=== PATIENT | female | born 1975 | race Caucasian/White ===

== ENCOUNTER 2022-03-21 11:07 | Inpatient (IN) | payer MEDICAID, SELFPAY ==
[2022-03-21] VITALS (13 sets, daily range): BP systolic 119–196; BP diastolic 67–119; PULSE 94–110; RESP 16–20; TEMP 36.3–37.3; O2SAT 94–100; BMI 36.9; BMI 30.6
--- NOTE | 2022-03-21 11:42 | XR_ITS ---
PROCEDURE INFORMATION: Exam: XR Right Femur Exam date and time: 03/21/2022 12:30 PM Age: 46 years old Clinical indication: Pain; Thigh; Right; Additional info: Groin and thigh pain. Severe pain best images possible TECHNIQUE: Imaging protocol: Radiologic exam of the Right femur. Views: 2 views. COMPARISON: No relevant prior studies available. FINDINGS: Bones/joints: No acute fracture or dislocation. There are no lytic skeletal lesions seen. Mild arthritis at the right hip joint, with joint space narrowing, slight femur head spurring, and acetabular sclerosis. Soft tissues: Subcutaneous soft tissue edema in the thigh. No soft tissue emphysema. No radiopaque foreign bodies. No pathologic soft tissue calcification. IMPRESSION: 1. No acute fracture, dislocation or lytic lesions. 2. Mild right hip arthritis. 3. Subcutaneous soft tissue edema in the thigh.
--- NOTE | 2022-03-21 11:46 | HMH.EDGENADL ---
Discharge Plan Disposition Patient Disposition: Admitted as Observation Condition: Fair Chief Complaint: Extremity Problem,Nontraumatic Prescriptions Prescriptions: No Action No Known Home Medications Referrals Follow up/Referrals: Ira Obrien PA [Primary Care Provider] - See instructions Clinical Impressions Clinical Impression: Acute pain of right thigh, Acute hyperglycemia Discharge ED Provider: Duran Mendez General Adult HPI General Chief complaint: Extremity Problem,Nontraumatic Stated complaint: pain in Rt leg Time Seen by Provider: 03/21/22 11:32 Mode of Arrival: Ambulatory Source of Information: Patient Limitations: No Limitations Description of Symptoms (Recalled from ER Triage Doc. by RN): pt to ed c/o right leg pain. pt reports the pain starts in her groin and radiates into her thigh. pt states this pain has been getting severe over the last 3 days. History of Present Illness HPI narrative: 3-day history of pain from her right groin down to her right knee. Denies any trauma or injury. No previous similar symptoms. States that her right leg was swollen but she elevated it and the swelling went away. She says that there was some redness of her right groin area. Denies fever. She says she has not had any back pain or back injury. She does have a prior history of sciatica, but this is different. No prior history of DVT. She has had previous MRSA infections and has scars in her right groin area. She says she had a red bump there for the past month that she suspected was an infection, but it has gotten better on its own, she says it never busted . States she is on no medications except for an asthma inhaler, no other chronic medical problems. States that she has a prior history of pain medication addiction 9 or 10 years ago. States she has not used any since then. 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 Related Data Home Medications Medication Instructions Recorded Confirmed No Known Home Medications 03/21/22 03/21/22 Allergies Allergy/AdvReac Type Severity Reaction Status Date / Time levofloxacin [From Levaquin] Allergy Verified 03/21/22 11:24 zolpidem [From Ambien] Allergy Verified 03/21/22 11:24 PFSH PFSH Social History Smoking Status: Never smoker ROS Obtained: Yes Systems reviewed as appropriate & no additional complaints except as documented Constitutional Constitutional: Denies fever(s) and Denies weakness Cardiovascular Cardiovascular: Denies chest pain Respiratory Respiratory: Denies shortness of breath Musculoskeletal Musculoskeletal: Reports as per HPI, Denies back pain and Denies numbness Integumentary/Breasts Skin/Breast: Reports as per HPI Neurologic Neurologic: Denies numbness and Denies weakness Physical Exam General General appearance: alert and anxious (tearful) ENT ENT exam: Present mucous membranes moist Neck Neck exam: Present normal inspection and trachea midline Chest Chest inspection: Present normal inspection and symmetric chest wall rise Respiratory Respiratory exam: Present normal lung sounds bilaterally; Absent respiratory distress Cardiovascular Cardiovascular exam: Present regular rate and normal rhythm Abdominal Exam Abdominal exam: Present soft; Absent tenderness Expanded Lower Extremity Exam Right: Comment: Tenderness of her entire right thigh. No edema or erythema noted. No vascular distention. No cords. She has scars in her right groin from apparent previous incisions and drainage. There is a small 2 cm area of erythema in the right groin which does appear to possibly be a resolving abscess. It is not fluctuant. There is no surrounding cellulitis. No masses of the joint. Normal femoral pulses. Normal pedal pulses. Normal warmth, capillary refill, sensation. Back Exam Back exam: Absent CVA tenderness (R), CVA ten
--- NOTE | 2022-03-21 12:14 | PC.NURSE ---
IV attempt unsuccessful. Candelario at the bedside for attempt
--- NOTE | 2022-03-21 13:05 | CT_ITS ---
PROCEDURE INFORMATION: Exam: CT Right Lower Extremity With Contrast; Thigh Exam date and time: 03/21/2022 3:17 PM Age: 46 years old Clinical indication: Pain; Thigh; Right; Additional info: Severe pain in right thigh TECHNIQUE: Imaging protocol: CT of the Right lower extremity with intravenous contrast was performed. Exam focused on the thigh. Radiation optimization: All CT scans at this facility use at least one of these dose optimization techniques: automated exposure control; mA and/or kV adjustment per patient size (includes targeted exams where dose is matched to clinical indication); or iterative reconstruction. Contrast material: ISOVUE; Contrast volume: 75 ml; Contrast route: IV; COMPARISON: CR XR FEMUR RT 2V 03/21/2022 12:30 PM FINDINGS: Bones/joints: No acute fracture or dislocation. Degenerative arthritis at the right hip joint, with small spurs of the right femur head, mild degenerative cortical irregularity of the right acetabulum. Mild hip joint space narrowing. No significant bony arthritic deformities at the knee joint. Tiny sclerotic lesions in the medial femoral condyle are probably developmental bone islands, less likely would be blastic metastasis.There are no lytic skeletal lesions seen. Soft tissues: There is soft tissue edema in the right thigh, but no organized fluid collection or mass. No soft tissue emphysema.No radiopaque foreign bodies seen. Some small varices in the anterior lower pelvic wall. IMPRESSION: 1. Mild soft tissue edema in the right thigh; no loculated fluid collection or mass. 2. Femur is intact with no fracture or dislocation. 3. Mild arthritic changes at the right hip joint. 4. Additional nonemergency and chronic findings as above.
[2022-03-21 13:22] LABS: Basophils # 0.1 K/mm3 (0-0.2); Basophils % 0.4 % (0.1-2.0); Eosinophils # 0.1 K/mm3 (0.0-0.4); Eosinophils % 0.9 % (0.1-12.0); Hematocrit 44.3 % (37.0-47.0); Hemoglobin 13.6 g/dL (12.2-16.2); Lymphocytes # 3.2 K/mm3 (0.7-4.5); Lymphocytes % 22.7 % (10-50); Mean Corpuscular HGB Conc 30.6 g/dL (31.8-35.4); Mean Corpuscular Hemoglobin 27.7 pg (27.0-31.2); Mean Corpuscular Volume 90.4 fl (81-99); Mean Platelet Volume 7.6 fl (7.4-10.4); Monocytes # 0.6 K/mm3 (0.1-1.0); Monocytes % 4.2 % (1.7-9.3); Neutrophils # 10.1 K/mm3 (1.8-7.8); Neutrophils % 71.8 % (37.0-80.0); Platelet Count 387 K/mm3 (142-424); Red Cell Distribution Width 13.7 % (11.5-17.5)
[2022-03-21 13:27] LABS: Alanine Aminotransferase 142 U/L (12-78); Albumin Level 3.9 g/dl (3.5-5.0); Albumin/Globulin Ratio 1.1 (1.1-1.8); Alkaline Phosphatase 184 U/L (38-126); Anion Gap 20.5 mEq/L (5-15); Aspartate Amino Transferase 70 U/L (14-36); Bilirubin,Total 0.6 mg/dl (0.2-1.3); Blood Urea Nitrogen 17 mg/dl (7-17); Calcium 9.6 mg/dl (8.4-10.2); Carbon Dioxide 23 mmol/L (22.0-30.0); Chloride 93 mmol/L (98-107); Creatinine Clearance Estimated 257 mL/min (50-200); Estimated Glomerular Filt Rate 134 ml/min (>60); GFR (African American) 162 ML/MIN (>60); Globulin 3.5 g/dL (1.3-3.2); Potassium 3.5 mmoL/L (3.5-5.1); Sodium 133 mmol/L (136-145); Total Protein,Serum 7.4 g/dl (6.3-8.2)
[2022-03-21 13:32] LABS: D-Dimer 0.72 ug/mL (0.0-0.5)
[2022-03-21 13:33] LABS: HCG Qualitative, Serum Negative (Negative)
[2022-03-21 13:34] LABS: Glucose 405 mg/dl (74-100)
--- NOTE | 2022-03-21 13:35 | PC.NURSE ---
notified ER of critical glucose
--- NOTE | 2022-03-21 13:36 | CT_ITS ---
PROCEDURE INFORMATION: Exam: CT Pelvis With Contrast Exam date and time: 03/21/2022 3:05 PM Age: 46 years old Clinical indication: Pain; Other: Groin and thigh; Additional info: Right groin and thigh pain TECHNIQUE: Imaging protocol: Computed tomography of the pelvis with contrast. Radiation optimization: All CT scans at this facility use at least one of these dose optimization techniques: automated exposure control; mA and/or kV adjustment per patient size (includes targeted exams where dose is matched to clinical indication); or iterative reconstruction. Contrast material: ISOVUE; Contrast volume: 75 ml; Contrast route: IV; COMPARISON: CR XR FEMUR RT 2V 03/21/2022 12:30 PM FINDINGS: Stomach and bowel: Visualized small bowel and colon are unremarkable. There is no evidence of intestinal perforation or obstruction. Appendix: No evidence of appendicitis. Intraperitoneal space: Unremarkable. No free air. No significant fluid collection. Lymph nodes: No significantly enlarged intra-pelvic lymph nodes by short axis criteria. A few minimally prominent inguinal lymph nodes bilaterally which are a common finding, likely reactive. Urinary bladder: Normal. No calcified stones or wall thickening as visualized; the urinary bladder is not yet opacified with excreted contrast on this single phase exam. Reproductive: Unremarkable for age. Bones/joints: No acute fracture. No dislocation. Mild arthritic changes at the hip joints with small femur head spurs, superior joint space narrowing, minimal degenerative changes of the acetabula. There is bilateral sacroiliitis with periarticular sclerosis and spurring greatest along the inferior margin of the joints. There are degenerative changes in the lower lumbar spine, with bilateral L5 spondylolysis, grade 1 anterolisthesis L5-S1, associated disc disease and spondylosis. L5 foramina appear moderately severely narrowed, correlate for radiculopathy.There are no lytic skeletal lesions seen. Soft tissues: There are no soft tissue masses or fluid collections. No inguinal hernia to explain groin pain. IMPRESSION: 1. No acute fracture or dislocation. Mild bilateral hip arthritis and sacroiliitis. 2. Chronic-appearing bilateral L5 spondylolysis with grade 1 anterolisthesis L5-S1, prominent degenerative disc disease and spondylosis, moderately severe bilateral L5 foraminal stenoses with nerve impingement. Correlate for radiculopathy. 3. No acute findings in the soft tissues to explain right groin pain; no hernia, hematoma or mass. 4. No free fluid, free air, or visceral injury as visualized. 5. Additional nonemergency and chronic findings as above.
--- NOTE | 2022-03-21 13:38 | PC.NURSE ---
notified lab of new orders, notified RT of vbg order notified Rad of new order
[2022-03-21 13:42] LABS: Acetone, Serum (Rapid) None Detected (None Detect)
[2022-03-21 13:54] LABS: VBG Oxygen Saturation 98.7 % (50-70); VBG PCO2 37.4 mmol/L (35-51); VBG PH 7.39 mmol/L (7.31-7.41); VBG PO2 128.6 mmol/L (28-40); VBG Total CO2 23.1 mmol/L (23-27)
--- NOTE | 2022-03-21 14:04 | PC.NURSE ---
at the bedside
--- NOTE | 2022-03-21 14:08 | PC.NURSE ---
contacted RT to check to see if vascular lab staff can come in to do a venous doppler on pt today. States she will call staff and call me back
--- NOTE | 2022-03-21 14:15 | PC.NURSE ---
verbal order for IV pain medication
--- NOTE | 2022-03-21 14:24 | CA_ITS ---
FINAL REPORT TECHNIQUE: Multiple transverse and longitudinal images were performed of right the femoral-popliteal deep venous system with augmentation and compression maneuvers. CLINICAL HISTORY: severe pain right groin and thigh. Patient denies trauma. Pain in right groin and thigh began 3 days ago. She is unable to lay down or hold still due to pain. Nurse assisted in scan but still was a very limited exam due to these limitations. Pain meds were administered with no assistance in exam toleration. FINDINGS: Right common femoral vein, femoral vein, popliteal vein and greater saphenous vein are patent. IMPRESSION: No evidence of right lower extremity DVT. Reviewed, Interpreted and Dictated by Caro Newman MD Transcribed by Digna Cobb Authenticated and [facility]
--- NOTE | 2022-03-21 14:27 | PC.NURSE ---
per RT, vascular lab staff is on their way in for doppler on pt, ER notified
--- NOTE | 2022-03-21 14:28 | PC.NURSE ---
pt to CT
--- NOTE | 2022-03-21 15:39 | PC.NURSE ---
vascular at the bedside
--- NOTE | 2022-03-21 16:16 | PC.NURSE ---
pt in bed at this time assisted pt to help reposition in bed for comfort, pt has blanket in between knees and under knees, pt is currently trying to lay on her side.
--- NOTE | 2022-03-21 17:49 | PC.NURSE ---
INDERJIT DEY speaking with dr. perez (hospitalist)
[2022-03-21 17:51] LABS: Lactic Acid 1.5 mmol/L (0.7-2.1)
--- NOTE | 2022-03-21 17:57 | PC.NURSE ---
dr. perez (hospitalist) at BS
--- NOTE | 2022-03-21 17:58 | PC.NURSE ---
notified powerhouse electrician of admission
--- NOTE | 2022-03-21 18:05 | PC.NURSE ---
Pt assigned to bed 213
[2022-03-21 18:14] LABS: Influenza A, PCR Not Detected (NotDetected); Influenza B, PCR Not Detected (NotDetected)
--- NOTE | 2022-03-21 18:30 | PC.NURSE ---
report called to danita you on the floor
--- NOTE | 2022-03-21 18:57 | EXP.HP ---
History of Present Illness *Admission Date: 03/21/22 *Reason for visit:: Leg pain *History of present illness: Patient is 46-year-old female who presents emergency department today for leg pain of 3 days duration. Patient states that approximately 3 days ago she began having pain in her right medial thigh. The pain extends from just above the right inguinal ligament along the medial thigh to the right medial knee. States that the pain has been progressively worsening for the last 3 days and this morning was unbearable and extremely painful. She reports erythema and swelling of this area and both decrease when she props her legs up above her on a pillow. Patient is a IV drug user and was prescribed Suboxone. She was reluctant to reveal that she has been injecting her Suboxone in the last few weeks into her right thigh along the area that hurts. That is her preferred injection site states last IV drug use in the site was a few weeks ago. Denies fevers denies chills denies neck PFSH PFSH Social History Smoking Status: Never smoker alcohol intake: former current occupational status: other Travel in the last 8 weeks: None Review of Systems Review of Systems Review of systems:: pertinent systems reviewed and negative unless documented below Constitutional Constitutional: Reports system reviewed and no additional complaints, except as documented and Denies weakness Eyes Eyes: Reports system reviewed and no additional complaints, except as documented ENT Ears, Nose, Mouth, and Throat: Reports system reviewed and no additional complaints, except as documented *Cardiovascular Cardiovascular: Reports system reviewed and no additional complaints, except as documented *Respiratory Respiratory: Reports system reviewed and no additional complaints, except as documented *Gastrointestinal Gastrointestinal: Reports system reviewed and no additional complaints, except as documented *Genitourinary Genitourinary: Reports system reviewed and no additional complaints, except as documented *Musculoskeletal Musculoskeletal: Reports system reviewed and no additional complaints, except as documented and Denies numbness Integumentary/Breasts Skin/Breast: Reports system reviewed and no additional complaints, except as documented *Neurologic Neurologic: Reports system reviewed and no additional complaints, except as documented, Denies numbness and Denies weakness Psychiatric Psychiatric: Reports system reviewed and no additional complaints, except as documented Endocrine Endocrine: Reports system reviewed and no additional complaints, except as documented Hematologic/Lymphatic Hematologic/Lymphatic: Reports system reviewed and no additional complaints, except as documented Meds Home Medications and Allergies Home Medications Medication Instructions Recorded Confirmed Type No Known Home Medications 03/21/22 03/21/22 History New Prescriptions to Start Prescriptions: Allergies Allergy/AdvReac Type Severity Reaction Status Date / Time levofloxacin [From Levaquin] Allergy Verified 03/21/22 11:24 zolpidem [From Ambien] Allergy Verified 03/21/22 11:24 Exam Data for Last 24 hours Vital signs and Labs for Last 24 Hours: Temp Pulse Resp BP Pulse Ox 97.4 F L 100 H 20 147/83 H 99 03/21/22 11:19 03/21/22 18:31 03/21/22 18:31 03/21/22 18:31 03/21/22 18:31 Laboratory Results - last 24 hr 03/21/22 13:02: WBC 14.0 H, RBC 4.90, Hgb 13.6, Hct 44.3, MCV 90.4, MCH 27.7, MCHC 30.6 L, RDW 13.7, Plt Count 387, MPV 7.6, Neut % (Auto) 71.8, Lymph % (Auto) 22.7, [place] % (Auto) 4.2, Eos % (Auto) 0.9, Baso % (Auto) 0.4, Neut # (Auto) 10.1 H, Lymph # (Auto) 3.2, [place] # (Auto) 0.6, Eos # (Auto) 0.1, Baso # (Auto) 0.1 03/21/22 13:02: D-Dimer 0.72 H 03/21/22 13:02: Sodium 133 L, Potassium 3.5, Chloride 93 L, Carbon Dioxide 23, Anion Gap 20.5 H, BUN 17, Creatinine 0.50 L, Estimated Creat Cl
[2022-03-21 19:01] LABS: C-Reactive Protein 57.5 mg/L (0-4)
[2022-03-21 19:07] LABS: Erythrocyte Sedimentation Rate 22 mm/hr (0-20)
[2022-03-21 19:26] LABS: Coronavirus 19, PCR Detected (NotDetected)
--- NOTE | 2022-03-21 19:31 | PC.NURSE ---
Cultures and lactic drawn and sent to lab
[2022-03-21 19:32] LABS: Barbiturates Screen,Urine Negative ng/ml (<200); Benzodiazepines Screen,Urine Negative ng/ml (<200)
[2022-03-21 19:34] LABS: Cannabinoid Screen,Urine Positive ng/ml (<50); Cocaine Screen,Urine Negative ng/ml (<300)
[2022-03-21 19:35] LABS: Methadone Screen,Urine Negative ng/ml (<300)
[2022-03-21 19:36] LABS: Opiate Screen,Urine Positive ng/ml (<300); Phencyclidine Screen,Urine Negative ng/ml (<25)
[2022-03-21 19:45] LABS: Creatine Kinase 68 U/L (30-135)
--- NOTE | 2022-03-21 19:45 | PC.NURSE ---
called [facility] at this time to verify vanc consult and dose, Filipe stated he would put in the correct order
[2022-03-21 19:53] LABS: Amphetamine/Metha Screen,Urine Positive ng/ml (<1000)
--- NOTE | 2022-03-21 19:55 | PC.NURSE ---
Pt arrived to floor via wheelchair @ 1952
[2022-03-21 19:58] LABS: INR 0.91 (0.9-1.1); Prothrombin Time 9.9 seconds (10.1-12.5)
[2022-03-21 20:38] LABS: Microscopic, Urine URINE MICROSCOPIC (MICROSCOPIC)
[2022-03-21 20:43] LABS: Appearance,Urine CLEAR (Clear); Bilirubin,Urine Negative (Negative); Blood, Urine Negative (Negative); Color,Urine YELLOW (Yellow); Glucose,Urine (UA) 2+ (Negative); Ketones,Urine 1+ (Negative); Leukocyte Esterase,Urine Negative (Negative); Nitrate,Urine Negative (Negative); PH,Urine 5.5 (5.0-8.5); Protein,Urine Negative (Negative); Specific Gravity, Urine 1.015 (1.005-1.030); Urobilinogen,Urine 0.2 EU/dl (0.2)
[2022-03-21 21:06] LABS: POC Glucose,Bedside 316 (70-110)
[2022-03-21 23:15] LABS: POC Glucose,Bedside 272 (70-110)
[2022-03-22] VITALS (9 sets, daily range): BP systolic 136–165; BP diastolic 69–89; PULSE 88–108; RESP 16–20; TEMP 36.7–38.2; O2SAT 95–100; BMI 30.6
[2022-03-22 05:27] LABS: POC Glucose,Bedside 285 (70-110)
--- NOTE | 2022-03-22 05:56 | PC.NURSE ---
pt has been restless this shift, has required PRN pain medications 4 times this shift, did have a temperature of 100.8 on 399 rounds, no complaints of SOA, remains on room air
[2022-03-22 06:50] LABS: POC Glucose,Bedside 269 (70-110)
--- NOTE | 2022-03-22 07:53 | EXP.PHA.CONS ---
Pharmacy Consult Date: 03/22/22 Time: 07:53 Referring provider: DR. Lorrie STEPHEN Reason for Consult:: VANCOMYCIN DOSING Allergies Allergy/AdvReac Type Severity Reaction Status Date / Time levofloxacin [From Levaquin] Allergy Verified 03/21/22 22:22 zolpidem [From Ambien] Allergy Verified 03/21/22 22:22 Home Medications Medication Instructions Recorded Confirmed Type No Known Home Medications 03/21/22 03/21/22 History New Prescriptions to Start Prescriptions: Height: 1.75 m Weight: 93.848 kg Laboratory Results:: Laboratory Results - last 24 hr 03/21/22 13:02: WBC 14.0 H, RBC 4.90, Hgb 13.6, Hct 44.3, MCV 90.4, MCH 27.7, MCHC 30.6 L, RDW 13.7, Plt Count 387, MPV 7.6, Neut % (Auto) 71.8, Lymph % (Auto) 22.7, [place] % (Auto) 4.2, Eos % (Auto) 0.9, Baso % (Auto) 0.4, Neut # (Auto) 10.1 H, Lymph # (Auto) 3.2, [place] # (Auto) 0.6, Eos # (Auto) 0.1, Baso # (Auto) 0.1 03/21/22 13:02: D-Dimer 0.72 H 03/21/22 13:02: Sodium 133 L, Potassium 3.5, Chloride 93 L, Carbon Dioxide 23, Anion Gap 20.5 H, BUN 17, Creatinine 0.50 L, Estimated Creat Clear 257, Estimated GFR 134, Est GFR ( Amer) 162, Glucose 405 H*, Calcium 9.6, Total Bilirubin 0.6, AST 70 H, ALT 142 H, Alkaline Phosphatase 184 H, Total Protein 7.4, Albumin 3.9, Globulin 3.5 H, Albumin/Globulin Ratio 1.1 03/21/22 13:02: Serum HCG, Qual Negative 03/21/22 13:02: Acetone Level None detected 03/21/22 13:02: ESR 22 H 03/21/22 13:02: C-Reactive Protein 57.5 H 03/21/22 13:02: PT 9.9 L, INR 0.91 03/21/22 13:02: Total Creatine Kinase 68 03/21/22 13:37: VBG pH 7.39, VBG pCO2 37.4, VBG pO2 128.6 H, VBG HCO3 22.0 L, VBG Total CO2 23.1, VBG O2 Saturation 98.7 H, VBG Base Excess -3.0 L 03/21/22 17:22: Lactate 1.5 03/21/22 17:56: SARS-CoV-2 (PCR) Detected A, Influenza A Untype (PCR) Not detected, Influenza Type B (PCR) Not detected 03/21/22 19:15: Urine Opiates Screen Positive H, Urine Methadone Screen Negative, Ur Barbituates Screen Negative, Ur Phencyclidine Scrn Negative, Ur Amphetamines Screen Positive H, U Benzodiazepines Scrn Negative, Urine Cocaine Screen Negative, U Marijuana (THC) Screen Positive H 03/21/22 19:15: Urine Color Yellow, Urine Appearance Clear, Urine pH 5.5, Ur Specific [place] 1.015, Urine Protein Negative, Urine Glucose (UA) 2+, Urine Ketones 1+, Urine Blood Negative, Urine Nitrate Negative, Urine Bilirubin Negative, Urine Urobilinogen 0.2, Ur Leukocyte Esterase Negative, Urine WBC 3-5, Ur Squamous Epith Cells 3-5, Urine Bacteria None 03/21/22 20:56: POC Glucose 316 H* 03/21/22 23:08: POC Glucose 272 H 03/22/22 05:20: POC Glucose 285 H 03/22/22 06:43: POC Glucose 269 H Medical History: Medical History (Updated 03/21/22 @ 22:26 by Laurel Ulloa RN) Asthma Assessment and Plan Assessment and plan all Dx Assessment and Plan for all problems:: Pharmacokinetic dosing service Objective: Patient: Floor: Age: 46 yo Serum creatinine: 0.50 mg/dL Height: 68.9 Inches Weight (kg): 93.8 Assessment: IBW (kg): 65.97 Dosing wt(kg): 93.8 Estimated Creatinine clearance (ml/min): 130 Clearance limited to 130 ml/min to reduce risk of overdosing. CRCL method: Cockcroft and Gault using ibw(default). Drug selected: Vancomycin Loading dose (mg): Vd (liters): 70.3 (factor used: 0.75 L/kg) Jensen (hr-1): 0.112 Half life (hrs): 6.19 CLvanco=?? 7.874 L/hr Recommended dose: 2000 mg Interval: 12 hrs Infusion time (hrs): 2.0 Predicted peak (mcg/mL): 34.5 Predicted trough (mcg/mL): 11.26 Total body weight is being used for vancomycin dosing. Recommendations: Give Vancomycin 2000 mg q 12 hrs with an expected Cpeak of 34.5 mcg/ml and an expected Ctrough of 11.26 mcg/ml AUC 0-24 /BLADE Data: BLADE 0.5 mcg/mL:?? AUC/BLADE:? 1016.0 BLADE 1.0 m
--- NOTE | 2022-03-22 11:30 | EXP.ACUTE.PN ---
Subjective *Date: 03/22/22 *Time: 11:30 Interval history: No issues overnight. Having trouble with IVs and lab draws due to bad veins. Patient is pretty open about her IV drug use with me, although hesitant with others. Leg pain has significantly improved with Toradol. Patient understands that her Suboxone usage is what is contributing to the opioid lack of affect discussed needing access. Patient understands Medical Exam Vital signs and Labs for Last 24 Hours: Vital Signs Temp Pulse Pulse Resp BP BP Pulse Ox 03/22/22 08:00 100.1 F H 108 H 16 136/72 95 03/22/22 06:18 100.1 F H 03/22/22 04:00 100.7 F H 108 H 20 165/89 H 100 03/22/22 00:00 98.9 F 88 20 154/82 H 99 03/21/22 20:05 99.2 F 98 H 20 151/83 H 94 L 03/21/22 20:00 100 03/21/22 19:50 97.4 F L 99 H 18 146/78 H 03/21/22 18:31 100 H 20 147/83 H 99 03/21/22 17:34 108 H 18 136/81 99 03/21/22 16:30 95 H 20 145/75 H 95 03/21/22 14:11 99 H 16 139/117 H 98 03/21/22 14:00 110 H 16 140/80 98 03/21/22 13:45 95 H 18 126/73 97 03/21/22 13:19 95 H 18 119/67 98 03/21/22 11:31 94 H 159/94 H 96 Intake and Output 03/21/22 03/22/22 03/22/22 23:59 07:59 15:59 Intake Total 750 / 750 Output Total 400 / 400 250 / 250 0 / 250 Balance -400 / -400 500 / 500 0 / 500 Intake: Intake, Total IV Amount 750 / 750 Cefepime HCl 1 gm In 0.9 % 50 / 50 Sodium Chloride 50 ml @ 100 mls /hr IV Q12H BARBARA Rx#:[id number] Metronidaz/Sod Chl 500 mg In 200 / 200 100 ml @ 100 mls/hr IV Q8H BARBARA Rx#:[id number] Vancomycin HCl 2,000 mg In 0.9 500 / 500 % Sodium Chloride 500 ml @ 250 mls/hr IV ONCE ONE Rx#:[id number] Output: Output, Urine Amount 400 / 400 250 / 250 0 / 250 Other: Number of Unmeasured Voids 1 Weight 93.803 kg 93.848 kg Patient Weight 03/22/22 23:59 Weight 93.848 kg Laboratory Results - last 24 hr 03/21/22 13:02: WBC 14.0 H, RBC 4.90, Hgb 13.6, Hct 44.3, MCV 90.4, MCH 27.7, MCHC 30.6 L, RDW 13.7, Plt Count 387, MPV 7.6, Neut % (Auto) 71.8, Lymph % (Auto) 22.7, [place] % (Auto) 4.2, Eos % (Auto) 0.9, Baso % (Auto) 0.4, Neut # (Auto) 10.1 H, Lymph # (Auto) 3.2, [place] # (Auto) 0.6, Eos # (Auto) 0.1, Baso # (Auto) 0.1 03/21/22 13:02: D-Dimer 0.72 H 03/21/22 13:02: Sodium 133 L, Potassium 3.5, Chloride 93 L, Carbon Dioxide 23, Anion Gap 20.5 H, BUN 17, Creatinine 0.50 L, Estimated Creat Clear 257, Estimated GFR 134, Est GFR ( Amer) 162, Glucose 405 H*, Calcium 9.6, Total Bilirubin 0.6, AST 70 H, ALT 142 H, Alkaline Phosphatase 184 H, Total Protein 7.4, Albumin 3.9, Globulin 3.5 H, Albumin/Globulin Ratio 1.1 03/21/22 13:02: Serum HCG, Qual Negative 03/21/22 13:02: Acetone Level None detected 03/21/22 13:02: ESR 22 H 03/21/22 13:02: C-Reactive Protein 57.5 H 03/21/22 13:02: PT 9.9 L, INR 0.91 03/21/22 13:02: Total Creatine Kinase 68 03/21/22 13:37: VBG pH 7.39, VBG pCO2 37.4, VBG pO2 128.6 H, VBG HCO3 22.0 L, VBG Total CO2 23.1, VBG O2 Saturation 98.7 H, VBG Base Excess -3.0 L 03/21/22 17:22: Lactate 1.5 03/21/22 17:56: SARS-CoV-2 (PCR) Detected A, Influenza A Untype (PCR) Not detected, Influenza Type B (PCR) Not detected 03/21/22 19:15: Urine Opiates Screen Positive H, Urine Methadone Screen Negative, Ur Barbituates Screen Negative, Ur Phencyclidine Scrn Negative, Ur Amphetamines Screen Positive H, U Benzodiazepines Scrn Negative, Urine Cocaine Screen Negative, U Marijuana (THC) Screen Positive H 03/21/22 19:15: Urine Color Yellow, Urine Appearance Clear, Urine pH 5.5, Ur Specific [place] 1.015, Urine Protein Negative, Urine Glucose (UA) 2+, Urine Ketones 1+, Urine Blood Negative, Urine Nitrate Negative, Urine Bilirubin Negative, Urine Urobilinogen 0.2, Ur Leukocyte Esterase Negative, Urine WBC 3-5, Ur Squamous Epith Cells 3-5, Urine Bacteria None 03/21/22 20:56: POC Glucose 316 H* 03/21/22 23:08: POC Glucose 272
[2022-03-22 12:19] LABS: POC Glucose,Bedside 332 (70-110)
[2022-03-22 16:36] LABS: Basophils % 0.3 % (0.1-2.0); Eosinophils # 0.2 K/mm3 (0.0-0.4); Eosinophils % 1.2 % (0.1-12.0); Hematocrit 40.8 % (37.0-47.0); Hemoglobin 13.2 g/dL (12.2-16.2); Lymphocytes # 1.2 K/mm3 (0.7-4.5); Lymphocytes % 7.7 % (10-50); Mean Corpuscular HGB Conc 32.3 g/dL (31.8-35.4); Mean Corpuscular Hemoglobin 28.1 pg (27.0-31.2); Mean Corpuscular Volume 87.2 fl (81-99); Mean Platelet Volume 7.8 fl (7.4-10.4); Monocytes # 0.7 K/mm3 (0.1-1.0); Monocytes % 4.2 % (1.7-9.3); Neutrophils # 13.7 K/mm3 (1.8-7.8); Neutrophils % 86.7 % (37.0-80.0); Platelet Count 356 K/mm3 (142-424); Red Blood Count 4.68 M/mm3 (4.20-5.40); White Blood Count 15.8 K/mm3 (4.8-10.8)
[2022-03-22 16:40] LABS: MANUAL DIFFERENTIAL MANUAL DIFFERENTIAL (MANUAL DIFF)
[2022-03-22 16:49] LABS: Chloride 97 mmol/L (98-107); Potassium 3.9 mmoL/L (3.5-5.1); Sodium 132 mmol/L (136-145)
[2022-03-22 16:51] LABS: Alanine Aminotransferase 96 U/L (12-78); Aspartate Amino Transferase 58 U/L (14-36); Blood Urea Nitrogen 14 mg/dl (7-17); Creatinine Clearance Estimated 266 mL/min (50-200); Estimated Glomerular Filt Rate 173 ml/min (>60); GFR (African American) 210 ML/MIN (>60)
[2022-03-22 16:52] LABS: Albumin Level 3.1 g/dl (3.5-5.0); Albumin/Globulin Ratio 1.1 (1.1-1.8); Alkaline Phosphatase 134 U/L (38-126); Anion Gap 10.9 mEq/L (5-15); Bilirubin,Total 0.5 mg/dl (0.2-1.3); Calcium 9.1 mg/dl (8.4-10.2); Carbon Dioxide 28 mmol/L (22.0-30.0); Chol/HDL Ratio 3.3 (1-3.5); Cholesterol 141 mg/dl (140-200); Globulin 2.9 g/dL (1.3-3.2); Glucose 313 mg/dl (74-100); HDL Cholesterol 43 mg/dl (40-60); Magnesium 1.7 mg/dl (1.6-2.3); Phosphorous 2.9 mg/dl (2.5-4.5); Triglycerides 78 mg/dl (30-150); VLDL Cholesterol 16 mg/dL (0-40)
[2022-03-22 17:03] LABS: Direct LDL Cholesterol 73.17 mg/dL (100-129)
--- NOTE | 2022-03-22 17:06 | PC.NURSE ---
PT IS SITTING UP IN THE CHAIR. ALERT AND ORIENTED X4. PT HAS BEEN MEDICATED PER MAR FOR RIGHT THIGH PAIN. PT STATES TORADOL HAS WORKED THE BEST FOR HER PAIN. PT HAS REDNESS/TENDERNESS/WARMTH NOTED TO THE RLE. PALPABLE PEDAL PULSES. LUNG SOUNDS CLEAR. ABDOMEN SOFT NON TENDER WITH ACTIVE BOWEL SOUNDS. PT IS A 1 ASSIST TO GET UP TO THE BSC. BATH AND LINEN CHANGE THIS SHIFT. WILL CONTINUE TO MONITOR.
[2022-03-22 17:12] LABS: Hemoglobin A1C > 14.0 % (4.0-6.0)
[2022-03-22 17:21] LABS: Lymphocytes % 15 % (10-50); Monocytes % 2 % (2-9); Neutrophils % 73 % (42-76); Platelet Estimate Normal; RBC Morphology Normal; Rouleaux 1+; Total Cells Counted 100; Toxic Granulation 2+
[2022-03-22 19:38] LABS: POC Glucose,Bedside 331 (70-110)
[2022-03-23 01:01] LABS: POC Glucose,Bedside 230 (70-110)
[2022-03-23 04:00] VITALS: BP 144/80; PULSE 87; RESP 16; TEMP 36.9; O2SAT 97
[2022-03-23 05:00] VITALS: BMI 30.4
--- NOTE | 2022-03-23 05:45 | PC.NURSE ---
Addendum entered by Laurel Ulloa RN 03/23/22 05:51: has remained afebrile Original Note: pt has rested better this shift, has required PRN pain medications 2X so far, remains on room air, has been tachy with heart rates 101-103, no complaints of SOA, warmth noted to right thigh
[2022-03-23 06:35] LABS: POC Glucose,Bedside 211 (70-110)
[2022-03-23 07:14] LABS: Basophils % 0.2 % (0.1-2.0); Eosinophils % 0.2 % (0.1-12.0); Hematocrit 36.9 % (37.0-47.0); Hemoglobin 12.1 g/dL (12.2-16.2); Lymphocytes # 1.8 K/mm3 (0.7-4.5); Lymphocytes % 12.3 % (10-50); Mean Corpuscular HGB Conc 32.9 g/dL (31.8-35.4); Mean Corpuscular Hemoglobin 28.3 pg (27.0-31.2); Mean Corpuscular Volume 86.1 fl (81-99); Mean Platelet Volume 8.6 fl (7.4-10.4); Monocytes # 0.8 K/mm3 (0.1-1.0); Monocytes % 5.7 % (1.7-9.3); Neutrophils # 11.7 K/mm3 (1.8-7.8); Neutrophils % 81.6 % (37.0-80.0); Platelet Count 360 K/mm3 (142-424); Red Blood Count 4.28 M/mm3 (4.20-5.40); Red Cell Distribution Width 14.2 % (11.5-17.5); White Blood Count 14.3 K/mm3 (4.8-10.8)
[2022-03-23 07:27] LABS: Alanine Aminotransferase 88 U/L (12-78); Albumin Level 3.1 g/dl (3.5-5.0); Alkaline Phosphatase 141 U/L (38-126); Anion Gap 16.1 mEq/L (5-15); Aspartate Amino Transferase 79 U/L (14-36); Bilirubin,Total 0.5 mg/dl (0.2-1.3); Blood Urea Nitrogen 19 mg/dl (7-17); Calcium 8.8 mg/dl (8.4-10.2); Carbon Dioxide 26 mmol/L (22.0-30.0); Chloride 94 mmol/L (98-107); Creatinine Clearance Estimated 264 mL/min (50-200); Estimated Glomerular Filt Rate 173 ml/min (>60); GFR (African American) 210 ML/MIN (>60); Globulin 3.2 g/dL (1.3-3.2); Glucose 213 mg/dl (74-100); Magnesium 1.6 mg/dl (1.6-2.3); Potassium 3.1 mmoL/L (3.5-5.1); Sodium 133 mmol/L (136-145); Total Protein,Serum 6.3 g/dl (6.3-8.2)
[2022-03-23 08:00] VITALS: BP 143/72; PULSE 121; PULSE 95; RESP 18; TEMP 36.6; O2SAT 97; O2SAT 98
--- NOTE | 2022-03-23 08:00 | US_ITS ---
FINAL REPORT CLINICAL HISTORY: Transaminitis FINDINGS: ABDOMINAL ULTRASOUND COMPLETE: TECHNIQUE: Ultrasound images of the abdomen were obtained. FINDINGS: The liver is unremarkable. The gallbladder is normal. The common duct is normal. The pancreas is partially obscured. The right kidney measures 12.3 cm in length and is normal in echogenicity without hydronephrosis. The left kidney measures 11.8 cm in length and is normal in echogenicity without hydronephrosis. The spleen is unremarkable. The aorta is normal in caliber. The vena cava is unremarkable. IMPRESSION: Unremarkable ultrasound of the abdomen. Reviewed, Interpreted and Dictated by Caro Newman MD Transcribed by Kiran Marks Authenticated and . [facility]
--- NOTE | 2022-03-23 10:39 | PC.NURSE ---
awaiting vanc trough results before hanging vanc dose. pharmacy aware
[2022-03-23 10:55] LABS: Vancomycin,Trough 6.4 ug/mL (5.0-10.0)
--- NOTE | 2022-03-23 11:32 | EXP.PHA.CONS ---
Pharmacy Consult Date: 03/23/22 Time: 11:33 Referring provider: DR ALEX STEPHEN Reason for Consult:: VANCOMYCIN DOSE ADJUSTMENT FOR PK LEVEL Allergies Allergy/AdvReac Type Severity Reaction Status Date / Time levofloxacin [From Levaquin] Allergy Verified 03/21/22 22:22 zolpidem [From Ambien] Allergy Verified 03/21/22 22:22 Home Medications Medication Instructions Recorded Confirmed Type No Known Home Medications 03/21/22 03/21/22 History New Prescriptions to Start Prescriptions: Height: 1.75 m Weight: 93.043 kg Laboratory Results:: Laboratory Results - last 24 hr 03/22/22 12:11: POC Glucose 332 H* 03/22/22 16:25: WBC 15.8 H, RBC 4.68, Hgb 13.2, Hct 40.8, MCV 87.2, MCH 28.1, MCHC 32.3, RDW 14.0, Plt Count 356, MPV 7.8, Neut % (Auto) 86.7 H, Lymph % (Auto) 7.7 L, [place] % (Auto) 4.2, Eos % (Auto) 1.2, Baso % (Auto) 0.3, Neut # (Auto) 13.7 H, Lymph # (Auto) 1.2, [place] # (Auto) 0.7, Eos # (Auto) 0.2, Baso # (Auto) 0.0, Total Counted 100, Neutrophils % (Manual) 73, Band Neutrophils % 10.0 H, Lymphocytes % (Manual) 15, Monocytes % (Manual) 2, Toxic Granulation 2+, Platelet Estimate Normal, RBC Morphology Normal, Rouleaux 1+ 03/22/22 16:25: Sodium 132 L, Potassium 3.9, Chloride 97 L, Carbon Dioxide 28, Anion Gap 10.9, BUN 14, Creatinine 0.40 L, Estimated Creat Clear 266, Estimated GFR 173, Est GFR ( Amer) 210 D, Glucose 313 H, Calcium 9.1, Phosphorus 2.9, Magnesium 1.7, Total Bilirubin 0.5, AST 58 H, ALT 96 H D, Alkaline Phosphatase 134 H, Total Protein 6.0 L, Albumin 3.1 L D, Globulin 2.9, Albumin/Globulin Ratio 1.1, Triglycerides 78, Cholesterol 141, LDL Cholesterol Direct 73.17 L, VLDL Cholesterol 16, HDL Cholesterol 43, Cholesterol/HDL Ratio 3.3 03/22/22 16:25: Hemoglobin A1c > 14.0 H 03/22/22 19:31: POC Glucose 331 H* 03/23/22 00:50: POC Glucose 230 H 03/23/22 06:09: WBC 14.3 H, RBC 4.28, Hgb 12.1 L, Hct 36.9 L, MCV 86.1, MCH 28.3, MCHC 32.9, RDW 14.2, Plt Count 360, MPV 8.6, Neut % (Auto) 81.6 H, Lymph % (Auto) 12.3, [place] % (Auto) 5.7, Eos % (Auto) 0.2, Baso % (Auto) 0.2, Neut # (Auto) 11.7 H, Lymph # (Auto) 1.8, [place] # (Auto) 0.8, Eos # (Auto) 0.0, Baso # (Auto) 0.0 03/23/22 06:09: Sodium 133 L, Potassium 3.1 L D, Chloride 94 L, Carbon Dioxide 26, Anion Gap 16.1 H, BUN 19 H D, Creatinine 0.40 L, Estimated Creat Clear 264, Estimated GFR 173, Est GFR ( Amer) 210, Glucose 213 H D, Calcium 8.8, Phosphorus 3.0, Magnesium 1.6, Total Bilirubin 0.5, AST 79 H D, ALT 88 H, Alkaline Phosphatase 141 H, Total Protein 6.3, Albumin 3.1 L, Globulin 3.2, Albumin/Globulin Ratio 1.0 L 03/23/22 06:26: POC Glucose 211 H 03/23/22 10:18: Vancomycin Trough 6.4 Medical History: Medical History (Updated 03/21/22 @ 22:26 by Laurel Ulloa RN) Asthma Assessment and Plan Assessment and plan all Dx Assessment and Plan for all problems:: Pharmacokinetic dosing service Weight: 93.043 Kilograms Vancomycin single level analysis: Current dose being given: 2000 mg Current dosing interval: 12 hrs Current infusion time (hrs): 2 Single level Trough Data: Trough level obtained: 6.4 mcg/ml Timing of trough - # of hrs before next dose: 0.5 Hrs Desired peak: 35 mcg/ml Desired trough: 12.5 mcg/ml Diagnosis: SEPSIS Estimated PK Parameters: New rate constant (margaret): 0.153 hr-1 Half-life: 4.53 Hours Vd from levels: 65.13 Liters (0.7 L/kg) CLvanco=?? 9.965 L/hr Estimated New Dose and Interval Recommended dose: 1947.0 mg Recommended interval: 8.7 Hrs Recommendations: Give Vancomycin 1750 mg q 8 hrs. Infuse over 2 hrs Expected Cpeak: 32.8 mcg/mL Expected Ctrough: 13.1 mcg/mL AUC 0-24 /BLADE Data: BLADE 0.5 mcg/mL:?? AUC/BLADE:? 1053.7 BLADE 1.0 mcg/mL:?? AUC/BLADE:? 526.8 Thank you for the consult
[2022-03-23 12:00] VITALS: BP 141/87; PULSE 97; RESP 18; TEMP 36.8; O2SAT 97
[2022-03-23 13:57] LABS: POC Glucose,Bedside 333 (70-110)
[2022-03-23 17:10] LABS: POC Glucose,Bedside 208 (70-110)
--- NOTE | 2022-03-23 18:30 | EXP.ACUTE.PN ---
Subjective *Date: 03/23/22 *Time: 18:46 Interval history: No issues overnight. Leg pain improved. Discussed preliminary blood cultures and potential need for 6 weeks antibiotics pending evaluation of bacteremia. Discussed necessity for sobriety and assistance getting sober after discharge, patient is interested in pursuing. No other concerns or complaints. Medical Exam Vital signs and Labs for Last 24 Hours: Vital Signs Temp Pulse Resp BP Pulse Ox 03/23/22 12:00 98.2 F 97 H 18 141/87 H 97 03/23/22 08:00 121 H 97 03/23/22 08:00 98 F 95 H 18 143/72 H 98 03/23/22 04:00 98.5 F 87 16 144/80 H 97 03/22/22 23:36 98.0 F 103 H 20 143/76 H 97 03/22/22 20:00 101 H 96 03/22/22 19:33 98.4 F 101 H 19 136/70 96 Intake and Output 03/23/22 03/23/22 03/23/22 07:59 15:59 23:59 Intake Total 250 / 410 160 / 410 Output Total 200 / 200 Balance 250 / 210 -40 / 210 Intake: Intake, Oral Amount 160 / 160 Intake, Total IV Amount 250 / 250 Vancomycin HCl 2,000 mg In 0.9 250 / 250 % Sodium Chloride 500 ml @ 250 mls/hr IV ONCE ONE Rx#:[id number] Output: Output, Urine Amount 200 / 200 Other: Number of Voids 0 Weight 93.043 kg 93.043 kg Patient Weight 03/23/22 23:59 Weight 93.043 kg Laboratory Results - last 24 hr 03/22/22 19:31: POC Glucose 331 H* 03/23/22 00:50: POC Glucose 230 H 03/23/22 06:09: WBC 14.3 H, RBC 4.28, Hgb 12.1 L, Hct 36.9 L, MCV 86.1, MCH 28.3, MCHC 32.9, RDW 14.2, Plt Count 360, MPV 8.6, Neut % (Auto) 81.6 H, Lymph % (Auto) 12.3, [place] % (Auto) 5.7, Eos % (Auto) 0.2, Baso % (Auto) 0.2, Neut # (Auto) 11.7 H, Lymph # (Auto) 1.8, [place] # (Auto) 0.8, Eos # (Auto) 0.0, Baso # (Auto) 0.0 03/23/22 06:09: Sodium 133 L, Potassium 3.1 L D, Chloride 94 L, Carbon Dioxide 26, Anion Gap 16.1 H, BUN 19 H D, Creatinine 0.40 L, Estimated Creat Clear 264, Estimated GFR 173, Est GFR ( Amer) 210, Glucose 213 H D, Calcium 8.8, Phosphorus 3.0, Magnesium 1.6, Total Bilirubin 0.5, AST 79 H D, ALT 88 H, Alkaline Phosphatase 141 H, Total Protein 6.3, Albumin 3.1 L, Globulin 3.2, Albumin/Globulin Ratio 1.0 L 03/23/22 06:26: POC Glucose 211 H 03/23/22 10:18: Vancomycin Trough 6.4 03/23/22 13:44: POC Glucose 333 H* 03/23/22 17:00: POC Glucose 208 H I & O for Labs for Last 24 Hours: Intake & Output 03/20/22 03/21/22 03/22/22 03/23/22 23:59 23:59 23:59 23:59 Intake Total 1377 / 1377 410 / 410 Output Total 400 / 400 1950 / 1950 200 / 200 Balance -400 / -400 -573 / -573 210 / 210 Weight 93.803 kg 93.848 kg 93.043 kg Microbiology Reports for the Last 24 Hours: Microbiology 03/21/22 19:20 Blood Blood Culture - Preliminary Gram Positive Cocci 03/21/22 19:20 Blood Blood Culture - Preliminary 03/21/22 17:22 Blood Blood Culture - Preliminary Gram Positive Cocci 03/21/22 17:22 Blood Blood Culture - Preliminary Gram Positive Cocci Head: Present atraumatic and normocephalic Neck: Present normal inspection Respiratory: Present CTA bilaterally; Absent accessory muscle use Cardiac: Present Reg Rate and Rhythm and No Murmur GI: Present soft and tenderness Rectal (female): Present deferred (female): Present deferred Extremities: Present tenderness Comment:: Right medial lower extremity tenderness improved, erythema resolved, palpable nodules along great saphenous vein still remaining. Overall exam improved Skin: Present intact and dry; Absent cyanosis, erythema, lesions, rash or gangrene Assessment and Plan *Assessment and plan (1) Acute hyperglycemia: Status: Acute Category: Medical Code(s): R73.9 - Hyperglycemia, unspecified (2) Acute pain of right thigh: Status: Acute Category: Medical Code(s): M79.651 - Pain in right thigh (3) IVDU (intravenous drug user): Status: Acute Category: Social
[2022-03-23 19:31] VITALS: BP 139/75; PULSE 104; RESP 17; TEMP 36.9; O2SAT 99
[2022-03-23 20:00] VITALS: PULSE 104; O2SAT 99
[2022-03-23 23:52] VITALS: BP 155/76; PULSE 81; RESP 18; TEMP 37.1; O2SAT 99
[2022-03-24 01:08] LABS: POC Glucose,Bedside 241 (70-110)
[2022-03-24 03:54] VITALS: BP 147/86; PULSE 86; RESP 20; TEMP 36.8; O2SAT 96
--- NOTE | 2022-03-24 05:36 | PC.NURSE ---
pt has complained of pain 3x this shift and was treated per JUN, Hospitalist notified of d/c of toradol and the need for something for pain, 1x order for 600 mg motrin given and tylenol Q6 PRN, ice packs have been placed on right thigh intermittently, remains on room air with O2 sats 96-99%, HR 81-104, some inspiratory wheezing heard on auscultation, pt encouraged to get OOB as tolerated, no complaints of SOA
[2022-03-24 06:19] LABS: POC Glucose,Bedside 191 (70-110)
--- NOTE | 2022-03-24 07:53 | CA_ITS ---
APPROVED REPORT EXAM: Comprehensive 2D, Doppler, and color-flow Echocardiogram Flaker Tender: Giovana Duarte RCS, RVS Ht: 5 ft 7 in Wt: 205lbs BSA: 2.04 BP: 143/72 mmHg Rhythm: PVC's Indications: r/o endocarditis due to IVDA, Murmur, +Covid, Abcess of right groin Echo Enhancing Agent Indication: Rule Out Septal Defect Agent(s) / Amount(s) Used: Agitated Saline 10 cc Comments: Positive for ASD shunting 2D Dimensions Aortic Root 3.06 cm LA Volume 80.70 mL Left Atrium 3.29 cm LA Volume Index 38.60 mL/m2 (M/F) 16-34 LVOT 2.01 cm (M/F) 1.5-2.5 M-Mode Dimensions RVDd 2.98 cm (0.9-2.6) LA Diam 3.77 cm (1.9-4.0) LVDd 5.68 cm (3.5-5.7) Ao Diam 3.04 cm (2.0-3.7) LVDs 3.26 cm (3.5-5.7) IVSd 0.73 cm (0.6-1.1) PWd 0.81 cm (0.6-1.1) EF (Teich) 73.00% EPSs 0.36 cm FS 42.60% EDV (Teich) 158.80 mL TAPSE 1.84 (<1.7) ESV (Teich) 42.80 mL LV Diastology E Decel Time 173.00 (160-240 msec) E/A Ratio 1.23 MED E' 8.10 (< 7 cm/sec) MED A' 12.60 cm/s E'/MED E' Ratio 15.06 (>14) LAT E' 15.80 (<10 cm/sec) LAT A' 12.00 cm/s E/LAT E' Ratio 7.72 (>14) Pulm Vein s 51.00 cm/sec Aortic Valve LVOT Max 135.00 (70-110 cm/s) LVOT VTI 27.99 cm AoV Peak Dima. 157.00 (50-130 cm/s) AO Peak GR. 9.80 mmHg AO Mean GR. 4.90 (<5 mmHg) AO VTI 30.80 (18-25 cm) ROBERT (VTI) 2.88 (2.5-4.5 cm2) Mitral Valve MV A Velocity 99.00 (40-130 cm/s) E/A Ratio 1.23 MV Decel. Time 173.00 (160-240 ms) MV Mean Gr. 2.60 (<2mmHg) MV PHT 53.00 ms Pulmonary Valve PV Peak Velocity 142.00 (50-150 cm/s) [place] End VMAX 165.00 cm/s Tricuspid Valve TR P. Velocity 193.00 cm/s RAP Estimate 10.00 mmHg RVSP 24.90 mmHg Left Ventricle Left atrium is mildly enlarged the left ventricle is normal size estimate ejection fraction 55% with no regional wall motion abnormality, diastolic parameters are within normal range. Right Ventricle Right atrium and right ventricle are mildly enlarged with normal contractility. Atria The interatrial septum is mobile, agitated saline contrast study identifies right to left shunt, a transesophageal echocardiogram is recommended for further evaluation. Aortic Valve Aortic valve leaflets are minimally thickened there is no aortic stenosis aortic insufficiency. Mitral Valve Mitral valve grossly normal, there is trace mitral regurgitation. Tricuspid Valve Tricuspid valve grossly normal, there is trace tricuspid regurgitation, tricuspid regurgitation request is inadequate for calculation of the right ventricular systolic pressure. Pulmonic Valve Pulmonic valve is poorly visualized. Great Vessels Aortic root is normal size. Inferior vena cava is normal size with normal inspiratory collapse. Pericardium No significant pericardial effusion noted. Conclusion 1. Normal left ventricular size, estimated ejection fraction 55% with no regional wall motion abnormality, diastolic parameters or within normal range. 2. Mildly enlarged right ventricle with normal contractility. 3. Agitated saline contrast study identifies intracardiac shunt at atrial level, a transesophageal echocardiogram is recommended for further evaluation. 4. No significant pericardial effusion. 5. Inferior vena cava is normal size with normal inspiratory collapse. Electronically signed by : Tirso Cooley MD 03/24/2022 20:28:11
--- NOTE | 2022-03-24 07:58 | EXP.ACUTE.PN ---
Subjective *Date: 03/24/22 *Time: 18:39 Interval history: Continues to have right leg and hip pain today. Patient remains afebrile. Blood cultures returned positive for MRSA x3 bottles. Denies chest pain, shortness of breath, nausea or vomiting. No bowel movement in 5 days. Tolerating p.o. intake. Hemodynamically stable. Medical Exam Vital signs and Labs for Last 24 Hours: Vital Signs Temp Pulse Resp BP Pulse Ox 03/24/22 03:54 98.2 F 86 20 147/86 H 96 03/23/22 20:00 104 H 99 03/23/22 23:52 98.7 F 81 18 155/76 H 99 03/23/22 19:31 98.5 F 104 H 17 139/75 99 03/23/22 12:00 98.2 F 97 H 18 141/87 H 97 03/23/22 08:00 121 H 97 03/23/22 08:00 98 F 95 H 18 143/72 H 98 Intake and Output 03/23/22 03/23/22 03/24/22 15:59 23:59 07:59 Intake Total 160 / 650 240 / 650 700 / 700 Output Total 200 / 1400 1200 / 1400 Balance -40 / -750 -960 / -750 700 / 700 Intake: Intake, Oral Amount 160 / 400 240 / 400 Intake, Total IV Amount 700 / 700 Vancomycin/Water For Inj (Peg) 700 / 700 1.75 gm In 350 ml @ 175 mls/hr IV Q8H [facility] Rx#:[id number] Output: Output, Urine Amount 200 / 1400 1200 / 1400 Other: Number of Voids 0 Number of Unmeasured Voids 0 Weight 93.043 kg Laboratory Results - last 24 hr 03/23/22 10:18: Vancomycin Trough 6.4 03/23/22 13:44: POC Glucose 333 H* 03/23/22 17:00: POC Glucose 208 H 03/24/22 00:58: POC Glucose 241 H 03/24/22 06:09: POC Glucose 191 H I & O for Labs for Last 24 Hours: Intake & Output 03/21/22 03/22/22 03/23/22 03/24/22 23:59 23:59 23:59 23:59 Intake Total 1377 / 1377 650 / 650 700 / 700 Output Total 400 / 400 1950 / 1950 1400 / 1400 Balance -400 / -400 -573 / -573 -750 / -750 700 / 700 Weight 93.803 kg 93.848 kg 93.043 kg Microbiology Reports for the Last 24 Hours: Microbiology 03/21/22 19:20 Blood Blood Culture - Final Staphylococcus aureus 03/21/22 17:22 Blood Blood Culture - Final Staphylococcus aureus 03/21/22 17:22 Blood Blood Culture - Final Staphylococcus aureus 03/21/22 19:20 Blood Blood Culture - Preliminary Constitutional: Present mild distress, obese and chronically ill appearing Head: Present atraumatic and normocephalic Neck: Present normal inspection Respiratory: Present CTA bilaterally; Absent accessory muscle use Cardiac: Present Reg Rate and Rhythm and No Murmur GI: Present soft and tenderness Extremities: Present tenderness Comment:: Right medial lower extremity tenderness, erythema resolved, palpable nodules along great saphenous vein still remaining. Skin: Present intact and dry; Absent cyanosis, erythema, lesions, rash or gangrene Comment:: Numerous tattoos Neuro: Present alert, awake and oriented x 3 Assessment and Plan *Assessment and plan (1) Phlebitis: Status: Acute Category: Medical Code(s): I80.9 - Phlebitis and thrombophlebitis of unspecified site (2) MRSA bacteremia: Status: Acute Category: Medical Code(s): R78.81 - Bacteremia; B95.62 - Methicillin resistant Staphylococcus aureus infection as the cause of diseases classified elsewhere (3) Acute pain of right thigh: Status: Acute Category: Medical Code(s): M79.651 - Pain in right thigh (4) Acute hyperglycemia: Status: Acute Category: Medical Code(s): R73.9 - Hyperglycemia, unspecified (5) IVDU (intravenous drug user): Status: Acute Category: Social Hx Code(s): F19.90 - Other psychoactive substance use, unspecified, uncomplicated (6) Constipation: Status: Acute Category: Medical Code(s): K59.00 - Constipation, unspecified Plan Patient 46-year-old female with active IV drug use, reportedly injecting Suboxone into her medial right leg vein in the same territory that she is currently experienci
[2022-03-24 08:00] VITALS: BP 148/85; PULSE 89; RESP 18; TEMP 36.9; O2SAT 98; O2SAT 99
[2022-03-24 08:30] LABS: Basophils # 0.1 K/mm3 (0-0.2); Basophils % 0.4 % (0.1-2.0); Eosinophils # 0.1 K/mm3 (0.0-0.4); Eosinophils % 0.7 % (0.1-12.0); Hematocrit 39.5 % (37.0-47.0); Hemoglobin 12.4 g/dL (12.2-16.2); Lymphocytes # 1.6 K/mm3 (0.7-4.5); Lymphocytes % 11.6 % (10-50); Mean Corpuscular HGB Conc 31.4 g/dL (31.8-35.4); Mean Corpuscular Hemoglobin 28.5 pg (27.0-31.2); Mean Corpuscular Volume 90.6 fl (81-99); Mean Platelet Volume 8.5 fl (7.4-10.4); Monocytes # 0.7 K/mm3 (0.1-1.0); Monocytes % 4.7 % (1.7-9.3); Neutrophils # 11.7 K/mm3 (1.8-7.8); Neutrophils % 82.6 % (37.0-80.0); Platelet Count 400 K/mm3 (142-424); Red Blood Count 4.37 M/mm3 (4.20-5.40); Red Cell Distribution Width 13.7 % (11.5-17.5); White Blood Count 14.1 K/mm3 (4.8-10.8)
[2022-03-24 08:40] LABS: Chloride 104 mmol/L (98-107); Potassium 3.7 mmoL/L (3.5-5.1); Sodium 135 mmol/L (136-145)
[2022-03-24 08:43] LABS: Alanine Aminotransferase 88 U/L (12-78); Albumin Level 2.9 g/dl (3.5-5.0); Albumin/Globulin Ratio 0.9 (1.1-1.8); Alkaline Phosphatase 109 U/L (38-126); Anion Gap 8.7 mEq/L (5-15); Aspartate Amino Transferase 90 U/L (14-36); Bilirubin,Total 0.4 mg/dl (0.2-1.3); Blood Urea Nitrogen 17 mg/dl (7-17); Calcium 8.4 mg/dl (8.4-10.2); Carbon Dioxide 26 mmol/L (22.0-30.0); Creatinine Clearance Estimated 351 mL/min (50-200); Estimated Glomerular Filt Rate 242 ml/min (>60); GFR (African American) 292 ML/MIN (>60); Globulin 3.1 g/dL (1.3-3.2); Glucose 212 mg/dl (74-100)
[2022-03-24 11:00] VITALS: BP 146/90; PULSE 102; RESP 18; TEMP 36.4; O2SAT 98
[2022-03-24 11:14] LABS: HIV Screen 4th Generation wRfx Non Reactive (Non Reactive)
[2022-03-24 11:24] LABS: Vancomycin,Trough 12.9 ug/mL (5.0-10.0)
[2022-03-24 14:15] VITALS: BMI 30.3
[2022-03-24 15:24] VITALS: BP 149/84; PULSE 89; RESP 16; TEMP 36.9; O2SAT 97
[2022-03-24 16:37] LABS: Vancomycin,Peak 18.6 ug/ml (11-39)
[2022-03-24 20:00] VITALS: BP 158/102; PULSE 96; RESP 20; TEMP 37; O2SAT 100
[2022-03-24 23:24] VITALS: BP 155/95; PULSE 104; RESP 18; TEMP 36.8; O2SAT 99
[2022-03-24 23:25] LABS: POC Glucose,Bedside 309 (70-110)
[2022-03-25] VITALS (7 sets, daily range): BP systolic 143–163; BP diastolic 76–84; PULSE 82–99; RESP 14–20; TEMP 36.7–36.9; O2SAT 97–100; BMI 30.5
[2022-03-25 01:33] LABS: POC Glucose,Bedside 243 (70-110)
--- NOTE | 2022-03-25 04:52 | PC.NURSE ---
pt has rested intermittently, up to BS with a standby assist, has complained of pain three times this shift and was treated per JUN, lidocaine patch applied this shift at 2037, to come off at 08, some inspiratory wheezing heard on auscultation, remains on room air, no complaints of SOA, pt again encouraged to be OOB as much as possible, has remained afebrile
--- NOTE | 2022-03-25 04:59 | PC.NURSE ---
pt has rested intermittently, up to BS with a standby assist, has complained of pain three times this shift and was treated per JUN, lidocaine patch applied this shift at 2037, to come off at 837, ice packs used intermittently as well, some inspiratory wheezing heard on auscultation, remains on room air, no complaints of SOA, pt again encouraged to be OOB as much as possible, has remained afebrile
[2022-03-25 06:08] LABS: POC Glucose,Bedside 209 (70-110)
[2022-03-25 06:56] LABS: Basophils # 0.1 K/mm3 (0-0.2); Basophils % 0.7 % (0.1-2.0); Eosinophils # 0.2 K/mm3 (0.0-0.4); Eosinophils % 1.7 % (0.1-12.0); Hematocrit 41.2 % (37.0-47.0); Hemoglobin 13.2 g/dL (12.2-16.2); Lymphocytes # 2.5 K/mm3 (0.7-4.5); Lymphocytes % 18.4 % (10-50); Mean Corpuscular Hemoglobin 28.4 pg (27.0-31.2); Mean Platelet Volume 8.9 fl (7.4-10.4); Monocytes # 0.6 K/mm3 (0.1-1.0); Monocytes % 4.3 % (1.7-9.3); Neutrophils # 10.1 K/mm3 (1.8-7.8); Neutrophils % 74.8 % (37.0-80.0); Platelet Count 468 K/mm3 (142-424); Red Blood Count 4.63 M/mm3 (4.20-5.40); Red Cell Distribution Width 13.8 % (11.5-17.5); White Blood Count 13.5 K/mm3 (4.8-10.8)
--- NOTE | 2022-03-25 08:30 | EXP.PHA.CONS ---
Pharmacy Consult Date: 03/25/22 Time: 08:30 Referring provider: DR ARTHUR Reason for Consult:: VANCOMYCIN PK LEVELS OBTAINED Allergies Allergy/AdvReac Type Severity Reaction Status Date / Time levofloxacin [From Levaquin] Allergy Verified 03/21/22 22:22 zolpidem [From Ambien] Allergy Verified 03/21/22 22:22 Home Medications Medication Instructions Recorded Confirmed Type No Known Home Medications 03/21/22 03/21/22 History New Prescriptions to Start Prescriptions: Height: 1.75 m Weight: 93.61 kg Laboratory Results:: Laboratory Results - last 24 hr 03/22/22 16:25: HIV 1&2 Ag/Ab, 4th Gen Non reactive 03/24/22 08:11: WBC 14.1 H, RBC 4.37, Hgb 12.4, Hct 39.5, MCV 90.6, MCH 28.5, MCHC 31.4 L, RDW 13.7, Plt Count 400, MPV 8.5, Neut % (Auto) 82.6 H, Lymph % (Auto) 11.6, [place] % (Auto) 4.7, Eos % (Auto) 0.7, Baso % (Auto) 0.4, Neut # (Auto) 11.7 H, Lymph # (Auto) 1.6, [place] # (Auto) 0.7, Eos # (Auto) 0.1, Baso # (Auto) 0.1 03/24/22 08:11: Sodium 135 L, Potassium 3.7, Chloride 104, Carbon Dioxide 26, Anion Gap 8.7, BUN 17, Creatinine 0.30 L D, Estimated Creat Clear 351 H, Estimated GFR 242, Est GFR ( Amer) 292 D, Glucose 212 H, Calcium 8.4, Phosphorus 3.0, Total Bilirubin 0.4, AST 90 H, ALT 88 H, Alkaline Phosphatase 109, Total Protein 6.0 L, Albumin 2.9 L, Globulin 3.1, Albumin/Globulin Ratio 0.9 L 03/24/22 10:45: Vancomycin Trough 12.9 H 03/24/22 15:54: Vancomycin Peak 18.6 03/24/22 19:02: POC Glucose 309 H* 03/25/22 01:24: POC Glucose 243 H 03/25/22 05:57: POC Glucose 209 H 03/25/22 06:34: WBC 13.5 H, RBC 4.63, Hgb 13.2, Hct 41.2, MCV 89.0, MCH 28.4, MCHC 32.0, RDW 13.8, Plt Count 468 H, MPV 8.9, Neut % (Auto) 74.8, Lymph % (Auto) 18.4, [place] % (Auto) 4.3, Eos % (Auto) 1.7, Baso % (Auto) 0.7, Neut # (Auto) 10.1 H, Lymph # (Auto) 2.5, [place] # (Auto) 0.6, Eos # (Auto) 0.2, Baso # (Auto) 0.1 Medical History: Medical History (Updated 03/24/22 @ 18:43 by Ramesh Arthur MD) Asthma Assessment and Plan Assessment and plan all Dx Assessment and Plan for all problems:: VANCOMYCIN TROUGH LEVEL OBTAINED YESTERDAY PRIOR TO 11:30 DOSE. TROUGH LEVEL WAS 12.9 MCG/ML. RECOMMEND CONTINUING VANCOMYCIN 1750 MG IV Q8H.
[2022-03-25 08:37] LABS: Alanine Aminotransferase 74 U/L (12-78); Albumin Level 2.8 g/dl (3.5-5.0); Albumin/Globulin Ratio 0.9 (1.1-1.8); Alkaline Phosphatase 113 U/L (38-126); Anion Gap 4.9 mEq/L (5-15); Aspartate Amino Transferase 64 U/L (14-36); Bilirubin,Total 0.5 mg/dl (0.2-1.3); Blood Urea Nitrogen 17 mg/dl (7-17); Calcium 8.5 mg/dl (8.4-10.2); Carbon Dioxide 27 mmol/L (22.0-30.0); Chloride 103 mmol/L (98-107); Creatinine Clearance Estimated 265 mL/min (50-200); Estimated Glomerular Filt Rate 173 ml/min (>60); GFR (African American) 210 ML/MIN (>60); Glucose 274 mg/dl (74-100); Phosphorous 3.3 mg/dl (2.5-4.5); Potassium 3.9 mmoL/L (3.5-5.1); Sodium 131 mmol/L (136-145); Total Protein,Serum 5.8 g/dl (6.3-8.2)
--- NOTE | 2022-03-25 12:17 | EXP.ACUTE.PN ---
Subjective *Date: 03/25/22 *Time: 15:44 Interval history: Continues to complain of significant right pain in her hip. When not moving, she is comfortable. Afebrile overnight. Denies any shortness of breath, chest pain, cough, nausea or vomiting. Vitals within normal limits. White cell count improving on labs this morning. Tolerating p.o. intake. Difficulty bearing weight on right leg because of hip pain. Medical Exam Vital signs and Labs for Last 24 Hours: Vital Signs Temp Pulse Resp BP Pulse Ox 03/25/22 08:00 98.1 F 91 H 16 163/84 H 97 03/25/22 04:00 98.4 F 90 16 143/79 H 97 03/24/22 20:00 100 03/24/22 23:24 98.2 F 104 H 18 155/95 H 99 03/24/22 20:00 98.6 F 96 H 20 158/102 H 100 03/24/22 15:24 98.4 F 89 16 149/84 H 97 Intake and Output 03/24/22 03/25/22 03/25/22 23:59 07:59 15:59 Intake Total 360 / 1300 240 / 240 Output Total 500 / 1350 Balance -140 / -50 240 / 240 Intake: Intake, Oral Amount 360 / 600 240 / 240 Output: Output, Urine Amount 500 / 1350 Other: Number of Unmeasured Voids 1 Weight 93.61 kg 93.61 kg Patient Weight 03/25/22 23:59 Weight 93.61 kg Laboratory Results - last 24 hr 03/24/22 15:54: Vancomycin Peak 18.6 03/24/22 19:02: POC Glucose 309 H* 03/25/22 01:24: POC Glucose 243 H 03/25/22 05:57: POC Glucose 209 H 03/25/22 06:34: WBC 13.5 H, RBC 4.63, Hgb 13.2, Hct 41.2, MCV 89.0, MCH 28.4, MCHC 32.0, RDW 13.8, Plt Count 468 H, MPV 8.9, Neut % (Auto) 74.8, Lymph % (Auto) 18.4, [place] % (Auto) 4.3, Eos % (Auto) 1.7, Baso % (Auto) 0.7, Neut # (Auto) 10.1 H, Lymph # (Auto) 2.5, [place] # (Auto) 0.6, Eos # (Auto) 0.2, Baso # (Auto) 0.1 03/25/22 08:10: Sodium 131 L, Potassium 3.9, Chloride 103, Carbon Dioxide 27, Anion Gap 4.9 L, BUN 17, Creatinine 0.40 L D, Estimated Creat Clear 265, Estimated GFR 173, Est GFR ( Amer) 210 D, Glucose 274 H D, Calcium 8.5, Phosphorus 3.3, Total Bilirubin 0.5, AST 64 H D, ALT 74, Alkaline Phosphatase 113, Total Protein 5.8 L, Albumin 2.8 L, Globulin 3.0, Albumin/Globulin Ratio 0.9 L I & O for Labs for Last 24 Hours: Intake & Output 03/22/22 03/23/22 03/24/22 03/25/22 23:59 23:59 23:59 23:59 Intake Total 1377 / 1377 650 / 650 1300 / 1300 240 / 240 Output Total 1950 / 1950 1400 / 1400 1350 / 1350 Balance -573 / -573 -750 / -750 -50 / -50 240 / 240 Weight 93.848 kg 93.043 kg 93 kg 93.61 kg Microbiology Reports for the Last 24 Hours: Microbiology 03/21/22 19:20 Blood Blood Culture - Final Staphylococcus aureus 03/21/22 19:20 Blood Blood Culture - Final Staphylococcus aureus 03/21/22 17:22 Blood Blood Culture - Final Staphylococcus aureus 03/21/22 17:22 Blood Blood Culture - Final Staphylococcus aureus Constitutional: Present mild distress, obese and chronically ill appearing Head: Present atraumatic and normocephalic ENT: Present normal exam Neck: Present normal inspection Respiratory: Present CTA bilaterally; Absent accessory muscle use Cardiac: Present Reg Rate and Rhythm and No Murmur GI: Present soft and tenderness Extremities: Present tenderness Comment:: Right medial lower extremity tenderness most prominent in inguinal region; No appreciable erythema; palpable nodules along proximal great saphenous vein. Pain with internal and external rotation of right hip. Skin: Present intact and dry; Absent cyanosis, erythema, lesions, rash or gangrene Comment:: Numerous tattoos, no osler nodes or splinter hemorrhages of extremities. Neuro: Present alert, awake and oriented x 3 Assessment and Plan *Assessment and plan (1) MRSA bacteremia: Status: Acute Category: Medical Code(s): R78.81 - Bacteremia; B95.62 - Methicillin resistant Staphylococcus aureus infection as the cause of diseases classified elsewhere (2) Acute pain of right thigh: Stat
--- NOTE | 2022-03-25 14:43 | CT_ITS ---
PROCEDURE INFORMATION: Exam: CT Right Lower Extremity With Contrast, Hip Exam date and time: 03/25/2022 4:26 PM Age: 46 years old Clinical indication: Other: Pain; Additional info: Right hip pain, not improving TECHNIQUE: Imaging protocol: CT of the Right lower extremity with intravenous contrast was performed. Exam focused on the hip. 3D rendering (Not supervised by radiologist): MIP and/or 3D reconstructed images were created by the technologist. Radiation optimization: All CT scans at this facility use at least one of these dose optimization techniques: automated exposure control; mA and/or kV adjustment per patient size (includes targeted exams where dose is matched to clinical indication); or iterative reconstruction. Contrast material: ISOVUE; Contrast volume: 120 ml; Contrast route: IV; COMPARISON: CA VENOUS DOPPLER LE RT 03/21/2022 3:43 PM FINDINGS: Bones/joints: Sclerosis along the sacroiliac joints likely sequela of prior sacroiliitis. No visible fracture or dislocation. Soft tissues: Muscles are normal in bulk. No discrete collection Lymph nodes: multi station external iliac and common iliac enlarged nodes. Intraperitoneal space: Small amount of free fluid noted. IMPRESSION: 1. No visible fracture or dislocation. 2. Multi station external iliac and common iliac enlarged nodes.
--- NOTE | 2022-03-25 15:48 | CT_ITS ---
PROCEDURE INFORMATION: Exam: CT Chest Without Contrast; Diagnostic Exam date and time: 03/25/2022 4:22 PM Age: 46 years old Clinical indication: Condition or disease; Other: Cavitary lesion; Additional info: Assess for septic emboli, cavitary lesions TECHNIQUE: Imaging protocol: Diagnostic computed tomography of the chest without contrast. Radiation optimization: All CT scans at this facility use at least one of these dose optimization techniques: automated exposure control; mA and/or kV adjustment per patient size (includes targeted exams where dose is matched to clinical indication); or iterative reconstruction. COMPARISON: US ABDOMEN COMPLETE 03/23/2022 2:25 PM FINDINGS: Lungs: No evidence of airspace opacity or interlobular septal thickening. No evidence of pulmonary cavitary lesions. Pleural spaces: Unremarkable. No pneumothorax. No pleural effusion. Heart: No cardiomegaly or pericardial effusion. No significant coronary artery calcifications. Lymph nodes: Unremarkable. No enlarged lymph nodes within the limits of noncontrast exam. Vasculature: Aorta is nonaneurysmal. Adrenal glands: The adrenal glands are normal. Bones/joints: Unremarkable. No acute fracture. Soft tissues: Unremarkable. IMPRESSION: 1. No evidence of airspace opacity or interlobular septal thickening. 2. No evidence of pulmonary cavitary lesions.
--- NOTE | 2022-03-25 16:01 | P.CONPHA_ITS ---
Pharmacy Consult Date: 03/25/22 Time: 16:01 Referring provider: DR ARTHUR Reason for Consult:: ADDING GENTAMICIN TO REGIMEN Allergies Allergy/AdvReac Type Severity Reaction Status Date / Time levofloxacin [From Levaquin] Allergy Verified 03/21/22 22:22 zolpidem [From Ambien] Allergy Verified 03/21/22 22:22 Home Medications Medication Instructions Recorded Confirmed Type No Known Home Medications 03/21/22 03/21/22 History New Prescriptions to Start Prescriptions: Height: 1.75 m Weight: 93.61 kg Laboratory Results:: Laboratory Results - last 24 hr 03/24/22 15:54: Vancomycin Peak 18.6 03/24/22 19:02: POC Glucose 309 H* 03/25/22 01:24: POC Glucose 243 H 03/25/22 05:57: POC Glucose 209 H 03/25/22 06:34: WBC 13.5 H, RBC 4.63, Hgb 13.2, Hct 41.2, MCV 89.0, MCH 28.4, MCHC 32.0, RDW 13.8, Plt Count 468 H, MPV 8.9, Neut % (Auto) 74.8, Lymph % (Auto) 18.4, [place] % (Auto) 4.3, Eos % (Auto) 1.7, Baso % (Auto) 0.7, Neut # (Auto) 10.1 H, Lymph # (Auto) 2.5, [place] # (Auto) 0.6, Eos # (Auto) 0.2, Baso # ( Auto) 0.1 03/25/22 08:10: Sodium 131 L, Potassium 3.9, Chloride 103, Carbon Dioxide 27, Anion Gap 4.9 L, BUN 17, Creatinine 0.40 L D, Estimated Creat Clear 265, Estimated GFR 173, Est GFR ( Amer) 210 D, Glucose 274 H D, Calcium 8.5, Phosphorus 3.3, Total Bilirubin 0.5, AST 64 H D, ALT 74, Alkaline Phosphatase 113, Total Protein 5.8 L, Albumin 2.8 L, Globulin 3.0, Albumin/Globulin Ratio 0.9 L Medical History: Medical History (Updated 03/24/22 @ 18:43 by Ramesh Arthur MD) Asthma Assessment and Plan Assessment and plan all Dx Assessment and Plan for all problems:: Pharmacokinetic dosing service Objective: Age: 46 yo Serum creatinine: 0.4 mg/dL Height: 68.9 Inches Weight (kg): 93.61 Diagnosis: BACTEREMIA/MRSA Assessment: IBW (kg): 65.97 Dosing wt(kg): 77.0 Estimated Creatinine clearance (ml/min): 130 Clearance limited to 130 ml/min to reduce risk of overdosing. CRCL method: Cockcroft and Gault using ibw(default). Drug selected: Gentamicin Vd (liters): 19.2 (factor used: 0.25 L/kg) Jensen (hr-1): 0.395 Half life (hrs): 1.75 Recommended dose: 100 mg Interval: 8 hrs Infusion time (hrs): 1 Predicted peak (mcg/mL): 4.5 Predicted trough (mcg/mL): 0.28 Recommendations: Give Gentamicin 100 mg q 8 hrs with an expected Cpeak of 4.5 mcg/ml and an expected Ctrough of 0.28 mcg/ml Thank you for the consult
[2022-03-25 16:03] LABS: HCG Qualitative, Serum Negative (Negative)
[2022-03-25 16:10] LABS: C-Reactive Protein 118.7 mg/L (0-4)
[2022-03-25 16:13] LABS: Erythrocyte Sedimentation Rate 24 mm/hr (0-20)
--- NOTE | 2022-03-25 19:47 | PC.NURSE ---
AOX4, HAS REQUIRED PAIN MEDICATION AT FRQUENT INTERVALS. HAS NOT REQUIRED O2 SUPPORT, 1 ASSIST TO BSC. ICE PACKS TO HIP.
[2022-03-26 00:06] LABS: POC Glucose,Bedside 318 (70-110)
[2022-03-26 04:00] VITALS: BP 124/68; PULSE 97; RESP 16; TEMP 36.9; O2SAT 91
[2022-03-26 06:30] LABS: POC Glucose,Bedside 334 (70-110)
[2022-03-26 06:51] LABS: POC Glucose,Bedside 203 (70-110)
[2022-03-26 07:56] VITALS: BP 154/83; PULSE 99; RESP 20; TEMP 36.4; O2SAT 100
[2022-03-26 09:18] LABS: Basophils # 0.1 K/mm3 (0-0.2); Eosinophils # 0.1 K/mm3 (0.0-0.4); Eosinophils % 1.2 % (0.1-12.0); Hematocrit 41.1 % (37.0-47.0); Hemoglobin 12.7 g/dL (12.2-16.2); Lymphocytes % 18.1 % (10-50); Mean Corpuscular Hemoglobin 28.4 pg (27.0-31.2); Mean Corpuscular Volume 91.6 fl (81-99); Mean Platelet Volume 8.6 fl (7.4-10.4); Monocytes # 0.6 K/mm3 (0.1-1.0); Monocytes % 5.1 % (1.7-9.3); Neutrophils # 8.1 K/mm3 (1.8-7.8); Neutrophils % 74.6 % (37.0-80.0); Platelet Count 527 K/mm3 (142-424); Red Blood Count 4.49 M/mm3 (4.20-5.40); Red Cell Distribution Width 13.7 % (11.5-17.5); White Blood Count 10.8 K/mm3 (4.8-10.8)
[2022-03-26 09:24] LABS: Chloride 101 mmol/L (98-107); Sodium 135 mmol/L (136-145)
[2022-03-26 09:25] LABS: Potassium 3.6 mmoL/L (3.5-5.1)
[2022-03-26 09:27] LABS: Alanine Aminotransferase 75 U/L (12-78); Albumin Level 2.9 g/dl (3.5-5.0); Alkaline Phosphatase 116 U/L (38-126); Aspartate Amino Transferase 67 U/L (14-36); Bilirubin,Total 0.2 mg/dl (0.2-1.3); Blood Urea Nitrogen 18 mg/dl (7-17); Creatinine Clearance Estimated 265 mL/min (50-200); Estimated Glomerular Filt Rate 173 ml/min (>60); GFR (African American) 210 ML/MIN (>60)
[2022-03-26 09:28] LABS: Anion Gap 9.6 mEq/L (5-15); Calcium 8.7 mg/dl (8.4-10.2); Carbon Dioxide 28 mmol/L (22.0-30.0); Globulin 2.9 g/dL (1.3-3.2); Glucose 262 mg/dl (74-100); Total Protein,Serum 5.8 g/dl (6.3-8.2)
--- NOTE | 2022-03-26 10:12 | EXP.PHA.PN ---
Subjective *Date: 03/26/22 *Time: 10:12 Medical Exam Vital signs and Labs for Last 24 Hours: Vital Signs Temp Pulse Resp BP Pulse Ox 03/26/22 04:00 98.4 F 97 H 16 124/68 91 L 03/26/22 07:56 97.6 F 99 H 20 154/83 H 100 03/25/22 23:45 98.5 F 93 H 16 145/78 H 100 03/25/22 20:00 98 03/25/22 19:58 98.1 F 82 20 155/81 H 98 03/25/22 16:00 98.1 F 99 H 14 143/76 H 100 03/25/22 12:00 98.0 F 98 H 16 146/78 H 99 Intake and Output 03/25/22 03/26/22 03/26/22 23:59 07:59 15:59 Intake Total 240 / 240 Output Total 1950 / 2700 800 / 1100 300 / 1100 Balance -1950 / -2100 -560 / -860 -300 / -860 Intake: Intake, Oral Amount 240 / 240 Output: Output, Urine Amount 1950 / 2700 800 / 1100 300 / 1100 Other: Number of Unmeasured Voids 1 Weight 93.61 kg Laboratory Results - last 24 hr 03/25/22 15:35: ESR 24 H 03/25/22 15:35: C-Reactive Protein 118.7 H 03/25/22 15:35: Serum HCG, Qual Negative 03/25/22 17:49: POC Glucose 334 H* 03/25/22 23:51: POC Glucose 318 H* 03/26/22 06:39: POC Glucose 203 H 03/26/22 08:43: Sodium 135 L, Potassium 3.6, Chloride 101, Carbon Dioxide 28, Anion Gap 9.6, BUN 18 H, Creatinine 0.40 L, Estimated Creat Clear 265, Estimated GFR 173, Est GFR ( Amer) 210, Glucose 262 H, Calcium 8.7, Total Bilirubin 0.2, AST 67 H, ALT 75, Alkaline Phosphatase 116, Total Protein 5.8 L, Albumin 2.9 L, Globulin 2.9, Albumin/Globulin Ratio 1.0 L 03/26/22 08:43: WBC 10.8, RBC 4.49, Hgb 12.7, Hct 41.1, MCV 91.6, MCH 28.4, MCHC 31.0 L, RDW 13.7, Plt Count 527 H, MPV 8.6, Neut % (Auto) 74.6, Lymph % (Auto) 18.1, [place] % (Auto) 5.1, Eos % (Auto) 1.2, Baso % (Auto) 1.0, Neut # (Auto) 8.1 H, Lymph # (Auto) 2.0, [place] # (Auto) 0.6, Eos # (Auto) 0.1, Baso # (Auto) 0.1 I & O for Labs for Last 24 Hours: Intake & Output 03/23/22 03/24/22 03/25/22 03/26/22 23:59 23:59 23:59 23:59 Intake Total 650 / 650 1300 / 1300 600 / 600 240 / 240 Output Total 1400 / 1400 1350 / 1350 2700 / 2700 1100 / 1100 Balance -750 / -750 -50 / -50 -2100 / -2100 -860 / -860 Weight 93.043 kg 93 kg 93.61 kg Microbiology Reports for the Last 24 Hours: Microbiology 03/24/22 10:50 Blood Blood Culture - Preliminary 03/24/22 10:45 Blood Blood Culture - Preliminary The patient's infection will respond to the chosen ABx?: Yes (REPEAT BLOOD CULTURES PENDING) Is the patient receiving the right drug, dose, and route?: Yes Could a more targeted ABx be ordered?: No
[2022-03-26 11:30] VITALS: BP 152/86; PULSE 91; RESP 24; TEMP 36.6; O2SAT 99
[2022-03-26 12:20] LABS: POC Glucose,Bedside 279 (70-110)
--- NOTE | 2022-03-26 15:21 | ECG_ITS ---
APPROVED REPORT Exam: Resting ECG HR:89 bpm ECG Measurements Heart Rate 89 AXES OR 168 P 42 QRSd 101 QRS 54 QT 349 T 36 QTc 395 Conclusion SINUS RHYTHM NORMAL ECG UNCONFIRMED REPORT Electronically signed by : Arnaud Jesus MD 03/26/2022 21:29:18
--- NOTE | 2022-03-26 15:22 | EXP.ACUTE.PN ---
Subjective *Date: 03/26/22 *Time: 19:51 Interval history: Pain somewhat better in her right hip. CT showing prominent lymphadenopathy but no clear abscess and no fluid collection and joint. Inflammatory markers mixed in there change, 1 up, 1 down. White cell count improving. No fevers overnight. Stable on room air. Able to ambulate to bathroom today. Tolerated breakfast Medical Exam Vital signs and Labs for Last 24 Hours: Vital Signs Temp Pulse Resp BP Pulse Ox 03/26/22 11:30 97.8 F 91 H 24 152/86 H 99 03/26/22 04:00 98.4 F 97 H 16 124/68 91 L 03/26/22 07:56 97.6 F 99 H 20 154/83 H 100 03/25/22 23:45 98.5 F 93 H 16 145/78 H 100 03/25/22 20:00 98 03/25/22 19:58 98.1 F 82 20 155/81 H 98 03/25/22 16:00 98.1 F 99 H 14 143/76 H 100 Intake and Output 03/25/22 03/26/22 03/26/22 23:59 07:59 15:59 Intake Total 240 / 600 360 / 600 Output Total 1950 / 2700 800 / 1100 300 / 1100 Balance -1950 / -2100 -560 / -500 60 / -500 Intake: Intake, Oral Amount 240 / 600 360 / 600 Output: Output, Urine Amount 1950 / 2700 800 / 1100 300 / 1100 Other: Number of Unmeasured Voids 1 Weight 93.61 kg Laboratory Results - last 24 hr 03/25/22 15:35: ESR 24 H 03/25/22 15:35: C-Reactive Protein 118.7 H 03/25/22 15:35: Serum HCG, Qual Negative 03/25/22 17:49: POC Glucose 334 H* 03/25/22 23:51: POC Glucose 318 H* 03/26/22 06:39: POC Glucose 203 H 03/26/22 08:43: Sodium 135 L, Potassium 3.6, Chloride 101, Carbon Dioxide 28, Anion Gap 9.6, BUN 18 H, Creatinine 0.40 L, Estimated Creat Clear 265, Estimated GFR 173, Est GFR ( Amer) 210, Glucose 262 H, Calcium 8.7, Total Bilirubin 0.2, AST 67 H, ALT 75, Alkaline Phosphatase 116, Total Protein 5.8 L, Albumin 2.9 L, Globulin 2.9, Albumin/Globulin Ratio 1.0 L 03/26/22 08:43: WBC 10.8, RBC 4.49, Hgb 12.7, Hct 41.1, MCV 91.6, MCH 28.4, MCHC 31.0 L, RDW 13.7, Plt Count 527 H, MPV 8.6, Neut % (Auto) 74.6, Lymph % (Auto) 18.1, [place] % (Auto) 5.1, Eos % (Auto) 1.2, Baso % (Auto) 1.0, Neut # (Auto) 8.1 H, Lymph # (Auto) 2.0, [place] # (Auto) 0.6, Eos # (Auto) 0.1, Baso # (Auto) 0.1 03/26/22 10:43: Vancomycin Trough 11.0 H 03/26/22 12:04: POC Glucose 279 H I & O for Labs for Last 24 Hours: Intake & Output 03/23/22 03/24/22 03/25/22 03/26/22 23:59 23:59 23:59 23:59 Intake Total 650 / 650 1300 / 1300 600 / 600 600 / 600 Output Total 1400 / 1400 1350 / 1350 2700 / 2700 1100 / 1100 Balance -750 / -750 -50 / -50 -2100 / -2100 -500 / -500 Weight 93.043 kg 93 kg 93.61 kg Microbiology Reports for the Last 24 Hours: Microbiology 03/24/22 10:50 Blood Blood Culture - Preliminary Gram Positive Cocci 03/24/22 10:45 Blood Blood Culture - Preliminary Gram Positive Cocci Constitutional: Present no acute distress, obese and chronically ill appearing Head: Present atraumatic and normocephalic ENT: Present normal exam Neck: Present normal inspection Respiratory: Present CTA bilaterally; Absent accessory muscle use Cardiac: Present Reg Rate and Rhythm and No Murmur GI: Present soft and tenderness Extremities: Present tenderness Comment:: Right medial lower extremity with improved tenderness. No erythema. Able to internally and externally rotate hip with improvement in pain Skin: Present intact and dry; Absent cyanosis, erythema, lesions, rash or gangrene Comment:: Numerous tattoos, no osler nodes or splinter hemorrhages of extremities. Neuro: Present alert, awake and oriented x 3 Assessment and Plan *Assessment and plan (1) MRSA bacteremia: Status: Acute Category: Medical Code(s): R78.81 - Bacteremia; B95.62 - Methicillin resistant Staphylococcus aureus infection as the cause of diseases classified elsewhere (2) Acute pain of right thigh: Status: Acute Category: Medical Code(s): M79.651 - Pain in right thigh (3) Acute hyperglycemia: Statu
--- NOTE | 2022-03-26 15:29 | EXP.CARD.CON ---
History of Present Illness History of Present Illness Consult date: 03/26/22 Requesting physician: Ramesh Schultz Chief complaint: Abnormal echocardiogram, right groin infection Additional Medical History:: 1. Significant history of asthma A. History of tobacco use, 1.5 to 2 packs/day 2. History of IV Suboxone drug use (most recently 3 months ago) and remote history of smoking methamphetamine A. Echocardiogram, 03/24/2022, normal EF but with evidence of [id number] intracardiac shunt at the level of the atrium. OLVIN recommended. 3. Right groin infection with enlarged lymph nodes (site of previous injections), MRSA positive 4. Significant family history of early coronary artery disease, father in his 40s (smoker) and mother in her 50s. 5. COVID infection, 03/21/2022 History of present illness: 46-year-old white female admitted for right groin/right thigh discomfort with concern for infection related to history of drug injections in that area. Patient has been on antibiotic therapy since admission with microbiology showing evidence of MRSA. Echocardiogram showed evidence of possible ASD with [id number] shunt and cardiology consulted for performance of OLVIN. Patient denies any chest pain, pressure or tightness. Denies any prior cardiac history. She does admit to smoking methamphetamine in the remote past, using pain pills and subsequently getting on Suboxone to come off the pain pills with recent IV injection of Suboxone. Last use was 3 months ago. EKG today is sinus rhythm with no acute ST segment changes. [facility] Disclaimer: The information contained in this section may have been updated after the patient was seen, as this information can be updated by other users. Medical History (Updated 03/26/22 @ 15:41 by CLEMENT Rebolledo) Asthma Surgical History (Updated 03/21/22 @ 22:26 by Laurel Ulloa RN) No significant past surgical history Family History (Updated 03/21/22 @ 22:26 by Laurel Ulloa RN) No significant family history Social History (Updated 03/21/22 @ 22:27 by Laurel Ulloa RN) Smoking Status: Never smoker alcohol intake: former current occupational status: other Travel in the last 8 weeks: None Review of Systems Review of Systems Review of systems:: pertinent systems reviewed and negative unless documented below Constitutional Constitutional: Denies weakness *Cardiovascular Cardiovascular: Denies chest pain, Reports dyspnea on exertion, Reports leg ulcers and Denies palpitations Comments: No splinter hemorrhages of the fingers or toes *Respiratory Respiratory: Reports cough and Reports dyspnea on exertion *Musculoskeletal Musculoskeletal: Denies numbness *Neurologic Neurologic: Reports system reviewed and no additional complaints, except as documented, Denies numbness and Denies weakness Endocrine Endocrine: Denies palpitations Exam Data for Last 24 hours Vital signs and Labs for Last 24 Hours: Temp Pulse Resp BP Pulse Ox 97.8 F 91 H 24 152/86 H 99 03/26/22 11:30 03/26/22 11:30 03/26/22 11:30 03/26/22 11:30 03/26/22 11:30 Laboratory Results - last 24 hr 03/25/22 15:35: ESR 24 H 03/25/22 15:35: C-Reactive Protein 118.7 H 03/25/22 15:35: Serum HCG, Qual Negative 03/25/22 17:49: POC Glucose 334 H* 03/25/22 23:51: POC Glucose 318 H* 03/26/22 06:39: POC Glucose 203 H 03/26/22 08:43: Sodium 135 L, Potassium 3.6, Chloride 101, Carbon Dioxide 28, Anion Gap 9.6, BUN 18 H, Creatinine 0.40 L, Estimated Creat Clear 265, Estimated GFR 173, Est GFR ( Amer) 210, Glucose 262 H, Calcium 8.7, Total Bilirubin 0.2, AST 67 H, ALT 75, Alkaline Phosphatase 116, Total Protein 5.8 L, Albumin 2.9 L, Globulin 2.9, Albumin/Globulin Ratio 1.0 L 03/26/22 08:43: WBC 10.8, RBC 4.49, Hgb 12.7, Hct 41.1, MCV 91.6, MCH 28.4, MCHC 31.0 L, RDW 13.7, Plt Count 527 H, MPV 8.6, Neut % (Auto) 74.6, Lymph % (Auto) 18.1, [place] % (Auto) 5.1, Eos % (Auto) 1.2, Baso % (Auto) 1.0, Neut # (Auto) 8.1 H, Lym
[2022-03-26 15:42] VITALS: BP 152/77; PULSE 85; RESP 20; TEMP 36.7; O2SAT 99
--- NOTE | 2022-03-26 15:49 | P.CONPHA_ITS ---
Pharmacy Consult Date: 03/26/22 Time: 15:49 Referring provider: DR. Cristian STEPHEN Reason for Consult:: VANCOMYCIN LEVEL Allergies Allergy/AdvReac Type Severity Reaction Status Date / Time levofloxacin [From Levaquin] Allergy Verified 03/21/22 22:22 zolpidem [From Ambien] Allergy Verified 03/21/22 22:22 Home Medications Medication Instructions Recorded Confirmed Type No Known Home Medications 03/21/22 03/21/22 History New Prescriptions to Start Prescriptions: Height: 1.75 m Weight: 93.61 kg Laboratory Results:: Laboratory Results - last 24 hr 03/25/22 15:35: ESR 24 H 03/25/22 15:35: C-Reactive Protein 118.7 H 03/25/22 15:35: Serum HCG, Qual Negative 03/25/22 17:49: POC Glucose 334 H* 03/25/22 23:51: POC Glucose 318 H* 03/26/22 06:39: POC Glucose 203 H 03/26/22 08:43: Sodium 135 L, Potassium 3.6, Chloride 101, Carbon Dioxide 28, Anion Gap 9.6, BUN 18 H, Creatinine 0.40 L, Estimated Creat Clear 265, Estimated GFR 173, Est GFR ( Amer) 210, Glucose 262 H, Calcium 8.7, Total Bilirubin 0.2, AST 67 H, ALT 75, Alkaline Phosphatase 116, Total Protein 5.8 L, Albumin 2.9 L, Globulin 2.9, Albumin/Globulin Ratio 1.0 L 03/26/22 08:43: WBC 10.8, RBC 4.49, Hgb 12.7, Hct 41.1, MCV 91.6, MCH 28.4, MCHC 31.0 L, RDW 13.7, Plt Count 527 H, MPV 8.6, Neut % (Auto) 74.6, Lymph % (Auto) 18.1, [place] % (Auto) 5.1, Eos % (Auto) 1.2, Baso % (Auto) 1.0, Neut # (Auto) 8.1 H, Lymph # (Auto) 2.0, [place] # (Auto) 0.6, Eos # (Auto) 0.1, Baso # (Auto) 0.1 03/26/22 10:43: Vancomycin Trough 11.0 H 03/26/22 12:04: POC Glucose 279 H Medical History: Medical History (Updated 03/26/22 @ 15:41 by CLEMENT Rebolledo) Asthma Assessment and Plan Assessment and plan all Dx Assessment and Plan for all problems:: PATIENT'S VANCOMYCIN TROUGH LEVEL WAS 11.0 MCG/ML TODAY. RECOMMEND CONTINUING WITH VANCOMYCIN 1750 MG Q8H AT THIS TIME.
[2022-03-26 16:41] LABS: Gentamicin,Trough 0.7 ug/ml (0.0-2.0)
[2022-03-26 17:59] LABS: POC Glucose,Bedside 237 (70-110)
[2022-03-26 18:21] LABS: Gentamicin,Peak 2.3 ug/ml (4.0-8.0)
--- NOTE | 2022-03-26 18:33 | PC.NURSE ---
PT IS RESTING IN BED. MEDICATED PER JUN FOR RIGHT THIGH DISCOMFORT. ALERT AND ORIENTED X4. PT WAS ABLE TO TOLERATE AMBULATING TO THE BATHROOM WITH 1 ASSIST. SHOWER AND LINEN CHANGE THIS SHIFT. LUNG SOUNDS CLEAR. ABDOMEN SOFT/NON TENDER WITH ACTIVE BOWEL SOUNDS. IV TO THE SUNDEEP STARTED LEAKING THIS SHIFT. IV DC'D. HOUSE NOTIFIED AND IS ATTEMPTING NEW IV ACCESS. WILL CONTINUE TO MONITOR.
[2022-03-26 20:00] VITALS: BP 147/75; PULSE 94; RESP 18; TEMP 37.2; O2SAT 96
[2022-03-26 21:56] LABS: POC Glucose,Bedside 251 (70-110)
[2022-03-26 23:40] VITALS: BP 155/74; PULSE 88; RESP 18; TEMP 36.6; O2SAT 97
[2022-03-27] VITALS (13 sets, daily range): BP systolic 132–176; BP diastolic 58–90; PULSE 82–99; RESP 16–20; TEMP 36.4–37.6; O2SAT 96–100; BMI 31.0
--- NOTE | 2022-03-27 05:58 | PC.NURSE ---
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
[2022-03-27 06:56] LABS: Basophils # 0.1 K/mm3 (0-0.2); Basophils % 0.6 % (0.1-2.0); Eosinophils # 0.3 K/mm3 (0.0-0.4); Eosinophils % 2.2 % (0.1-12.0); Hematocrit 36.3 % (37.0-47.0); Lymphocytes # 2.5 K/mm3 (0.7-4.5); Lymphocytes % 21.4 % (10-50); Mean Corpuscular HGB Conc 32.9 g/dL (31.8-35.4); Mean Corpuscular Hemoglobin 28.4 pg (27.0-31.2); Mean Corpuscular Volume 86.2 fl (81-99); Mean Platelet Volume 7.9 fl (7.4-10.4); Monocytes # 0.6 K/mm3 (0.1-1.0); Monocytes % 4.7 % (1.7-9.3); Neutrophils # 8.4 K/mm3 (1.8-7.8); Neutrophils % 71.1 % (37.0-80.0); Platelet Count 493 K/mm3 (142-424); Red Blood Count 4.21 M/mm3 (4.20-5.40); Red Cell Distribution Width 13.8 % (11.5-17.5); White Blood Count 11.8 K/mm3 (4.8-10.8)
[2022-03-27 07:09] LABS: POC Glucose,Bedside 177 (70-110)
[2022-03-27 07:40] LABS: Chloride 109 mmol/L (98-107)
[2022-03-27 07:41] LABS: Potassium 4.2 mmoL/L (3.5-5.1); Sodium 137 mmol/L (136-145)
[2022-03-27 07:43] LABS: Alanine Aminotransferase 54 U/L (12-78); Albumin Level 2.5 g/dl (3.5-5.0); Albumin/Globulin Ratio 0.9 (1.1-1.8); Alkaline Phosphatase 100 U/L (38-126); Anion Gap 8.2 mEq/L (5-15); Aspartate Amino Transferase 55 U/L (14-36); Bilirubin,Total 0.4 mg/dl (0.2-1.3); Blood Urea Nitrogen 15 mg/dl (7-17); Carbon Dioxide 24 mmol/L (22.0-30.0); Creatinine Clearance Estimated 359 mL/min (50-200); Estimated Glomerular Filt Rate 242 ml/min (>60); GFR (African American) 292 ML/MIN (>60); Globulin 2.8 g/dL (1.3-3.2); Glucose 184 mg/dl (74-100); Total Protein,Serum 5.3 g/dl (6.3-8.2)
[2022-03-27 07:44] LABS: Calcium 8.5 mg/dl (8.4-10.2); Magnesium 1.7 mg/dl (1.6-2.3)
--- NOTE | 2022-03-27 08:41 | EXP.CARD.PN ---
Subjective Subjective Date: 03/27/22 Time: 08:41 Principal diagnosis: MRSA bacteremia, ASD on echo Interval history: 46-year-old white female in bed in no acute distress. Nursing relates that patient is asking for pain medicine every 2 hours. No complaints of chest pain overnight. All questions answered regarding OLVIN. Patient again consents to proceed. Exam Data for Last 24 hours Vital signs and Labs for Last 24 Hours: Temp Pulse Resp BP Pulse Ox 97.7 F 82 16 140/69 99 03/27/22 08:00 03/27/22 08:00 03/27/22 08:00 03/27/22 08:00 03/27/22 08:00 Laboratory Results - last 24 hr 03/26/22 08:43: Sodium 135 L, Potassium 3.6, Chloride 101, Carbon Dioxide 28, Anion Gap 9.6, BUN 18 H, Creatinine 0.40 L, Estimated Creat Clear 265, Estimated GFR 173, Est GFR ( Amer) 210, Glucose 262 H, Calcium 8.7, Total Bilirubin 0.2, AST 67 H, ALT 75, Alkaline Phosphatase 116, Total Protein 5.8 L, Albumin 2.9 L, Globulin 2.9, Albumin/Globulin Ratio 1.0 L 03/26/22 08:43: WBC 10.8, RBC 4.49, Hgb 12.7, Hct 41.1, MCV 91.6, MCH 28.4, MCHC 31.0 L, RDW 13.7, Plt Count 527 H, MPV 8.6, Neut % (Auto) 74.6, Lymph % (Auto) 18.1, [place] % (Auto) 5.1, Eos % (Auto) 1.2, Baso % (Auto) 1.0, Neut # (Auto) 8.1 H, Lymph # (Auto) 2.0, [place] # (Auto) 0.6, Eos # (Auto) 0.1, Baso # (Auto) 0.1 03/26/22 10:43: Vancomycin Trough 11.0 H 03/26/22 12:04: POC Glucose 279 H 03/26/22 14:57: Gentamicin Trough 0.7 03/26/22 16:45: Gentamicin Peak 2.3 L 03/26/22 17:45: POC Glucose 237 H 03/26/22 21:41: POC Glucose 251 H 03/27/22 06:40: WBC 11.8 H, RBC 4.21, Hgb 12.0 L, Hct 36.3 L, MCV 86.2, MCH 28.4, MCHC 32.9, RDW 13.8, Plt Count 493 H, MPV 7.9, Neut % (Auto) 71.1, Lymph % (Auto) 21.4, [place] % (Auto) 4.7, Eos % (Auto) 2.2, Baso % (Auto) 0.6, Neut # (Auto) 8.4 H, Lymph # (Auto) 2.5, [place] # (Auto) 0.6, Eos # (Auto) 0.3, Baso # (Auto) 0.1 03/27/22 06:40: Sodium 137, Potassium 4.2, Chloride 109 H, Carbon Dioxide 24, Anion Gap 8.2, BUN 15, Creatinine 0.30 L D, Estimated Creat Clear 359 H, Estimated GFR 242, Est GFR ( Amer) 292 D, Glucose 184 H D, Calcium 8.5, Magnesium 1.7, Total Bilirubin 0.4, AST 55 H, ALT 54 D, Alkaline Phosphatase 100, Total Protein 5.3 L, Albumin 2.5 L D, Globulin 2.8, Albumin/Globulin Ratio 0.9 L 03/27/22 06:58: POC Glucose 177 H I & O for Last 24 hours: Intake & Output 03/24/22 03/25/22 03/26/22 03/27/22 11:59 11:59 11:59 11:59 Intake Total 940 / 940 840 / 840 600 / 600 803 / 803 Output Total 1900 / 1900 850 / 1600 3800 / 3800 1800 / 1800 Balance -960 / -960 -10 / -760 -3200 / -3200 -997 / -997 Weight 206 lb 6 oz 206 lb 6 oz 209 lb 9.6 oz Microbiology Reports for the Last 24 Hours: Microbiology 03/24/22 10:50 Blood Blood Culture - Final Staphylococcus aureus 03/24/22 10:45 Blood Blood Culture - Final Staphylococcus aureus Constitutional Constitutional: no acute distress *Routine Respiratory Exam Respiratory: Present CTA bilaterally *Routine Cardiovascular Exam Cardiovascular: Present RRR Progress Note: A&P Assessment and plan (1) MRSA bacteremia: Status: Acute (2) Acute pain of right thigh: Status: Acute (3) Acute hyperglycemia: Status: Acute (4) IVDU (intravenous drug user): Status: Acute (5) Constipation: Status: Acute Assessment and Plan Assessment and Plan for All Diagnoses:: OLVIN later this morning. Further recommendations to follow.
[2022-03-27 10:05] LABS: Coronavirus 19, PCR Not Detected (NotDetected); Influenza A, PCR Not Detected (NotDetected); Influenza B, PCR Not Detected (NotDetected)
--- NOTE | 2022-03-27 10:10 | EXP.SURG.CON ---
History of Present Illness *Admission Date: 03/21/22 *Reason for visit:: Bacteremia; right groin infection *History of present illness: This is a 46-year-old female seen in consultation from the hospital service for evaluation regarding infection along the right groin. She presented to the emergency department with increasing right lower extremity pain. She was admitted for further evaluation and management. She was placed on antibiotics and states that she currently notices less pain and improving mobility. However, she does have persistent bacteremia (most recently noted on blood cultures from March 24). Forwarded from admission H&P: Patient is 46-year-old female who presents emergency department today for leg pain of 3 days duration. Patient states that approximately 3 days ago she began having pain in her right medial thigh. The pain extends from just above the right inguinal ligament along the medial thigh to the right medial knee. States that the pain has been progressively worsening for the last 3 days and this morning was unbearable and extremely painful. She reports erythema and swelling of this area and both decrease when she props her legs up above her on a pillow. Patient is a IV drug user and was prescribed Suboxone. She was reluctant to reveal that she has been injecting her Suboxone in the last few weeks into her right thigh along the area that hurts. That is her preferred injection site states last IV drug use in the site was a few weeks ago. Denies fevers denies chills denies neck [facility] Disclaimer: The information contained in this section may have been updated after the patient was seen, as this information can be updated by other users. Medical History (Updated 03/27/22 @ 10:16 by Jabari Black MD) Asthma Surgical History (Updated 03/21/22 @ 22:26 by Laurel Ulloa RN) No significant past surgical history Family History (Updated 03/21/22 @ 22:26 by Laurel Ulloa RN) No significant family history Social History (Updated 03/21/22 @ 22:27 by Laurel Ulloa RN) Smoking Status: Never smoker alcohol intake: former current occupational status: other Travel in the last 8 weeks: None Review of Systems Constitutional Constitutional: Denies weakness *Musculoskeletal Musculoskeletal: Denies numbness *Neurologic Neurologic: Reports system reviewed and no additional complaints, except as documented, Denies numbness and Denies weakness Meds Home Medications and Allergies Home Medications Medication Instructions Recorded Confirmed Type No Known Home Medications 03/21/22 03/21/22 History New Prescriptions to Start Prescriptions: Allergies Allergy/AdvReac Type Severity Reaction Status Date / Time levofloxacin [From Levaquin] Allergy Verified 03/21/22 22:22 zolpidem [From Ambien] Allergy Verified 03/21/22 22:22 Exam (Inpt) Vital signs and Labs for Last 24 Hours: Temp Pulse Resp BP Pulse Ox 97.7 F 82 16 140/69 99 03/27/22 08:00 03/27/22 08:00 03/27/22 08:00 03/27/22 08:00 03/27/22 08:00 Laboratory Results - last 24 hr 03/26/22 10:43: Vancomycin Trough 11.0 H 03/26/22 12:04: POC Glucose 279 H 03/26/22 14:57: Gentamicin Trough 0.7 03/26/22 16:45: Gentamicin Peak 2.3 L 03/26/22 17:45: POC Glucose 237 H 03/26/22 21:41: POC Glucose 251 H 03/27/22 06:40: WBC 11.8 H, RBC 4.21, Hgb 12.0 L, Hct 36.3 L, MCV 86.2, MCH 28.4, MCHC 32.9, RDW 13.8, Plt Count 493 H, MPV 7.9, Neut % (Auto) 71.1, Lymph % (Auto) 21.4, [place] % (Auto) 4.7, Eos % (Auto) 2.2, Baso % (Auto) 0.6, Neut # (Auto) 8.4 H, Lymph # (Auto) 2.5, [place] # (Auto) 0.6, Eos # (Auto) 0.3, Baso # (Auto) 0.1 03/27/22 06:40: Sodium 137, Potassium 4.2, Chloride 109 H, Carbon Dioxide 24, Anion Gap 8.2, BUN 15, Creatinine 0.30 L D, Estimated Creat Clear 359 H, Estimated GFR 242, Est GFR ( Amer) 292 D, Glucose
--- NOTE | 2022-03-27 10:47 | CA_ITS ---
APPROVED REPORT EXAM: Comprehensive 2D, Doppler, and color-flow Echocardiogram Ethylbenzene Converter Operator: Urvashi Mercer RT(R) Ht: 5 ft 7 in Wt: 205lbs BSA: 2.04 BP: 143/72 mmHg Indications: ASD, IV drug use, sepsis, hx of COVID 03/21/22, abcess of right groin Procedure After obtaining informed consent, patient underwent transesophageal echo in the [facility]. Type of Sedation : Conscious Sedation Transesophageal probe was inserted and advanced into esophagus without difficulty by Dr. Meek Nicolas. The OLVIN was performed without complications. Throughout the procedure, the blood pressure, pulse oximetry, cardiac rhythm, and rate were monitored. The patient tolerated the procedure without adverse effects. Recovery from conscious sedation was uneventful and vital signs were stable. Left Ventricle Left ventricle is normal size with preserved left ventricular systolic function, estimated ejection fraction 55% with no regional wall motion abnormality. Right Ventricle Right ventricle is mildly enlarged with normal contractility. Atria Left atrium is mildly enlarged. Left atrium is free of thrombus, there is good appendage flow by spectral Doppler. Right atrium is mildly enlarged. Intra-atrial septum is mobile, there is patent foramen ovale with bidirectional shunt, agitated saline contrast study identifies right to left shunt. Aortic Valve Aortic valve is minimally thickened and fibrosed. There is no aortic stenosis or aortic insufficiency. Mitral Valve Mitral valve is grossly normal, there is trace mitral regurgitation. Tricuspid Valve Tricuspid valve leaflets are minimally thickened, there is no obvious vegetation seen on tricuspid valve, there is mild tricuspid regurgitation. Pulmonic Valve Pulmonic valve is grossly normal. Great Vessels Aortic root is normal size. Ascending, arch and descending thoracic aorta is normal. Inferior vena cava is poorly visualized. Pericardium No significant pericardial effusion noted. Conclusion 1. Mild biatrial enlargement, normal left ventricular size preserved left ventricular systolic function. 2. No obvious valvular vegetation identified with this study. 3. Patent foramen ovale with bidirectional shunt. 4. No significant pericardial effusion noted. 5. Other ancillary findings and as described above. Electronically signed by : Tirso Cooley MD 03/27/2022 15:58:39
--- NOTE | 2022-03-27 11:19 | EXP.PHA.CONS ---
Pharmacy Consult Date: 03/27/22 Time: 11:19 Referring provider: DR. ARTHUR Reason for Consult:: GENTAMICIN LEVELS Allergies Allergy/AdvReac Type Severity Reaction Status Date / Time levofloxacin [From Levaquin] Allergy Verified 03/21/22 22:22 zolpidem [From Ambien] Allergy Verified 03/21/22 22:22 Home Medications Medication Instructions Recorded Confirmed Type No Known Home Medications 03/21/22 03/21/22 History New Prescriptions to Start Prescriptions: Height: 1.75 m Weight: 95.073 kg Laboratory Results:: Laboratory Results - last 24 hr 03/26/22 10:43: Vancomycin Trough 11.0 H 03/26/22 12:04: POC Glucose 279 H 03/26/22 14:57: Gentamicin Trough 0.7 03/26/22 16:45: Gentamicin Peak 2.3 L 03/26/22 17:45: POC Glucose 237 H 03/26/22 21:41: POC Glucose 251 H 03/27/22 06:40: WBC 11.8 H, RBC 4.21, Hgb 12.0 L, Hct 36.3 L, MCV 86.2, MCH 28.4, MCHC 32.9, RDW 13.8, Plt Count 493 H, MPV 7.9, Neut % (Auto) 71.1, Lymph % (Auto) 21.4, [place] % (Auto) 4.7, Eos % (Auto) 2.2, Baso % (Auto) 0.6, Neut # (Auto) 8.4 H, Lymph # (Auto) 2.5, [place] # (Auto) 0.6, Eos # (Auto) 0.3, Baso # (Auto) 0.1 03/27/22 06:40: Sodium 137, Potassium 4.2, Chloride 109 H, Carbon Dioxide 24, Anion Gap 8.2, BUN 15, Creatinine 0.30 L D, Estimated Creat Clear 359 H, Estimated GFR 242, Est GFR ( Amer) 292 D, Glucose 184 H D, Calcium 8.5, Magnesium 1.7, Total Bilirubin 0.4, AST 55 H, ALT 54 D, Alkaline Phosphatase 100, Total Protein 5.3 L, Albumin 2.5 L D, Globulin 2.8, Albumin/Globulin Ratio 0.9 L 03/27/22 06:58: POC Glucose 177 H 03/27/22 09:52: SARS-CoV-2 (PCR) Not detected, Influenza A Untype (PCR) Not detected, Influenza Type B (PCR) Not detected Medical History: Medical History (Updated 03/27/22 @ 10:16 by Jabari Black MD) Asthma Assessment and Plan Assessment and plan all Dx Assessment and Plan for all problems:: GENTAMICIN TROUGH LEVEL WAS 0.7 MCG/ML AND PEAK WAS 2.7 MCG/ML. RECOMMEND CHANGING DOSING TO GENTAMICIN 400 MG Q24H AT THIS TIME. WILL ORDER 4 HR AND 12 HR POST INFUSION LEVELS.
[2022-03-27 11:25] LABS: POC Glucose,Bedside 229 (70-110)
--- NOTE | 2022-03-27 11:32 | HMH.PTEV ---
Physical Therapy Evaluation Rehab PT IP Evaluation Start: 03/27/22 11:05 Freq: ONCE Status: Active Protocol: Document 03/27/22 11:28 JAVIER (Rec: 03/27/22 11:32 JAVIER [id number]) Subjective/History History History Patient is 46-year-old female who presents emergency department today for leg pain of 3 days duration. Patient states that approximately 3 days ago she began having pain in her right medial thigh. The pain extends from just above the right inguinal ligament along the medial thigh to the right medial knee . States that the pain has been progressively worsening for the last 3 days and this morning was unbearable and extremely painful. She reports erythema and swelling of this area and both decrease when she props her legs up above her on a pillow. Patient is a IV drug user and was prescribed Suboxone. She was reluctant to reveal that she has been injecting her Suboxone in the last few weeks into her right thigh along the area that hurts. That is her preferred injection site states last IV drug use in the site was a few weeks ago. copied from H&P Subjective Subjective Pt reports willing to participate w/ therapy - reports she has to use restroom - pt c/o severe pain w/ mvmnt of RLE Rehab PT IP Eval Objective Appearance Patient Behavior Cooperative,Guarded,Fearful Patient Orientation Place,Name,Birthday,Year, Situation Difficulty following instructions none Speech Pattern Appropriate Ambulation Patient Able to Ambulate Yes Ambulation Observation IP General Gait Pattern Observation No Deviations/Normal,Decrease Weight Bear (R),Decrease Stride Lngth (R) Ambulation Distance (feet) 15 Ambulation Assistive Device S
--- NOTE | 2022-03-27 13:41 | EXP.ORTH.CON ---
History of Present Illness *Admission Date: 03/21/22 *Reason for visit:: Severe right hip right groin pain *History of present illness: 46-year-old female who has had an extensive hospitalization secondary to bacteremia with infection in the groin area severe difficulty with pain decreased mobility pain with any range of motion internal and external rotation of the hip radiating to the groin area and posteriorly along the hip. She has been on antibiotics recent blood cultures negative. Orthopedic consulted for evaluation of right hip to rule out septic arthritis osteomyelitis as source of bacteremia. Forwarded from admission H&P: Patient is 46-year-old female who presents emergency department today for leg pain of 3 days duration. Patient states that approximately 3 days ago she began having pain in her right medial thigh. The pain extends from just above the right inguinal ligament along the medial thigh to the right medial knee. States that the pain has been progressively worsening for the last 3 days and this morning was unbearable and extremely painful. She reports erythema and swelling of this area and both decrease when she props her legs up above her on a pillow. Patient is a IV drug user and was prescribed Suboxone. She was reluctant to reveal that she has been injecting her Suboxone in the last few weeks into her right thigh along the area that hurts. That is her preferred injection site states last IV drug use in the site was a few weeks ago. Denies fevers denies chills denies neck [facility] Disclaimer: The information contained in this section may have been updated after the patient was seen, as this information can be updated by other users. Medical History Asthma Surgical History No significant past surgical history Family History Other No significant family history Social History Smoking Status: Never smoker alcohol intake: former current occupational status: other Travel in the last 8 weeks: None Review of Systems Constitutional Constitutional: Denies weakness Eyes Eyes: Reports system reviewed and no additional complaints, except as documented ENT Ears, Nose, Mouth, and Throat: Reports system reviewed and no additional complaints, except as documented *Cardiovascular Cardiovascular: Denies paroxysmal nocturnal dyspnea and Denies pedal edema *Respiratory Respiratory: Denies chest congestion and Denies cough *Gastrointestinal Gastrointestinal: Reports system reviewed and no additional complaints, except as documented *Genitourinary Genitourinary: Reports system reviewed and no additional complaints, except as documented *Musculoskeletal Musculoskeletal: Reports as per HPI and Denies numbness *Neurologic Neurologic: Reports system reviewed and no additional complaints, except as documented, Denies numbness and Denies weakness Meds Home Medications and Allergies Home Medications Medication Instructions Recorded Confirmed Type No Known Home Medications 03/21/22 03/21/22 History New Prescriptions to Start Prescriptions: Allergies Allergy/AdvReac Type Severity Reaction Status Date / Time levofloxacin [From Levaquin] Allergy Verified 03/21/22 22:22 zolpidem [From Ambien] Allergy Verified 03/21/22 22:22 Ortho Exam (Inpt) Vital signs and Labs for Last 24 Hours: Temp Pulse Resp BP Pulse Ox 97.8 F 86 16 138/75 96 03/27/22 12:00 03/27/22 12:00 03/27/22 12:00 03/27/22 12:00 03/27/22 12:00 Laboratory Results - last 24 hr 03/26/22 14:57: Gentamicin Trough 0.7 03/26/22 16:45: Gentamicin Peak 2.3 L 03/26/22 17:45: POC Glucose 237 H 03/26/22 21:41: POC Glucose 251 H
[2022-03-27 13:51] LABS: POC Glucose,Bedside 223 (70-110)
--- NOTE | 2022-03-27 14:39 | CARE MANAGER ---
Addendum entered by Jennifer Walters RN 04/07/22 10:32: Previous note is from 04/06/2022. I have spoken with Judy again this morning. Patient has insurance authorization and [facility] has a bed available. Patient's PICC line will be discontinued prior to transport, and her mother will transport via private vehicle. Addendum entered by Jennifer Walters RN 04/07/22 10:31: Spoke with Judy @ [facility] this morning and insurance authorization has been started, but there is no bed available today. Addendum entered by Jennifer Walters RN 04/03/22 15:11: Spoke with Bebe @ [facility] again today, we are still awaiting auth from insurance. Patient will not be able to transfer over the weekend, I will touch base with Bebe again on Wednesday morning. Addendum entered by Jennifer Walters RN 04/02/22 15:55: Contacted [facility] regarding patient's discharge scheduled for today and was notified that they no longer have a bed. I had touched base with them on 03/02 as well, with plans for discharge today. I attempted to secure a swing bed @ [facility], but they had no beds available. Patient is agreeable to go to [facility] in [place]. Updates faxed and Bebe (CM @ [facility]) will start authorization process. Addendum entered by Jennifer Walters RN 03/31/22 11:51: Patient has been accepted by [facility] when medically ready for discharge. Addendum entered by Jennifer Walters RN 03/30/22 15:43: Per MD this morning, patient will require 6 weeks IV antibiotics. Referrals faxed to [facility] and [facility] for swing bed, as well as [facility] in [place] for LTACH. [facility] called and is going to let me know in the morning if they have a bed, they also state that patient will not require an auth prior to discharge. [facility] may also be able to offer a bed tomorrow, if we don't have a closer facility. CM will continue to work on discharge plan. Original Note: Spoke with patient regarding discharge plan. Patient states that she would be willing to go to a swing bed facility if she requires PICC line with custodial antibiotics upon discharge. Patient's treatment plan is not determined at this time. CM will continue to follow and assist with placement if needed.
--- NOTE | 2022-03-27 15:59 | EXP.ANES.CKL ---
[facility] Disclaimer: The information contained in this section may have been updated after the patient was seen, as this information can be updated by other users. Medical History Asthma Surgical History No significant past surgical history Family History Other No significant family history Social History Smoking Status: Never smoker alcohol intake: former substance use type: opiates, IV drugs and other details: hard drugs , non specific, according to patient. current occupational status: other Travel in the last 8 weeks: None [facility] Anesthesia Checklist Patient Identification Patient Identification: Arm Band Structural Data Admitted From: Inpatient Planned Operative Procedure/s: OLVIN Verified Documents: Surgical Consent and History and Physical NPO Status Verified Time NPO: 00:00 Additional verifications Patient : No Anesthesia Reactions: No Hx Blood Transfusions: No Airway Assessment C-Spine Mobility Assessed: Yes TMJ Mobility Assessed: Yes Dentition: Good Dentition Neurological Assessment Level of Consciousness: Awake, Alert, Appropriate and Follows Commands Hx Seizures: No Numbness or tingling in extremities: No Anesthesia Plan Anesthesia Risk discussed: Yes ASA Class: II Anesthesia Type: IV sedation
--- NOTE | 2022-03-27 18:16 | PC.NURSE ---
pt had 1 unmeasured void on this shift Maria Guadalupe Manzo SRNA
--- NOTE | 2022-03-27 19:59 | EXP.ACUTE.PN ---
Subjective *Date: 03/27/22 *Time: 19:59 Interval history: States pain is somewhat better today. Still painful when she moves however. Working with PT. Ambulating with minimal assistance to the bathroom. Remains afebrile and hemodynamically stable. N.p.o. for planned OLVIN today. Blood cultures from 03/26 continue to remain negative. Has lost IV overnight. We will move forward with placement of midline today. Denies nausea, vomiting, diarrhea, chest pain or shortness of breath Medical Exam Vital signs and Labs for Last 24 Hours: Vital Signs Temp Pulse Pulse Resp BP Pulse Ox 03/27/22 15:47 94 H 03/27/22 15:45 92 H 20 152/87 H 100 03/27/22 12:00 97.8 F 86 16 138/75 96 03/27/22 08:00 97.7 F 82 16 140/69 99 03/27/22 04:00 97.6 F 91 H 18 160/75 H 99 03/26/22 20:00 96 03/26/22 23:40 97.9 F 88 18 155/74 H 97 03/26/22 20:00 99.0 F 94 H 18 147/75 H 96 Intake and Output 03/27/22 03/27/22 03/27/22 07:59 15:59 23:59 Intake Total 0 / 240 240 / 240 Output Total 800 / 1300 500 / 1300 0 / 1300 Balance -800 / -1060 -500 / -1060 240 / -1060 Intake: Intake, Oral Amount 0 / 240 240 / 240 Output: Output, Urine Amount 800 / 1300 500 / 1300 0 / 1300 Other: Number of Unmeasured Voids 0 1 Weight 95.073 kg 95.073 kg Patient Weight 03/27/22 23:59 Weight 95.073 kg Laboratory Results - last 24 hr 03/26/22 21:41: POC Glucose 251 H 03/27/22 06:40: WBC 11.8 H, RBC 4.21, Hgb 12.0 L, Hct 36.3 L, MCV 86.2, MCH 28.4, MCHC 32.9, RDW 13.8, Plt Count 493 H, MPV 7.9, Neut % (Auto) 71.1, Lymph % (Auto) 21.4, [place] % (Auto) 4.7, Eos % (Auto) 2.2, Baso % (Auto) 0.6, Neut # (Auto) 8.4 H, Lymph # (Auto) 2.5, [place] # (Auto) 0.6, Eos # (Auto) 0.3, Baso # (Auto) 0.1 03/27/22 06:40: Sodium 137, Potassium 4.2, Chloride 109 H, Carbon Dioxide 24, Anion Gap 8.2, BUN 15, Creatinine 0.30 L D, Estimated Creat Clear 359 H, Estimated GFR 242, Est GFR ( Amer) 292 D, Glucose 184 H D, Calcium 8.5, Magnesium 1.7, Total Bilirubin 0.4, AST 55 H, ALT 54 D, Alkaline Phosphatase 100, Total Protein 5.3 L, Albumin 2.5 L D, Globulin 2.8, Albumin/Globulin Ratio 0.9 L 03/27/22 06:58: POC Glucose 177 H 03/27/22 09:52: SARS-CoV-2 (PCR) Not detected, Influenza A Untype (PCR) Not detected, Influenza Type B (PCR) Not detected 03/27/22 11:17: POC Glucose 229 H 03/27/22 13:44: POC Glucose 223 H I & O for Labs for Last 24 Hours: Intake & Output 03/24/22 03/25/22 03/26/22 03/27/22 23:59 23:59 23:59 23:59 Intake Total 1300 / 1300 600 / 600 1043 / 1043 240 / 240 Output Total 1350 / 1350 2700 / 2700 2100 / 2100 1300 / 1300 Balance -50 / -50 -2100 / -2100 -1057 / -1057 -1060 / -1060 Weight 93 kg 93.61 kg 93.61 kg 95.073 kg Microbiology Reports for the Last 24 Hours: Microbiology 03/24/22 10:50 Blood Blood Culture - Final Staphylococcus aureus 03/24/22 10:45 Blood Blood Culture - Final Staphylococcus aureus Constitutional: Present no acute distress, obese and chronically ill appearing Head: Present atraumatic and normocephalic ENT: Present normal exam Neck: Present normal inspection Respiratory: Present CTA bilaterally; Absent accessory muscle use Cardiac: Present Reg Rate and Rhythm and No Murmur GI: Present soft and tenderness Extremities: Present tenderness Comment:: Right medial lower extremity with improved tenderness. No erythema. Able to internally and externally rotate hip with improvement in pain Skin: Present intact and dry; Absent cyanosis, erythema, lesions, rash or gangrene Comment:: Numerous tattoos, no osler nodes or splinter hemorrhages of extremities. No skin lesions or tender spots elsewhere on body other than above. Neuro: Present alert, awake and oriented x 3 Assessment and Plan *Assessment and plan (1) MRSA bacteremia: Status: Acute Category: Medical Code(s): R78.81 - Bacteremia; B95.62 - M
[2022-03-27 22:15] LABS: Gentamicin,Random 2.5 ug/ml
[2022-03-28 00:19] LABS: POC Glucose,Bedside 381 (70-110)
[2022-03-28 00:19] LABS: POC Glucose,Bedside 372 (70-110)
[2022-03-28 04:00] VITALS: BP 145/85; PULSE 77; RESP 18; TEMP 37.3; O2SAT 100
[2022-03-28 05:00] VITALS: BMI 31.8
--- NOTE | 2022-03-28 05:37 | PC.NURSE ---
NO ACUTE CHANGES SINCE PREVIOUS ASSESSMENT. PT HAS NOT RESTED WELL THIS SHIFT. LUNG SOUNDS REMAIN CLEAR AND REMAINS ON ROOM AIR. PT HAS HAD ONE EPISODE OF INCONTINENCE THIS SHIFT. HAS C/O PAIN TO HER RIGHT THIGH X3 THIS SHIFT AND HAS BEEN MEDICATED PER MAR FOR PAIN. ICE PACKS PROVIDED FOR PT COMFORT.
--- NOTE | 2022-03-28 06:00 | MR_ITS ---
FINAL REPORT CLINICAL HISTORY: hip pain not improving. prior ct. FINDINGS: Multiplanar MR imaging of the right hip was performed without contrast. There are mild degenerative changes of both hips. There is a moderate right hip joint effusion. There is a probable superior right labral tear. There is abnormal T2 signal in the right gluteus medius and minimus, iliopsoas, quadriceps muscle and adductor musculature. Differentials would include moderate muscle injury or diffuse myositis. There is fluid in the adductor musculature region on the right obturator internus that is nonspecific and could represent hematoma, seroma, or abscess. There is increased signal in the left gluteus minimus and adjacent to it that could represent injury or diffuse mild situs. There is a small amount of pelvic free fluid which could be physiologic or reactive. IMPRESSION: Moderate right hip joint effusion with probable superior right labral tear. Diffuse abnormal T2 signal throughout the right hip soft tissue could represent moderate muscle injury or diffuse myositis. Reviewed, Interpreted and Dictated by Adarsh Watt III, MD Transcribed by Kiran Marks Authenticated and [facility]
[2022-03-28 06:07] LABS: POC Glucose,Bedside 312 (70-110)
[2022-03-28 07:59] LABS: Anion Gap 8.9 mEq/L (5-15); Blood Urea Nitrogen 9 mg/dl (7-17); C-Reactive Protein 61.5 mg/L (0-4); Calcium 8.4 mg/dl (8.4-10.2); Carbon Dioxide 27 mmol/L (22.0-30.0); Chloride 103 mmol/L (98-107); Creatinine Clearance Estimated 369 mL/min (50-200); Estimated Glomerular Filt Rate 242 ml/min (>60); GFR (African American) 292 ML/MIN (>60); Gentamicin,Random < 0.6 ug/ml; Glucose 298 mg/dl (74-100); Potassium 3.9 mmoL/L (3.5-5.1); Sodium 135 mmol/L (136-145)
[2022-03-28 08:00] VITALS: BP 162/77; PULSE 86; RESP 18; TEMP 36.7; O2SAT 100
[2022-03-28 08:51] LABS: Basophils # 0.1 K/mm3 (0-0.2); Basophils % 0.7 % (0.1-2.0); Eosinophils # 0.3 K/mm3 (0.0-0.4); Eosinophils % 2.3 % (0.1-12.0); Hematocrit 36.7 % (37.0-47.0); Hemoglobin 11.8 g/dL (12.2-16.2); Lymphocytes # 1.7 K/mm3 (0.7-4.5); Lymphocytes % 13.1 % (10-50); Mean Corpuscular HGB Conc 32.2 g/dL (31.8-35.4); Mean Corpuscular Volume 86.8 fl (81-99); Monocytes # 0.5 K/mm3 (0.1-1.0); Monocytes % 3.5 % (1.7-9.3); Neutrophils # 10.7 K/mm3 (1.8-7.8); Neutrophils % 80.4 % (37.0-80.0); Platelet Count 540 K/mm3 (142-424); Red Blood Count 4.22 M/mm3 (4.20-5.40); White Blood Count 13.3 K/mm3 (4.8-10.8)
[2022-03-28 09:26] LABS: Erythrocyte Sedimentation Rate 86 mm/hr (0-20)
[2022-03-28 10:16] LABS: Hemoglobin A1C > 14.0 % (4.0-6.0)
[2022-03-28 12:39] VITALS: BP 125/71; PULSE 83; RESP 18; TEMP 36.8; O2SAT 100
[2022-03-28 12:47] LABS: POC Glucose,Bedside 280 (70-110)
--- NOTE | 2022-03-28 14:56 | EXP.ACUTE.PN ---
Subjective *Date: 03/28/22 *Time: 14:56 Interval history: No events overnight. Remains afebrile. Tolerating good p.o. intake. No shortness of breath, chest pain, nausea, vomiting. Ambulating to bedside commode to urinate. Pain improving. Pleasant on exam this morning. Medical Exam Vital signs and Labs for Last 24 Hours: Vital Signs Temp Pulse Pulse Resp BP Pulse Ox 03/28/22 12:39 98.3 F 83 18 125/71 100 03/28/22 08:00 98.0 F 86 18 162/77 H 100 03/28/22 04:00 99.1 F 77 18 145/85 H 100 03/27/22 23:42 98.9 F 86 20 150/75 H 96 03/27/22 20:00 98 H 20 165/58 H 99 03/27/22 19:00 90 18 175/81 H 100 03/27/22 18:00 94 H 18 162/76 H 100 03/27/22 17:30 97.8 F 99 H 20 166/80 H 99 03/27/22 17:00 98.7 F 95 H 18 146/60 H 97 03/27/22 16:15 98.7 F 97 H 20 176/90 H 100 03/27/22 16:00 98.1 F 93 H 19 149/71 H 99 03/27/22 20:00 99.7 F H 91 H 16 132/75 98 03/27/22 15:47 94 H 03/27/22 15:45 92 H 20 152/87 H 100 Intake and Output 03/27/22 03/28/22 03/28/22 23:59 07:59 15:59 Intake Total 300 / 300 87 / 1953 1079 / 1952 Output Total 500 / 1800 1000 / 1000 Balance -200 / -1500 -127 / 953 1080 / 953 Intake: Intake, Oral Amount 300 / 300 1080 / 1080 Intake, Total IV Amount 873 / 873 0.9 % Sodium Chloride 1,000 ml 873 / 873 @ 50 mls/hr IV .Q20H [facility] Rx#: [id number] Output: Output, Urine Amount 500 / 1800 1000 / 1000 Other: Number of Voids 1 Number of Unmeasured Voids 1 1 Weight 97.579 kg Patient Weight 03/28/22 23:59 Weight 97.579 kg Laboratory Results - last 24 hr 03/27/22 19:58: POC Glucose 372 H* 03/27/22 21:30: Random Gentamicin 2.5 03/28/22 00:08: POC Glucose 381 H* 03/28/22 05:57: POC Glucose 312 H* 03/28/22 07:09: Sodium 135 L, Potassium 3.9, Chloride 103, Carbon Dioxide 27, Anion Gap 8.9, BUN 9 D, Creatinine 0.30 L, Estimated Creat Clear 369 H, Estimated GFR 242, Est GFR ( Amer) 292, Glucose 298 H, Calcium 8.4, C-Reactive Protein 61.5 H D 03/28/22 07:09: Random Gentamicin < 0.6 03/28/22 08:42: WBC 13.3 H, RBC 4.22, Hgb 11.8 L, Hct 36.7 L, MCV 86.8, MCH 28.0, MCHC 32.2, RDW 14.0, Plt Count 540 H, MPV 8.0, Neut % (Auto) 80.4 H, Lymph % (Auto) 13.1, Sawyer % (Auto) 3.5, Eos % (Auto) 2.3, Baso % (Auto) 0.7, Neut # (Auto) 10.7 H, Lymph # (Auto) 1.7, Sawyer # (Auto) 0.5, Eos # (Auto) 0.3, Baso # (Auto) 0.1, ESR 86 H 03/28/22 08:42: Hemoglobin A1c > 14.0 H 03/28/22 12:33: POC Glucose 280 H I & O for Labs for Last 24 Hours: Intake & Output 03/25/22 03/26/22 03/27/22 03/28/22 23:59 23:59 23:59 23:59 Intake Total 600 / 600 1043 / 1043 300 / 300 1953 / 3 Output Total 2700 / 2700 2099 / 2099 1800 / 1800 1000 / 1000 Balance -2099 / -2099 -1057 / -1057 -1500 / -1500 953 / 953 Weight 93.61 kg 93.61 kg 95.073 kg 97.579 kg Microbiology Reports for the Last 24 Hours: Microbiology 03/26/22 08:43 Blood Blood Culture - Preliminary NO GROWTH AFTER 48 HOURS 03/26/22 08:43 Blood Blood Culture - Preliminary NO GROWTH AFTER 48 HOURS Constitutional: Present no acute distress, obese and chronically ill appearing Head: Present atraumatic and normocephalic ENT: Present normal exam Neck: Present normal inspection Respiratory: Present CTA bilaterally; Absent accessory muscle use Cardiac: Present Reg Rate and Rhythm and No Murmur GI: Present soft and tenderness Extremities: Present tenderness Comment:: Right medial lower extremity with improved tenderness. No erythema. Able to internally and externally rotate hip with improvement in pain Skin: Present intact and dry; Absent cyanosis, erythema, lesions, rash or gangrene Comment:: Numerous tattoos, no osler nodes or splinter hemorrhages of extremities. No skin lesions or tender spots elsewhere on body other than above. Neuro: Present alert, awake and oriented x 3 Assessment and
[2022-03-28 16:00] VITALS: BP 144/73; PULSE 80; RESP 18; TEMP 37.3; O2SAT 98
[2022-03-28 17:29] LABS: POC Glucose,Bedside 365 (70-110)
[2022-03-28 20:00] VITALS: BP 145/79; PULSE 96; RESP 16; TEMP 36.6; O2SAT 100
[2022-03-28 21:14] LABS: POC Glucose,Bedside 284 (70-110)
[2022-03-29] VITALS: BP 164/77; PULSE 96; RESP 18; TEMP 36.8; O2SAT 99
[2022-03-29 01:10] LABS: POC Glucose,Bedside 339 (70-110)
[2022-03-29 04:00] VITALS: BP 147/86; PULSE 98; RESP 20; TEMP 36.9; O2SAT 99
--- NOTE | 2022-03-29 04:29 | PC.NURSE ---
NO ACUTE CHANGES SINCE PREVIOUS ASSESMENT. PT ALERT AND ORIENTED X 4. PT HAS C/O OF R HIP PAIN TWICE DURING MY SHIFT. MEDICATED PER JUN. PT HAS BEEN AMBULATING TO [facility] INDEPENDENTLY. CHECKING FSBS Q6HRS. MIDLINE TO SUNDEEP PATENT, BERRY C/D/I. PT RECEIVING IV ATBX ORDERED. REMAINS ON RA. NO NEEDS VOICED AT THIS TIME. CALL LIGHT IN REACH.
[2022-03-29 05:00] VITALS: BMI 31.0
[2022-03-29 06:21] LABS: POC Glucose,Bedside 143 (70-110)
[2022-03-29 08:00] VITALS: BP 152/84; PULSE 89; RESP 18; TEMP 37.1; O2SAT 98
[2022-03-29 09:48] LABS: Basophils # 0.1 K/mm3 (0-0.2); Basophils % 0.6 % (0.1-2.0); Eosinophils # 0.2 K/mm3 (0.0-0.4); Eosinophils % 2.1 % (0.1-12.0); Hemoglobin 10.5 g/dL (12.2-16.2); Lymphocytes % 17.6 % (10-50); Mean Corpuscular HGB Conc 31.7 g/dL (31.8-35.4); Mean Corpuscular Volume 88.3 fl (81-99); Monocytes # 0.5 K/mm3 (0.1-1.0); Neutrophils # 8.6 K/mm3 (1.8-7.8); Neutrophils % 75.8 % (37.0-80.0); Platelet Count 548 K/mm3 (142-424); Red Blood Count 3.74 M/mm3 (4.20-5.40); Red Cell Distribution Width 13.7 % (11.5-17.5); White Blood Count 11.4 K/mm3 (4.8-10.8)
[2022-03-29 09:52] LABS: Chloride 103 mmol/L (98-107); Sodium 134 mmol/L (136-145)
[2022-03-29 09:56] LABS: Blood Urea Nitrogen 11 mg/dl (7-17); Calcium 7.9 mg/dl (8.4-10.2); Carbon Dioxide 33 mmol/L (22.0-30.0); Creatinine Clearance Estimated 215 mL/min (50-200); Estimated Glomerular Filt Rate 134 ml/min (>60); GFR (African American) 162 ML/MIN (>60); Glucose 244 mg/dl (74-100)
[2022-03-29 12:13] LABS: POC Glucose,Bedside 344 (70-110)
[2022-03-29 15:19] VITALS: BP 138/80; PULSE 95; RESP 18; TEMP 36.9; O2SAT 99
[2022-03-29 17:20] LABS: POC Glucose,Bedside 224 (70-110)
--- NOTE | 2022-03-29 17:42 | EXP.ACUTE.PN ---
Subjective *Date: 03/29/22 *Time: 17:49 Interval history: Patient did well overnight. Seeing improvement in glucose control with adjustment in insulin. Remains afebrile. Ambulate to bathroom though still having pain in right upper thigh. Tolerating wean of pain medication. No nausea, vomiting, diarrhea. Stable on room air. Asking when she can go home. Still awaiting read on MRI Medical Exam Vital signs and Labs for Last 24 Hours: Vital Signs Temp Pulse Resp BP Pulse Ox 03/29/22 15:19 98.4 F 95 H 18 138/80 99 03/29/22 08:00 98.7 F 89 18 152/84 H 98 03/29/22 04:00 98.4 F 98 H 20 147/86 H 99 03/29/22 00:00 98.2 F 96 H 18 164/77 H 99 03/28/22 20:00 97.9 F 96 H 16 145/79 H 100 Intake and Output 03/29/22 03/29/22 03/29/22 07:59 15:59 23:59 Intake Total 420 / 900 480 / 900 Output Total 600 / 900 300 / 900 Balance -180 / 0 180 / 0 Intake: Intake, Oral Amount 120 / 600 480 / 600 Intake, Total IV Amount 300 / 300 Linezolid 600 mg In 300 ml @ 300 / 300 300 mls/hr IV Q12H [facility] Rx#: [id number] Output: Output, Urine Amount 600 / 900 300 / 900 Other: Number of Unmeasured Voids 0 Weight 95.028 kg Patient Weight 03/29/22 23:59 Weight 95.028 kg Laboratory Results - last 24 hr 03/28/22 21:01: POC Glucose 284 H 03/29/22 01:00: POC Glucose 339 H* 03/29/22 06:14: POC Glucose 143 H 03/29/22 09:39: WBC 11.4 H, RBC 3.74 L, Hgb 10.5 L, Hct 33.0 L, MCV 88.3, MCH 28.0, MCHC 31.7 L, RDW 13.7, Plt Count 548 H, MPV 8.0, Neut % (Auto) 75.8, Lymph % (Auto) 17.6, Ballard % (Auto) 4.0, Eos % (Auto) 2.1, Baso % (Auto) 0.6, Neut # (Auto) 8.6 H, Lymph # (Auto) 2.0, Ballard # (Auto) 0.5, Eos # (Auto) 0.2, Baso # (Auto) 0.1 03/29/22 09:39: Sodium 134 L, Potassium 3.0 L D, Chloride 103, Carbon Dioxide 33 H, Anion Gap 1.0 L, BUN 11, Creatinine 0.50 L D, Estimated Creat Clear 215, Estimated GFR 134, Est GFR ( Amer) 162 D, Glucose 244 H, Calcium 7.9 L 03/29/22 12:06: POC Glucose 344 H* 03/29/22 16:47: POC Glucose 224 H I & O for Labs for Last 24 Hours: Intake & Output 03/26/22 03/27/22 03/28/22 03/29/22 23:59 23:59 23:59 23:59 Intake Total 1043 / 1043 300 / 300 2313 / 2433 900 / 900 Output Total 2100 / 2100 1800 / 1800 2300 / 2300 900 / 900 Balance -1057 / -1057 -1500 / -1500 13 / 133 0 / 0 Weight 93.61 kg 95.073 kg 97.579 kg 95.028 kg Microbiology Reports for the Last 24 Hours: Microbiology 03/26/22 08:43 Blood Blood Culture - Preliminary NO GROWTH AFTER 48 HOURS 03/26/22 08:43 Blood Blood Culture - Preliminary NO GROWTH AFTER 48 HOURS Constitutional: Present no acute distress, obese and chronically ill appearing Head: Present atraumatic and normocephalic ENT: Present normal exam Neck: Present normal inspection Respiratory: Present CTA bilaterally; Absent accessory muscle use Cardiac: Present Reg Rate and Rhythm and No Murmur GI: Present soft and tenderness Extremities: Present tenderness Comment:: Right medial lower extremity with improved tenderness. Skin: Present intact and dry; Absent cyanosis, erythema, lesions, rash or gangrene Neuro: Present alert, awake and oriented x 3 Assessment and Plan *Assessment and plan (1) MRSA bacteremia: Status: Acute Category: Medical Code(s): R78.81 - Bacteremia; B95.62 - Methicillin resistant Staphylococcus aureus infection as the cause of diseases classified elsewhere (2) Diabetes: Status: Acute Category: Medical Code(s): E11.9 - Type 2 diabetes mellitus without complications (3) Acute pain of right thigh: Status: Acute Category: Medical Code(s): M79.651 - Pain in right thigh (4) Acute hyperglycemia: Status: Acute Category: Medical Code(s): R73.9 - Hyperglycemia, unspecified (5) IVDU (intravenous drug user): Status: Acute Category: Social Hx Code
[2022-03-29 20:00] VITALS: BP 149/80; PULSE 104; RESP 20; TEMP 37.1; O2SAT 100
[2022-03-29 21:15] LABS: POC Glucose,Bedside 190 (70-110)
[2022-03-30] VITALS (22 sets, daily range): BP systolic 118–158; BP diastolic 63–99; PULSE 73–108; RESP 16–24; TEMP 36.4–43; O2SAT 94–100; BMI 30.9
[2022-03-30 06:48] LABS: Basophils # 0.1 K/mm3 (0-0.2); Basophils % 0.6 % (0.1-2.0); Eosinophils # 0.2 K/mm3 (0.0-0.4); Eosinophils % 1.4 % (0.1-12.0); Hematocrit 34.5 % (37.0-47.0); Hemoglobin 11.1 g/dL (12.2-16.2); Lymphocytes # 1.8 K/mm3 (0.7-4.5); Lymphocytes % 16.2 % (10-50); Mean Corpuscular Volume 87.4 fl (81-99); Mean Platelet Volume 7.8 fl (7.4-10.4); Monocytes # 0.3 K/mm3 (0.1-1.0); Monocytes % 3.1 % (1.7-9.3); Neutrophils # 8.5 K/mm3 (1.8-7.8); Neutrophils % 78.6 % (37.0-80.0); Platelet Count 624 K/mm3 (142-424); Red Blood Count 3.95 M/mm3 (4.20-5.40); Red Cell Distribution Width 13.7 % (11.5-17.5); White Blood Count 10.8 K/mm3 (4.8-10.8)
[2022-03-30 06:54] LABS: Chloride 102 mmol/L (98-107); Potassium 3.1 mmoL/L (3.5-5.1); Sodium 135 mmol/L (136-145)
[2022-03-30 06:57] LABS: Anion Gap 4.1 mEq/L (5-15); Blood Urea Nitrogen 11 mg/dl (7-17); Calcium 8.7 mg/dl (8.4-10.2); Carbon Dioxide 32 mmol/L (22.0-30.0); Creatinine Clearance Estimated 269 mL/min (50-200); Estimated Glomerular Filt Rate 173 ml/min (>60); GFR (African American) 210 ML/MIN (>60); Glucose 186 mg/dl (74-100)
[2022-03-30 07:02] LABS: C-Reactive Protein 84.2 mg/L (0-4)
[2022-03-30 07:06] LABS: Erythrocyte Sedimentation Rate 134 mm/hr (0-20)
--- NOTE | 2022-03-30 07:45 | EXP.DC.SUM ---
General Admission date:: 03/21/22 Discharge date: 04/07/22 HPI HPI HPI: 46-year-old female who has had an extensive hospitalization secondary to bacteremia with infection in the groin area severe difficulty with pain decreased mobility pain with any range of motion internal and external rotation of the hip radiating to the groin area and posteriorly along the hip. She has been on antibiotics recent blood cultures negative. Orthopedic consulted for evaluation of right hip to rule out septic arthritis osteomyelitis as source of bacteremia. Forwarded from admission H&P: Patient is 46-year-old female who presents emergency department today for leg pain of 3 days duration. Patient states that approximately 3 days ago she began having pain in her right medial thigh. The pain extends from just above the right inguinal ligament along the medial thigh to the right medial knee. States that the pain has been progressively worsening for the last 3 days and this morning was unbearable and extremely painful. She reports erythema and swelling of this area and both decrease when she props her legs up above her on a pillow. Patient is a IV drug user and was prescribed Suboxone. She was reluctant to reveal that she has been injecting her Suboxone in the last few weeks into her right thigh along the area that hurts. That is her preferred injection site states last IV drug use in the site was a few weeks ago. Denies fevers denies chills denies neck Hospital Course Hospital Course Hospital Course: Patient 46-year-old female with active IV drug use, reportedly injecting Suboxone into her medial right leg vein in the same territory that she is currently experiencing pain.? Also has meth on UDS.? On admission her pain was out of proportion to physical exam.? Pain improving.? White cell count has normalized.? MRI (03/28) right hip effusion and myositis.? Orthopedics following.? Hip aspirated (03/30). Blood cultures from 03/26 and 03/28 remain negative.? Aspiration growing MRSA.? To date, TTE/OLVIN negative for endocarditis.? Stable on room air.? CT chest negative for embolic phenomenon.? Tolerating antibiotics vancomycin and gentamicin for bone penetration.? At this time necessitates 6 weeks of IV antibiotics.? Case management assisting with placement. ? We will plan on 6 weeks of antibiotic therapy for MRSA bacteremia starting on 03/26 (first negative blood cultures). Problems addressed as follows: MRSA bacteremia Myositis/right hip joint effusion, MRSA - OLVIN/TTE negative.? No concern for endocarditis at this time.? - MRI of right hip reviewed showing effusion. Concern for septic arthritis. Orthopedics was consulted. Patient taken for washout. Tolerated procedure well. Plan to complete 6 weeks total of antibiotic therapy. Antibiotic course as follows: Vancomycin 1.75 g every 8 hours, last dose 05/07/2022; gentamicin 400 mg daily last dose 05/07/2022 for 6 weeks from 03/26. 2 sets of blood cultures since 03/26 no growth to date. During admission she had consults with cardiology, orthopedics, general surgery. - Follow-up Ortho 1 week post discharge to evaluate dressing and wound. IV drug use Hepatitis C - Opioids, amphetamine positive on UDS. Admits to using IV Suboxone. Treated as needed with benzodiazepine therapy, has not needed in several days. HIV was nonreactive on testing. Hepatitis panel have returned positive for hepatitis C. Would benefit from further evaluation and referral as an outpatient to GI/hep otology to discuss treatment options. Recommend consideration of rehab/substance abuse counseling after discharge from therapy/SNF Pain -Pain is gradually improved. Completed 5-day course of Toradol. De-escalating hydrocodone as tolerated. Will discharge on 7.5 mg hydrocodone 4 times a day as needed. Continue lidocaine patch as tolerated. Patient has component of neuropathic pain wit
--- NOTE | 2022-03-30 11:01 | EXP.ACUTE.PN ---
Subjective *Date: 03/30/22 *Time: 11:01 Interval history: Ms. Valladares showing mild improvement in ambulation. Still having pain with ambulation but improving at this time. Ambulating to bathroom. Took shower yesterday. Remains afebrile. No nausea, vomiting, chest pain or shortness of breath. MRI report returned this morning, unfortunately shows fluid collection in right hip. In light of presentation, have concern again this morning that I expressed to her that she may have infection in the joint. Orthopedics to see her again today. Blood sugar better controlled this morning. Tolerating current pain regimen and insulin regimen Medical Exam Vital signs and Labs for Last 24 Hours: Vital Signs Temp Pulse Resp BP Pulse Ox 03/30/22 07:26 98.0 F 92 H 18 158/99 H 100 03/30/22 04:00 98.6 F 99 H 18 140/86 100 03/29/22 20:00 98.7 F 104 H 20 149/80 H 100 03/29/22 15:19 98.4 F 95 H 18 138/80 99 Intake and Output 03/29/22 03/30/22 03/30/22 23:59 07:59 15:59 Intake Total 240 / 1380 780 / 780 Output Total 250 / 1150 300 / 300 Balance -10 / 230 480 / 480 Intake: Intake, Oral Amount 240 / 1080 480 / 480 Intake, Total IV Amount 300 / 300 Linezolid 600 mg In 300 ml @ 300 / 300 300 mls/hr IV Q12H [facility] Rx#: [id number] Output: Output, Urine Amount 250 / 1150 300 / 300 Other: Number of Unmeasured Voids 1 1 Weight 94.8 kg Patient Weight 03/30/22 23:59 Weight 94.8 kg Laboratory Results - last 24 hr 03/29/22 12:06: POC Glucose 344 H* 03/29/22 16:47: POC Glucose 224 H 03/29/22 20:57: POC Glucose 190 H 03/30/22 06:30: WBC 10.8, RBC 3.95 L, Hgb 11.1 L, Hct 34.5 L, MCV 87.4, MCH 28.0, MCHC 32.0, RDW 13.7, Plt Count 624 H, MPV 7.8, Neut % (Auto) 78.6, Lymph % (Auto) 16.2, Dare % (Auto) 3.1, Eos % (Auto) 1.4, Baso % (Auto) 0.6, Neut # (Auto) 8.5 H, Lymph # (Auto) 1.8, Dare # (Auto) 0.3, Eos # (Auto) 0.2, Baso # (Auto) 0.1 03/30/22 06:30: Sodium 135 L, Potassium 3.1 L, Chloride 102, Carbon Dioxide 32 H, Anion Gap 4.1 L, BUN 11, Creatinine 0.40 L, Estimated Creat Clear 269, Estimated GFR 173, Est GFR ( Amer) 210 D, Glucose 186 H D, Calcium 8.7, C-Reactive Protein 84.2 H D 03/30/22 06:30: ESR 134 H I & O for Labs for Last 24 Hours: Intake & Output 03/27/22 03/28/22 03/29/22 03/30/22 23:59 23:59 23:59 23:59 Intake Total 300 / 300 2313 / 2433 1140 / 1380 780 / 780 Output Total 1800 / 1800 2300 / 2300 1150 / 1150 300 / 300 Balance -1500 / -1500 13 / 133 -10 / 230 480 / 480 Weight 95.073 kg 97.579 kg 95.028 kg 94.8 kg Constitutional: Present no acute distress, obese and chronically ill appearing Head: Present atraumatic and normocephalic ENT: Present normal exam Neck: Present normal inspection Respiratory: Present CTA bilaterally; Absent accessory muscle use Cardiac: Present Reg Rate and Rhythm and No Murmur GI: Present soft and tenderness Extremities: Present tenderness Comment:: Interval improvement in pain with internal and external rotation. Able to bear wt. Skin: Present intact and dry; Absent cyanosis, erythema, lesions, rash or gangrene Neuro: Present alert, awake and oriented x 3 Assessment and Plan *Assessment and plan (1) MRSA bacteremia: Status: Acute Category: Medical Code(s): R78.81 - Bacteremia; B95.62 - Methicillin resistant Staphylococcus aureus infection as the cause of diseases classified elsewhere (2) Myositis: Status: Acute Category: Medical Code(s): M60.9 - Myositis, unspecified (3) Right hip joint effusion: Status: Acute Category: Medical Code(s): M25.451 - Effusion, right hip (4) Diabetes: Status: Acute Category: Medical Code(s): E11.9 - Type 2 diabetes mellitus without complications (5) Acute pain of right thigh: Status: Acute Category: Medical Code(s): M79.651 - Pain in right thigh (6) Acute hyperglycemia: Status: Ac
--- NOTE | 2022-03-30 11:13 | EXP.ORTH.CON ---
History of Present Illness *Admission Date: 03/21/22 *Reason for visit:: Right thigh pain *History of present illness: Lenny is a 46 year old female patient who was admitted to the acute inpatient service on 03/21/2022 secondary to bacteremia, right thigh/groin pain, and decreased mobility. She reports that she has had right leg/thigh pain that began approximately 3 days prior to her admission. Orthopedics consulted for evaluation of her right hip pain to rule out septic arthritis and/or osteomyelitis as a source of bacteremia. The patient was evaluated on 03/27/[address] Gaming, who recommended MRI to further evaluate/rule out osteomyelitis. This morning the patient is lying comfortably in bed. She continues to report right groin/thigh pain that she states is well controlled with as needed pain medication and rest. She reports that her leg feels better than it did upon her initial presentation to the hospital. She localizes her pain to the right groin and medial thigh with radiation to the right medial aspect of the knee. No known injury. No history of any distal tingling/numbness. She denies any other symptoms or concerns at this time. Forwarded from admission H&P: Patient is 46-year-old female who presents emergency department today for leg pain of 3 days duration. Patient states that approximately 3 days ago she began having pain in her right medial thigh. The pain extends from just above the right inguinal ligament along the medial thigh to the right medial knee. States that the pain has been progressively worsening for the last 3 days and this morning was unbearable and extremely painful. She reports erythema and swelling of this area and both decrease when she props her legs up above her on a pillow. Patient is a IV drug user and was prescribed Suboxone. She was reluctant to reveal that she has been injecting her Suboxone in the last few weeks into her right thigh along the area that hurts. That is her preferred injection site states last IV drug use in the site was a few weeks ago. Denies fevers denies chills denies neck PFSH PFS Disclaimer: The information contained in this section may have been updated after the patient was seen, as this information can be updated by other users. Medical History Asthma Surgical History No significant past surgical history Family History Other No significant family history Social History (Updated 03/27/22 @ 16:03 by brittni amador CRNA) Smoking Status: Never smoker alcohol intake: former substance use type: opiates, IV drugs and other details: hard drugs , non specific, according to patient. current occupational status: other Travel in the last 8 weeks: None Review of Systems Constitutional Constitutional: Denies weakness *Musculoskeletal Musculoskeletal: Denies numbness *Neurologic Neurologic: Reports system reviewed and no additional complaints, except as documented, Denies numbness and Denies weakness Meds Home Medications and Allergies Home Medications Medication Instructions Recorded Confirmed Type gabapentin 100 mg capsule 100 mg PO TID 30 days #90 caps 03/29/22 Rx hydrocodone 5 mg-acetaminophen 325 1 tab PO Q6HP PRN Moderate To 03/29/22 Rx mg tablet Severe Pain 3 days #12 tabs insulin glargine 100 unit/mL (3 25 unit (0.25 mL) SQ HS 30 days 03/29/22 Rx mL) subcutaneous pen (Lantus #7.5 mL Solostar U-100 Insulin) linezolid 600 mg tablet (Zyvox) 600 mg PO Q12H 9 days #17 tabs 03/29/22 Rx metformin 1,000 mg tablet 1,000 mg PO BIDWMEAL 30 days #60 03/29/22 Rx tabs naproxen sodium 275 mg tablet 275 mg PO BID #30 tabs 03/29/22 Rx New Prescriptions to Start Prescriptions: hydrocodone-acetaminophen
--- NOTE | 2022-03-30 11:23 | XR_ITS ---
FINAL REPORT CLINICAL HISTORY: Confirm PICC line placement FINDINGS: A right-sided PICC line terminates in the lower SVC. The heart size is normal. The mediastinum is within normal limits. There is no acute cardiopulmonary process. There is no pleural effusion. There is no pneumothorax. The bony thorax is intact. IMPRESSION: Right-sided PICC line terminates in the lower SVC. Reviewed, Interpreted and Dictated by Adarsh Watt III, MD Transcribed by Kiran Marks Authenticated and [facility]
[2022-03-30 11:24] LABS: POC Glucose,Bedside 300 (70-110)
[2022-03-30 16:32] LABS: POC Glucose,Bedside 110 (70-110)
[2022-03-30 18:04] LABS: POC Glucose,Bedside 140 (70-110)
--- NOTE | 2022-03-30 18:19 | XR_ITS ---
PROCEDURE INFORMATION: Exam: XR Right Hip Exam date and time: 03/30/2022 6:15 PM Age: 46 years old Clinical indication: Screening exam; C-arm was used in o. R. To attempt right hip fluid aspiration which was unsuccessful. Surgeon decided to do i and d procedure. TECHNIQUE: Imaging protocol: Radiologic exam of the Right hip. Views: 2 or 3 views hip with pelvis when performed. COMPARISON: MR HIP RT WO CON 03/28/2022 11:25 AM FINDINGS: Bones/joints: Intraoperative radiograph is obtained of the right hip. Three images are obtained. Soft tissues: Cannot be evaluated. IMPRESSION: Intraoperative radiographs as above
--- NOTE | 2022-03-30 20:08 | P.PN_ITS ---
[facility] Disclaimer: The information contained in this section may have been updated after the patient was seen, as this information can be updated by other users. Medical History Asthma Surgical History No significant past surgical history Family History Other No significant family history Social History (Updated 03/27/22 @ 16:03 by brittni amador CRNA) Smoking Status: Never smoker alcohol intake: former substance use type: opiates, IV drugs and other details: hard drugs , non specific, according to patient. current occupational status: other Travel in the last 8 weeks: None [facility] Anesthesia Checklist Patient Identification Patient Identification: Arm Band Structural Data Admitted From: Home Planned Operative Procedure/s: I&D Right Hip Consent for Planned Operative Procedure(s) Verified: Yes NPO Status Verified Time NPO: 08:00 Additional verifications Anesthesia Reactions: No Hx Blood Transfusions: No Airway Assessment C-Spine Mobility Assessed: Yes TMJ Mobility Assessed: Yes Dentition: Good Dentition Neurological Assessment Level of Consciousness: Awake and Alert Anesthesia Plan Anesthesia Risk discussed: Yes Anesthesia Plan: Verified ASA Class: III Anesthesia Type: General
--- NOTE | 2022-03-30 20:59 | EXP.ANES.I ---
[facility] Anesthesia Record Part I Anesthesia Record I Intake, IV Amount: 700 Estimated blood loss (mL): 25 Urine output (mL): 0 Blood Products used (#): none Blood Pressure: 142/77 SaO2: 94 Pulse Rate: 103 Respiratory Rate: 24 Temperature: 97.6 F Patient is:: Drowsy and Stable Stable to PACU at:: 20:50
[2022-03-30 21:07] LABS: POC Glucose,Bedside 192 (70-110)
--- NOTE | 2022-03-30 21:27 | P.OP_ITS ---
Date of procedure: 03/30/22 Pre-op Diagnosis:: Right hip infection Post-op Diagnosis:: Same Procedure performed:: 73986: Right hip arthrotomy 69393: Debridement irrigation of right lateral hip abscess Surgeon:: Everett Fraser JR, MD DATA INTEGRATION ANALYST:: Salas Barkley Anesthesia: GETA Estimated blood loss (mL): 30 Clinical Note:: 46-year-old female, history of IV drug abuse, with 9-day history of right hip pain. MRI demonstrated right hip effusion, fluid near the greater trochanter. I had a discussion with her regarding further management. We discussed hip aspiration, possible hip arthrotomy. Given the persistent lateral sided hip pain, fluid noted on MRI, I felt that lateral hip debridement irrigation would be warranted. Given her prolonged course of antibiotics, there is a reasonable chance that cultures will be negative. After discussion of risk, benefits, alternatives, she was amenable with the plan. We discussed the risk and benefits of surgery. Risks included but were not limited to pain, bleeding, infection, damage to adjacent structures, need for further surgery, wound healing complications, loss of limb, . Patient expressed verbal consent and written consent was obtained for the above procedure. Operative findings:: Hip aspiration attempt yielded no fluid. There was no gross purulence in the hip joint or noted at the lateral hip area adjacent to the greater trochanter, but turbid fluid was encountered. Operative note:: Patient was identified in preoperative holding. Operative site was marked in indelible ink. History, physical, consent were reviewed and updated. Patient was surrendered to the anesthesia team, taken to the operative suite, placed supine on a well-padded operative table. Anesthesia was induced. The operative extremity was prepped and draped in the usual sterile fashion. The operative team donned sterile gowns and gloves and a timeout was called. All in attendance agreed regarding the patient's identity, procedure, operative site. Weight-based dose of antibiotics was given prior to incision. I attempted hip aspiration, was not able to aspirate any joint fluid. I made an anterior approach to the hip to the interval between the sartorius and tensor fascia mikey, deep interval between rectus femoris and gluteus medius. I incised the joint capsule, noted some turbid appearing fluid but no gross purulence. I took a swab specimen, irrigated with Irrisept followed by saline. Made a lateral approach to the greater trochanter, dissected through skin and subcutaneous tissue, incised the iliotibial band, encountered the space adjacent to the greater trochanter, noted a small amount of fluid, swab specimens of which I sent for culture. I again irrigated with Irrisept followed by saline. I placed deep drains, closed the fascia with monofilament, skin with nylon suture. Wounds were closed in anatomic layers. Sterile dressings applied. Counts were correct x2. There were no apparent complications. I was present and scrubbed for the entire case. Condition: stable Disposition: PACU Specimens:: Swab specimen sent for culture Complications:: None apparent. Postoperatively plan to follow cultures, leave drains for 48 hours, weightbearing as tolerated. Follow-up 2 weeks for wound check. Agree with plan for IV antibiotics.
--- NOTE | 2022-03-30 21:51 | SUR.PHASEI ---
2134- detailed report called to danita anne on [facility] [place] floor 2137- pt left in stable condition with danita anne in pt room. Bed in lowest position with side rails up, all VSS, dressings CDI, family at bedside
[2022-03-30 23:40] LABS: POC Glucose,Bedside 179 (70-110)
[2022-03-31] VITALS (10 sets, daily range): BP systolic 96–153; BP diastolic 66–85; PULSE 77–106; RESP 18–24; TEMP 36.6–37.1; O2SAT 96–100; BMI 30.9
[2022-03-31 00:40] LABS: Gentamicin,Random 2.1 ug/ml
[2022-03-31 06:43] LABS: POC Glucose,Bedside 290 (70-110)
--- NOTE | 2022-03-31 07:13 | PC.NURSE ---
Pt has c/o right thigh pain multiple times t.o shift. Pt prn pain medication administered as well as a 1x dose 5mg [place]. Pt dsg to right thigh is CDI and 2 10mm DARIEN drain are in place draining serosang drainage. Call light within reach
--- NOTE | 2022-03-31 07:30 | EXP.ANES.II ---
[facility] Anesthesia Record Part II Anesthesia Record Part II Discharge Time: 21:36 Destination: Medical Surgical Department PACU nurse assessment reviewed?: Yes Patient Condition:: Good Anesthesia Complications:: None Swallowing reflex intact?: Yes Cyanosis?: No Blood Pressure: 147/82 Pulse Rate: 97 Temperature: 98.1 F Mental Status: Alert & Oriented Pain level:: 4 Nausea and/or vomitting:: None Intake, IV Amount: 0
--- NOTE | 2022-03-31 09:12 | EXP.ORTH.PN ---
Subjective *Date: 03/31/22 *Time: 09:18 Interval history: Lenny is a 46 year old female patient who underwent right hip arthrotomy, debridement and irrigation performed yesterday 03/30/[address] Fraser. Today the patient is postop day #1. This morning the patient is lying comfortably in bed. She reports right hip pain but states it is well controlled with as needed pain medication and rest. She reports that she was able to get some sleep last night. No history of any distal tingling/numbness, fevers, chills, or rigors. She denies any other symptoms or concerns at this time. Ortho Exam (Inpt) Vital signs and Labs for Last 24 Hours: Temp Pulse Resp BP Pulse Ox 98.8 F 102 H 20 153/85 H 100 03/31/22 08:00 03/31/22 08:00 03/31/22 08:00 03/31/22 08:00 03/31/22 08:00 Laboratory Results - last 24 hr 03/30/22 11:17: POC Glucose 300 H 03/30/22 16:25: POC Glucose 110 03/30/22 17:56: POC Glucose 140 H 03/30/22 20:59: POC Glucose 192 H 03/30/22 22:58: POC Glucose 179 H 03/30/22 23:05: Random Gentamicin 2.1 03/31/22 06:33: POC Glucose 290 H Temp Pulse Resp BP Pulse Ox 98.0 F 92 H 18 158/99 H 100 03/30/22 07:26 03/30/22 07:26 03/30/22 07:26 03/30/22 07:26 03/30/22 07:26 Laboratory Results - last 24 hr 03/29/22 12:06: POC Glucose 344 H* 03/29/22 16:47: POC Glucose 224 H 03/29/22 20:57: POC Glucose 190 H 03/30/22 06:30: WBC 10.8, RBC 3.95 L, Hgb 11.1 L, Hct 34.5 L, MCV 87.4, MCH 28.0, MCHC 32.0, RDW 13.7, Plt Count 624 H, MPV 7.8, Neut % (Auto) 78.6, Lymph % (Auto) 16.2, [place] % (Auto) 3.1, Eos % (Auto) 1.4, Baso % (Auto) 0.6, Neut # (Auto) 8.5 H, Lymph # (Auto) 1.8, [place] # (Auto) 0.3, Eos # (Auto) 0.2, Baso # (Auto) 0.1 03/30/22 06:30: Sodium 135 L, Potassium 3.1 L, Chloride 102, Carbon Dioxide 32 H, Anion Gap 4.1 L, BUN 11, Creatinine 0.40 L, Estimated Creat Clear 269, Estimated GFR 173, Est GFR ( Amer) 210 D, Glucose 186 H D, Calcium 8.7, C-Reactive Protein 84.2 H D 03/30/22 06:30: ESR 134 H I & O for Labs for Last 24 Hours: Intake & Output 03/28/22 03/29/22 03/30/22 03/31/22 23:59 23:59 23:59 23:59 Intake Total 2313 / 2433 1140 / 1380 1480 / 1480 0 / 0 Output Total 2300 / 2300 1150 / 1150 850 / 850 Balance 13 / 133 -10 / 230 630 / 630 0 / 0 Weight 215 lb 2 oz 209 lb 8 oz 208 lb 15.971 oz 208 lb 15.971 oz Intake & Output 03/27/22 03/28/22 03/29/22 03/30/22 23:59 23:59 23:59 23:59 Intake Total 300 / 300 2313 / 2433 1140 / 1380 780 / 780 Output Total 1800 / 1800 2300 / 2300 1150 / 1150 300 / 300 Balance -1500 / -1500 13 / 133 -10 / 230 480 / 480 Weight 209 lb 9.6 oz 215 lb 2 oz 209 lb 8 oz 208 lb 15.971 oz Microbiology Reports for the Last 24 Hours: Microbiology 03/26/22 08:43 Blood Blood Culture - Final NO GROWTH AFTER 5 DAYS 03/26/22 08:43 Blood Blood Culture - Final NO GROWTH AFTER 5 DAYS 03/30/22 20:20 Hip,Right - Right Gram Stain - Final 03/30/22 20:20 Hip,Right - Right Gram Stain - Final 03/28/22 11:01 Blood Blood Culture - Preliminary NO GROWTH AFTER 48 HOURS 03/28/22 10:55 Blood Blood Culture - Preliminary NO GROWTH AFTER 48 HOURS Microbiology 03/28/22 11:01 Blood Blood Culture - Preliminary NO GROWTH AFTER 48 HOURS 03/28/22 10:55 Blood Blood Culture - Preliminary NO GROWTH AFTER 48 HOURS Constitutional: Present no acute distress and cooperative Head: Present normocephalic and atraumatic Eyes: Present as per HPI ENT: Present normal exam Neck: Present normal inspection, full ROM and trachea midline; Absent lymphadenopathy Respiratory: Present normal respiratory effort, able to speak in complete sentences and symmetric chest movement; Absent accessory muscle use or respiratory distress Cardiac: Present Reg Rate and Rhythm and radial pulses present GI: Pre
[2022-03-31 09:41] LABS: Chloride 103 mmol/L (98-107); Sodium 133 mmol/L (136-145)
[2022-03-31 09:42] LABS: Potassium 3.8 mmoL/L (3.5-5.1)
[2022-03-31 09:44] LABS: Basophils # 0.1 K/mm3 (0-0.2); Basophils % 0.6 % (0.1-2.0); Blood Urea Nitrogen 12 mg/dl (7-17); Creatinine Clearance Estimated 269 mL/min (50-200); Eosinophils # 0.2 K/mm3 (0.0-0.4); Eosinophils % 1.5 % (0.1-12.0); Estimated Glomerular Filt Rate 173 ml/min (>60); GFR (African American) 210 ML/MIN (>60); Hematocrit 32.5 % (37.0-47.0); Hemoglobin 10.4 g/dL (12.2-16.2); Lymphocytes % 16.4 % (10-50); Mean Corpuscular Hemoglobin 27.9 pg (27.0-31.2); Mean Platelet Volume 7.7 fl (7.4-10.4); Monocytes # 0.5 K/mm3 (0.1-1.0); Monocytes % 4.4 % (1.7-9.3); Neutrophils # 9.2 K/mm3 (1.8-7.8); Platelet Count 628 K/mm3 (142-424); Red Blood Count 3.73 M/mm3 (4.20-5.40); Red Cell Distribution Width 13.6 % (11.5-17.5)
[2022-03-31 09:45] LABS: Anion Gap 4.8 mEq/L (5-15); Calcium 8.4 mg/dl (8.4-10.2); Carbon Dioxide 29 mmol/L (22.0-30.0); Glucose 171 mg/dl (74-100)
[2022-03-31 10:27] LABS: Gentamicin,Random < 0.6 ug/ml
[2022-03-31 11:41] LABS: POC Glucose,Bedside 169 (70-110)
[2022-03-31 16:27] LABS: POC Glucose,Bedside 292 (70-110)
--- NOTE | 2022-03-31 17:41 | EXP.ACUTE.PN ---
Subjective *Date: 03/31/22 *Time: 17:41 Interval history: No issues overnight. Patient is having pain in her right hip from her procedure. She is requesting pain relief. No other concerns or complaints. Medical Exam Vital signs and Labs for Last 24 Hours: Vital Signs Temp Pulse Pulse Resp BP BP Pulse Ox 03/31/22 12:00 98.5 F 89 22 144/70 H 100 03/31/22 08:00 98.8 F 102 H 20 153/85 H 100 03/31/22 04:25 104 H 24 136/80 99 03/31/22 03:25 98.8 F 106 H 24 122/73 99 03/31/22 02:25 104 H 20 132/71 100 03/31/22 00:30 91 H 18 132/71 99 03/31/22 00:25 77 18 96/66 L 96 03/30/22 23:55 104 H 20 135/77 99 03/30/22 23:25 97.9 F 105 H 20 140/85 99 03/30/22 22:55 108 H 22 118/63 100 03/30/22 22:25 107 H 20 143/77 H 97 03/30/22 22:10 73 22 126/76 98 03/30/22 21:55 87 20 133/73 96 03/30/22 21:40 98.5 F 89 22 147/80 H 96 03/30/22 20:00 98 03/30/22 21:36 98.1 F 97 H 24 147/82 H 95 03/30/22 21:30 97 H 24 153/71 H 95 03/30/22 21:20 97 H 24 142/88 H 95 03/30/22 21:10 89 24 132/76 95 03/30/22 21:00 89 24 132/93 H 95 03/30/22 21:31 24 03/30/22 21:26 24 03/30/22 21:21 24 03/30/22 20:50 97.6 F 103 H 24 142/77 H 94 L 03/30/22 21:16 16 03/30/22 21:10 16 03/30/22 21:00 97.6 F 103 H 24 142/77 H 03/31/22 07:31 98.1 F 97 H 147/82 H Intake and Output 03/31/22 03/31/22 03/31/22 07:59 15:59 23:59 Intake Total 0 / 240 240 / 240 Output Total 0 / 0 Balance 0 / 240 240 / 240 Intake: Intake, Oral Amount 240 / 240 Intake, Total IV Amount 0 / 0 Output: Output, Urine Amount 0 / 0 Other: Number of Voids 0 Weight 94.8 kg Patient Weight 03/31/22 23:59 Weight 94.8 kg Laboratory Results - last 24 hr 03/30/22 17:56: POC Glucose 140 H 03/30/22 20:59: POC Glucose 192 H 03/30/22 22:58: POC Glucose 179 H 03/30/22 23:05: Random Gentamicin 2.1 03/31/22 06:33: POC Glucose 290 H 03/31/22 09:17: WBC 12.0 H, RBC 3.73 L, Hgb 10.4 L, Hct 32.5 L, MCV 87.0, MCH 27.9, MCHC 32.0, RDW 13.6, Plt Count 628 H, MPV 7.7, Neut % (Auto) 77.0, Lymph % (Auto) 16.4, [place] % (Auto) 4.4, Eos % (Auto) 1.5, Baso % (Auto) 0.6, Neut # (Auto) 9.2 H, Lymph # (Auto) 2.0, [place] # (Auto) 0.5, Eos # (Auto) 0.2, Baso # (Auto) 0.1 03/31/22 09:17: Sodium 133 L, Potassium 3.8 D, Chloride 103, Carbon Dioxide 29, Anion Gap 4.8 L, BUN 12, Creatinine 0.40 L, Estimated Creat Clear 269, Estimated GFR 173, Est GFR ( Amer) 210, Glucose 171 H, Calcium 8.4 03/31/22 09:17: Random Gentamicin < 0.6 03/31/22 11:34: POC Glucose 169 H 03/31/22 16:12: POC Glucose 292 H I & O for Labs for Last 24 Hours: Intake & Output 03/28/22 03/29/22 03/30/22 03/31/22 23:59 23:59 23:59 23:59 Intake Total 2313 / 2433 1140 / 1380 1480 / 1480 240 / 240 Output Total 2300 / 2300 1150 / 1150 850 / 850 0 / 0 Balance 13 / 133 -10 / 230 630 / 630 240 / 240 Weight 97.579 kg 95.028 kg 94.8 kg 94.8 kg Microbiology Reports for the Last 24 Hours: Microbiology 03/26/22 08:43 Blood Blood Culture - Final NO GROWTH AFTER 5 DAYS 03/26/22 08:43 Blood Blood Culture - Final NO GROWTH AFTER 5 DAYS 03/30/22 20:20 Hip,Right - Right Gram Stain - Final 03/30/22 20:20 Hip,Right - Right Gram Stain - Final Constitutional: Present mild distress Comment:: Hip pain Neck: Present normal inspection Respiratory: Present CTA bilaterally Cardiac: Present Reg Rate and Rhythm and No Murmur GI: Present soft; Absent distention Rectal (female): Present deferred (female): Present deferred Extremities: Present normal inspection Comment:: DARIEN drain in place Skin: Present intact and dry Assessment and Plan *Assessment and plan (1) MRSA bacteremia: Status: Acute Category: Medical Code(s): R78.81
[2022-03-31 19:03] LABS: Gentamicin,Random 3.8 ug/ml
[2022-03-31 22:43] LABS: POC Glucose,Bedside 242 (70-110)
[2022-04-01 02:38] LABS: Gentamicin,Random 0.8 ug/ml
[2022-04-01 04:00] VITALS: BP 138/75; PULSE 98; RESP 22; TEMP 36.8; O2SAT 100
[2022-04-01 04:29] VITALS: BMI 30.9
--- NOTE | 2022-04-01 05:38 | PC.NURSE ---
pt has rested intermittantly t/o shift. pain has been medicated per MAR, otherwise pt has had no complaints. dsg to right hip remains c/d/i. PICC line is patent. pt has voided per BSC and purewick with adequate urine output. BM noted this shift. VSS.
[2022-04-01 06:29] LABS: Alanine Aminotransferase 34 U/L (12-78); Albumin Level 2.9 g/dl (3.5-5.0); Albumin/Globulin Ratio 0.9 (1.1-1.8); Alkaline Phosphatase 102 U/L (38-126); Anion Gap 10.2 mEq/L (5-15); Aspartate Amino Transferase 32 U/L (14-36); Bilirubin,Total 0.2 mg/dl (0.2-1.3); Blood Urea Nitrogen 7 mg/dl (7-17); Carbon Dioxide 28 mmol/L (22.0-30.0); Chloride 103 mmol/L (98-107); Creatinine Clearance Estimated 214 mL/min (50-200); Estimated Glomerular Filt Rate 134 ml/min (>60); GFR (African American) 162 ML/MIN (>60); Globulin 3.4 g/dL (1.3-3.2); Glucose 221 mg/dl (74-100); Magnesium 1.7 mg/dl (1.6-2.3); Potassium 4.2 mmoL/L (3.5-5.1); Sodium 137 mmol/L (136-145); Total Protein,Serum 6.3 g/dl (6.3-8.2)
[2022-04-01 06:56] LABS: Basophils # 0.1 K/mm3 (0-0.2); Basophils % 0.7 % (0.1-2.0); Eosinophils # 0.2 K/mm3 (0.0-0.4); Hematocrit 32.7 % (37.0-47.0); Hemoglobin 10.3 g/dL (12.2-16.2); Lymphocytes # 2.4 K/mm3 (0.7-4.5); Mean Corpuscular HGB Conc 31.6 g/dL (31.8-35.4); Mean Corpuscular Hemoglobin 27.7 pg (27.0-31.2); Mean Corpuscular Volume 87.8 fl (81-99); Mean Platelet Volume 7.5 fl (7.4-10.4); Monocytes # 0.4 K/mm3 (0.1-1.0); Monocytes % 3.8 % (1.7-9.3); Neutrophils # 8.2 K/mm3 (1.8-7.8); Neutrophils % 72.6 % (37.0-80.0); Platelet Count 665 K/mm3 (142-424); Red Blood Count 3.73 M/mm3 (4.20-5.40); Red Cell Distribution Width 13.6 % (11.5-17.5); White Blood Count 11.3 K/mm3 (4.8-10.8)
[2022-04-01 07:06] LABS: POC Glucose,Bedside 189 (70-110)
[2022-04-01 08:00] VITALS: BP 124/83; PULSE 103; RESP 18; TEMP 36.7; O2SAT 96
[2022-04-01 11:38] LABS: POC Glucose,Bedside 262 (70-110)
[2022-04-01 12:00] VITALS: BP 138/77; PULSE 98; RESP 20; TEMP 36.6; O2SAT 96
--- NOTE | 2022-04-01 13:14 | EXP.ORTH.PN ---
Subjective *Date: 04/01/22 *Time: 13:18 Interval history: Lenny is a 46 year old female patient who underwent right hip arthrotomy, debridement and irrigation on 03/30/[address] Fraser. Today the patient is postop day #2. This morning the patient is lying comfortably in bed resting. No history of any distal tingling/numbness, fevers, chills, or rigors. She denies any other symptoms or concerns at this time. Ortho Exam (Inpt) Vital signs and Labs for Last 24 Hours: Temp Pulse Resp BP Pulse Ox 98.1 F 103 H 18 124/83 96 04/01/22 08:00 04/01/22 08:00 04/01/22 08:00 04/01/22 08:00 04/01/22 08:00 Laboratory Results - last 24 hr 03/31/22 16:12: POC Glucose 292 H 03/31/22 18:05: Random Gentamicin 3.8 03/31/22 22:18: POC Glucose 242 H 04/01/22 02:00: Random Gentamicin 0.8 04/01/22 06:00: WBC 11.3 H, RBC 3.73 L, Hgb 10.3 L, Hct 32.7 L, MCV 87.8, MCH 27.7, MCHC 31.6 L, RDW 13.6, Plt Count 665 H, MPV 7.5, Neut % (Auto) 72.6, Lymph % (Auto) 21.0, [place] % (Auto) 3.8, Eos % (Auto) 2.0, Baso % (Auto) 0.7, Neut # (Auto) 8.2 H, Lymph # (Auto) 2.4, [place] # (Auto) 0.4, Eos # (Auto) 0.2, Baso # (Auto) 0.1 04/01/22 06:00: Sodium 137, Potassium 4.2, Chloride 103, Carbon Dioxide 28, Anion Gap 10.2, BUN 7 D, Creatinine 0.50 L D, Estimated Creat Clear 214, Estimated GFR 134, Est GFR ( Amer) 162 D, Glucose 221 H D, Calcium 9.0, Phosphorus 4.0, Magnesium 1.7, Total Bilirubin 0.2, AST 32, ALT 34, Alkaline Phosphatase 102, Total Protein 6.3, Albumin 2.9 L, Globulin 3.4 H, Albumin/Globulin Ratio 0.9 L 04/01/22 06:48: POC Glucose 189 H 04/01/22 11:25: POC Glucose 262 H Temp Pulse Resp BP Pulse Ox 98.0 F 92 H 18 158/99 H 100 03/30/22 07:26 03/30/22 07:26 03/30/22 07:26 03/30/22 07:26 03/30/22 07:26 Laboratory Results - last 24 hr 03/29/22 12:06: POC Glucose 344 H* 03/29/22 16:47: POC Glucose 224 H 03/29/22 20:57: POC Glucose 190 H 03/30/22 06:30: WBC 10.8, RBC 3.95 L, Hgb 11.1 L, Hct 34.5 L, MCV 87.4, MCH 28.0, MCHC 32.0, RDW 13.7, Plt Count 624 H, MPV 7.8, Neut % (Auto) 78.6, Lymph % (Auto) 16.2, [place] % (Auto) 3.1, Eos % (Auto) 1.4, Baso % (Auto) 0.6, Neut # (Auto) 8.5 H, Lymph # (Auto) 1.8, [place] # (Auto) 0.3, Eos # (Auto) 0.2, Baso # (Auto) 0.1 03/30/22 06:30: Sodium 135 L, Potassium 3.1 L, Chloride 102, Carbon Dioxide 32 H, Anion Gap 4.1 L, BUN 11, Creatinine 0.40 L, Estimated Creat Clear 269, Estimated GFR 173, Est GFR ( Amer) 210 D, Glucose 186 H D, Calcium 8.7, C-Reactive Protein 84.2 H D 03/30/22 06:30: ESR 134 H I & O for Labs for Last 24 Hours: Intake & Output 03/29/22 03/30/22 03/31/22 04/01/22 23:59 23:59 23:59 23:59 Intake Total 1140 / 1380 1480 / 1480 600 / 600 720 / 720 Output Total 1150 / 1150 850 / 850 2335 / 2335 2120 / 2120 Balance -10 / 230 630 / 630 -1735 / -1735 -1400 / -1400 Weight 209 lb 8 oz 208 lb 15.971 oz 208 lb 15.971 oz 208 lb 8 oz Intake & Output 03/27/22 03/28/22 03/29/22 03/30/22 23:59 23:59 23:59 23:59 Intake Total 300 / 300 2313 / 2433 1140 / 1380 780 / 780 Output Total 1800 / 1800 2300 / 2300 1150 / 1150 300 / 300 Balance -1500 / -1500 13 / 133 -10 / 230 480 / 480 Weight 209 lb 9.6 oz 215 lb 2 oz 209 lb 8 oz 208 lb 15.971 oz Microbiology Reports for the Last 24 Hours: Microbiology 03/30/22 20:20 Hip,Right - Right Gram Stain - Final 03/30/22 20:20 Hip,Right - Right Wound Culture - Preliminary Gram Positive Cocci 03/30/22 20:20 Hip,Right - Right Gram Stain - Final 03/30/22 20:20 Hip,Right - Right Wound Culture - Preliminary NO GROWTH AFTER 24 HOURS 03/26/22 08:43 Blood Blood Culture - Final NO GROWTH AFTER 5 DAYS 03/26/22 08:43 Blood Blood Culture - Final NO GROWTH AFTER 5 DAYS Microbiology 03/28/22 11:01 Blood Blood Culture - Preliminary NO GROWTH AFTER 48 HOURS 03/28/22 10:55
[2022-04-01 16:00] VITALS: BP 137/88; PULSE 96; RESP 18; TEMP 36.7; O2SAT 99
[2022-04-01 16:39] LABS: POC Glucose,Bedside 195 (70-110)
--- NOTE | 2022-04-01 19:39 | EXP.PN ---
Subjective *Date: 04/01/22 *Time: 19:39 Interval history: Date of service April 01, 2022 The patient is evaluated with members of the multidisciplinary round team including pharmacy, nursing staff and case management. She voices no acute changes overnight. Nursing staff report that she remains afebrile with stable vital signs and saturating appropriately on room air. She continues with right hip wound care. She is tolerating her IV antibiotic with no adverse events. We have reviewed and discussed her morning labs which identified improvement and stability. [facility] Exam Data for Last 24 hours Vital signs and Labs for Last 24 Hours: Temp Pulse Resp BP Pulse Ox 98.1 F 96 H 18 137/88 99 04/01/22 16:00 04/01/22 16:00 04/01/22 16:00 04/01/22 16:00 04/01/22 16:00 Laboratory Results - last 24 hr 03/31/22 22:18: POC Glucose 242 H 04/01/22 02:00: Random Gentamicin 0.8 04/01/22 06:00: WBC 11.3 H, RBC 3.73 L, Hgb 10.3 L, Hct 32.7 L, MCV 87.8, MCH 27.7, MCHC 31.6 L, RDW 13.6, Plt Count 665 H, MPV 7.5, Neut % (Auto) 72.6, Lymph % (Auto) 21.0, [place] % (Auto) 3.8, Eos % (Auto) 2.0, Baso % (Auto) 0.7, Neut # (Auto) 8.2 H, Lymph # (Auto) 2.4, [place] # (Auto) 0.4, Eos # (Auto) 0.2, Baso # (Auto) 0.1 04/01/22 06:00: Sodium 137, Potassium 4.2, Chloride 103, Carbon Dioxide 28, Anion Gap 10.2, BUN 7 D, Creatinine 0.50 L D, Estimated Creat Clear 214, Estimated GFR 134, Est GFR ( Amer) 162 D, Glucose 221 H D, Calcium 9.0, Phosphorus 4.0, Magnesium 1.7, Total Bilirubin 0.2, AST 32, ALT 34, Alkaline Phosphatase 102, Total Protein 6.3, Albumin 2.9 L, Globulin 3.4 H, Albumin/Globulin Ratio 0.9 L 04/01/22 06:48: POC Glucose 189 H 04/01/22 11:25: POC Glucose 262 H 04/01/22 16:22: POC Glucose 195 H I & O for Last 24 hours: Intake & Output 03/29/22 03/30/22 03/31/22 04/01/22 23:59 23:59 23:59 23:59 Intake Total 1140 / 1380 1480 / 1480 600 / 600 1440 / 1440 Output Total 1150 / 1150 850 / 850 2335 / 2335 3220 / 3220 Balance -10 / 230 630 / 630 -1735 / -1735 -1780 / -1780 Weight 95.028 kg 94.8 kg 94.8 kg 94.574 kg Microbiology Reports for the Last 24 Hours: Microbiology 03/30/22 20:20 Hip,Right - Right Gram Stain - Final 03/30/22 20:20 Hip,Right - Right Wound Culture - Preliminary Gram Positive Cocci 03/30/22 20:20 Hip,Right - Right Gram Stain - Final 03/30/22 20:20 Hip,Right - Right Wound Culture - Preliminary NO GROWTH AFTER 24 HOURS Constitutional Constitutional: no acute distress *Routine HEENT Exam Head: Present normocephalic Eye: Present EOMI and PERRL ENT: Present mucous membranes moist *Routine Neck Exam Neck: Present supple; Absent lymphadenopathy *Routine Respiratory Exam Respiratory: Present CTA bilaterally *Routine Cardiovascular Exam Cardiovascular: Present RRR *Routine Abdominal Exam Abdominal: Present soft and normoactive bowel sounds; Absent tenderness *Routine Extremities Exam Extremities: Absent cyanosis, clubbing or edema Comments: Right hip dressing *Routine Skin Exam Skin: Present warm; Absent rash *Routine Neurological Exam Neurological: Present alert and oriented X3 Assessment and Plan *Assessment and plan (1) MRSA bacteremia: Status: Acute Category: Medical Code(s): R78.81 - Bacteremia; B95.62 - Methicillin resistant Staphylococcus aureus infection as the cause of diseases classified elsewhere (2) Myositis: Status: Acute Category: Medical Code(s): M60.9 - Myositis, unspecified (3) Right hip joint effusion: Status: Acute Category: Medical Code(s): M25.451 - Effusion, right hip (4) Diabetes: Status: Acute Category: Medical Code(s): E11.9 - Type 2 diabetes mellitus without complications (5) Acute pain of right thigh: Status: Acute Category: Medical
[2022-04-01 20:00] VITALS: BP 133/70; PULSE 104; RESP 18; TEMP 36.9; O2SAT 99
--- NOTE | 2022-04-01 22:00 | PC.NURSE ---
2200 04/01/22 katia constantino called regarding pt complaints of diarrhea and has had 6 episodes of diarrhea per patient complaint, pt has asked for immodium, immodium x1 dose ordered per katia constantino, repeated and verified.
[2022-04-02 03:48] VITALS: BP 141/83; PULSE 103; RESP 18; TEMP 36.6; O2SAT 97
--- NOTE | 2022-04-02 04:18 | PC.NURSE ---
pt is alert and oriented x4, no acute distress, v/s with tachycardia noted, RRR, skin pwd with dressing to right hip intact, drains were pulled by md prior to start of shift, pt up with assist x1, pt rates pain 9/10, PICC line intact to SUNDEEP, pt complained of diarrhea and stated she has had 6 loose bms through the day and asked for immodium and was given as prescribed x1, pt voiding without difficulty, no other issues or concerns at this time.
[2022-04-02 05:00] VITALS: BMI 30.9
[2022-04-02 06:37] LABS: Basophils # 0.1 K/mm3 (0-0.2); Basophils % 0.7 % (0.1-2.0); Eosinophils # 0.3 K/mm3 (0.0-0.4); Eosinophils % 2.4 % (0.1-12.0); Hematocrit 32.4 % (37.0-47.0); Hemoglobin 10.6 g/dL (12.2-16.2); Lymphocytes # 2.8 K/mm3 (0.7-4.5); Lymphocytes % 21.8 % (10-50); Mean Corpuscular HGB Conc 32.6 g/dL (31.8-35.4); Mean Corpuscular Hemoglobin 27.9 pg (27.0-31.2); Mean Corpuscular Volume 85.6 fl (81-99); Mean Platelet Volume 7.3 fl (7.4-10.4); Monocytes # 0.5 K/mm3 (0.1-1.0); Monocytes % 3.6 % (1.7-9.3); Neutrophils # 9.2 K/mm3 (1.8-7.8); Neutrophils % 71.6 % (37.0-80.0); Platelet Count 743 K/mm3 (142-424); Red Blood Count 3.78 M/mm3 (4.20-5.40); Red Cell Distribution Width 13.7 % (11.5-17.5); White Blood Count 12.8 K/mm3 (4.8-10.8)
[2022-04-02 06:45] LABS: Chloride 102 mmol/L (98-107); Sodium 136 mmol/L (136-145)
[2022-04-02 06:46] LABS: Potassium 4.1 mmoL/L (3.5-5.1)
[2022-04-02 06:48] LABS: Alanine Aminotransferase 36 U/L (12-78); Albumin Level 3.1 g/dl (3.5-5.0); Albumin/Globulin Ratio 0.9 (1.1-1.8); Alkaline Phosphatase 97 U/L (38-126); Anion Gap 8.1 mEq/L (5-15); Aspartate Amino Transferase 32 U/L (14-36); Bilirubin,Total 0.3 mg/dl (0.2-1.3); Blood Urea Nitrogen 10 mg/dl (7-17); Carbon Dioxide 30 mmol/L (22.0-30.0); Creatinine Clearance Estimated 214 mL/min (50-200); Estimated Glomerular Filt Rate 134 ml/min (>60); GFR (African American) 162 ML/MIN (>60); Globulin 3.5 g/dL (1.3-3.2); Phosphorous 4.5 mg/dl (2.5-4.5); Total Protein,Serum 6.6 g/dl (6.3-8.2)
[2022-04-02 06:49] LABS: Calcium 9.2 mg/dl (8.4-10.2); Glucose 192 mg/dl (74-100)
[2022-04-02 07:00] LABS: POC Glucose,Bedside 233 (70-110)
[2022-04-02 07:00] LABS: POC Glucose,Bedside 187 (70-110)
[2022-04-02 08:00] VITALS: BP 128/64; PULSE 99; RESP 20; TEMP 36.9; O2SAT 100
--- NOTE | 2022-04-02 09:16 | EXP.ORTH.PN ---
Subjective *Date: 04/02/22 *Time: 08:35 Interval history: Lenny is a 46 year old female patient who underwent right hip arthrotomy, debridement and irrigation on 03/30/[address] Fraser. Today the patient is postop day #3. This morning the patient is lying comfortably in bed resting. No history of any distal tingling/numbness, fevers, chills, or rigors. She denies any other symptoms or concerns at this time. Ortho Exam (Inpt) Vital signs and Labs for Last 24 Hours: Temp Pulse Resp BP Pulse Ox 97.9 F 103 H 18 141/83 H 97 04/02/22 03:48 04/02/22 03:48 04/02/22 03:48 04/02/22 03:48 04/02/22 03:48 Laboratory Results - last 24 hr 04/01/22 11:25: POC Glucose 262 H 04/01/22 16:22: POC Glucose 195 H 04/01/22 22:08: POC Glucose 233 H 04/02/22 06:23: POC Glucose 187 H 04/02/22 06:27: WBC 12.8 H, RBC 3.78 L, Hgb 10.6 L, Hct 32.4 L, MCV 85.6, MCH 27.9, MCHC 32.6, RDW 13.7, Plt Count 743 H, MPV 7.3 L, Neut % (Auto) 71.6, Lymph % (Auto) 21.8, [place] % (Auto) 3.6, Eos % (Auto) 2.4, Baso % (Auto) 0.7, Neut # (Auto) 9.2 H, Lymph # (Auto) 2.8, [place] # (Auto) 0.5, Eos # (Auto) 0.3, Baso # (Auto) 0.1 04/02/22 06:27: Sodium 136, Potassium 4.1, Chloride 102, Carbon Dioxide 30, Anion Gap 8.1, BUN 10 D, Creatinine 0.50 L, Estimated Creat Clear 214, Estimated GFR 134, Est GFR ( Amer) 162, Glucose 192 H, Calcium 9.2, Phosphorus 4.5, Total Bilirubin 0.3, AST 32, ALT 36, Alkaline Phosphatase 97, Total Protein 6.6, Albumin 3.1 L, Globulin 3.5 H, Albumin/Globulin Ratio 0.9 L Temp Pulse Resp BP Pulse Ox 98.0 F 92 H 18 158/99 H 100 03/30/22 07:26 03/30/22 07:26 03/30/22 07:26 03/30/22 07:26 03/30/22 07:26 Laboratory Results - last 24 hr 03/29/22 12:06: POC Glucose 344 H* 03/29/22 16:47: POC Glucose 224 H 03/29/22 20:57: POC Glucose 190 H 03/30/22 06:30: WBC 10.8, RBC 3.95 L, Hgb 11.1 L, Hct 34.5 L, MCV 87.4, MCH 28.0, MCHC 32.0, RDW 13.7, Plt Count 624 H, MPV 7.8, Neut % (Auto) 78.6, Lymph % (Auto) 16.2, [place] % (Auto) 3.1, Eos % (Auto) 1.4, Baso % (Auto) 0.6, Neut # (Auto) 8.5 H, Lymph # (Auto) 1.8, [place] # (Auto) 0.3, Eos # (Auto) 0.2, Baso # (Auto) 0.1 03/30/22 06:30: Sodium 135 L, Potassium 3.1 L, Chloride 102, Carbon Dioxide 32 H, Anion Gap 4.1 L, BUN 11, Creatinine 0.40 L, Estimated Creat Clear 269, Estimated GFR 173, Est GFR ( Amer) 210 D, Glucose 186 H D, Calcium 8.7, C-Reactive Protein 84.2 H D 03/30/22 06:30: ESR 134 H I & O for Labs for Last 24 Hours: Intake & Output 03/30/22 03/31/22 04/01/22 04/02/22 23:59 23:59 23:59 23:59 Intake Total 1480 / 1480 600 / 600 1440 / 1790 700 / 700 Output Total 850 / 850 2335 / 2335 3275 / 3275 1000 / 1000 Balance 630 / 630 -1735 / -1735 -1835 / -1485 -300 / -300 Weight 208 lb 15.971 oz 208 lb 15.971 oz 208 lb 8 oz 208 lb 8 oz Intake & Output 03/27/22 03/28/22 03/29/22 03/30/22 23:59 23:59 23:59 23:59 Intake Total 300 / 300 2313 / 2433 1140 / 1380 780 / 780 Output Total 1800 / 1800 2300 / 2300 1150 / 1150 300 / 300 Balance -1500 / -1500 13 / 133 -10 / 230 480 / 480 Weight 209 lb 9.6 oz 215 lb 2 oz 209 lb 8 oz 208 lb 15.971 oz Microbiology Reports for the Last 24 Hours: Microbiology 03/30/22 20:20 Hip,Right - Right Gram Stain - Final 03/30/22 20:20 Hip,Right - Right Wound Culture - Final Staphylococcus aureus 03/30/22 20:20 Hip,Right - Right Gram Stain - Final 03/30/22 20:20 Hip,Right - Right Wound Culture - Preliminary NO GROWTH AFTER 48 HOURS Microbiology 03/28/22 11:01 Blood Blood Culture - Preliminary NO GROWTH AFTER 48 HOURS 03/28/22 10:55 Blood Blood Culture - Preliminary NO GROWTH AFTER 48 HOURS Constitutional: Present no acute distress and cooperative Head: Present normocephalic and atraumatic Eyes: Present as per HPI ENT: Present normal exam Neck: Present normal inspection, full ROM and trache
[2022-04-02 11:28] LABS: POC Glucose,Bedside 268 (70-110)
--- NOTE | 2022-04-02 13:24 | P.PN_ITS ---
Subjective *Date: 04/02/22 *Time: 13:24 Medical Exam Vital signs and Labs for Last 24 Hours: Vital Signs Temp Pulse Resp BP Pulse Ox 04/02/22 08:00 98.5 F 99 H 20 128/64 100 04/02/22 03:48 97.9 F 103 H 18 141/83 H 97 04/01/22 20:00 99 04/01/22 20:00 98.5 F 104 H 18 133/70 99 04/01/22 16:00 98.1 F 96 H 18 137/88 99 Intake and Output 04/01/22 04/02/22 04/02/22 23:59 07:59 15:59 Intake Total 360 / 1790 700 / 1420 720 / 1420 Output Total 300 / 3275 1000 / 1999 1000 / 1999 Balance 60 / -1485 -300 / -580 -280 / -580 Intake: Intake, Oral Amount 360 / 1440 720 / 720 Intake, Total IV Amount 700 / 700 0.9 % Sodium Chloride 1,000 ml 0 / 0 @ 50 mls/hr IV .Q20H BARBARA Rx#: [id number] Vancomycin/Water For Inj (Peg) 700 / 700 1.75 gm In 350 ml @ 175 mls/hr IV Q8H BARBARA Rx#:[id number] Output: Output, Urine Amount 300 / 3220 1000 / 1999 999 / 1999 Other: Number of Unmeasured Voids 1 1 1 Number of Bowel Movements 6 Weight 94.574 kg Patient Weight 04/02/22 23:59 Weight 94.574 kg Laboratory Results - last 24 hr 04/01/22 16:22: POC Glucose 195 H 04/01/22 22:08: POC Glucose 233 H 04/02/22 06:23: POC Glucose 187 H 04/02/22 06:27: WBC 12.8 H, RBC 3.78 L, Hgb 10.6 L, Hct 32.4 L, MCV 85.6, MCH 27.9, MCHC 32.6, RDW 13.7, Plt Count 743 H, MPV 7.3 L, Neut % (Auto) 71.6, Lymph % (Auto) 21.8, [place] % (Auto) 3.6, Eos % (Auto) 2.4, Baso % (Auto) 0.7, Neut # (Auto) 9.2 H, Lymph # (Auto) 2.8, [place] # (Auto) 0.5, Eos # (Auto) 0.3, Baso # (Auto) 0.1 04/02/22 06:27: Sodium 136, Potassium 4.1, Chloride 102, Carbon Dioxide 30, Anion Gap 8.1, BUN 10 D, Creatinine 0.50 L, Estimated Creat Clear 214, Estimated GFR 134, Est GFR ( Amer) 162, Glucose 192 H, Calcium 9.2, Phosphorus 4.5, Total Bilirubin 0.3, AST 32, ALT 36, Alkaline Phosphatase 97, Total Protein 6.6, Albumin 3.1 L, Globulin 3.5 H, Albumin/Globulin Ratio 0.9 L 04/02/22 11:13: POC Glucose 268 H I & O for Labs for Last 24 Hours: Intake & Output 03/30/22 03/31/22 04/01/22 04/02/22 23:59 23:59 23:59 23:59 Intake Total 1480 / 1480 600 / 600 1440 / 1790 1420 / 1420 Output Total 850 / 850 2335 / 2335 3275 / 3275 1999 / 1999 Balance 630 / 630 -1735 / -1735 -1835 / -1485 -580 / -580 Weight 94.8 kg 94.8 kg 94.574 kg 94.574 kg Microbiology Reports for the Last 24 Hours: Microbiology 03/28/22 10:55 Blood Blood Culture - Final NO GROWTH AFTER 5 DAYS 03/28/22 11:01 Blood Blood Culture - Final NO GROWTH AFTER 5 DAYS 03/30/22 20:20 Hip,Right - Right Gram Stain - Final 03/30/22 20:20 Hip,Right - Right Wound Culture - Final Staphylococcus aureus 03/30/22 20:20 Hip,Right - Right Gram Stain - Final 03/30/22 20:20 Hip,Right - Right Wound Culture - Preliminary NO GROWTH AFTER 48 HOURS The patient's infection will respond to the chosen ABx?: Yes (MRSA IN HIP WOUND CULTURE, VANCOMYCIN SUSCEPTIBLE) Is the patient receiving the right drug, dose, and route?: Yes Could a more targeted ABx be ordered?: No
--- NOTE | 2022-04-02 13:57 | P.CONPHA_ITS ---
Pharmacy Consult Date: 04/02/22 Time: 13:57 Referring provider: DR. ARTHUR Reason for Consult:: GENTAMICIN DOSE CHANGE Allergies Allergy/AdvReac Type Severity Reaction Status Date / Time levofloxacin [From Levaquin] Allergy Verified 03/21/22 22:22 zolpidem [From Ambien] Allergy Verified 03/21/22 22:22 Home Medications Medication Instructions Recorded Confirmed Type gabapentin 100 mg capsule 100 mg PO TID 30 days #90 caps 03/29/22 Rx hydrocodone 5 mg-acetaminophen 325 1 tab PO Q6HP PRN Moderate To 03/29/22 Rx mg tablet Severe Pain 3 days #12 tabs insulin glargine 100 unit/mL (3 25 unit (0.25 mL) SQ HS 30 days 03/29/22 Rx mL) subcutaneous pen (Lantus #7.5 mL Solostar U-100 Insulin) linezolid 600 mg tablet (Zyvox) 600 mg PO Q12H 9 days #17 tabs 03/29/22 Rx metformin 1,000 mg tablet 1,000 mg PO BIDWMEAL 30 days #60 03/29/22 Rx tabs naproxen sodium 275 mg tablet 275 mg PO BID #30 tabs 03/29/22 Rx New Prescriptions to Start Prescriptions: hydrocodone-acetaminophen Antoine,Ramesh gabapentin Antoine,Ramesh insulin glargine [Lantus Solostar U-100 Insulin] Ramesh Arthur linezolid [Zyvox] Ramesh Arthur metformin Antoine,Ramesh naproxen sodium Ramesh Arthur Height: 1.75 m Weight: 94.574 kg Laboratory Results:: Laboratory Results - last 24 hr 04/01/22 16:22: POC Glucose 195 H 04/01/22 22:08: POC Glucose 233 H 04/02/22 06:23: POC Glucose 187 H 04/02/22 06:27: WBC 12.8 H, RBC 3.78 L, Hgb 10.6 L, Hct 32.4 L, MCV 85.6, MCH 27.9, MCHC 32.6, RDW 13.7, Plt Count 743 H, MPV 7.3 L, Neut % (Auto) 71.6, Lymph % (Auto) 21.8, [place] % (Auto) 3.6, Eos % (Auto) 2.4, Baso % (Auto) 0.7, Neut # (Auto) 9.2 H, Lymph # (Auto) 2.8, [place] # (Auto) 0.5, Eos # (Auto) 0.3, Baso # (Auto) 0.1 04/02/22 06:27: Sodium 136, Potassium 4.1, Chloride 102, Carbon Dioxide 30, Anion Gap 8.1, BUN 10 D, Creatinine 0.50 L, Estimated Creat Clear 214, Estimated GFR 134, Est GFR ( Amer) 162, Glucose 192 H, Calcium 9.2, Phosphorus 4.5, Total Bilirubin 0.3, AST 32, ALT 36, Alkaline Phosphatase 97, Total Protein 6.6, Albumin 3.1 L, Globulin 3.5 H, Albumin/Globulin Ratio 0.9 L 04/02/22 11:13: POC Glucose 268 H Medical History: Medical History (Updated 03/30/22 @ 11:06 by Ramesh Arthur MD) Asthma Assessment and Plan Assessment and plan all Dx Assessment and Plan for all problems:: RECOMMEND CHANGING GENTAMICIN DOSE TO 540 MG Q24H AT THIS TIME. CALCULATED PEAK OF 6.82 MG/DL AND TROUGH OF 0.8 MG/DL WITH CURRENT DOSE OF GENTAMICIN 480 MG Q24H.
[2022-04-02 14:57] VITALS: BP 127/76; PULSE 99; RESP 18; TEMP 37.2; O2SAT 98
--- NOTE | 2022-04-02 17:11 | EXP.PN ---
Subjective *Date: 04/02/22 *Time: 17:11 Interval history: Date of service 04/02/2022 I am accompanied by several members of the multidisciplinary rounds team. The patient reports no acute events overnight. She is anticipating discharge for chronic IV antibiotic therapy. We have reviewed and discussed her laboratory results that remained stable. She is tolerating her antibiotic therapy with no adverse events. Exam Data for Last 24 hours Vital signs and Labs for Last 24 Hours: Temp Pulse Resp BP Pulse Ox 99.0 F 99 H 18 127/76 98 04/02/22 14:57 04/02/22 14:57 04/02/22 14:57 04/02/22 14:57 04/02/22 14:57 Laboratory Results - last 24 hr 04/01/22 22:08: POC Glucose 233 H 04/02/22 06:23: POC Glucose 187 H 04/02/22 06:27: WBC 12.8 H, RBC 3.78 L, Hgb 10.6 L, Hct 32.4 L, MCV 85.6, MCH 27.9, MCHC 32.6, RDW 13.7, Plt Count 743 H, MPV 7.3 L, Neut % (Auto) 71.6, Lymph % (Auto) 21.8, [place] % (Auto) 3.6, Eos % (Auto) 2.4, Baso % (Auto) 0.7, Neut # (Auto) 9.2 H, Lymph # (Auto) 2.8, [place] # (Auto) 0.5, Eos # (Auto) 0.3, Baso # (Auto) 0.1 04/02/22 06:27: Sodium 136, Potassium 4.1, Chloride 102, Carbon Dioxide 30, Anion Gap 8.1, BUN 10 D, Creatinine 0.50 L, Estimated Creat Clear 214, Estimated GFR 134, Est GFR ( Amer) 162, Glucose 192 H, Calcium 9.2, Phosphorus 4.5, Total Bilirubin 0.3, AST 32, ALT 36, Alkaline Phosphatase 97, Total Protein 6.6, Albumin 3.1 L, Globulin 3.5 H, Albumin/Globulin Ratio 0.9 L 04/02/22 11:13: POC Glucose 268 H I & O for Last 24 hours: Intake & Output 03/30/22 03/31/22 04/01/22 04/02/22 23:59 23:59 23:59 23:59 Intake Total 1480 / 1480 600 / 600 1440 / 1790 1420 / 1420 Output Total 850 / 850 2335 / 2335 3275 / 3275 1999 Balance 630 / 630 -1735 / -1735 -1835 / -1485 -580 / -580 Weight 94.8 kg 94.8 kg 94.574 kg 94.574 kg Microbiology Reports for the Last 24 Hours: Microbiology 03/28/22 10:55 Blood Blood Culture - Final NO GROWTH AFTER 5 DAYS 03/28/22 11:01 Blood Blood Culture - Final NO GROWTH AFTER 5 DAYS 03/30/22 20:20 Hip,Right - Right Gram Stain - Final 03/30/22 20:20 Hip,Right - Right Wound Culture - Final Staphylococcus aureus 03/30/22 20:20 Hip,Right - Right Gram Stain - Final 03/30/22 20:20 Hip,Right - Right Wound Culture - Preliminary NO GROWTH AFTER 48 HOURS Constitutional Constitutional: no acute distress *Routine HEENT Exam Head: Present normocephalic Eye: Present EOMI and PERRL ENT: Present mucous membranes moist *Routine Neck Exam Neck: Present supple; Absent lymphadenopathy *Routine Respiratory Exam Respiratory: Present CTA bilaterally *Routine Cardiovascular Exam Cardiovascular: Present RRR *Routine Abdominal Exam Abdominal: Present soft and normoactive bowel sounds; Absent tenderness *Routine Extremities Exam Extremities: Absent cyanosis, clubbing or edema Comments: Right hip dressing *Routine Skin Exam Skin: Present warm; Absent rash *Routine Neurological Exam Neurological: Present alert and oriented X3 Assessment and Plan *Assessment and plan (1) MRSA bacteremia: Status: Acute Category: Medical Code(s): R78.81 - Bacteremia; B95.62 - Methicillin resistant Staphylococcus aureus infection as the cause of diseases classified elsewhere (2) Myositis: Status: Acute Category: Medical Code(s): M60.9 - Myositis, unspecified (3) Right hip joint effusion: Status: Acute Category: Medical Code(s): M25.451 - Effusion, right hip (4) Diabetes: Status: Acute Category: Medical Code(s): E11.9 - Type 2 diabetes mellitus without complications (5) Acute pain of right thigh: Status: Acute Category: Medical Code(s): M79.651 - Pain in right thigh (6) Acute hyperglycemia: Status: Acute Category: Medical Code(s): R73.9
--- NOTE | 2022-04-02 18:21 | PC.NURSE ---
Pt is alert and oriented x4. She's been up to the chair for several hours this afternoon. She has also had a shower and reports feeling much better. Dressing to thigh is in place. She's complained of pain off and on t/o the shift. PRN pain meds administered per mar. She is currently up to the chair eating dinner. Family is at bedside.
--- NOTE | 2022-04-02 19:13 | PC.NURSE ---
IV vanc started late due to patient wanting to take a shower before administering. Pt was in the shower from 1630- 1800. Vanc started at 1800
[2022-04-02 19:47] VITALS: BP 112/59; PULSE 119; RESP 18; TEMP 36.8; O2SAT 99
[2022-04-02 20:00] VITALS: PULSE 119; O2SAT 99
[2022-04-02 23:24] LABS: POC Glucose,Bedside 216 (70-110)
[2022-04-03 04:00] VITALS: BP 128/68; PULSE 102; RESP 18; TEMP 37.2; O2SAT 99
--- NOTE | 2022-04-03 04:15 | PC.NURSE ---
no changes from previous assessment, no acute distress, vss, dressing to right hip intact, picc line intact to alyx, pain remains the same, no other issues or concerns at this time.
[2022-04-03 05:00] VITALS: BMI 29.5
[2022-04-03 06:13] LABS: Chloride 102 mmol/L (98-107); Sodium 137 mmol/L (136-145)
[2022-04-03 06:14] LABS: Potassium 4.5 mmoL/L (3.5-5.1)
[2022-04-03 06:15] LABS: Blood Urea Nitrogen 17 mg/dl (7-17)
[2022-04-03 06:16] LABS: Alanine Aminotransferase 44 U/L (12-78); Albumin Level 3.5 g/dl (3.5-5.0); Albumin/Globulin Ratio 0.9 (1.1-1.8); Alkaline Phosphatase 101 U/L (38-126); Anion Gap 13.5 mEq/L (5-15); Aspartate Amino Transferase 48 U/L (14-36); Bilirubin,Total 0.4 mg/dl (0.2-1.3); Calcium 9.8 mg/dl (8.4-10.2); Carbon Dioxide 26 mmol/L (22.0-30.0); Creatinine Clearance Estimated 205 mL/min (50-200); Estimated Glomerular Filt Rate 134 ml/min (>60); GFR (African American) 162 ML/MIN (>60); Globulin 3.7 g/dL (1.3-3.2); Glucose 135 mg/dl (74-100); Phosphorous 5.2 mg/dl (2.5-4.5); Total Protein,Serum 7.2 g/dl (6.3-8.2)
[2022-04-03 06:21] LABS: POC Glucose,Bedside 121 (70-110)
[2022-04-03 07:45] LABS: Basophils # 0.1 K/mm3 (0-0.2); Basophils % 0.8 % (0.1-2.0); Eosinophils # 0.3 K/mm3 (0.0-0.4); Eosinophils % 1.7 % (0.1-12.0); Hematocrit 35.7 % (37.0-47.0); Hemoglobin 11.4 g/dL (12.2-16.2); Lymphocytes # 3.4 K/mm3 (0.7-4.5); Lymphocytes % 22.2 % (10-50); Mean Corpuscular HGB Conc 31.9 g/dL (31.8-35.4); Mean Corpuscular Hemoglobin 27.5 pg (27.0-31.2); Mean Corpuscular Volume 86.2 fl (81-99); Mean Platelet Volume 7.4 fl (7.4-10.4); Monocytes # 0.5 K/mm3 (0.1-1.0); Monocytes % 3.3 % (1.7-9.3); Neutrophils # 10.9 K/mm3 (1.8-7.8); Platelet Count 896 K/mm3 (142-424); Red Blood Count 4.14 M/mm3 (4.20-5.40); Red Cell Distribution Width 13.7 % (11.5-17.5); White Blood Count 15.1 K/mm3 (4.8-10.8)
[2022-04-03 07:48] LABS: MANUAL DIFFERENTIAL MANUAL DIFFERENTIAL (MANUAL DIFF)
[2022-04-03 08:00] VITALS: BP 124/65; PULSE 110; RESP 16; TEMP 37.3; O2SAT 100
[2022-04-03 08:04] LABS: Lymphocytes % 22 % (10-50); Monocytes % 2 % (2-9); Neutrophils % 76 % (42-76); Platelet Estimate Normal; RBC Morphology Normal; Total Cells Counted 100
--- NOTE | 2022-04-03 09:19 | EXP.ORTH.PN ---
Subjective *Date: 04/03/22 *Time: 08:50 Interval history: Lenny is a 46 year old female patient who underwent right hip arthrotomy, debridement and irrigation on 03/30/[address] Fraser. Today the patient is postop day #4. This morning the patient is sitting up comfortably at the edge of the bed. She reports some right hip pain but states that it is improved compared to her initial presentation. No history of any distal tingling/numbness, fevers, chills, or rigors. She denies any other symptoms or concerns at this time. Ortho Exam (Inpt) Vital signs and Labs for Last 24 Hours: Temp Pulse Resp BP Pulse Ox 98.9 F 102 H 18 128/68 99 04/03/22 04:00 04/03/22 04:00 04/03/22 04:00 04/03/22 04:00 04/03/22 04:00 Laboratory Results - last 24 hr 04/02/22 11:13: POC Glucose 268 H 04/02/22 21:18: POC Glucose 216 H 04/03/22 05:52: POC Glucose 121 H 04/03/22 05:56: WBC 15.1 H, RBC 4.14 L, Hgb 11.4 L, Hct 35.7 L, MCV 86.2, MCH 27.5, MCHC 31.9, RDW 13.7, Plt Count 896 H, MPV 7.4, Neut % (Auto) 72.0, Lymph % (Auto) 22.2, [place] % (Auto) 3.3, Eos % (Auto) 1.7, Baso % (Auto) 0.8, Neut # (Auto) 10.9 H, Lymph # (Auto) 3.4, [place] # (Auto) 0.5, Eos # (Auto) 0.3, Baso # (Auto) 0.1, Total Counted 100, Neutrophils % (Manual) 76, Lymphocytes % (Manual) 22, Monocytes % (Manual) 2, Platelet Estimate Normal, RBC Morphology Normal 04/03/22 05:56: Sodium 137, Potassium 4.5, Chloride 102, Carbon Dioxide 26, Anion Gap 13.5, BUN 17 D, Creatinine 0.50 L, Estimated Creat Clear 205, Estimated GFR 134, Est GFR ( Amer) 162, Glucose 135 H D, Calcium 9.8, Phosphorus 5.2 H, Total Bilirubin 0.4, AST 48 H D, ALT 44, Alkaline Phosphatase 101, Total Protein 7.2, Albumin 3.5 D, Globulin 3.7 H, Albumin/Globulin Ratio 0.9 L I & O for Labs for Last 24 Hours: Intake & Output 03/31/22 04/01/22 04/02/22 04/03/22 23:59 23:59 23:59 23:59 Intake Total 600 / 600 1440 / 1790 1780 / 2260 1310 / 1310 Output Total 2335 / 2335 3275 / 3275 1999 / 1999 Balance -1735 / -1735 -1835 / -1485 -220 / 260 1310 / 1310 Weight 208 lb 15.971 oz 208 lb 8 oz 208 lb 8 oz 199 lb 5 oz Intake & Output 03/27/22 03/28/22 03/29/22 03/30/22 23:59 23:59 23:59 23:59 Intake Total 300 / 300 2313 / 2433 1140 / 1380 780 / 780 Output Total 1800 / 1800 2300 / 2300 1150 / 1150 300 / 300 Balance -1500 / -1500 13 / 133 -10 / 230 480 / 480 Weight 209 lb 9.6 oz 215 lb 2 oz 209 lb 8 oz 208 lb 15.971 oz Microbiology Reports for the Last 24 Hours: Microbiology 03/30/22 20:20 Hip,Right - Right Gram Stain - Final 03/30/22 20:20 Hip,Right - Right Wound Culture - Preliminary NO GROWTH AFTER 72 HOURS 03/28/22 10:55 Blood Blood Culture - Final NO GROWTH AFTER 5 DAYS 03/28/22 11:01 Blood Blood Culture - Final NO GROWTH AFTER 5 DAYS 03/30/22 20:20 Hip,Right - Right Gram Stain - Final 03/30/22 20:20 Hip,Right - Right Wound Culture - Final Staphylococcus aureus Microbiology 03/28/22 11:01 Blood Blood Culture - Preliminary NO GROWTH AFTER 48 HOURS 03/28/22 10:55 Blood Blood Culture - Preliminary NO GROWTH AFTER 48 HOURS Constitutional: Present no acute distress and cooperative Head: Present normocephalic and atraumatic Eyes: Present as per HPI ENT: Present normal exam Neck: Present normal inspection, full ROM and trachea midline; Absent lymphadenopathy Respiratory: Present normal respiratory effort, able to speak in complete sentences and symmetric chest movement; Absent accessory muscle use or respiratory distress Cardiac: Present Reg Rate and Rhythm and radial pulses present GI: Present soft; Absent tenderness Rectal (female): Present deferred (female): Present deferred Comment:: Upon examination of the right hip: Dressings present over the right hip are clean, dry, and intact. The me
[2022-04-03 14:08] LABS: Gentamicin,Trough < 0.6 ug/ml (0.0-2.0)
[2022-04-03 16:00] VITALS: BP 102/72; PULSE 115; RESP 22; TEMP 36.7; O2SAT 100
[2022-04-03 17:18] LABS: POC Glucose,Bedside 206 (70-110)
--- NOTE | 2022-04-03 17:21 | EXP.PN ---
Subjective *Date: 04/03/22 *Time: 17:21 Interval history: Date of service April 03, 2022 The patient reports no acute events overnight. I am accompanied by multiple members of the MDR staff. Nursing staff report that she remains afebrile with stable vital signs saturating appropriately on room air. She is tolerating her IV antibiotic therapy with no adverse events. Case management is assisting with next site of care. Exam Data for Last 24 hours Vital signs and Labs for Last 24 Hours: Temp Pulse Resp BP Pulse Ox 99.1 F 110 H 16 124/65 100 04/03/22 08:00 04/03/22 08:00 04/03/22 08:00 04/03/22 08:00 04/03/22 08:00 Laboratory Results - last 24 hr 04/02/22 21:18: POC Glucose 216 H 04/03/22 05:52: POC Glucose 121 H 04/03/22 05:56: WBC 15.1 H, RBC 4.14 L, Hgb 11.4 L, Hct 35.7 L, MCV 86.2, MCH 27.5, MCHC 31.9, RDW 13.7, Plt Count 896 H, MPV 7.4, Neut % (Auto) 72.0, Lymph % (Auto) 22.2, [place] % (Auto) 3.3, Eos % (Auto) 1.7, Baso % (Auto) 0.8, Neut # (Auto) 10.9 H, Lymph # (Auto) 3.4, [place] # (Auto) 0.5, Eos # (Auto) 0.3, Baso # (Auto) 0.1, Total Counted 100, Neutrophils % (Manual) 76, Lymphocytes % (Manual) 22, Monocytes % (Manual) 2, Platelet Estimate Normal, RBC Morphology Normal 04/03/22 05:56: Sodium 137, Potassium 4.5, Chloride 102, Carbon Dioxide 26, Anion Gap 13.5, BUN 17 D, Creatinine 0.50 L, Estimated Creat Clear 205, Estimated GFR 134, Est GFR ( Amer) 162, Glucose 135 H D, Calcium 9.8, Phosphorus 5.2 H, Total Bilirubin 0.4, AST 48 H D, ALT 44, Alkaline Phosphatase 101, Total Protein 7.2, Albumin 3.5 D, Globulin 3.7 H, Albumin/Globulin Ratio 0.9 L 04/03/22 13:05: Gentamicin Trough < 0.6 04/03/22 17:08: POC Glucose 206 H I & O for Last 24 hours: Intake & Output 03/31/22 04/01/22 04/02/22 04/03/22 23:59 23:59 23:59 23:59 Intake Total 600 / 600 1440 / 1790 1780 / 2260 1310 / 1310 Output Total 2335 / 2335 3275 / 3275 1999 Balance -1735 / -1735 -1835 / -1485 -220 / 260 1310 / 1310 Weight 94.8 kg 94.574 kg 94.574 kg 90.407 kg Microbiology Reports for the Last 24 Hours: Microbiology 03/30/22 20:20 Hip,Right - Right Gram Stain - Final 03/30/22 20:20 Hip,Right - Right Wound Culture - Preliminary NO GROWTH AFTER 72 HOURS Constitutional Constitutional: no acute distress *Routine HEENT Exam Head: Present normocephalic Eye: Present EOMI and PERRL ENT: Present mucous membranes moist *Routine Neck Exam Neck: Present supple; Absent lymphadenopathy *Routine Respiratory Exam Respiratory: Present CTA bilaterally *Routine Cardiovascular Exam Cardiovascular: Present RRR *Routine Abdominal Exam Abdominal: Present soft and normoactive bowel sounds; Absent tenderness *Routine Extremities Exam Extremities: Absent cyanosis, clubbing or edema Comments: Right hip dressing *Routine Skin Exam Skin: Present warm; Absent rash *Routine Neurological Exam Neurological: Present alert and oriented X3 Assessment and Plan *Assessment and plan (1) MRSA bacteremia: Status: Acute Category: Medical Code(s): R78.81 - Bacteremia; B95.62 - Methicillin resistant Staphylococcus aureus infection as the cause of diseases classified elsewhere (2) Myositis: Status: Acute Category: Medical Code(s): M60.9 - Myositis, unspecified (3) Right hip joint effusion: Status: Acute Category: Medical Code(s): M25.451 - Effusion, right hip (4) Diabetes: Status: Acute Category: Medical Code(s): E11.9 - Type 2 diabetes mellitus without complications (5) Acute pain of right thigh: Status: Acute Category: Medical Code(s): M79.651 - Pain in right thigh (6) Acute hyperglycemia: Status: Acute Category: Medical Code(s): R73.9 - Hyperglycemia, unspecified (7) IVDU (intravenous drug user): Status: Acute Category: Social Hx Code(s): F19.90 - Other psychoactive subs
--- NOTE | 2022-04-03 18:30 | PC.NURSE ---
one unmeasured void
--- NOTE | 2022-04-03 18:46 | PC.NURSE ---
Pt has been alert and oriented x4. She's been up to the chair off and on throughout the shift and tolerated well. She's denied any complaints other then hip pain. PRN pain meds administered x2 with favorable results. Appetite is good. She is currently sitting in the chair watching tv.
[2022-04-03 20:00] VITALS: BP 112/51; PULSE 108; RESP 16; TEMP 36.7; O2SAT 100
[2022-04-03 21:21] LABS: POC Glucose,Bedside 184 (70-110)
[2022-04-04 04:00] VITALS: BP 112/65; PULSE 98; RESP 18; TEMP 36.9; O2SAT 98
[2022-04-04 04:54] VITALS: BMI 29.5
[2022-04-04 06:29] LABS: POC Glucose,Bedside 163 (70-110)
--- NOTE | 2022-04-04 06:35 | PC.NURSE ---
Pt has c/o pain rating it 10/03 2x t/o shift. PRN pain medication administered per JUN, pt states favorable results. Pt has slept well t/o shift. Able to walk to bathroom with standby assist, tolerates well. Call light within reach.
[2022-04-04 08:00] VITALS: BP 120/70; PULSE 84; RESP 16; TEMP 36.8; O2SAT 98
--- NOTE | 2022-04-04 10:27 | P.CONPHA_ITS ---
Pharmacy Consult Date: 04/04/22 Time: 10:27 Referring provider: DR. STEPHEN Reason for Consult:: GENTAMYCIN AND VANCOMYCIN LEVELS Allergies Allergy/AdvReac Type Severity Reaction Status Date / Time levofloxacin [From Levaquin] Allergy Verified 03/21/22 22:22 zolpidem [From Ambien] Allergy Verified 03/21/22 22:22 Home Medications Medication Instructions Recorded Confirmed Type gabapentin 100 mg capsule 100 mg PO TID 30 days #90 caps 03/29/22 Rx hydrocodone 5 mg-acetaminophen 325 1 tab PO Q6HP PRN Moderate To 03/29/22 Rx mg tablet Severe Pain 3 days #12 tabs insulin glargine 100 unit/mL (3 25 unit (0.25 mL) SQ HS 30 days 03/29/22 Rx mL) subcutaneous pen (Lantus #7.5 mL Solostar U-100 Insulin) linezolid 600 mg tablet (Zyvox) 600 mg PO Q12H 9 days #17 tabs 03/29/22 Rx metformin 1,000 mg tablet 1,000 mg PO BIDWMEAL 30 days #60 03/29/22 Rx tabs naproxen sodium 275 mg tablet 275 mg PO BID #30 tabs 03/29/22 Rx New Prescriptions to Start Prescriptions: hydrocodone-acetaminophen Ramesh Shcultz gabapentin Ramesh Schultz insulin glargine [Lantus Solostar U-100 Insulin] Ramesh Schultz linezolid [Zyvox] Ramesh Schultz metformin Ramesh Schultz naproxen sodium Ramesh Schultz Height: 1.75 m Weight: 90.3 kg Laboratory Results:: Laboratory Results - last 24 hr 04/03/22 13:05: Gentamicin Trough < 0.6 04/03/22 17:05: Vancomycin Trough 21.0 H 04/03/22 17:05: Gentamicin Peak 11.0 H 04/03/22 17:08: POC Glucose 206 H 04/03/22 21:06: POC Glucose 184 H 04/04/22 06:16: POC Glucose 163 H Medical History: Medical History (Updated 03/30/22 @ 11:06 by Ramesh Schultz MD) Asthma Assessment and Plan Assessment and plan all Dx Assessment and Plan for all problems:: GENTAMICIN PEAK AND TROUGH LEVELS WERE 11.0 MCG/ML AND 0.6 MCG/ML, RESPECTIVELY, WITH GENTAMICIN 540 MG Q24H. VANCOMYCIN TROUGH LEVEL WAS 21.0 MCG/ML OVER NIGHT. DOSE CHANGED TO VANCOMYCIN 1750 MG Q12H AT THIS TIME. MD NOTE INDICATES SHE WILL CONTINUE ABX UNTIL 05/07/22 (6 WEEKS).
--- NOTE | 2022-04-04 11:42 | EXP.PN ---
Subjective *Date: 04/04/22 *Time: 11:42 Interval history: Date of service April 04, 2022 The patient reports no acute events overnight. Nursing staff report that she remains afebrile with stable vital signs and saturating appropriately on room air. They continue with right hip wound care. Case management is assisting with next site of care. Exam Data for Last 24 hours Vital signs and Labs for Last 24 Hours: Temp Pulse Resp BP Pulse Ox 98.2 F 84 16 120/70 98 04/04/22 08:00 04/04/22 08:00 04/04/22 08:00 04/04/22 08:00 04/04/22 08:00 Laboratory Results - last 24 hr 04/03/22 13:05: Gentamicin Trough < 0.6 04/03/22 17:05: Vancomycin Trough 21.0 H 04/03/22 17:05: Gentamicin Peak 11.0 H 04/03/22 17:08: POC Glucose 206 H 04/03/22 21:06: POC Glucose 184 H 04/04/22 06:16: POC Glucose 163 H I & O for Last 24 hours: Intake & Output 04/01/22 04/02/22 04/03/22 04/04/22 23:59 23:59 23:59 23:59 Intake Total 1440 / 1790 1780 / 2260 3370 / 3610 1045 / 1045 Output Total 3275 / 3275 1999 / 1999 650 / 650 0 / 0 Balance -1835 / -1485 -220 / 260 2720 / 2960 1045 / 1045 Weight 94.574 kg 94.574 kg 90.407 kg 90.3 kg Microbiology Reports for the Last 24 Hours: Microbiology 03/30/22 20:20 Hip,Right - Right Gram Stain - Final 03/30/22 20:20 Hip,Right - Right Wound Culture - Preliminary NO GROWTH AFTER 4 DAYS Constitutional Constitutional: no acute distress *Routine HEENT Exam Head: Present normocephalic Eye: Present EOMI and PERRL ENT: Present mucous membranes moist *Routine Neck Exam Neck: Present supple; Absent lymphadenopathy *Routine Respiratory Exam Respiratory: Present CTA bilaterally *Routine Cardiovascular Exam Cardiovascular: Present RRR *Routine Abdominal Exam Abdominal: Present soft and normoactive bowel sounds; Absent tenderness *Routine Extremities Exam Extremities: Absent cyanosis, clubbing or edema Comments: Right hip dressing *Routine Skin Exam Skin: Present warm; Absent rash *Routine Neurological Exam Neurological: Present alert and oriented X3 Assessment and Plan *Assessment and plan (1) MRSA bacteremia: Status: Acute Category: Medical Code(s): R78.81 - Bacteremia; B95.62 - Methicillin resistant Staphylococcus aureus infection as the cause of diseases classified elsewhere (2) Myositis: Status: Acute Category: Medical Code(s): M60.9 - Myositis, unspecified (3) Right hip joint effusion: Status: Acute Category: Medical Code(s): M25.451 - Effusion, right hip (4) Diabetes: Status: Acute Category: Medical Code(s): E11.9 - Type 2 diabetes mellitus without complications (5) Acute pain of right thigh: Status: Acute Category: Medical Code(s): M79.651 - Pain in right thigh (6) Acute hyperglycemia: Status: Acute Category: Medical Code(s): R73.9 - Hyperglycemia, unspecified (7) IVDU (intravenous drug user): Status: Acute Category: Social Hx Code(s): F19.90 - Other psychoactive substance use, unspecified, uncomplicated (8) Constipation: Status: Acute Category: Medical Code(s): K59.00 - Constipation, unspecified Plan Patient 46-year-old female with active IV drug use, reportedly injecting Suboxone into her medial right leg vein in the same territory that she is currently experiencing pain.? Also has meth on UDS.? On admission her pain was out of proportion to physical exam.? Pain improving.? White cell count has normalized.? MRI (03/28) right hip effusion and myositis.? Orthopedics following.? Hip aspirated (03/30). Blood cultures from 03/26 and 03/28 remain negative.? Aspiration growing MRSA. To date, TTE/OLVIN negative for endocarditis.? Stable on room air.? CT chest negative for embolic phenomenon.? Tolerating antibiotics vancomycin and gentamicin for bone penetration.? At this time necessitates 6 weeks
[2022-04-04 11:49] LABS: POC Glucose,Bedside 183 (70-110)
[2022-04-04 16:00] VITALS: BP 144/80; PULSE 103; RESP 16; TEMP 36.7; O2SAT 100
--- NOTE | 2022-04-04 16:01 | PC.NURSE ---
pt has c/o pain multiple times t/o shift, relieved by prescribed pain meds. I&D incision to rt thigh, dsg reinforced this shift. pt ref ivmf at this time. cb and personal items within reach, no questions or concerns at this time.
[2022-04-04 17:10] LABS: POC Glucose,Bedside 187 (70-110)
--- NOTE | 2022-04-04 18:23 | PC.NURSE ---
pt had 2 unmeasured voids this shift and also measured voids that are charted.
[2022-04-04 20:00] VITALS: BP 130/68; PULSE 97; RESP 16; TEMP 36.9; O2SAT 98
--- NOTE | 2022-04-05 02:47 | PC.NURSE ---
2 FAMILY MEMBERS CAME IN AT 2300 TO VISIT PATIENT AFTER PATIENT HAD GONE TO SLEEP. AT 2330 PATIENT'S SISTER CAME OUT AND SAID PATIENT WAS IN SEVERE PAIN AND NEEDED MORE PAIN MED. MOE SOLIS NOTIFIED AND PATIENT RECIEVED MORPHINE 2 MG IVP AT 0011. NO FURTHER C/O PAIN VOICED. HAS BEEN SLEEPING WELL. RECEIVED LOPERAMIDE 2 MG PO FOR C/O DIARRHEA. NO FURTHER REPORTS OR EVIDENSE OF DIARRHEA. WOUND CARE PERFORMED TO RIGHT HIP. SUTURES AND PACKING INTACT.
[2022-04-05 04:00] VITALS: BP 114/68; PULSE 83; RESP 20; TEMP 36.6; O2SAT 96
[2022-04-05 05:00] VITALS: BMI 29.7
[2022-04-05 05:41] LABS: POC Glucose,Bedside 314 (70-110)
[2022-04-05 05:41] LABS: POC Glucose,Bedside 184 (70-110)
[2022-04-05 08:00] VITALS: BP 115/72; PULSE 96; RESP 18; TEMP 36.7; O2SAT 93
[2022-04-05 11:31] LABS: POC Glucose,Bedside 184 (70-110)
--- NOTE | 2022-04-05 15:51 | EXP.PN ---
Subjective *Date: 04/05/22 *Time: 15:51 Interval history: Date of service April 05, 2022 The patient reports no acute events overnight. I am accompanied by her nurse Nydia today. She reports that the patient remains afebrile with stable vital signs and saturating appropriately on room air. Nurse is concerned that her right PICC is not functioning. The patient is requesting something for her nerves. Exam Data for Last 24 hours Vital signs and Labs for Last 24 Hours: Temp Pulse Resp BP Pulse Ox 98.1 F 96 H 18 115/72 93 L 04/05/22 08:00 04/05/22 08:00 04/05/22 08:00 04/05/22 08:00 04/05/22 08:00 Laboratory Results - last 24 hr 04/04/22 17:02: POC Glucose 187 H 04/04/22 21:23: POC Glucose 314 H* 04/05/22 05:33: POC Glucose 184 H 04/05/22 11:23: POC Glucose 184 H I & O for Last 24 hours: Intake & Output 04/02/22 04/03/22 04/04/22 04/05/22 23:59 23:59 23:59 23:59 Intake Total 1780 / 2260 3370 / 3610 2004 / 2004 1070 / 1070 Output Total 1999 / 1999 650 / 650 1300 / 1300 1400 / 1400 Balance -220 / 260 2720 / 2960 705 / 705 -330 / -330 Weight 94.574 kg 90.407 kg 90.3 kg 91.257 kg Microbiology Reports for the Last 24 Hours: Microbiology 03/30/22 20:20 Hip,Right - Right Gram Stain - Final 03/30/22 20:20 Hip,Right - Right Wound Culture - Final NO GROWTH AFTER 5 DAYS Constitutional Constitutional: no acute distress *Routine HEENT Exam Head: Present normocephalic Eye: Present EOMI and PERRL ENT: Present mucous membranes moist *Routine Neck Exam Neck: Present supple; Absent lymphadenopathy *Routine Respiratory Exam Respiratory: Present CTA bilaterally *Routine Cardiovascular Exam Cardiovascular: Present RRR *Routine Abdominal Exam Abdominal: Present soft and normoactive bowel sounds; Absent tenderness *Routine Extremities Exam Extremities: Absent cyanosis, clubbing or edema Comments: Right hip dressing, right upper extremity PICC *Routine Skin Exam Skin: Present warm; Absent rash *Routine Neurological Exam Neurological: Present alert and oriented X3 Assessment and Plan *Assessment and plan (1) MRSA bacteremia: Status: Acute Category: Medical Code(s): R78.81 - Bacteremia; B95.62 - Methicillin resistant Staphylococcus aureus infection as the cause of diseases classified elsewhere (2) Myositis: Status: Acute Category: Medical Code(s): M60.9 - Myositis, unspecified (3) Right hip joint effusion: Status: Acute Category: Medical Code(s): M25.451 - Effusion, right hip (4) Diabetes: Status: Acute Category: Medical Code(s): E11.9 - Type 2 diabetes mellitus without complications (5) Acute pain of right thigh: Status: Acute Category: Medical Code(s): M79.651 - Pain in right thigh (6) Acute hyperglycemia: Status: Acute Category: Medical Code(s): R73.9 - Hyperglycemia, unspecified (7) IVDU (intravenous drug user): Status: Acute Category: Social Hx Code(s): F19.90 - Other psychoactive substance use, unspecified, uncomplicated (8) Constipation: Status: Acute Category: Medical Code(s): K59.00 - Constipation, unspecified Plan Patient 46-year-old female with active IV drug use, reportedly injecting Suboxone into her medial right leg vein in the same territory that she is currently experiencing pain.? Also has meth on UDS.? On admission her pain was out of proportion to physical exam.? Pain improving.? White cell count has normalized.? MRI (03/28) right hip effusion and myositis.? Orthopedics following.? Hip aspirated (03/30). Blood cultures from 03/26 and 03/28 remain negative.? Aspiration growing MRSA. To date, TTE/OLVIN negative for endocarditis.? Stable on room air.? CT chest negative for embolic phenomenon.? Tolerating antibiotics vancomycin and gentamicin for bone penetration.? At this time necessitates 6 week
[2022-04-05 16:00] VITALS: BP 123/71; PULSE 99; RESP 18; TEMP 36.6; O2SAT 98
[2022-04-05 18:01] LABS: POC Glucose,Bedside 230 (70-110)
--- NOTE | 2022-04-05 19:36 | PC.NURSE ---
PT C/O PAIN AN ANXIETY, RELIVED MY PRESCRIBED MEDS. PT REF IVMF AND IV ABX GENTAMYCIN DUE TO IV PUMP CONT BEEPING. DSG TO RT HIP CDI. PT REF PT TODAY. PT UP TO CHAIR, 2 VISITORS IN WITH PT AT THIS TIME. CB AND PERSONAL ITEMS WITHIN REACH. PT VOICES NO CONERNS AT THIS TIME.
[2022-04-05 20:00] VITALS: BP 121/69; PULSE 103; RESP 18; TEMP 36.9; O2SAT 99
[2022-04-05 21:14] LABS: POC Glucose,Bedside 135 (70-110)
[2022-04-06 04:00] VITALS: BP 124/69; PULSE 101; RESP 18; TEMP 36.7; O2SAT 100
[2022-04-06 05:00] VITALS: BMI 30.2
[2022-04-06 06:57] LABS: POC Glucose,Bedside 171 (70-110)
--- NOTE | 2022-04-06 07:31 | PC.NURSE ---
Pt has c/o pain in right thigh 2x t/o shift. Pain medication per MAR administered. No other c/o voiced to staff. Ambulating to BSC with standby assist. PICC to SUNDEEP. Call light within reach
[2022-04-06 08:00] VITALS: BP 139/68; PULSE 94; RESP 20; TEMP 36.8; O2SAT 100
[2022-04-06 08:54] LABS: Chloride 107 mmol/L (98-107); Potassium 3.7 mmoL/L (3.5-5.1); Sodium 138 mmol/L (136-145)
[2022-04-06 08:57] LABS: Anion Gap 9.7 mEq/L (5-15); Blood Urea Nitrogen 30 mg/dl (7-17); Calcium 9.5 mg/dl (8.4-10.2); Carbon Dioxide 25 mmol/L (22.0-30.0); Creatinine Clearance Estimated 150 mL/min (50-200); Estimated Glomerular Filt Rate 91 ml/min (>60); GFR (African American) 110 ML/MIN (>60); Glucose 151 mg/dl (74-100)
--- NOTE | 2022-04-06 09:08 | PC.NURSE ---
pt in room in bed sleeping
[2022-04-06 09:11] LABS: Vancomycin,Trough 16.8 ug/mL (5.0-10.0)
--- NOTE | 2022-04-06 09:26 | EXP.ORTH.PN ---
Subjective *Date: 04/06/22 *Time: 09:30 Interval history: Lenny is a 46-year-old female patient who underwent a right hip arthrotomy, debridement, and irrigation on 03/30/[address] Fraser. Today the patient is postop day #7. this morning the patient is sitting up comfortably at the edge of the bed. She reports some right hip pain but states that has improved over the weekend compared to her initial presentation. No history of any distal tingling/numbness, fevers, chills, rigors. She reports that she has been ambulating weightbearing as tolerated and of this is going well. She denies any other symptoms or concerns at this time. Ortho Exam (Inpt) Vital signs and Labs for Last 24 Hours: Temp Pulse Resp BP Pulse Ox 98.3 F 94 H 20 139/68 100 04/06/22 08:00 04/06/22 08:00 04/06/22 08:00 04/06/22 08:00 04/06/22 08:00 Laboratory Results - last 24 hr 04/05/22 11:23: POC Glucose 184 H 04/05/22 17:39: POC Glucose 230 H 04/05/22 20:57: POC Glucose 135 H 04/06/22 06:37: POC Glucose 171 H 04/06/22 08:40: Sodium 138, Potassium 3.7, Chloride 107, Carbon Dioxide 25, Anion Gap 9.7, BUN 30 H, Creatinine 0.70, Estimated Creat Clear 150, Estimated GFR 91, Est GFR ( Amer) 110, Glucose 151 H, Calcium 9.5 04/06/22 08:40: Vancomycin Trough 16.8 H I & O for Labs for Last 24 Hours: Intake & Output 04/03/22 04/04/22 04/05/22 04/06/22 23:59 23:59 23:59 23:59 Intake Total 3370 / 3610 2004 / 2004 1430 / 1790 720 / 720 Output Total 650 / 650 1300 / 1300 2300 / 2300 0 / 0 Balance 2720 / 2960 705 / 705 -870 / -510 720 / 720 Weight 199 lb 5 oz 199 lb 1.239 oz 201 lb 3 oz 203 lb 14.841 oz Head: Present normocephalic and atraumatic Eyes: Present as per HPI ENT: Present normal exam Neck: Present normal inspection, full ROM and trachea midline; Absent lymphadenopathy Respiratory: Present normal respiratory effort, able to speak in complete sentences and symmetric chest movement; Absent accessory muscle use Cardiac: Present Reg Rate and Rhythm GI: Present soft; Absent tenderness Comment:: Upon examination of the right hip: Dressings present over the right hip are clean, dry, and intact. The medial thigh, anterior hip joint, and proximal femur are nontender to palpation. Thigh and calf are soft nontender; Homans' sign is negative. No clinical evidence of DVT or compartment syndrome noted. Posterior tibial pulses 1+; capillary refill is brisk. Sensation light touch is grossly intact throughout. Patient is actively mobilizing the foot, ankle, and toes. Skin: Present intact, warm and normal turgor; Absent cyanosis, erythema, lesions or jaundice Neuro: Present Cranial Nerve 2-12 Intact, Motor Function Intact, Sensory Function Intact, alert, awake, oriented x 3, tone normal and moves all extremities; Absent Numbness or Tingling Assessment and Plan *Assessment and plan (1) Right hip joint effusion: Status: Acute Category: Medical Code(s): M25.451 - Effusion, right hip (2) Acute pain of right thigh: Status: Acute Category: Medical Code(s): M79.651 - Pain in right thigh Plan I have discussed the clinical findings and progress the patient. Overall she is doing well from an orthopedic standpoint and may be discharged when medically appropriate. Dressings present over the right hip are clean, dry, and intact. Continue IV antibiotics; PICC placement and 6 weeks IV antibiotics as well as outpatient follow up with infectious disease specialist, Dr. Jeff Cronin. She may continue to ambulate weightbearing as tolerated on the right lower extremity. Continue rest, ice, activity modification, and pain medication as needed. Upon discharge, plan for follow-up in our office in approximately 1 week for wound inspection and suture removal. Continue medical management as per primary care team
[2022-04-06 11:30] LABS: POC Glucose,Bedside 178 (70-110)
--- NOTE | 2022-04-06 11:30 | EXP.PHA.CONS ---
Pharmacy Consult Date: 04/06/22 Time: 11:30 Referring provider: DR. ARTHUR Reason for Consult:: VANCOMYCIN TROUGH LEVEL Allergies Allergy/AdvReac Type Severity Reaction Status Date / Time levofloxacin [From Levaquin] Allergy Verified 03/21/22 22:22 zolpidem [From Ambien] Allergy Verified 03/21/22 22:22 Home Medications Medication Instructions Recorded Confirmed Type gabapentin 100 mg capsule 100 mg PO TID 30 days #90 caps 03/29/22 Rx hydrocodone 5 mg-acetaminophen 325 1 tab PO Q6HP PRN Moderate To 03/29/22 Rx mg tablet Severe Pain 3 days #12 tabs insulin glargine 100 unit/mL (3 25 unit (0.25 mL) SQ HS 30 days 03/29/22 Rx mL) subcutaneous pen (Lantus #7.5 mL Solostar U-100 Insulin) linezolid 600 mg tablet (Zyvox) 600 mg PO Q12H 9 days #17 tabs 03/29/22 Rx metformin 1,000 mg tablet 1,000 mg PO BIDWMEAL 30 days #60 03/29/22 Rx tabs naproxen sodium 275 mg tablet 275 mg PO BID #30 tabs 03/29/22 Rx New Prescriptions to Start Prescriptions: hydrocodone-acetaminophen Ramesh Arthur gabapentin Antoine,Ramesh insulin glargine [Lantus Solostar U-100 Insulin] Ramesh Arthur linezolid [Zyvox] Ramesh Arthur metformin Ramesh Arthur naproxen sodium Ramesh Arthur Height: 1.75 m Weight: 92.5 kg Laboratory Results:: Laboratory Results - last 24 hr 04/05/22 11:23: POC Glucose 184 H 04/05/22 17:39: POC Glucose 230 H 04/05/22 20:57: POC Glucose 135 H 04/06/22 06:37: POC Glucose 171 H 04/06/22 08:40: Sodium 138, Potassium 3.7, Chloride 107, Carbon Dioxide 25, Anion Gap 9.7, BUN 30 H, Creatinine 0.70, Estimated Creat Clear 150, Estimated GFR 91, Est GFR ( Amer) 110, Glucose 151 H, Calcium 9.5 04/06/22 08:40: Vancomycin Trough 16.8 H 04/06/22 11:22: POC Glucose 178 H Medical History: Medical History (Updated 03/30/22 @ 11:06 by Ramesh Arthur MD) Asthma Assessment and Plan Assessment and plan all Dx Assessment and Plan for all problems:: BASED ON PATIENT FACTORS AND VANCOMYCIN TROUGH LEVEL OF 16.8, RECOMMEND CONTINUING CURRENT DOSE OF VANCOMYCIN AT 1,750MG EVERY 12 HOURS. PHARMACY WILL CONTINUE TO MONITOR. -PEYTON PEGUERO, STEVED
--- NOTE | 2022-04-06 13:53 | PC.NURSE ---
sitting up in chair awake
[2022-04-06 16:00] VITALS: BP 119/84; PULSE 88; RESP 20; TEMP 36.9; O2SAT 100
--- NOTE | 2022-04-06 16:41 | EXP.PN ---
Subjective *Date: 04/06/22 *Time: 16:41 Interval history: Date of service 04/06/2022 The patient reports no acute events overnight. She continues with wound care and dressing changes. She is ambulating with no difficulty. Nursing staff report that she remains afebrile with stable vital signs and saturating appropriately on room air. We have reviewed and discussed her morning electrolytes and creatinine which are normal. Exam Data for Last 24 hours Vital signs and Labs for Last 24 Hours: Temp Pulse Resp BP Pulse Ox 98.4 F 88 20 119/84 100 04/06/22 16:00 04/06/22 16:00 04/06/22 16:00 04/06/22 16:00 04/06/22 16:00 Laboratory Results - last 24 hr 04/05/22 17:39: POC Glucose 230 H 04/05/22 20:57: POC Glucose 135 H 04/06/22 06:37: POC Glucose 171 H 04/06/22 08:40: Sodium 138, Potassium 3.7, Chloride 107, Carbon Dioxide 25, Anion Gap 9.7, BUN 30 H, Creatinine 0.70, Estimated Creat Clear 150, Estimated GFR 91, Est GFR ( Amer) 110, Glucose 151 H, Calcium 9.5 04/06/22 08:40: Vancomycin Trough 16.8 H 04/06/22 11:22: POC Glucose 178 H I & O for Last 24 hours: Intake & Output 04/03/22 04/04/22 04/05/22 04/06/22 23:59 23:59 23:59 23:59 Intake Total 3370 / 3610 2004 / 2004 1430 / 1790 840 / 840 Output Total 650 / 650 1300 / 1300 2300 / 2300 900 / 900 Balance 2720 / 2960 705 / 705 -870 / -510 -60 / -60 Weight 90.407 kg 90.3 kg 91.257 kg 92.5 kg Constitutional Constitutional: no acute distress *Routine HEENT Exam Head: Present normocephalic Eye: Present EOMI and PERRL ENT: Present mucous membranes moist *Routine Neck Exam Neck: Present supple; Absent lymphadenopathy *Routine Respiratory Exam Respiratory: Present CTA bilaterally *Routine Cardiovascular Exam Cardiovascular: Present RRR *Routine Abdominal Exam Abdominal: Present soft and normoactive bowel sounds; Absent tenderness *Routine Extremities Exam Extremities: Absent cyanosis, clubbing or edema Comments: Right hip dressing, right upper extremity PICC *Routine Skin Exam Skin: Present warm; Absent rash *Routine Neurological Exam Neurological: Present alert and oriented X3 Assessment and Plan *Assessment and plan (1) MRSA bacteremia: Status: Acute Category: Medical Code(s): R78.81 - Bacteremia; B95.62 - Methicillin resistant Staphylococcus aureus infection as the cause of diseases classified elsewhere (2) Myositis: Status: Acute Category: Medical Code(s): M60.9 - Myositis, unspecified (3) Right hip joint effusion: Status: Acute Category: Medical Code(s): M25.451 - Effusion, right hip (4) Diabetes: Status: Acute Category: Medical Code(s): E11.9 - Type 2 diabetes mellitus without complications (5) Acute pain of right thigh: Status: Acute Category: Medical Code(s): M79.651 - Pain in right thigh (6) Acute hyperglycemia: Status: Acute Category: Medical Code(s): R73.9 - Hyperglycemia, unspecified (7) IVDU (intravenous drug user): Status: Acute Category: Social Hx Code(s): F19.90 - Other psychoactive substance use, unspecified, uncomplicated (8) Constipation: Status: Acute Category: Medical Code(s): K59.00 - Constipation, unspecified Plan Patient 46-year-old female with active IV drug use, reportedly injecting Suboxone into her medial right leg vein in the same territory that she is currently experiencing pain.? Also has meth on UDS.? On admission her pain was out of proportion to physical exam.? Pain improving.? White cell count has normalized.? MRI (03/28) right hip effusion and myositis.? Orthopedics following.? Hip aspirated (03/30). Blood cultures from 03/26 and 03/28 remain negative.? Aspiration growing MRSA. To date, TTE/OLVIN negative for endocarditis.? Stable on room air.? CT chest negative for embolic phenomenon.? Tolerating antibiotics vancomycin and gentamicin for bone penetration.?
[2022-04-06 17:04] LABS: POC Glucose,Bedside 201 (70-110)
[2022-04-06 19:36] VITALS: BP 124/73; PULSE 106; RESP 22; TEMP 36.7; O2SAT 94
[2022-04-06 20:37] LABS: POC Glucose,Bedside 140 (70-110)
--- NOTE | 2022-04-07 03:25 | PC.NURSE ---
Pt resting in bed at this time, Has been A/O X 4, has had family in room all shift. Pt had some pain earlier in shift, states PRN pain medication helped. Pt lungs are Clear, Resp jf nand non labored. Pt took a shower and has a dry dressing over right thigh. Picc line in right arm is patent, no s/sx of infection at the site. Bed is locked in low position, side rails up x 2, call light within reach. Encouraged pt to report any needs.
[2022-04-07 03:41] VITALS: BP 121/70; PULSE 89; RESP 20; TEMP 36.6; O2SAT 95
[2022-04-07 03:42] VITALS: BMI 30.6
[2022-04-07 06:33] LABS: POC Glucose,Bedside 170 (70-110)
[2022-04-07 08:00] VITALS: BP 142/73; PULSE 92; RESP 16; TEMP 36.4; O2SAT 100
[2022-04-07 08:08] LABS: Basophils # 0.1 K/mm3 (0-0.2); Basophils % 0.9 % (0.1-2.0); Eosinophils # 0.2 K/mm3 (0.0-0.4); Eosinophils % 1.9 % (0.1-12.0); Hematocrit 32.9 % (37.0-47.0); Hemoglobin 10.7 g/dL (12.2-16.2); Lymphocytes # 2.8 K/mm3 (0.7-4.5); Mean Corpuscular HGB Conc 32.5 g/dL (31.8-35.4); Mean Corpuscular Hemoglobin 28.1 pg (27.0-31.2); Mean Corpuscular Volume 86.5 fl (81-99); Mean Platelet Volume 7.4 fl (7.4-10.4); Monocytes # 0.5 K/mm3 (0.1-1.0); Monocytes % 4.6 % (1.7-9.3); Neutrophils # 7.6 K/mm3 (1.8-7.8); Neutrophils % 67.6 % (37.0-80.0); Platelet Count 813 K/mm3 (142-424); Red Cell Distribution Width 13.6 % (11.5-17.5); White Blood Count 11.3 K/mm3 (4.8-10.8)
[2022-04-07 08:12] LABS: Chloride 106 mmol/L (98-107); Potassium 3.8 mmoL/L (3.5-5.1); Sodium 139 mmol/L (136-145)
[2022-04-07 08:16] LABS: Anion Gap 14.8 mEq/L (5-15); Blood Urea Nitrogen 31 mg/dl (7-17); Calcium 9.8 mg/dl (8.4-10.2); Carbon Dioxide 22 mmol/L (22.0-30.0); Creatinine Clearance Estimated 133 mL/min (50-200); Estimated Glomerular Filt Rate 78 ml/min (>60); GFR (African American) 94 ML/MIN (>60); Glucose 138 mg/dl (74-100)
[2022-04-07 08:21] LABS: C-Reactive Protein 36.2 mg/L (0-4)
--- NOTE | 2022-04-07 08:32 | P.PN_ITS ---
Subjective *Date: 04/07/22 *Time: 08:32 Medical Exam Vital signs and Labs for Last 24 Hours: Vital Signs Temp Pulse Resp BP Pulse Ox 04/07/22 03:41 97.8 F 89 20 121/70 95 04/06/22 19:36 98.0 F 106 H 22 124/73 94 L 04/06/22 16:00 98.4 F 88 20 119/84 100 Intake and Output 04/06/22 04/07/22 04/07/22 23:59 07:59 15:59 Intake Total 360 / 1200 350 / 350 Output Total 200 / 1100 0 / 0 Balance 160 / 100 350 / 350 Intake: Intake, Oral Amount 360 / 1200 Intake, Total IV Amount 350 / 350 Gentamicin Sulfate 540 mg In 0. 350 / 350 9 % Sodium Chloride 100 ml @ 100 mls/hr IV 1300 [facility] Rx#: [id number] Output: Output, Urine Amount 200 / 1100 0 / 0 Other: Number of Unmeasured Voids 1 Weight 93.695 kg Patient Weight 04/07/22 23:59 Weight 93.695 kg Laboratory Results - last 24 hr 04/06/22 08:40: Sodium 138, Potassium 3.7, Chloride 107, Carbon Dioxide 25, Anion Gap 9.7, BUN 30 H, Creatinine 0.70, Estimated Creat Clear 150, Estimated GFR 91, Est GFR ( Amer) 110, Glucose 151 H, Calcium 9.5 04/06/22 08:40: Vancomycin Trough 16.8 H 04/06/22 11:22: POC Glucose 178 H 04/06/22 16:57: POC Glucose 201 H 04/06/22 20:28: POC Glucose 140 H 04/07/22 05:17: POC Glucose 170 H 04/07/22 08:00: WBC 11.3 H, RBC 3.80 L, Hgb 10.7 L, Hct 32.9 L, MCV 86.5, MCH 28.1, MCHC 32.5, RDW 13.6, Plt Count 813 H, MPV 7.4, Neut % (Auto) 67.6, Lymph % (Auto) 25.0, [place] % (Auto) 4.6, Eos % (Auto) 1.9, Baso % (Auto) 0.9, Neut # (Auto) 7.6, Lymph # (Auto) 2.8, [place] # (Auto) 0.5, Eos # (Auto) 0.2, Baso # (Auto) 0.1 04/07/22 08:00: Sodium 139, Potassium 3.8, Chloride 106, Carbon Dioxide 22, Anion Gap 14.8, BUN 31 H, Creatinine 0.80, Estimated Creat Clear 133, Estimated GFR 78, Est GFR ( Amer) 94, Glucose 138 H, Calcium 9.8, C-Reactive Protein 36.2 H I & O for Labs for Last 24 Hours: Intake & Output 04/04/22 04/05/22 04/06/22 04/07/22 23:59 23:59 23:59 23:59 Intake Total 2004 1430 / 1790 1200 / 1200 350 / 350 Output Total 1300 / 1300 2300 / 2300 1100 / 1100 0 / 0 Balance 705 / 705 -870 / -510 100 / 100 350 / 350 Weight 90.3 kg 91.257 kg 92.5 kg 93.695 kg The patient's infection will respond to the chosen ABx?: Yes Is the patient receiving the right drug, dose, and route?: Yes Could a more targeted ABx be ordered?: No
[2022-04-07 08:40] LABS: Procalcitonin 0.068 ng/mL (0.0-2.0)
[2022-04-07 09:26] LABS: Erythrocyte Sedimentation Rate 119 mm/hr (0-20)
--- NOTE | 2022-04-07 10:31 | EXP.ORTH.PN ---
Subjective *Date: 04/07/22 *Time: 10:10 Interval history: Lenny is a 46-year-old female patient who underwent a right hip arthrotomy, debridement, and irrigation on 03/30/[address] Fraser. Today the patient is postop day #8. This morning the patient is sitting up comfortably at the edge of the bed. No history of any distal tingling/numbness, fevers, chills, rigors. She denies any symptoms or concerns at this time. Ortho Exam (Inpt) Vital signs and Labs for Last 24 Hours: Temp Pulse Resp BP Pulse Ox 97.6 F 92 H 16 142/73 H 100 04/07/22 08:00 04/07/22 08:00 04/07/22 08:00 04/07/22 08:00 04/07/22 08:00 Laboratory Results - last 24 hr 04/06/22 11:22: POC Glucose 178 H 04/06/22 16:57: POC Glucose 201 H 04/06/22 20:28: POC Glucose 140 H 04/07/22 05:17: POC Glucose 170 H 04/07/22 08:00: WBC 11.3 H, RBC 3.80 L, Hgb 10.7 L, Hct 32.9 L, MCV 86.5, MCH 28.1, MCHC 32.5, RDW 13.6, Plt Count 813 H, MPV 7.4, Neut % (Auto) 67.6, Lymph % (Auto) 25.0, [place] % (Auto) 4.6, Eos % (Auto) 1.9, Baso % (Auto) 0.9, Neut # (Auto) 7.6, Lymph # (Auto) 2.8, [place] # (Auto) 0.5, Eos # (Auto) 0.2, Baso # (Auto) 0.1, ESR 119 H 04/07/22 08:00: Sodium 139, Potassium 3.8, Chloride 106, Carbon Dioxide 22, Anion Gap 14.8, BUN 31 H, Creatinine 0.80, Estimated Creat Clear 133, Estimated GFR 78, Est GFR ( Amer) 94, Glucose 138 H, Calcium 9.8, C-Reactive Protein 36.2 H, Procalcitonin 0.068 I & O for Labs for Last 24 Hours: Intake & Output 04/04/22 04/05/22 04/06/22 04/07/22 23:59 23:59 23:59 23:59 Intake Total 2004 1430 / 1790 1200 / 1200 710 / 710 Output Total 1300 / 1300 2300 / 2300 1100 / 1100 0 / 0 Balance 705 / 705 -870 / -510 100 / 100 710 / 710 Weight 199 lb 1.239 oz 201 lb 3 oz 203 lb 14.841 oz 206 lb 9 oz Head: Present normocephalic and atraumatic Eyes: Present as per HPI ENT: Present normal exam Neck: Present normal inspection, full ROM and trachea midline; Absent lymphadenopathy Respiratory: Present normal respiratory effort, able to speak in complete sentences and symmetric chest movement; Absent accessory muscle use Cardiac: Present Reg Rate and Rhythm GI: Present soft; Absent tenderness Comment:: Upon examination of the right hip: Dressings present over the right hip are clean, dry, and intact. The medial thigh, anterior hip joint, and proximal femur are nontender to palpation. Thigh and calf are soft nontender; Homans' sign is negative. No clinical evidence of DVT or compartment syndrome noted. Posterior tibial pulses 1+; capillary refill is brisk. Sensation light touch is grossly intact throughout. Patient is actively mobilizing the foot, ankle, and toes. Skin: Present intact, warm and normal turgor; Absent cyanosis, erythema, lesions or jaundice Neuro: Present Cranial Nerve 2-12 Intact, Motor Function Intact, Sensory Function Intact, alert, awake, oriented x 3, tone normal and moves all extremities; Absent Numbness or Tingling Assessment and Plan *Assessment and plan (1) Right hip joint effusion: Status: Acute Category: Medical Code(s): M25.451 - Effusion, right hip (2) Acute pain of right thigh: Status: Acute Category: Medical Code(s): M79.651 - Pain in right thigh Plan I have discussed the clinical findings and progress the patient. She is doing well from an orthopedic standpoint and may be discharged when medically appropriate. Continue IV antibiotics; PICC and 6 weeks IV antibiotics as well as outpatient follow up with infectious disease specialist, Dr. Jeff Cronin. She may continue to ambulate weightbearing as tolerated on the right lower extremity. Continue rest, ice, activity modification, and pain medication as needed. Upon discharge, plan for follow-up in our office in approximately 1 week for wound inspection and suture removal. Continue medical management as per primary care team.
[2022-04-07 11:35] LABS: POC Glucose,Bedside 203 (70-110)
--- NOTE | 2022-04-07 14:47 | PC.NURSE ---
report called to [facility]
--- NOTE | 2022-04-08 13:24 | CARE MANAGER ---
Contacted patient related to hospital discharge. Patient did not go to [facility] yesterday when she left the hospital. She states they were on their way to leave and just outside of [facility] their car broke down. She states she called [facility] and let them know that she would be there today. However, while on phone we contacted [facility] and they will not accept her for admission. She did call them at 1am this morning. Discussed with patient her follow up appointment with ortho. Discussed with patient how to get antibiotics and that she needs to establish an appointment with PCP [facility]. Provided her with Dr. Gonzalez's number as that is who she requested. She states she will come to ER to get medication today.
[2022-04-09 15:42] LABS: Hep A Ab, IgM NEGATIVE; Hepatitis B Surface Antigen NEGATIVE
[2022-04-09 15:43] LABS: Hepatitis B Core Antibody IgM NEGATIVE
== END 2022-04-07 15:44 | disposition home or self-care (01) | DRG 987 ==
LOC: ER 17:51 → 2ND 03-22 02:59
PROVIDERS: Internal Medicine Cardiovascular Disease; Nurse Practitioner Acute Care; Orthopaedic Surgery; Physician Assistant; Student in an Organized Health Care Education/Training Program; Admitting Provider Family Medicine; Emergency Provider Emergency Medicine; PCP Physician Assistant Medical; Visit Provider Internal Medicine Adolescent Medicine
PROC: 0K9R0ZZ Drainage of Left Upper Leg Muscle, Open Approach (ICD-10-PCS; principal; 2022-03-30 18:30)
DX: I80.3 Phlebitis and thrombophlebitis of lower extremities, unspecified (principal); U07.1 COVID-19; Q21.10 Atrial septal defect, unspecified; R78.81 Bacteremia; M25.451 Effusion, right hip; L08.9 Local infection of the skin and subcutaneous tissue, unspecified; F19.90 Other psychoactive substance use, unspecified, uncomplicated; B95.62 Methicillin resistant Staphylococcus aureus infection as the cause of diseases classified elsewhere; K59.00 Constipation, unspecified; E11.65 Type 2 diabetes mellitus with hyperglycemia; M60.9 Myositis, unspecified; K75.9 Inflammatory liver disease, unspecified; F15.90 Other stimulant use, unspecified, uncomplicated; I10 Essential (primary) hypertension; Z86.718 Personal history of other venous thrombosis and embolism
CPT/HCPCS: 10061; 36410; 36415; 36569; 71045; 71250; 72193; 73502; 73552; 73701; 73721; 76000; 76700; 80048; 80053; 80061; 80074; 80170; 80202; 80305; 81001; 82009; 82550; 82803; 82962; 83036; 83605; 83735; 84100; 84145; 84703; 85007; 85025; 85378; 85610; 85651; 86140; 86703; 87040; 87070; 87075; 87077; 87186; 87205; 93005; 93306; 93312; 93971; 97162; 97530; 99285; C1751; C9803; G0432; J0692; J2020; J2405; J3370; Q9967; U0003; U0005

== ENCOUNTER 2022-04-10 13:26 | Outpatient (CLI) | payer MEDICAID, SELFPAY ==
[2022-04-10 14:05] VITALS: BP 140/78; PULSE 68; RESP 20; TEMP 36.9; O2SAT 95
[2022-04-10 15:00] VITALS: BP 145/74; PULSE 78; RESP 20; TEMP 36.9
[2022-04-10 15:42] VITALS: BP 140/78; PULSE 68; RESP 20; TEMP 36.9
== END 2022-04-10 15:44 | disposition home or self-care (01) ==
LOC: INF 13:26
PROVIDERS: PCP Family Medicine; Visit Provider Family Medicine
DX: M25.451 Effusion, right hip (principal); R78.81 Bacteremia; B95.62 Methicillin resistant Staphylococcus aureus infection as the cause of diseases classified elsewhere
CPT/HCPCS: 96365; 96366; 96367

== ENCOUNTER 2022-04-11 10:15 | Outpatient (CLI) | payer MEDICAID, SELFPAY ==
[2022-04-11 10:56] VITALS: BMI 30.2
== END 2022-04-11 12:14 | disposition home or self-care (01) ==
PROVIDERS: PCP Family Medicine; Visit Provider Family Medicine
DX: M25.451 Effusion, right hip (principal); R78.81 Bacteremia; B95.62 Methicillin resistant Staphylococcus aureus infection as the cause of diseases classified elsewhere
CPT/HCPCS: 96365; 96367; J0878

== ENCOUNTER 2022-04-13 10:13 | Outpatient (CLI) | payer MEDICAID, SELFPAY ==
[2022-04-13 10:21] VITALS: BMI 29.2
--- NOTE | 2022-04-13 11:15 | PC.NURSE ---
1115-notified 's office of pt condition;pt very drowsy and lethargic;will arouse; no new orders but if unable to get iv access on pt send pt to er for further evaluation.
[2022-04-13 11:27] LABS: Chloride 110 mmol/L (98-107)
[2022-04-13 11:28] LABS: Potassium 4.3 mmoL/L (3.5-5.1); Sodium 138 mmol/L (136-145)
[2022-04-13 11:30] LABS: Blood Urea Nitrogen 37 mg/dl (7-17); Creatinine Clearance Estimated 78 mL/min (50-200); Estimated Glomerular Filt Rate 44 ml/min (>60); GFR (African American) 54 ML/MIN (>60)
[2022-04-13 11:31] LABS: Anion Gap 16.3 mEq/L (5-15); Calcium 9.5 mg/dl (8.4-10.2); Carbon Dioxide 16 mmol/L (22.0-30.0); Creatine Kinase 51 U/L (30-135); Glucose 369 mg/dl (74-100)
[2022-04-13 11:45] VITALS: BP 135/85; PULSE 88; RESP 19; TEMP 36.1; O2SAT 100
--- NOTE | 2022-04-13 13:48 | PC.NURSE ---
1348-pretty from lab here to collect labs.
[2022-04-13 14:15] VITALS: BP 129/53; PULSE 73; RESP 18
[2022-04-13 15:07] LABS: Gentamicin,Peak 19.2 ug/ml (4.0-8.0)
== END 2022-04-13 14:15 | disposition home or self-care (01) ==
PROVIDERS: PCP Family Medicine; Visit Provider Family Medicine
DX: M25.451 Effusion, right hip (principal); R78.81 Bacteremia; B95.62 Methicillin resistant Staphylococcus aureus infection as the cause of diseases classified elsewhere
CPT/HCPCS: 36415; 80048; 80170; 82550; 96365; 96367; J0878

== ENCOUNTER 2022-04-15 10:29 | Outpatient (CLI) | payer MEDICAID, SELFPAY ==
[2022-04-15 11:05] VITALS: BP 139/81; PULSE 88; RESP 18; TEMP 36.7; O2SAT 100
[2022-04-15 12:17] VITALS: BP 153/88; PULSE 82; RESP 18
[2022-04-15 12:18] VITALS: RESP 18
== END 2022-04-15 12:17 | disposition home or self-care (01) ==
LOC: INF 10:30
PROVIDERS: PCP Family Medicine; Visit Provider Family Medicine
DX: M25.451 Effusion, right hip (principal); R78.81 Bacteremia; B95.62 Methicillin resistant Staphylococcus aureus infection as the cause of diseases classified elsewhere
CPT/HCPCS: 96365; 96367; J0878

== ENCOUNTER 2022-04-16 10:03 | Outpatient (CLI) | payer MEDICAID, SELFPAY ==
[2022-04-16 10:55] VITALS: BP 122/69; PULSE 80; RESP 18; O2SAT 100
[2022-04-16 11:59] VITALS: BP 140/89; PULSE 90; RESP 18
== END 2022-04-16 11:59 | disposition home or self-care (01) ==
LOC: INF 10:04
PROVIDERS: PCP Family Medicine; Visit Provider Family Medicine
DX: M25.451 Effusion, right hip (principal); R78.81 Bacteremia; B95.62 Methicillin resistant Staphylococcus aureus infection as the cause of diseases classified elsewhere
CPT/HCPCS: 96365; 96367; J0878

== ENCOUNTER 2022-04-20 10:16 | Outpatient (CLI) | payer MEDICAID, SELFPAY ==
--- NOTE | 2022-04-20 10:50 | PC.NURSE ---
1050-notified of pt rash on body and swelling of affected leg; new orders to send pt to er for evaluation of cellulitis vs dvt.
--- NOTE | 2022-04-20 11:05 | PC.NURSE ---
1105-transferred pt to er for evaluation;gave bedside report to danita gonzales.
== END 2022-04-20 11:05 | disposition home or self-care (01) ==
LOC: INF 10:17
PROVIDERS: PCP Family Medicine; Visit Provider Family Medicine
DX: M25.451 Effusion, right hip (principal); R78.81 Bacteremia; B95.62 Methicillin resistant Staphylococcus aureus infection as the cause of diseases classified elsewhere

== ENCOUNTER 2022-04-20 10:55 | Inpatient (IN) | payer MEDICAID, SELFPAY ==
[2022-04-20 10:56] VITALS: BP 161/64; PULSE 82; RESP 18; TEMP 36.4; O2SAT 99; BMI 29.2
--- NOTE | 2022-04-20 11:50 | CA_ITS ---
FINAL REPORT TECHNIQUE: Color Doppler, duplex Doppler and compression sonography of the right lower extremity venous system was performed. CLINICAL HISTORY: prior septic joint, concern for DVT, reddness with edema FINDINGS: There is no evidence of deep venous thrombosis from the level of the groin to the calf. The veins are patent and compressible. IMPRESSION: No evidence of deep venous thrombosis right lower extremity. Authenticated and ERN
--- NOTE | 2022-04-20 12:01 | HMH.EDGENADL ---
Discharge Plan Disposition Patient Disposition: Admitted As Inpatient Condition: Fair Chief Complaint: Skin/Abscess/Foreign Body Prescriptions Prescriptions: No Action insulin lispro [Humalog KwikPen Insulin] 100 unit/mL insulin pen 5 unit SQ TID Qty: 15 2RF (DME) blood-glucose meter [OneTouch Verio Meter] Misc See Rx Instructions .ROUTE .MEDSUPPLY Rx Instructions: As directed ibuprofen 800 mg tablet 800 mg PO Q8H (DME) OneTouch Verio test strips Strip See Rx Instructions .ROUTE .MEDSUPPLY Rx Instructions: Check Glucose 4 times daily metformin 1,000 mg tablet 1,000 mg PO BID lisinopril 5 mg tablet 5 mg PO DAILY gabapentin 100 mg capsule 200 mg PO TID (DME) pen needle, diabetic [Ultra-Thin II Ins Pen [place]] 29 gauge x 1/2 needle See Rx Instructions .ROUTE .MEDSUPPLY Rx Instructions: As directed budesonide-formoterol [Symbicort] 160-4.5 mcg/actuation HFA aerosol inhaler 1 inh inhalation BID insulin glargine [Lantus Solostar U-100 Insulin] 100 unit/mL (3 mL) insulin pen 30 unit SQ HS (DME) lancets [OneTouch [place]ica Lancets] 33 gauge misc See Rx Instructions .ROUTE .MEDSUPPLY Rx Instructions: Check Glucose 4 times daily hydrocodone-acetaminophen 7.5-325 mg Tablet 1 tab PO Q6HP PRN (Reason: Moderate To Severe Pain) 3 Days Qty: 0 0RF Referrals Follow up/Referrals: Rosalinda Gonzalez DO [Primary Care Provider] - See instructions Clinical Impressions Clinical Impression: Rash, Leg swelling, ROBLES (acute kidney injury) Discharge ED Provider: Ronnie Garg General Adult [facility] General Chief complaint: Skin/Abscess/Foreign Body Stated complaint: Possible DVT Time Seen by Provider: 04/20/22 11:50 Mode of Arrival: Wheelchair Limitations: No Limitations Description of Symptoms (Recalled from ER Triage Doc. by RN): pt reports rash on BUE, chest and upper back and madelyn thighs that began earlier today. Pt also reports RLE sweling that began yesterday, 1+ pitting edema noted. Pt s/p R hip replacement. Pt was in infusion department today for outpt IV antibiotics, rash and swelling noted, pt sent to ED for r/o DVT per Dr. Gaming request. Pt denies fevers. History of Present Illness HPI narrative: Patient is a 46-year-old female with past medical history of IV drug use with recent hospitalization for right groin infection status post hip washout on prolonged outpatient IV antibiotic infusion who presents emergency department for evaluation of leg swelling. Patient states that her hip pain is improving after she has been discharged however she noticed swelling of her right lower extremity from the thigh down over the last 24 hours. Patient also got a new jacket out of storage and has a itching rash over her bilateral upper extremities. She was sent here at Dr. Gaming's request for rule out DVT. Patient has no other acute complaints at this time. With respect to patient's range of motion she is weightbearing as tolerated however still has continued significant pain, range of motion is at baseline. Related Data Home Medications Medication Instructions Recorded Confirmed blood sugar diagnostic ([facility] 04/10/22 04/15/22 Verio test strips) blood-glucose meter ([facility] 04/10/22 04/15/22 Verio Meter) budesonide-formoterol HFA 160 1 inh inhalation BID LUNGS 04/10/22 04/15/22 mcg-4.5 mcg/actuation aerosol inhaler (Symbicort) gabapentin 100 mg capsule 200 mg PO TID Pain 04/10/22 04/15/22 ibuprofen 800 mg tablet 800 mg PO Q8H Pain 04/10/22 04/15/22 insulin glargine 100 unit/mL (3 30 unit SQ HS Diabetes 04/10/22 04/15/22 mL) subcutaneous pen (Lantus Solostar U-100 Insulin) lancets 33 gauge ([facility] 04/10/22 04/15/22 Lancets) lisinopril 5 mg tablet 5 mg PO DAILY BP 04/10/22 04/15/22 metformin 1,000 mg tablet 1,000 mg PO BID Diabetes 04/10/22 04/15/22 pen needle, diabetic 29 gauge x 04/10/22
--- NOTE | 2022-04-20 12:07 | PC.NURSE ---
PHARMACY NOTIFIED TO MAKE ABX
--- NOTE | 2022-04-20 12:52 | PC.NURSE ---
CV lab staff at
[2022-04-20 12:57] LABS: Basophils # 0.1 K/mm3 (0-0.2); Basophils % 0.8 % (0.1-2.0); Eosinophils # 0.3 K/mm3 (0.0-0.4); Eosinophils % 2.9 % (0.1-12.0); Hematocrit 30.9 % (37.0-47.0); Hemoglobin 10.3 g/dL (12.2-16.2); Lymphocytes # 2.1 K/mm3 (0.7-4.5); Lymphocytes % 19.7 % (10-50); Mean Corpuscular HGB Conc 33.3 g/dL (31.8-35.4); Mean Corpuscular Hemoglobin 27.9 pg (27.0-31.2); Mean Corpuscular Volume 83.8 fl (81-99); Mean Platelet Volume 7.8 fl (7.4-10.4); Monocytes # 0.3 K/mm3 (0.1-1.0); Monocytes % 3.1 % (1.7-9.3); Neutrophils # 7.7 K/mm3 (1.8-7.8); Neutrophils % 73.6 % (37.0-80.0); Platelet Count 558 K/mm3 (142-424); Red Blood Count 3.69 M/mm3 (4.20-5.40); Red Cell Distribution Width 13.8 % (11.5-17.5); White Blood Count 10.5 K/mm3 (4.8-10.8)
[2022-04-20 12:58] LABS: Chloride 108 mmol/L (98-107)
[2022-04-20 12:59] LABS: Sodium 139 mmol/L (136-145)
[2022-04-20 13:01] LABS: Alanine Aminotransferase 25 U/L (12-78); Alkaline Phosphatase 126 U/L (38-126); Aspartate Amino Transferase 22 U/L (14-36); Bilirubin,Total 0.4 mg/dl (0.2-1.3); Blood Urea Nitrogen 40 mg/dl (7-17); Creatinine Clearance Estimated 34 mL/min (50-200); Estimated Glomerular Filt Rate 17 ml/min (>60); GFR (African American) 21 ML/MIN (>60)
[2022-04-20 13:02] LABS: Albumin Level 3.8 g/dl (3.5-5.0); Calcium 9.1 mg/dl (8.4-10.2); Carbon Dioxide 22 mmol/L (22.0-30.0); Creatine Kinase 47 U/L (30-135); Globulin 3.7 g/dL (1.3-3.2); Glucose 186 mg/dl (74-100); Total Protein,Serum 7.5 g/dl (6.3-8.2)
[2022-04-20 13:07] LABS: C-Reactive Protein 29.4 mg/L (0-4)
[2022-04-20 13:09] LABS: HCG Qualitative, Serum Negative (Negative)
[2022-04-20 13:51] LABS: Coronavirus 19, PCR Not Detected (NotDetected); Influenza A, PCR Not Detected (NotDetected); Influenza B, PCR Not Detected (NotDetected)
[2022-04-20 14:00] LABS: Creatine Kinase 47 U/L (30-135)
--- NOTE | 2022-04-20 14:13 | HMH.PHAINT1 ---
Pharmacy Intervention Comments: MEDICATION RECONCILIATION COMPLETED ON PATIENT USING EXTERNAL FILL HISTORY FROM PHARMACY. -PEYTON PEGUERO, STEVED
--- NOTE | 2022-04-20 14:30 | PC.NURSE ---
SPOKE WITH REGISTRATION AND GAVE BED ASSIGNMENT.
--- NOTE | 2022-04-20 14:47 | PC.NURSE ---
report called to danita black on second floor a this time
[2022-04-20 14:53] VITALS: BP 146/60; PULSE 75; RESP 16; TEMP 36.4; O2SAT 99
[2022-04-20 15:00] VITALS: BMI 30.7
[2022-04-20 16:00] VITALS: BP 160/79; PULSE 92; RESP 18; TEMP 36.7; O2SAT 98
[2022-04-20 16:40] LABS: Microscopic, Urine URINE MICROSCOPIC (MICROSCOPIC)
[2022-04-20 16:41] LABS: Appearance,Urine CLEAR (Clear); Bilirubin,Urine Negative (Negative); Blood, Urine TRACE-I (Negative); Color,Urine YELLOW (Yellow); Glucose,Urine (UA) TRACE (Negative); Ketones,Urine Negative (Negative); Leukocyte Esterase,Urine Negative (Negative); Nitrate,Urine Negative (Negative); Protein,Urine 1+ (Negative); Specific Gravity, Urine 1.025 (1.005-1.030); Urobilinogen,Urine 0.2 EU/dl (0.2)
[2022-04-20 16:53] LABS: Benzodiazepines Screen,Urine Negative ng/ml (<200)
[2022-04-20 16:55] LABS: Barbiturates Screen,Urine Negative ng/ml (<200); Cannabinoid Screen,Urine Negative ng/ml (<50)
[2022-04-20 16:56] LABS: Cocaine Screen,Urine Negative ng/ml (<300)
[2022-04-20 16:57] LABS: Methadone Screen,Urine Negative ng/ml (<300); Opiate Screen,Urine Negative ng/ml (<300)
[2022-04-20 16:58] LABS: Phencyclidine Screen,Urine Negative ng/ml (<25)
--- NOTE | 2022-04-20 17:17 | PC.NURSE ---
GENTAMYCIN INFUSION LATE DUE TO IV IN THE SUNDEEP INFILTRATING
[2022-04-20 18:31] LABS: Bacteria,Urine 1+ /lpf; RBC,Urine Occasional #/hpf (0-3); WBC,Urine Occasional #/hpf (0-3)
--- NOTE | 2022-04-20 18:41 | EXP.HP ---
History of Present Illness *Admission Date: 04/20/22 *Reason for visit:: Right leg swelling *History of present illness: Patient is a 46-year-old female with past medical history of known IV drug use, right hip infection with debridement and irrigation of right lateral hip abscess on 03/30/2022, currently on a daily IV antibiotic regimen for 6 weeks (end date May 10), as well as hypertension and type 2 diabetes who came to the ER for right leg swelling that she noticed this morning. Patient does not have any other symptoms, no chest pain, shortness of breath. Labs in the ER were noted to have a creatinine of 3.0 and therefore ER provider called for admission. [facility] Disclaimer: The information contained in this section may have been updated after the patient was seen, as this information can be updated by other users. Medical History (Updated 04/20/22 @ 18:57 by Everett Delatorre MD) Abscess Anxiety Asthma Asthma Depression Diabetes mellitus, type 2 Diabetes mellitus, type 2 History of COVID-19 History of gastroesophageal reflux (GERD) Hypertension Hypertension Migraine PCOS (polycystic ovarian syndrome) Surgical History (Updated 04/20/22 @ 15:06 by Radha Villela RN) H/O skin graft History of incision and drainage No significant past surgical history Family History (Updated 04/20/22 @ 15:06 by Radha Villela RN) Father Family history of diabetes mellitus type II Family history of acute congestive heart failure Mother Family history of diabetes mellitus type II Social History (Updated 04/20/22 @ 15:09 by Radha Villela RN) Smoking Status: Current every day smoker smoking status start date: 20 years ago years smoked: 20 smoking status stop date: 3 years ago and recently started back alcohol intake: current substance use type: opiates, IV drugs and other details: hard drugs , non specific, according to patient. current occupational status: unemployed Travel in the last 8 weeks: None Review of Systems Constitutional Constitutional: Reports system reviewed and no additional complaints, except as documented, Denies chills, Denies fatigue, Denies fever(s), Denies frequent falls, Denies headache(s), Denies increased appetite, Denies poor appetite and Denies lethargy Eyes Eyes: Denies change in vision ENT Ears, Nose, Mouth, and Throat: Denies abnormal hearing, Denies dizziness, Denies dysphagia, Denies headache(s), Denies mouth lesions and Denies sinus pressure *Cardiovascular Cardiovascular: Denies chest pain, Denies chest pain at rest, Denies chest pain with activity, Denies dyspnea, Denies dyspnea on exertion, Denies edema, Denies irregular heart rhythm, Reports leg edema (Right leg), Denies lightheadedness, Denies orthopnea and Denies palpitations *Respiratory Respiratory: Denies chest congestion, Denies cough, Denies dyspnea, Denies dyspnea on exertion, Denies excessive phlegm production and Denies hemoptysis *Gastrointestinal Gastrointestinal: Denies abdominal pain, Denies constipation, Denies diarrhea, Denies dysphagia, Denies heartburn and Denies hematochezia *Musculoskeletal Musculoskeletal: Denies abnormal gait, Reports arthralgias (Right hip), Denies joint swelling and Denies myalgias Integumentary/Breasts Skin/Breast: Reports rash (Bilateral arms after putting on an old coat) *Neurologic Neurologic: Denies abnormal gait, Denies abnormal hearing, Denies abnormal speech, Denies confusion, Denies convulsions, Denies dizziness, Denies frequent falls and Denies headache(s) Psychiatric Psychiatric: Denies anxiety, Denies confusion and Denies depression Endocrine Endocrine: Denies fatigue and Denies palpitations Meds Home Medications and Allergies Home Medications Medication Instructions Recorded Confirmed Type [facility] 04[facility]20[facility]22 History Verio test strips) blood-glucose meter ([facility] 04/10/22 04/20/22 History Verio Meter) budesonide-formoterol HFA 160 1 in
--- NOTE | 2022-04-20 18:47 | PC.NURSE ---
PT IS RESTING IN BED. ALERT AND ORIENTED X4. EATING AND DRINKING WELL. PT HAS SWELLING/WEAKNESS NOTED TO RLE. AMBULATES TO THE BATHROOM WITH WALKER. NEW US GUIDED IV ACCESS NOTED TO S[place]. RED RASH NOTED TO BUE AND CHEST. MULTIPLE TATTOOS NOTED. WILL CONTINUE TO MONITOR.
[2022-04-20 19:01] LABS: Amphetamine/Metha Screen,Urine Positive ng/ml (<1000)
[2022-04-20 20:00] VITALS: BP 149/79; PULSE 75; RESP 20; TEMP 36.4; O2SAT 100
[2022-04-20 20:30] LABS: POC Glucose,Bedside 464 (70-110)
--- NOTE | 2022-04-21 03:18 | PC.NURSE ---
Pt is resting in bed at this time, has been A/O X 4. Resp even and non labored, lungs clear. Pt has been up to restroom with her walker. Reports she still feels weak in her legs. IV is patent. Pt educated on Plan of care, encouraged to report any needs to staff. Bed locked in low position, side rails up x 2, call maher in reach.
[2022-04-21 04:00] VITALS: BP 132/70; PULSE 83; RESP 16; TEMP 36.8; O2SAT 98; BMI 33.4
[2022-04-21 06:07] LABS: POC Glucose,Bedside 420 (70-110)
--- NOTE | 2022-04-21 07:42 | EXP.ACUTE.PN ---
Subjective *Date: 04/21/22 *Time: 18:00 Interval history: Patient stable this morning. Remains afebrile. Right hip pain resolved from previous visit. Ambulating well with walker, states she is interested in trying a cane or crutch in the coming days. Tolerating fair p.o. intake. Still urinating. Labs reviewed, renal function no better today. Medical Exam Vital signs and Labs for Last 24 Hours: Vital Signs Temp Pulse Pulse Resp BP BP Pulse Ox 04/21/22 04:00 98.3 F 83 16 132/70 98 04/20/22 20:00 97.6 F 75 20 149/79 H 100 04/20/22 16:00 98.1 F 92 H 18 160/79 H 98 04/20/22 14:53 97.6 F 75 16 146/60 H 04/20/22 10:56 97.6 F 82 18 161/64 H 99 Intake and Output 04/20/22 04/20/22 04/21/22 15:59 23:59 07:59 Intake Total 360 / 360 632 / 632 Output Total 400 / 400 Balance -40 / -40 632 / 632 Intake: Intake, Oral Amount 360 / 360 Intake, Other Amount 632 / 632 Output: Output, Urine Amount 400 / 400 Other: Intake, Other Source Saline Solution Number of Voids 1 Weight 94.438 kg 102.421 kg Patient Weight 04/21/22 23:59 Weight 102.421 kg Laboratory Results - last 24 hr 04/20/22 12:36: WBC 10.5, RBC 3.69 L, Hgb 10.3 L, Hct 30.9 L, MCV 83.8, MCH 27.9, MCHC 33.3, RDW 13.8, Plt Count 558 H, MPV 7.8, Neut % (Auto) 73.6, Lymph % (Auto) 19.7, [place] % (Auto) 3.1, Eos % (Auto) 2.9, Baso % (Auto) 0.8, Neut # (Auto) 7.7, Lymph # (Auto) 2.1, [place] # (Auto) 0.3, Eos # (Auto) 0.3, Baso # (Auto) 0.1 04/20/22 12:36: Sodium 139, Potassium 4.0, Chloride 108 H, Carbon Dioxide 22, Anion Gap 13.0, BUN 40 H, Creatinine 3.00 H, Estimated Creat Clear 34, Estimated GFR 17 L*, Est GFR ( Amer) 21 L, Glucose 186 H, Calcium 9.1, Total Bilirubin 0.4, AST 22, ALT 25, Alkaline Phosphatase 126, Total Creatine Kinase 47, C-Reactive Protein 29.4 H, Total Protein 7.5, Albumin 3.8, Globulin 3.7 H, Albumin/Globulin Ratio 1.0 L 04/20/22 12:36: Serum HCG, Qual Negative 04/20/22 12:36: Total Creatine Kinase 47 04/20/22 12:39: SARS-CoV-2 (PCR) Not detected, Influenza A Untype (PCR) Not detected, Influenza Type B (PCR) Not detected 04/20/22 16:32: Urine Opiates Screen Negative, Urine Methadone Screen Negative, Ur Barbituates Screen Negative, Ur Phencyclidine Scrn Negative, Ur Amphetamines Screen Positive H, U Benzodiazepines Scrn Negative, Urine Cocaine Screen Negative, U Marijuana (THC) Screen Negative 04/20/22 16:32: Urine Color Yellow, Urine Appearance Clear, Urine pH 6.0, Ur Specific [place] 1.025, Urine Protein 1+, Urine Glucose (UA) Trace, Urine Ketones Negative, Urine Blood Trace-i, Urine Nitrate Negative, Urine Bilirubin Negative, Urine Urobilinogen 0.2, Ur Leukocyte Esterase Negative, Urine RBC Occasional, Urine WBC Occasional, Ur Squamous Epith Cells 5-10, Urine Bacteria 1+ 04/20/22 20:04: POC Glucose 464 H* 04/21/22 05:59: POC Glucose 420 H* I & O for Labs for Last 24 Hours: Intake & Output 04/18/22 04/19/22 04/20/22 04/21/22 23:59 23:59 23:59 23:59 Intake Total 360 / 360 632 / 632 Output Total 400 / 400 Balance -40 / -40 632 / 632 Weight 94.438 kg 102.421 kg Constitutional: Present no acute distress, obese and chronically ill appearing Head: Present atraumatic and normocephalic ENT: Present normal exam Neck: Present normal inspection Respiratory: Present CTA bilaterally; Absent accessory muscle use Cardiac: Present Reg Rate and Rhythm and No Murmur GI: Present soft and tenderness Extremities: Absent tenderness Comment:: Incision over right hip clean dry and intact, no Skin: Present intact and dry; Absent cyanosis, erythema, lesions, rash or gangrene Neuro: Present alert, awake and oriented x 3 Assessment and Plan *Assessment and plan (1) ROBLES (acute kidney injury): Status: Acute Category: Medical Code(s): N17.9 - Acute kidney failure, unspecified (2) Septic arthritis: Status: Acute Category: Medical Code(s): M00.9 - Pyog
[2022-04-21 07:51] LABS: Basophils % 0.1 % (0.1-2.0); Eosinophils # 0.1 K/mm3 (0.0-0.4); Eosinophils % 0.7 % (0.1-12.0); Hematocrit 25.7 % (37.0-47.0); Lymphocytes % 11.6 % (10-50); Mean Corpuscular HGB Conc 33.8 g/dL (31.8-35.4); Mean Corpuscular Hemoglobin 27.8 pg (27.0-31.2); Mean Corpuscular Volume 82.3 fl (81-99); Mean Platelet Volume 8.3 fl (7.4-10.4); Monocytes # 0.3 K/mm3 (0.1-1.0); Monocytes % 2.8 % (1.7-9.3); Neutrophils # 7.7 K/mm3 (1.8-7.8); Neutrophils % 84.8 % (37.0-80.0); Platelet Count 445 K/mm3 (142-424); Red Blood Count 3.12 M/mm3 (4.20-5.40); Red Cell Distribution Width 14.1 % (11.5-17.5)
[2022-04-21 07:53] LABS: Hemoglobin 8.7 g/dL (12.2-16.2)
[2022-04-21 07:56] LABS: Chloride 108 mmol/L (98-107); Potassium 4.4 mmoL/L (3.5-5.1); Sodium 136 mmol/L (136-145)
[2022-04-21 07:59] LABS: Alanine Aminotransferase 24 U/L (12-78); Albumin Level 2.9 g/dl (3.5-5.0); Alkaline Phosphatase 89 U/L (38-126); Anion Gap 14.4 mEq/L (5-15); Aspartate Amino Transferase 18 U/L (14-36); Bilirubin,Total 0.3 mg/dl (0.2-1.3); Blood Urea Nitrogen 48 mg/dl (7-17); Calcium 8.7 mg/dl (8.4-10.2); Carbon Dioxide 18 mmol/L (22.0-30.0); Creatinine Clearance Estimated 40 mL/min (50-200); Estimated Glomerular Filt Rate 18 ml/min (>60); GFR (African American) 21 ML/MIN (>60); Globulin 2.9 g/dL (1.3-3.2); Glucose 286 mg/dl (74-100); Total Protein,Serum 5.8 g/dl (6.3-8.2)
[2022-04-21 08:00] VITALS: BP 154/89; PULSE 87; RESP 20; TEMP 36.7; O2SAT 100
[2022-04-21 08:00] LABS: Magnesium 1.8 mg/dl (1.6-2.3)
[2022-04-21 11:13] LABS: POC Glucose,Bedside 254 (70-110)
[2022-04-21 13:22] LABS: Gentamicin,Trough 6.3 ug/ml (0.0-2.0)
--- NOTE | 2022-04-21 13:31 | EXP.PHA.CONS ---
Pharmacy Consult Date: 04/21/22 Time: 13:31 Referring provider: DR. ARTHUR Reason for Consult:: GENTAMICIN TROUGH LEVEL Allergies Allergy/AdvReac Type Severity Reaction Status Date / Time levofloxacin [From Levaquin] Allergy Verified 04/15/22 12:45 zolpidem [From Ambien] Allergy Verified 04/15/22 12:45 Home Medications Medication Instructions Recorded Confirmed Type blood sugar diagnostic ([facility] 04/10/22 04/20/22 History Verio test strips) blood-glucose meter ([facility] 04/10/22 04/20/22 History Verio Meter) budesonide-formoterol HFA 160 1 inh inhalation BID Breathing 04/10/22 04/20/22 History mcg-4.5 mcg/actuation aerosol problems inhaler (Symbicort) ibuprofen 800 mg tablet 800 mg PO Q8H Pain 04/10/22 04/20/22 History insulin glargine 100 unit/mL (3 30 unit SQ HS Diabetes 04/10/22 04/20/22 History mL) subcutaneous pen (Lantus Solostar U-100 Insulin) [facility]ancets [facility]/10/22 04/20/22 History Lancets) lisinopril 5 mg tablet 5 mg PO DAILY Hypertension 04/10/22 04/20/22 History metformin 1,000 mg tablet 1,000 mg PO BID Diabetes 04/10/22 04/20/22 History pen needle, diabetic 29 gauge x 04/10/22 04/20/22 History 1/2 (Ultra-Thin II Insulin Pen [place]) insulin lispro 100 unit/mL 5 unit SQ TID Diabetes 04/20/22 04/20/22 History subcutaneous pen (Humalog KwikPen (U-100) Insulin) New Prescriptions to Start Prescriptions: Height: 1.75 m Weight: 102.421 kg Laboratory Results:: Laboratory Results - last 24 hr 04/20/22 12:36: Total Creatine Kinase 47 04/20/22 12:39: SARS-CoV-2 (PCR) Not detected, Influenza A Untype (PCR) Not detected, Influenza Type B (PCR) Not detected 04/20/22 16:32: Urine Opiates Screen Negative, Urine Methadone Screen Negative, Ur Barbituates Screen Negative, Ur Phencyclidine Scrn Negative, Ur Amphetamines Screen Positive H, U Benzodiazepines Scrn Negative, Urine Cocaine Screen Negative, U Marijuana (THC) Screen Negative 04/20/22 16:32: Urine Color Yellow, Urine Appearance Clear, Urine pH 6.0, Ur Specific [place] 1.025, Urine Protein 1+, Urine Glucose (UA) Trace, Urine Ketones Negative, Urine Blood Trace-i, Urine Nitrate Negative, Urine Bilirubin Negative, Urine Urobilinogen 0.2, Ur Leukocyte Esterase Negative, Urine RBC Occasional, Urine WBC Occasional, Ur Squamous Epith Cells 5-10, Urine Bacteria 1+ 04/20/22 20:04: POC Glucose 464 H* 04/21/22 05:59: POC Glucose 420 H* 04/21/22 07:03: WBC 9.0, RBC 3.12 L, Hgb 8.7 L D, Hct 25.7 L, MCV 82.3, MCH 27.8, MCHC 33.8, RDW 14.1, Plt Count 445 H, MPV 8.3, Neut % (Auto) 84.8 H, Lymph % (Auto) 11.6, [place] % (Auto) 2.8, Eos % (Auto) 0.7, Baso % (Auto) 0.1, Neut # (Auto) 7.7, Lymph # (Auto) 1.0, [place] # (Auto) 0.3, Eos # (Auto) 0.1, Baso # (Auto) 0.0 04/21/22 07:03: Sodium 136, Potassium 4.4, Chloride 108 H, Carbon Dioxide 18 L, Anion Gap 14.4, BUN 48 H, Creatinine 2.90 H, Estimated Creat Clear 40, Estimated GFR 18 L*, Est GFR ( Amer) 21 L, Glucose 286 H D, Calcium 8.7, Magnesium 1.8, Total Bilirubin 0.3, AST 18, ALT 24, Alkaline Phosphatase 89, Total Protein 5.8 L, Albumin 2.9 L D, Globulin 2.9, Albumin/Globulin Ratio 1.0 L 04/21/22 10:44: POC Glucose 254 H 04/21/22 12:10: Gentamicin Trough 6.3 H* Medical History: Medical History (Updated 04/20/22 @ 18:57 by Everett Delatorre MD) Abscess Anxiety Asthma Asthma Depression Diabetes mellitus, type 2 Diabetes mellitus, type 2 History of COVID-19 History of gastroesophageal reflux (GERD) Hypertension Hypertension Migraine PCOS (polycystic ovarian syndrome) Assessment and Plan Assessment and plan all Dx Assessment and Plan for all problems:: BASED ON PATIENT FACTORS AND GENTAMICIN TROUGH LEVEL OF 6.9, RECOMMEND HOLDING TODAYS DOSE OF GENTAMICIN. WILL OBTAIN ANOTHER TROUGH LEVEL TOMORROW PRIOR TO DOSE ALONG WITH BMP. -PEYTON PEGUERO, STEVED
[2022-04-21 16:00] VITALS: BP 147/79; PULSE 87; RESP 16; TEMP 36.9; O2SAT 99
[2022-04-21 17:43] LABS: POC Glucose,Bedside 249 (70-110)
[2022-04-21 20:00] VITALS: BP 161/87; PULSE 88; RESP 16; TEMP 36.6; O2SAT 92
[2022-04-21 21:26] LABS: POC Glucose,Bedside 147 (70-110)
[2022-04-22 04:00] VITALS: BP 133/74; PULSE 70; RESP 16; TEMP 36.6; O2SAT 100; BMI 32.9
[2022-04-22 05:50] LABS: POC Glucose,Bedside 116 (70-110)
[2022-04-22 07:43] LABS: Basophils # 0.1 K/mm3 (0-0.2); Basophils % 0.4 % (0.1-2.0); Eosinophils # 0.2 K/mm3 (0.0-0.4); Eosinophils % 1.7 % (0.1-12.0); Hematocrit 26.3 % (37.0-47.0); Hemoglobin 8.6 g/dL (12.2-16.2); Lymphocytes # 3.2 K/mm3 (0.7-4.5); Lymphocytes % 29.1 % (10-50); Mean Corpuscular HGB Conc 32.7 g/dL (31.8-35.4); Mean Corpuscular Hemoglobin 28.1 pg (27.0-31.2); Mean Platelet Volume 7.8 fl (7.4-10.4); Monocytes # 0.3 K/mm3 (0.1-1.0); Monocytes % 2.9 % (1.7-9.3); Neutrophils # 7.2 K/mm3 (1.8-7.8); Neutrophils % 65.8 % (37.0-80.0); Platelet Count 455 K/mm3 (142-424); Red Blood Count 3.06 M/mm3 (4.20-5.40); Red Cell Distribution Width 14.3 % (11.5-17.5); White Blood Count 10.9 K/mm3 (4.8-10.8)
[2022-04-22 08:00] VITALS: BP 151/80; PULSE 73; RESP 18; TEMP 36.7; O2SAT 100
[2022-04-22 08:15] VITALS: BMI 32.6
[2022-04-22 08:21] LABS: Chloride 115 mmol/L (98-107)
[2022-04-22 08:22] LABS: Potassium 3.7 mmoL/L (3.5-5.1); Sodium 141 mmol/L (136-145)
[2022-04-22 08:24] LABS: Alanine Aminotransferase 20 U/L (12-78); Alkaline Phosphatase 81 U/L (38-126); Anion Gap 14.7 mEq/L (5-15); Aspartate Amino Transferase 23 U/L (14-36); Bilirubin,Total 0.3 mg/dl (0.2-1.3); Blood Urea Nitrogen 53 mg/dl (7-17); Calcium 7.8 mg/dl (8.4-10.2); Carbon Dioxide 15 mmol/L (22.0-30.0); Creatinine Clearance Estimated 39 mL/min (50-200); Estimated Glomerular Filt Rate 18 ml/min (>60); GFR (African American) 21 ML/MIN (>60); Globulin 3.1 g/dL (1.3-3.2); Glucose 102 mg/dl (74-100); Total Protein,Serum 6.1 g/dl (6.3-8.2)
[2022-04-22 11:55] LABS: POC Glucose,Bedside 256 (70-110)
[2022-04-22 12:52] LABS: Amphetamine/Metha Screen,Urine Positive ng/ml (<1000)
[2022-04-22 12:53] LABS: Barbiturates Screen,Urine Negative ng/ml (<200); Benzodiazepines Screen,Urine Negative ng/ml (<200)
[2022-04-22 12:54] LABS: Cannabinoid Screen,Urine Negative ng/ml (<50)
[2022-04-22 12:55] LABS: Cocaine Screen,Urine Negative ng/ml (<300); Methadone Screen,Urine Negative ng/ml (<300)
[2022-04-22 12:56] LABS: Opiate Screen,Urine Negative ng/ml (<300); Phencyclidine Screen,Urine Negative ng/ml (<25)
[2022-04-22 13:06] LABS: Gentamicin,Trough 2.8 ug/ml (0.0-2.0)
--- NOTE | 2022-04-22 13:07 | PC.NURSE ---
notified pharmacy of gent trough 2.8. no new orders, still holding gent dose today
--- NOTE | 2022-04-22 14:05 | EXP.PHA.CONS ---
Pharmacy Consult Date: 04/22/22 Time: 14:05 Referring provider: DR. ARTHUR Reason for Consult:: GENTAMICIN TROUGH LEVEL Allergies Allergy/AdvReac Type Severity Reaction Status Date / Time levofloxacin [From Levaquin] Allergy Verified 04/15/22 12:45 zolpidem [From Ambien] Allergy Verified 04/15/22 12:45 Home Medications Medication Instructions Recorded Confirmed Type blood sugar diagnostic ([facility] 04/10/22 04/20/22 History Verio test strips) blood-glucose meter ([facility] 04/10/22 04/20/22 History Verio Meter) budesonide-formoterol HFA 160 1 inh inhalation BID Breathing 04/10/22 04/20/22 History mcg-4.5 mcg/actuation aerosol problems inhaler (Symbicort) ibuprofen 800 mg tablet 800 mg PO Q8H Pain 04/10/22 04/20/22 History insulin glargine 100 unit/mL (3 30 unit SQ HS Diabetes 04/10/22 04/20/22 History mL) subcutaneous pen (Lantus Solostar U-100 Insulin) lancets 33 gauge ([facility] Delica 04/10/22 04/20/22 History Lancets) lisinopril 5 mg tablet 5 mg PO DAILY Hypertension 04/10/22 04/20/22 History metformin 1,000 mg tablet 1,000 mg PO BID Diabetes 04/10/22 04/20/22 History pen needle, diabetic 29 gauge x 04/10/22 04/20/22 History 1/2 (Ultra-Thin II Insulin Pen [place]) insulin lispro 100 unit/mL 5 unit SQ TID Diabetes 04/20/22 04/20/22 History subcutaneous pen (Humalog KwikPen (U-100) Insulin) New Prescriptions to Start Prescriptions: Height: 1.75 m Weight: 100 kg Laboratory Results:: Laboratory Results - last 24 hr 04/21/22 16:47: POC Glucose 249 H 04/21/22 20:33: POC Glucose 147 H 04/22/22 05:41: POC Glucose 116 H 04/22/22 07:34: WBC 10.9 H, RBC 3.06 L, Hgb 8.6 L, Hct 26.3 L, MCV 86.0, MCH 28.1, MCHC 32.7, RDW 14.3, Plt Count 455 H, MPV 7.8, Neut % (Auto) 65.8, Lymph % (Auto) 29.1, [place] % (Auto) 2.9, Eos % (Auto) 1.7, Baso % (Auto) 0.4, Neut # (Auto) 7.2, Lymph # (Auto) 3.2, [place] # (Auto) 0.3, Eos # (Auto) 0.2, Baso # (Auto) 0.1 04/22/22 07:34: Sodium 141, Potassium 3.7, Chloride 115 H, Carbon Dioxide 15 L, Anion Gap 14.7, BUN 53 H, Creatinine 2.90 H, Estimated Creat Clear 39, Estimated GFR 18 L*, Est GFR ( Amer) 21 L, Glucose 102 H, Calcium 7.8 L, Total Bilirubin 0.3, AST 23 D, ALT 20, Alkaline Phosphatase 81, Total Protein 6.1 L, Albumin 3.0 L, Globulin 3.1, Albumin/Globulin Ratio 1.0 L 04/22/22 11:46: POC Glucose 256 H 04/22/22 11:55: Urine Opiates Screen Negative, Urine Methadone Screen Negative, Ur Barbituates Screen Negative, Ur Phencyclidine Scrn Negative, Ur Amphetamines Screen Positive H, U Benzodiazepines Scrn Negative, Urine Cocaine Screen Negative, U Marijuana (THC) Screen Negative 04/22/22 12:36: Gentamicin Trough 2.8 H* Medical History: Medical History (Updated 04/21/22 @ 18:04 by Ramesh Arthur MD) Abscess Anxiety Asthma Asthma Depression Diabetes mellitus, type 2 Diabetes mellitus, type 2 History of COVID-19 History of gastroesophageal reflux (GERD) Hypertension Hypertension Migraine PCOS (polycystic ovarian syndrome) Assessment and Plan Assessment and plan all Dx Assessment and Plan for all problems:: BASED ON PATIENT FACTORS AND GENTAMICIN TROUGH LEVEL OF 2.9 TODAY, RECOMMEND HOLDING TODAY'S DOSE OF GENTAMICIN. WILL OBTAIN ANOTHER GENT TROUGH LEVEL TO MONITOR CLEARANCE. -PEYTON PEGUERO, STEVED
--- NOTE | 2022-04-22 15:32 | EXP.ACUTE.PN ---
Subjective *Date: 04/22/22 *Time: 15:32 Interval history: No acute events overnight. Complaining of some cramping in her leg but no significant pain. Tolerating p.o. intake, ambulating independently to the bathroom for urination. Having good urine output. No fever, chest pain, shortness of breath Medical Exam Vital signs and Labs for Last 24 Hours: Vital Signs Temp Pulse Resp BP Pulse Ox 04/22/22 08:00 98.1 F 73 18 151/80 H 100 04/22/22 04:00 98 F 70 16 133/74 100 04/21/22 20:00 98 F 88 16 161/87 H 92 L 04/21/22 16:00 98.4 F 87 16 147/79 H 99 Intake and Output 04/21/22 04/22/22 04/22/22 23:59 07:59 15:59 Intake Total 240 / 3467 2670 / 2670 Output Total 200 / 1900 1700 / 1900 Balance 240 / 3167 -200 / 770 970 / 770 Intake: Intake, Oral Amount 240 / 1200 960 / 960 Intake, Total IV Amount 1710 / 1710 0.9 % Sodium Chloride 1,000 ml 1710 / 1710 @ 150 mls/hr IV .[id number] [facility] Rx# :[id number] Output: Output, Urine Amount 200 / 1900 1700 / 1900 Other: Weight 100.97 kg 100 kg Patient Weight 04/22/22 23:59 Weight 100 kg Laboratory Results - last 24 hr 04/21/22 16:47: POC Glucose 249 H 04/21/22 20:33: POC Glucose 147 H 04/22/22 05:41: POC Glucose 116 H 04/22/22 07:34: WBC 10.9 H, RBC 3.06 L, Hgb 8.6 L, Hct 26.3 L, MCV 86.0, MCH 28.1, MCHC 32.7, RDW 14.3, Plt Count 455 H, MPV 7.8, Neut % (Auto) 65.8, Lymph % (Auto) 29.1, Rich % (Auto) 2.9, Eos % (Auto) 1.7, Baso % (Auto) 0.4, Neut # (Auto) 7.2, Lymph # (Auto) 3.2, Rich # (Auto) 0.3, Eos # (Auto) 0.2, Baso # (Auto) 0.1 04/22/22 07:34: Sodium 141, Potassium 3.7, Chloride 115 H, Carbon Dioxide 15 L, Anion Gap 14.7, BUN 53 H, Creatinine 2.90 H, Estimated Creat Clear 39, Estimated GFR 18 L*, Est GFR ( Amer) 21 L, Glucose 102 H, Calcium 7.8 L, Total Bilirubin 0.3, AST 23 D, ALT 20, Alkaline Phosphatase 81, Total Protein 6.1 L, Albumin 3.0 L, Globulin 3.1, Albumin/Globulin Ratio 1.0 L 04/22/22 11:46: POC Glucose 256 H 04/22/22 11:55: Urine Opiates Screen Negative, Urine Methadone Screen Negative, Ur Barbituates Screen Negative, Ur Phencyclidine Scrn Negative, Ur Amphetamines Screen Positive H, U Benzodiazepines Scrn Negative, Urine Cocaine Screen Negative, U Marijuana (THC) Screen Negative 04/22/22 12:36: Gentamicin Trough 2.8 H* I & O for Labs for Last 24 Hours: Intake & Output 04/19/22 04/20/22 04/21/22 04/22/22 23:59 23:59 23:59 23:59 Intake Total 360 / 360 3467 / 3467 2670 / 2670 Output Total 400 / 400 300 / 300 1900 / 1900 Balance -40 / -40 3167 / 3167 770 / 770 Weight 94.438 kg 102.421 kg 100 kg Microbiology Reports for the Last 24 Hours: Microbiology 04/20/22 12:36 Blood Blood Culture - Preliminary NO GROWTH AFTER 48 HOURS 04/20/22 12:36 Blood Blood Culture - Preliminary NO GROWTH AFTER 48 HOURS Constitutional: Present no acute distress, obese and chronically ill appearing Head: Present atraumatic and normocephalic ENT: Present normal exam Neck: Present normal inspection Respiratory: Present CTA bilaterally; Absent accessory muscle use Cardiac: Present Reg Rate and Rhythm and No Murmur GI: Present soft and tenderness Extremities: Present edema (2+ to knees); Absent tenderness Comment:: Incision over right hip clean dry and intact, no Skin: Present intact and dry; Absent cyanosis, erythema, lesions, rash or gangrene Neuro: Present alert, awake and oriented x 3 Assessment and Plan *Assessment and plan (1) ROBLES (acute kidney injury): Status: Acute Category: Medical Code(s): N17.9 - Acute kidney failure, unspecified (2) Septic arthritis: Status: Acute Category: Medical Code(s): M00.9 - Pyogenic arthritis, unspecified (3) DM type 2 (diabetes mellitus, type 2): Status: Chronic Category: Medical Code(s): E11.9 - Type 2 diabetes mellitus without complications (4) I
[2022-04-22 16:00] VITALS: BP 164/88; PULSE 73; RESP 16; TEMP 36.7; O2SAT 100
[2022-04-22 16:35] LABS: POC Glucose,Bedside 132 (70-110)
[2022-04-22 18:55] LABS: Chloride 109 mmol/L (98-107); Potassium 4.1 mmoL/L (3.5-5.1); Sodium 138 mmol/L (136-145)
[2022-04-22 18:58] LABS: Anion Gap 19.1 mEq/L (5-15); Blood Urea Nitrogen 54 mg/dl (7-17); Carbon Dioxide 14 mmol/L (22.0-30.0); Creatinine Clearance Estimated 37 mL/min (50-200); Estimated Glomerular Filt Rate 16 ml/min (>60); GFR (African American) 20 ML/MIN (>60)
[2022-04-22 18:59] LABS: Calcium 8.2 mg/dl (8.4-10.2); Glucose 168 mg/dl (74-100)
--- NOTE | 2022-04-22 19:30 | PC.NURSE ---
pt transported from 206 to 266 icu for overflow, pt transported with all personal belongings in no acute distress.
[2022-04-22 20:00] VITALS: BP 152/85; PULSE 73; PULSE 82; RESP 18; TEMP 36.8; O2SAT 100
[2022-04-23 00:45] LABS: POC Glucose,Bedside 262 (70-110)
[2022-04-23 04:00] VITALS: BP 122/66; PULSE 71; RESP 18; TEMP 36.7; O2SAT 97; BMI 32.5
--- NOTE | 2022-04-23 05:18 | PC.NURSE ---
no changes from previous assessment, pt rested well through the night, vss, no acute distress, pt up to bathroom by self via walker, no other issues or concerns at this time.
[2022-04-23 06:15] LABS: POC Glucose,Bedside 134 (70-110)
[2022-04-23 06:19] LABS: Chloride 109 mmol/L (98-107); Potassium 3.4 mmoL/L (3.5-5.1); Sodium 140 mmol/L (136-145)
[2022-04-23 06:22] LABS: Alanine Aminotransferase 19 U/L (12-78); Albumin Level 3.2 g/dl (3.5-5.0); Alkaline Phosphatase 87 U/L (38-126); Anion Gap 13.4 mEq/L (5-15); Aspartate Amino Transferase 18 U/L (14-36); Bilirubin,Total 0.3 mg/dl (0.2-1.3); Blood Urea Nitrogen 53 mg/dl (7-17); Calcium 7.9 mg/dl (8.4-10.2); Carbon Dioxide 21 mmol/L (22.0-30.0); Creatinine Clearance Estimated 39 mL/min (50-200); Estimated Glomerular Filt Rate 18 ml/min (>60); GFR (African American) 21 ML/MIN (>60); Globulin 3.2 g/dL (1.3-3.2); Glucose 119 mg/dl (74-100); Total Protein,Serum 6.4 g/dl (6.3-8.2)
[2022-04-23 06:25] LABS: Basophils # 0.1 K/mm3 (0-0.2); Basophils % 0.5 % (0.1-2.0); Eosinophils # 0.1 K/mm3 (0.0-0.4); Eosinophils % 1.3 % (0.1-12.0); Hematocrit 27.2 % (37.0-47.0); Hemoglobin 9.1 g/dL (12.2-16.2); Lymphocytes # 3.3 K/mm3 (0.7-4.5); Lymphocytes % 31.2 % (10-50); Mean Corpuscular HGB Conc 33.5 g/dL (31.8-35.4); Mean Corpuscular Hemoglobin 28.1 pg (27.0-31.2); Mean Platelet Volume 8.5 fl (7.4-10.4); Monocytes # 0.5 K/mm3 (0.1-1.0); Monocytes % 4.9 % (1.7-9.3); Neutrophils # 6.6 K/mm3 (1.8-7.8); Platelet Count 451 K/mm3 (142-424); Red Blood Count 3.23 M/mm3 (4.20-5.40); Red Cell Distribution Width 14.4 % (11.5-17.5); White Blood Count 10.7 K/mm3 (4.8-10.8)
[2022-04-23 08:00] VITALS: BP 110/59; PULSE 87; RESP 20; TEMP 36.6; O2SAT 100
[2022-04-23 10:51] LABS: POC Glucose,Bedside 164 (70-110)
[2022-04-23 12:48] LABS: Gentamicin,Trough 1.7 ug/ml (0.0-2.0)
--- NOTE | 2022-04-23 13:19 | EXP.DC.SUM ---
General Admission date:: 04/20/22 Discharge date: 04/23/22 HPI HPI HPI: Patient is a 46-year-old female with past medical history of known IV drug use, right hip infection with debridement and irrigation of right lateral hip abscess on 03/30/2022, currently on a daily IV antibiotic regimen for 6 weeks (end date May 10), as well as hypertension and type 2 diabetes who came to the ER for right leg swelling that she noticed this morning. Patient does not have any other symptoms, no chest pain, shortness of breath. Labs in the ER were noted to have a creatinine of 3.0 and therefore ER provider called for admission. Hospital Course Hospital Course Hospital Course: Patient 46-year-old female with active IV drug use, recent admission for right hip septic arthritis.? Still completing 6 weeks of antibiotics for MRSA bacteremia/arthritis.? Problems include hypertension, new diagnosis of diabetes.? Admitted for ROBLES.? Problems addressed as follows: //ROBLES -Baseline creatinine 1.3.? Elevated to 3 on admission.? Had marginal change with IV fluids. Patient appeared overloaded however and had significant lower extremity edema. Diuresed daily for 2 days prior to discharge. Concerned that ROBLES is related to ATN. Patient on numerous medications at home including ibuprofen, lisinopril, and her admitted amphetamine use that can cause kidney injury. As she has been continuing to make adequate urine daily, recommend discharge with close follow-up to monitor labs. Patient is otherwise stable and at baseline function medically. Scheduled for daily IV antibiotics to continue to treat her septic arthritis from earlier this month. We will plan to get labs twice a week for close monitoring. //MRSA bacteremia //Septic arthritis -Continue daily daptomycin and gentamicin.? Has been receiving daily infusions as an outpatient though admits to missing a few doses over the past 2 weeks. Plan to continue therapy through the middle of April (see previous discharge summary for specific date) //IV drug use/Hepatitis C - Amphetamine positive on UDS; repeat UDS positive for amphetamine again.? Patient denies using methamphetamine, states it was put in her coffee by a friend. Significant concern from staff however the patient is still continuing to use while in the hospital. Found smoking in her bathroom today.? Would expect clearance of amphetamine from urine after maximal 4 days, if still admitted in 2 days, will repeat UDS to assess for nefarious usage while admitted. Has not expressed interest in rehab at this time. Still appears to be in denial about her continued usage. - hepatitis panel positive for hepatitis C.? Recommend further evaluation and referral as outpatient to GI/hepaotology to discuss treatment options //Essential hypertension -Holding lisinopril in the setting of ROBLES, reevaluate initiation in the outpatient setting. //DM 2 - A1C >14 earlier this month. Continue Lantus 30 units. Resume metformin when kidney function normal. //COPD -Continue home Symbicort Exam Data for Last 24 hours Vital signs and Labs for Last 24 Hours: Temp Pulse Resp BP Pulse Ox 97.9 F 87 20 110/59 L 100 04/23/22 08:00 04/23/22 08:00 04/23/22 08:00 04/23/22 08:00 04/23/22 08:00 Laboratory Results - last 24 hr 04/22/22 16:22: POC Glucose 132 H 04/22/22 18:21: Sodium 138, Potassium 4.1, Chloride 109 H, Carbon Dioxide 14 L, Anion Gap 19.1 H, BUN 54 H, Creatinine 3.10 H, Estimated Creat Clear 37, Estimated GFR 16 L*, Est GFR ( Amer) 20 L, Glucose 168 H D, Calcium 8.2 L 04/22/22 21:13: POC Glucose 262 H 04/23/22 05:30: WBC 10.7, RBC 3.23 L, Hgb 9.1 L, Hct 27.2 L, MCV 84.0, MCH 28.1, MCHC 33.5, RDW 14.4, Plt Count 451 H, MPV 8.5, Neut % (Auto) 62.0, Lymph % (Auto) 31.2, [place] % (Auto) 4.9, Eos % (Auto) 1.3, Baso % (Auto) 0.5, Neut # (Auto) 6.6, Lymph # (Auto) 3.3, [place] # (Auto) 0.5, Eos # (Auto) 0.1, Baso # (Auto) 0.1 04/23/22 05:30: Sodium 140, Potassium 3.
--- NOTE | 2022-04-23 15:35 | HMH.PHAINT1 ---
Pharmacy Intervention Comments: Met with patient at bedside to discuss discharge medications. Patient was instructed to START acetaminophen and continue daptomycin (will receive infusions at outpatient center here at [facility]) and home medications, HOLD lisinopril and metformin until renal function improves, and STOP ibuprofen. Patient was counseled on side effects and precautions. Patient verbalized understanding of the information provided and had no questions or concerns at this time.
--- NOTE | 2022-04-24 16:20 | CARE MANAGER ---
Contacted patient related to hospital discharge. States she is doing better but did leave her home Symbicort here on accident. Spoke with pharmacy and they will have it available for her when she comes in for her daily infusion. MARYSOL Mazariegos
== END 2022-04-23 16:21 | disposition home or self-care (01) | DRG 683 ==
LOC: ER 13:51 → 2ND 15:15 → ICU 04-22 18:47
PROVIDERS: Admitting Provider Emergency Medicine; Emergency Provider Emergency Medicine; PCP Family Medicine; Visit Provider Internal Medicine Adolescent Medicine
DX: N17.9 Acute kidney failure, unspecified (principal); M00.051 Staphylococcal arthritis, right hip; M00.9 Pyogenic arthritis, unspecified; B95.62 Methicillin resistant Staphylococcus aureus infection as the cause of diseases classified elsewhere; I80.3 Phlebitis and thrombophlebitis of lower extremities, unspecified; M25.451 Effusion, right hip; E11.65 Type 2 diabetes mellitus with hyperglycemia; Z87.891 Personal history of nicotine dependence; B19.20 Unspecified viral hepatitis C without hepatic coma; E11.9 Type 2 diabetes mellitus without complications; F19.90 Other psychoactive substance use, unspecified, uncomplicated; Z72.0 Tobacco use; J44.9 Chronic obstructive pulmonary disease, unspecified; B95.7 Other staphylococcus as the cause of diseases classified elsewhere; I10 Essential (primary) hypertension
CPT/HCPCS: 36415; 80048; 80053; 80170; 80305; 81001; 82550; 82962; 83735; 84703; 85025; 86140; 87040; 93971; 94640; 99285; C9803; J0878; U0003; U0005

== ENCOUNTER 2022-04-25 10:30 | Outpatient (CLI) | payer MEDICAID, SELFPAY ==
[2022-04-25 10:40] VITALS: RESP 20; O2SAT 99
[2022-04-25 11:25] LABS: Chloride 107 mmol/L (98-107); Potassium 3.3 mmoL/L (3.5-5.1); Sodium 140 mmol/L (136-145)
[2022-04-25 11:28] LABS: Blood Urea Nitrogen 45 mg/dl (7-17); Estimated Glomerular Filt Rate 21 ml/min (>60); GFR (African American) 25 ML/MIN (>60)
[2022-04-25 11:29] LABS: Anion Gap 14.3 mEq/L (5-15); Calcium 8.6 mg/dl (8.4-10.2); Carbon Dioxide 22 mmol/L (22.0-30.0); Glucose 214 mg/dl (74-100)
[2022-04-25 11:34] LABS: Creatine Kinase 36 U/L (30-135)
[2022-04-25 11:40] LABS: Gentamicin,Random 0.9 ug/ml
== END 2022-04-25 14:00 | disposition home or self-care (01) ==
LOC: INF 10:30
PROVIDERS: PCP Family Medicine; Visit Provider Family Medicine
DX: R78.81 Bacteremia (principal); B95.62 Methicillin resistant Staphylococcus aureus infection as the cause of diseases classified elsewhere
CPT/HCPCS: 80048; 80170; 82550; 96365; 96367; J0878

== ENCOUNTER 2022-04-26 09:56 | Outpatient (CLI) | payer MEDICAID, SELFPAY ==
[2022-04-26 10:12] VITALS: BMI 30.8
== END 2022-04-26 11:24 | disposition home or self-care (01) ==
LOC: INF 09:57
PROVIDERS: PCP Family Medicine; Visit Provider Family Medicine
DX: M25.451 Effusion, right hip (principal); R78.81 Bacteremia; B95.62 Methicillin resistant Staphylococcus aureus infection as the cause of diseases classified elsewhere
CPT/HCPCS: 96365; J0878

== ENCOUNTER 2022-04-27 10:24 | Outpatient (CLI) | payer MEDICAID, SELFPAY ==
[2022-04-27 10:30] VITALS: BMI 29.2
[2022-04-27 10:57] LABS: Chloride 108 mmol/L (98-107); Potassium 4.2 mmoL/L (3.5-5.1); Sodium 142 mmol/L (136-145)
[2022-04-27 11:00] LABS: Anion Gap 15.2 mEq/L (5-15); Blood Urea Nitrogen 59 mg/dl (7-17); Carbon Dioxide 23 mmol/L (22.0-30.0); Creatinine Clearance Estimated 34 mL/min (50-200); Estimated Glomerular Filt Rate 17 ml/min (>60); GFR (African American) 21 ML/MIN (>60)
[2022-04-27 11:01] LABS: Glucose 90 mg/dl (74-100)
--- NOTE | 2022-04-27 11:15 | PC.NURSE ---
1115-notifed clare jackson with pharmacy about gentamycin level of 2.0; will hold gent dose today and recheck labs tomorrow.
[2022-04-27 12:00] VITALS: BP 140/89; PULSE 86; RESP 18; O2SAT 100
[2022-04-27 12:55] VITALS: BP 156/89; PULSE 88; RESP 18
== END 2022-04-27 12:55 | disposition home or self-care (01) ==
LOC: INF 10:25
PROVIDERS: PCP Family Medicine; Visit Provider Internal Medicine Adolescent Medicine
DX: M25.451 Effusion, right hip (principal); R78.81 Bacteremia; B95.62 Methicillin resistant Staphylococcus aureus infection as the cause of diseases classified elsewhere
CPT/HCPCS: 80048; 80170; 96365; J0878

== ENCOUNTER 2022-04-29 10:43 | Outpatient (CLI) | payer MEDICAID, SELFPAY ==
[2022-04-29 10:58] VITALS: BMI 29.2
[2022-04-29 11:31] LABS: Chloride 106 mmol/L (98-107); Potassium 3.8 mmoL/L (3.5-5.1); Sodium 141 mmol/L (136-145)
[2022-04-29 11:34] LABS: Anion Gap 12.8 mEq/L (5-15); Blood Urea Nitrogen 46 mg/dl (7-17); Calcium 8.8 mg/dl (8.4-10.2); Carbon Dioxide 26 mmol/L (22.0-30.0); Creatine Kinase 154 U/L (30-135); Creatinine Clearance Estimated 36 mL/min (50-200); Estimated Glomerular Filt Rate 18 ml/min (>60); GFR (African American) 22 ML/MIN (>60); Glucose 90 mg/dl (74-100)
[2022-04-29 12:25] VITALS: BP 138/72; PULSE 77; RESP 18; O2SAT 100
[2022-04-29 13:50] VITALS: BP 156/78; PULSE 84; RESP 18
== END 2022-04-29 13:50 | disposition home or self-care (01) ==
LOC: INF 10:44
PROVIDERS: PCP Family Medicine; Visit Provider Family Medicine
DX: M25.451 Effusion, right hip (principal); R78.81 Bacteremia; B95.62 Methicillin resistant Staphylococcus aureus infection as the cause of diseases classified elsewhere
CPT/HCPCS: 80048; 80170; 82550; 96365; 96367; J0878

== ENCOUNTER 2022-05-01 12:22 | Outpatient (CLI) | payer MEDICAID, SELFPAY ==
[2022-05-01 12:37] VITALS: BMI 29.2
[2022-05-01 12:49] LABS: Anion Gap 11.9 mEq/L (5-15); Blood Urea Nitrogen 45 mg/dl (7-17); Carbon Dioxide 27 mmol/L (22.0-30.0); Chloride 106 mmol/L (98-107); Creatinine Clearance Estimated 33 mL/min (50-200); Estimated Glomerular Filt Rate 16 ml/min (>60); GFR (African American) 20 ML/MIN (>60); Glucose 237 mg/dl (74-100); Potassium 3.9 mmoL/L (3.5-5.1); Sodium 141 mmol/L (136-145)
[2022-05-01 12:54] LABS: Gentamicin,Trough 1.6 ug/ml (0.0-2.0)
[2022-05-01 13:38] LABS: Creatine Kinase 94 U/L (30-135)
[2022-05-01 14:12] VITALS: BP 150/79; PULSE 91; RESP 18; TEMP 36.6; O2SAT 97
[2022-05-01 14:53] VITALS: BP 143/76; PULSE 89; RESP 18
== END 2022-05-01 14:53 | disposition home or self-care (01) ==
LOC: INF 12:23
PROVIDERS: PCP Family Medicine; Visit Provider Family Medicine
DX: M25.451 Effusion, right hip (principal); R78.81 Bacteremia; B95.62 Methicillin resistant Staphylococcus aureus infection as the cause of diseases classified elsewhere
CPT/HCPCS: 80048; 80170; 82550; 96365; J0878

== ENCOUNTER → 2022-05-02 11:28 | Outpatient (CLI) | payer MEDICAID, SELFPAY ==
[2022-05-02 11:42] VITALS: BMI 29.2
--- NOTE | 2022-05-02 12:03 | PC.NURSE ---
Candelario present to start an IV via ultrasound.
[2022-05-02 12:30] VITALS: BP 138/82; PULSE 81; RESP 18; TEMP 36.8; O2SAT 99
[2022-05-02 12:43] LABS: Anion Gap 16.1 mEq/L (5-15); Blood Urea Nitrogen 42 mg/dl (7-17); Calcium 9.2 mg/dl (8.4-10.2); Carbon Dioxide 24 mmol/L (22.0-30.0); Chloride 104 mmol/L (98-107); Creatinine Clearance Estimated 34 mL/min (50-200); Estimated Glomerular Filt Rate 17 ml/min (>60); GFR (African American) 21 ML/MIN (>60); Glucose 229 mg/dl (74-100); Potassium 4.1 mmoL/L (3.5-5.1); Sodium 140 mmol/L (136-145)
== END ==
PROVIDERS: PCP Family Medicine; Visit Provider Family Medicine
DX: M25.451 Effusion, right hip (principal); R78.81 Bacteremia; B95.62 Methicillin resistant Staphylococcus aureus infection as the cause of diseases classified elsewhere
CPT/HCPCS: 36415; 80048; 80170; 96365; 96366; 96367; J0878

== ENCOUNTER 2022-05-05 11:45 | Outpatient (CLI) | payer MEDICAID, SELFPAY ==
[2022-05-05 11:53] VITALS: BMI 29.2
[2022-05-05 12:47] LABS: Anion Gap 16.2 mEq/L (5-15); Blood Urea Nitrogen 49 mg/dl (7-17); Calcium 8.8 mg/dl (8.4-10.2); Carbon Dioxide 22 mmol/L (22.0-30.0); Chloride 107 mmol/L (98-107); Creatine Kinase 95 U/L (30-135); Creatinine Clearance Estimated 27 mL/min (50-200); Estimated Glomerular Filt Rate 13 ml/min (>60); GFR (African American) 16 ML/MIN (>60); Glucose 269 mg/dl (74-100); Potassium 4.2 mmoL/L (3.5-5.1); Sodium 141 mmol/L (136-145)
[2022-05-05 12:52] LABS: Gentamicin,Trough 1.2 ug/ml (0.0-2.0)
--- NOTE | 2022-05-05 13:05 | PC.NURSE ---
1305-notified md of pt creatinine level 3.80 and asked is they wanted to do iv fluids here since pt was here for infusion; stated pt needed to go to er.
[2022-05-05 13:28] VITALS: BP 138/86; PULSE 93; RESP 18; O2SAT 99
--- NOTE | 2022-05-05 14:05 | PC.NURSE ---
1405-notified pt that md wanted her to go to the er for evaluation of creatinine level;pt states she will come back later she needs to run to her house.
[2022-05-05 14:20] VITALS: BP 148/79; PULSE 89; RESP 18
== END 2022-05-05 14:20 | disposition home or self-care (01) ==
LOC: INF 11:46
PROVIDERS: PCP Family Medicine; Visit Provider Family Medicine
DX: M25.451 Effusion, right hip (principal); R78.81 Bacteremia; B95.62 Methicillin resistant Staphylococcus aureus infection as the cause of diseases classified elsewhere
CPT/HCPCS: 80048; 80170; 82550; 96365; J0878

== ENCOUNTER 2022-05-07 11:32 | Outpatient (CLI) | payer MEDICAID, SELFPAY ==
[2022-05-07 11:56] VITALS: BMI 29.5
[2022-05-07 13:20] LABS: Anion Gap 14.3 mEq/L (5-15); Blood Urea Nitrogen 40 mg/dl (7-17); Carbon Dioxide 24 mmol/L (22.0-30.0); Chloride 105 mmol/L (98-107); Creatine Kinase 67 U/L (30-135); Creatinine Clearance Estimated 29 mL/min (50-200); Estimated Glomerular Filt Rate 14 ml/min (>60); GFR (African American) 17 ML/MIN (>60); Glucose 212 mg/dl (74-100); Potassium 3.3 mmoL/L (3.5-5.1); Sodium 140 mmol/L (136-145)
[2022-05-07 13:26] LABS: Gentamicin,Trough 0.8 ug/ml (0.0-2.0)
[2022-05-07 14:06] VITALS: BP 136/78; PULSE 74; RESP 18; O2SAT 99
[2022-05-07 15:01] VITALS: BP 141/75; PULSE 88; RESP 18; O2SAT 98
== END 2022-05-07 15:01 | disposition home or self-care (01) ==
PROVIDERS: PCP Family Medicine; Visit Provider Family Medicine
DX: M25.451 Effusion, right hip (principal); R78.81 Bacteremia; B95.62 Methicillin resistant Staphylococcus aureus infection as the cause of diseases classified elsewhere
CPT/HCPCS: 80048; 80170; 82550; 96365; 96367; J0878

== ENCOUNTER → 2022-06-19 11:23 | Outpatient (CLI) | payer MEDICAID, SELFPAY ==
[2022-06-19 12:09] LABS: Basophils % 0.4 % (0.1-2.0); Eosinophils # 0.6 K/mm3 (0.0-0.4); Eosinophils % 5.1 % (0.1-12.0); Hematocrit 33.9 % (37.0-47.0); Hemoglobin 10.7 g/dL (12.2-16.2); Lymphocytes # 2.8 K/mm3 (0.7-4.5); Lymphocytes % 24.7 % (10-50); Mean Corpuscular HGB Conc 31.6 g/dL (31.8-35.4); Mean Corpuscular Hemoglobin 27.6 pg (27.0-31.2); Mean Corpuscular Volume 87.3 fl (81-99); Monocytes # 0.4 K/mm3 (0.1-1.0); Monocytes % 3.6 % (1.7-9.3); Neutrophils # 7.5 K/mm3 (1.8-7.8); Neutrophils % 66.2 % (37.0-80.0); Platelet Count 442 K/mm3 (142-424); Red Blood Count 3.88 M/mm3 (4.20-5.40); Red Cell Distribution Width 16.4 % (11.5-17.5); White Blood Count 11.3 K/mm3 (4.8-10.8)
[2022-06-19 12:34] LABS: Alanine Aminotransferase 108 U/L (12-78); Albumin Level 4.1 g/dl (3.5-5.0); Albumin/Globulin Ratio 1.2 (1.1-1.8); Alkaline Phosphatase 137 U/L (38-126); Anion Gap 6.9 mEq/L (5-15); Aspartate Amino Transferase 61 U/L (14-36); Bilirubin,Total 0.4 mg/dl (0.2-1.3); Blood Urea Nitrogen 22 mg/dl (7-17); Calcium 9.1 mg/dl (8.4-10.2); Carbon Dioxide 21 mmol/L (22.0-30.0); Chloride 112 mmol/L (98-107); Estimated Glomerular Filt Rate 54 ml/min (>60); GFR (African American) 65 ML/MIN (>60); Globulin 3.5 g/dL (1.3-3.2); Glucose 153 mg/dl (74-100); Potassium 3.9 mmoL/L (3.5-5.1); Sodium 136 mmol/L (136-145); Total Protein,Serum 7.6 g/dl (6.3-8.2)
[2022-06-19 12:35] LABS: Hemoglobin A1C 9.2 % (4.0-6.0)
[2022-06-19 12:39] LABS: C-Reactive Protein 4.4 mg/L (0-4)
[2022-06-19 12:58] LABS: Erythrocyte Sedimentation Rate 65 mm/hr (0-20)
== END ==
PROVIDERS: PCP Family Medicine; Visit Provider Family Medicine
DX: M00.9 Pyogenic arthritis, unspecified (principal); M79.651 Pain in right thigh; E11.9 Type 2 diabetes mellitus without complications
CPT/HCPCS: 36415; 80053; 83036; 85025; 85651; 86140

== ENCOUNTER → 2022-06-19 15:46 | Outpatient (CLI) | payer MEDICAID, SELFPAY ==
--- NOTE | 2022-06-19 15:53 | MR_ITS ---
PROCEDURE INFORMATION: Exam: MR Right Lower Extremity Joint Without Contrast; Hip Exam date and time: 06/19/2022 3:54 PM Age: 46 years old Clinical indication: Prior surgery; Surgery date: 1-6 months; Surgery type: Debreavement of right hip; Patient HX: Infection in right hip February 2022. Had debreavement March 2022. F/u infection of right hip still having pain and hard to walk on it; Additional info: Septic hip/hip pain TECHNIQUE: Imaging protocol: Magnetic resonance imaging of the right lower extremity joint without contrast. Exam focused on the hip. COMPARISON: MR HIP RT WO CON 03/28/2022 11:25 AM FINDINGS: Bones and cartilage: Diffuse bone edema, T1 hypointense and T2 hyperintense is present in the right femoral head and throughout the right acetabulum extending into the ileum and lateral aspect of the superior pubic ramus. No cortical bone destruction is identified a trace amount of right hip joint fluid is only slightly larger in volume than in the normal right hip. No synovial thickening. No abnormalities in the sacroiliac joints. No other bone marrow edema. Mild increased signal is present Joint spaces: Dark signal subchondral sclerosis is present in the femoral head and acetabulum and severe superior joint space narrowing is present. Labrum: Unremarkable. No tear. TENDONS: Tendons of iliopsoas group: Unremarkable. No evidence of tear. Tendons of medial compartment of thigh: Unremarkable. No evidence of tear. Tendons of lateral rotators of hip: Unremarkable. No evidence of tear. Tendons of gluteal group: Unremarkable. No evidence of tear. Muscles: Unremarkable. Soft tissues: No periarticular soft tissue abnormalities as were present on 03/28/2022. Subcutaneous edema lateral to the right hip is presumably a surgical scar. Lymph nodes: No inguinal lymphadenopathy. Intraperitoneal space: No lymphadenopathy or free fluid in the pelvis. Reproductive: A 4.3 x 3.4 cm right ovarian cyst has homogeneous signal with no septations or mural nodularity. No other pelvic masses. No GI tract abnormalities. Anteverted uterus is appropriate in size and shape and has no myometrial masses. IMPRESSION: Bone marrow edema in the right acetabulum and right femoral head is associated with severe joint space narrowing, mild bone hypertrophy, and subchondral sclerosis. No periarticular erosions or definite cortical bone destruction are identified. This is favored to represent osteitis from degenerative joint disease although septic joint and/or osteomyelitis could have a similar appearance. Tiny right hip joint effusion is present. Consider nuclear medicine radio-labeled white blood cell scan.
== END ==
PROVIDERS: PCP Family Medicine; Visit Provider Family Medicine
DX: M00.9 Pyogenic arthritis, unspecified (principal); M79.651 Pain in right thigh
CPT/HCPCS: 73721

== ENCOUNTER 2022-06-22 16:12 | Inpatient (IN) | payer MEDICAID, SELFPAY ==
[2022-06-22 17:13] VITALS: BMI 31.7
[2022-06-22 17:23] VITALS: BP 167/81; PULSE 94; RESP 14; TEMP 36.8; O2SAT 100; BMI 31.7
[2022-06-22 17:29] LABS: Basophils # 0.1 K/mm3 (0-0.2); Basophils % 0.8 % (0.1-2.0); Eosinophils # 0.4 K/mm3 (0.0-0.4); Eosinophils % 2.8 % (0.1-12.0); Hematocrit 36.8 % (37.0-47.0); Hemoglobin 12.4 g/dL (12.2-16.2); Lymphocytes # 3.6 K/mm3 (0.7-4.5); Lymphocytes % 26.4 % (10-50); Mean Corpuscular HGB Conc 33.7 g/dL (31.8-35.4); Mean Corpuscular Hemoglobin 28.3 pg (27.0-31.2); Mean Platelet Volume 8.5 fl (7.4-10.4); Monocytes # 0.4 K/mm3 (0.1-1.0); Monocytes % 3.1 % (1.7-9.3); Neutrophils # 9.2 K/mm3 (1.8-7.8); Neutrophils % 66.9 % (37.0-80.0); Platelet Count 584 K/mm3 (142-424); Red Blood Count 4.37 M/mm3 (4.20-5.40); Red Cell Distribution Width 16.3 % (11.5-17.5); White Blood Count 13.7 K/mm3 (4.8-10.8)
[2022-06-22 17:31] LABS: Coronavirus 19, PCR Not Detected (NotDetected); Influenza A, PCR Not Detected (NotDetected); Influenza B, PCR Not Detected (NotDetected)
[2022-06-22 17:34] LABS: Alanine Aminotransferase 99 U/L (12-78); Albumin Level 4.7 g/dl (3.5-5.0); Albumin/Globulin Ratio 1.1 (1.1-1.8); Alkaline Phosphatase 157 U/L (38-126); Anion Gap 9.6 mEq/L (5-15); Aspartate Amino Transferase 66 U/L (14-36); Bilirubin,Total 0.6 mg/dl (0.2-1.3); Blood Urea Nitrogen 34 mg/dl (7-17); Calcium 9.6 mg/dl (8.4-10.2); Carbon Dioxide 22 mmol/L (22.0-30.0); Chloride 108 mmol/L (98-107); Creatinine Clearance Estimated 100 mL/min (50-200); Estimated Glomerular Filt Rate 54 ml/min (>60); GFR (African American) 65 ML/MIN (>60); Globulin 4.3 g/dL (1.3-3.2); Glucose 275 mg/dl (74-100); Potassium 4.6 mmoL/L (3.5-5.1); Sodium 135 mmol/L (136-145)
[2022-06-22 17:35] LABS: Lactic Acid 1.4 mmol/L (0.7-2.1)
[2022-06-22 17:39] LABS: C-Reactive Protein 3.7 mg/L (0-4)
--- NOTE | 2022-06-22 17:44 | PC.NURSE ---
Dr Abran mcfarland to Dr Fraser with ortho
--- NOTE | 2022-06-22 17:48 | HMH.EDGENADL ---
Discharge Plan Disposition Patient Disposition: Admitted As Inpatient Condition: Fair Prescriptions Prescriptions: No Action (DME) blood-glucose meter [OneTouch Verio Meter] Misc See Rx Instructions .ROUTE .MEDSUPPLY Rx Instructions: As directed (DME) OneTouch Verio test strips Strip See Rx Instructions .ROUTE .MEDSUPPLY Rx Instructions: Check Glucose 4 times daily (DME) pen needle, diabetic [Ultra-Thin II Ins Pen [place]] 29 gauge x 1/2 needle See Rx Instructions .ROUTE .MEDSUPPLY Rx Instructions: As directed budesonide-formoterol [Symbicort] 160-4.5 mcg/actuation HFA aerosol inhaler 1 inh inhalation BID insulin glargine [Lantus Solostar U-100 Insulin] 100 unit/mL (3 mL) insulin pen 30 unit SQ HS (DME) lancets [OneTouch Delica Lancets] 33 gauge misc See Rx Instructions .ROUTE .MEDSUPPLY Rx Instructions: Check Glucose 4 times daily insulin lispro [Humalog KwikPen Insulin] 100 unit/mL insulin pen 5 unit SQ TID acetaminophen 325 mg Tablet 650 mg PO Q4HP PRN (Reason: Fever Or Mild Pain) Qty: 0 0RF Referrals Follow up/Referrals: Rosalinda Gonzalez DO [Primary Care Provider] - See instructions Clinical Impressions Clinical Impression: Septic arthritis, Osteomyelitis Discharge ED Provider: Bharathi Osullivan General Adult HPI General Chief complaint: Extremity Injury, Lower Stated complaint: Infection in R hip per Time Seen by Provider: 06/22/22 17:35 Mode of Arrival: Ambulatory Source of Information: Patient Limitations: Physical Limitations Description of Symptoms (Recalled from ER Triage Doc. by RN): Pt reports increased discomfort in right hip and needed cane usage for three weeks; pt had follow-up MRI 06/18 for right hip septic arthritis vs abscess and results today recommended eval in ED; pt reports pain relieved at rest but exacerbated with movement History of Present Illness HPI narrative: Patient presents with a 2 to 3-week history of right hip pain. This been no recent trauma. She does have a prior history of abscess involving the right hip joint and remote history of IV drug abuse. There is been no recent fever she does state that the pain is worse with walking and describes the pain right now is mild to moderate but severe at times. Related Data Home Medications Medication Instructions Recorded Confirmed blood sugar diagnostic ([facility] 04/10/22 06/19/22 Verio test strips) blood-glucose meter (OneTouch 04/10/22 06/19/22 Verio Meter) budesonide-formoterol HFA 160 1 inh inhalation BID Breathing 04/10/22 06/19/22 mcg-4.5 mcg/actuation aerosol problems inhaler (Symbicort) insulin glargine 100 unit/mL (3 30 unit SQ HS Diabetes 04/10/22 06/19/22 mL) subcutaneous pen (Lantus Solostar U-100 Insulin) lancets 33 gauge (OneTouch Delica 04/10/22 06/19/22 Lancets) pen needle, diabetic 29 gauge x 04/10/22 06/19/22 1/2 (Ultra-Thin II Insulin Pen [place]) insulin lispro 100 unit/mL 5 unit SQ TID Diabetes 04/20/22 06/19/22 subcutaneous pen (Humalog KwikPen (U-100) Insulin) Previous Rx's Medication Instructions Recorded acetaminophen 325 mg tablet 650 mg PO Q4HP PRN Fever Or Mild 04/23/22 Pain #0 tabs Allergies Allergy/AdvReac Type Severity Reaction Status Date / Time levofloxacin [From Levaquin] Allergy Verified 06/19/22 10:52 zolpidem [From Ambien] Allergy Verified 06/19/22 10:52 [facility] Disclaimer: The information contained in this section may have been updated after the patient was seen, as this information can be updated by other users. Medical History Abscess Anxiety Asthma Asthma Depression Diabetes mellitus, type 2 Diabetes mellitus, type 2 History of COVID-19 History of gastroesophageal reflux (GERD) Hypertension Hypertension Migraine PCOS (polycystic ovarian syndrome) Surgical History (Revie
--- NOTE | 2022-06-22 17:50 | PC.NURSE ---
called [facility] for transfer and to speak with ortho, they are to call back
[2022-06-22 17:59] LABS: Erythrocyte Sedimentation Rate 26 mm/hr (0-20)
--- NOTE | 2022-06-22 19:32 | PC.NURSE ---
Dr. Osullivan speaking with [facility]
--- NOTE | 2022-06-22 19:38 | PC.NURSE ---
Pt accepted at by Dr. Oviedo. [facility] unsure of when they will have a bed available at this time.
--- NOTE | 2022-06-22 19:46 | PC.NURSE ---
Patient admitted to [address] Schultz with admitting dx of septic arthritis and osteomyelitis
[2022-06-22 20:00] VITALS: BP 180/88; PULSE 90; RESP 18; TEMP 36.4; O2SAT 100; BMI 31.4
--- NOTE | 2022-06-22 20:04 | PC.NURSE ---
paged pharmacy for vanc dosing
--- NOTE | 2022-06-22 20:09 | PC.NURSE ---
Spoke with [facility] r/t vanc dosing. Advised they would enter order
[2022-06-22 20:22] VITALS: BP 143/71; PULSE 87; RESP 17; TEMP 36.8; O2SAT 97
--- NOTE | 2022-06-22 20:30 | PC.NURSE ---
pt arrived to floor at this time
[2022-06-22 21:44] LABS: POC Glucose,Bedside 377 (70-110)
--- NOTE | 2022-06-22 21:49 | EXP.HP ---
History of Present Illness *Admission Date: 06/22/22 *Reason for visit:: Right Hip Pain *History of present illness: Ms. Valladares is a 46-year-old female with past medical history of IVDU, Hepatitis C, DM, HTN and previous admission due to right hip mrsa myosititis. She presented to [facility] through the ER on 06/22/2022 due to a 2-3 week history of worsening right hip pain requiring a cane for ambulation. ER Physician spoke with local Orthopaedic Physician in the ER that reported that the patient had an oupatient MRI of the right hip performed on 06/19/2022 that showed fluid around the femoral head and concerns for Osteomyelitis of the femoral head. Recommendations were transfer to for wash out. The patient was accepted by Dr. Oviedo at and requested that the patient be placed on Vancomycin and Zosyn empirically while she awaits transfer. She will be admitted with initial impression: Septic Right Hip and Osteomyelitis. Blood cultures were drawn in the ER. The patient was also noted to have undergone an echo and OLVIN in 03/27/2022 that was negative for any concern for vegetations. [facility] Disclaimer: The information contained in this section may have been updated after the patient was seen, as this information can be updated by other users. Medical History Abscess Anxiety Asthma Asthma Depression Diabetes mellitus, type 2 Diabetes mellitus, type 2 History of COVID-19 History of gastroesophageal reflux (GERD) Hypertension Hypertension Migraine PCOS (polycystic ovarian syndrome) Surgical History H/O esophagogastroduodenoscopy H/O skin graft History of incision and drainage No significant past surgical history Family History Father Family history of diabetes mellitus type II Family history of acute congestive heart failure Mother Family history of diabetes mellitus type II Social History Smoking Status: Current every day smoker smoking status start date: 20 years ago years smoked: 20 smoking status stop date: 3 years ago and recently started back alcohol intake: never substance use type: opiates, IV drugs and other details: hard drugs , non specific, according to patient. current occupational status: unemployed Travel in the last 8 weeks: None Review of Systems Review of Systems Review of systems:: pertinent systems reviewed and negative unless documented below Constitutional Constitutional: Reports system reviewed and no additional complaints, except as documented Eyes Eyes: Reports system reviewed and no additional complaints, except as documented ENT Ears, Nose, Mouth, and Throat: Reports system reviewed and no additional complaints, except as documented *Cardiovascular Cardiovascular: Reports system reviewed and no additional complaints, except as documented *Respiratory Respiratory: Reports system reviewed and no additional complaints, except as documented *Gastrointestinal Gastrointestinal: Reports system reviewed and no additional complaints, except as documented *Genitourinary Genitourinary: Reports system reviewed and no additional complaints, except as documented *Musculoskeletal Musculoskeletal: Reports abnormal gait, Reports muscle weakness and Reports myalgias Comments: Right Hip Pain Integumentary/Breasts Skin/Breast: Reports system reviewed and no additional complaints, except as documented *Neurologic Neurologic: Reports abnormal gait Psychiatric Psychiatric: Reports system reviewed and no additional complaints, except as documented Endocrine Endocrine: Reports system reviewed and no additional complaints, except as documented Hematologic/Lymphatic Hematologic/Lymphatic: Reports system reviewed and no additional complaints, except as documented Allergic/Immu
[2022-06-23] VITALS: BP 162/90; PULSE 87; RESP 18; TEMP 36.6; O2SAT 100
[2022-06-23 04:00] VITALS: BP 143/73; PULSE 95; RESP 16; TEMP 36.8; O2SAT 99; BMI 31.4
--- NOTE | 2022-06-23 06:24 | PC.NURSE ---
NO ACUTE CHANGES. PT HAS RESTED WELL. ONLY C/O PAIN WHEN AMBULATING. VSS. WAITING ON BED AT .
[2022-06-23 06:29] LABS: POC Glucose,Bedside 245 (70-110)
[2022-06-23 06:43] LABS: Chloride 104 mmol/L (98-107); Potassium 4.4 mmoL/L (3.5-5.1); Sodium 134 mmol/L (136-145)
[2022-06-23 06:46] LABS: Alanine Aminotransferase 84 U/L (12-78); Albumin Level 3.7 g/dl (3.5-5.0); Albumin/Globulin Ratio 1.1 (1.1-1.8); Alkaline Phosphatase 123 U/L (38-126); Anion Gap 11.4 mEq/L (5-15); Aspartate Amino Transferase 58 U/L (14-36); Bilirubin,Total 0.3 mg/dl (0.2-1.3); Blood Urea Nitrogen 34 mg/dl (7-17); Calcium 8.5 mg/dl (8.4-10.2); Carbon Dioxide 23 mmol/L (22.0-30.0); Creatinine Clearance Estimated 109 mL/min (50-200); Estimated Glomerular Filt Rate 60 ml/min (>60); GFR (African American) 73 ML/MIN (>60); Globulin 3.4 g/dL (1.3-3.2); Glucose 264 mg/dl (74-100); Total Protein,Serum 7.1 g/dl (6.3-8.2)
[2022-06-23 06:51] LABS: Basophils # 0.1 K/mm3 (0-0.2); Basophils % 1.1 % (0.1-2.0); Eosinophils # 0.5 K/mm3 (0.0-0.4); Eosinophils % 5.1 % (0.1-12.0); Hematocrit 31.6 % (37.0-47.0); Lymphocytes # 3.1 K/mm3 (0.7-4.5); Lymphocytes % 30.7 % (10-50); Mean Corpuscular HGB Conc 33.2 g/dL (31.8-35.4); Mean Corpuscular Hemoglobin 28.2 pg (27.0-31.2); Mean Corpuscular Volume 84.7 fl (81-99); Mean Platelet Volume 9.2 fl (7.4-10.4); Monocytes # 0.5 K/mm3 (0.1-1.0); Neutrophils # 5.9 K/mm3 (1.8-7.8); Neutrophils % 58.2 % (37.0-80.0); Platelet Count 462 K/mm3 (142-424); Red Blood Count 3.73 M/mm3 (4.20-5.40); Red Cell Distribution Width 16.5 % (11.5-17.5); White Blood Count 10.2 K/mm3 (4.8-10.8)
[2022-06-23 06:55] LABS: Hemoglobin 10.5 g/dL (12.2-16.2)
--- NOTE | 2022-06-23 07:11 | HMH.PHAINT1 ---
Pharmacy Intervention Comments: medication reconciliation completed using external fill history
[2022-06-23 07:50] VITALS: BP 159/73; PULSE 91; RESP 16; TEMP 36.7; O2SAT 100
--- NOTE | 2022-06-23 09:44 | EXP.ORTH.CON ---
History of Present Illness *Admission Date: 06/22/22 *Reason for visit:: Right hip pain *History of present illness: Lenny is a 46-year-old female patient admitted to the acute inpatient service after presenting to the [facility] emergency department on 06/22/2022 due to a 2-3 week history of worsening right hip pain. She was seen as an outpatient and underwent MRI of the right hip performed on 06/19/2022 that demonstrated fluid around the femoral head with concern for osteomyelitis. She underwent a right hip arthrotomy and debridement/irrigation of a right lateral hip abscess performed on 03/30/[address] Fraser due to MRSA right hip myosititis. She was scheduled to go to outpatient rehabilitation and receive prolonged IV antibiotics, but subsequently was unable to secure transportation to the nursing facility. She did receive IV antibiotics as an outpatient at the [facility] infusion suite, but per chart review, missed several doses of her outpatient infusion and subsequently missed her outpatient follow-up appointments. Today she is lying comfortably in bed. She reports increasing right hip pain over the last several weeks that has required her to resume use of a cane. This morning she denies any history of fevers, chills, or rigors. Her past medical history significant for IVDU, the patient denies any recent drug use or injections. No recent falls or injuries to the right hip. No history of any distal tingling/numbness. Her past medical history significant for IVDU, hepatitis C, diabetes, and hypertension. [facility] Disclaimer: The information contained in this section may have been updated after the patient was seen, as this information can be updated by other users. Medical History Abscess Anxiety Asthma Asthma Depression Diabetes mellitus, type 2 Diabetes mellitus, type 2 History of COVID-19 History of gastroesophageal reflux (GERD) Hypertension Hypertension Migraine PCOS (polycystic ovarian syndrome) Surgical History H/O esophagogastroduodenoscopy H/O skin graft History of incision and drainage No significant past surgical history Family History Father Family history of diabetes mellitus type II Family history of acute congestive heart failure Mother Family history of diabetes mellitus type II Social History Smoking Status: Current every day smoker smoking status start date: 20 years ago years smoked: 20 smoking status stop date: 3 years ago and recently started back alcohol intake: never substance use type: opiates, IV drugs and other details: hard drugs , non specific, according to patient. current occupational status: unemployed Travel in the last 8 weeks: None Review of Systems *Musculoskeletal Musculoskeletal: Reports abnormal gait *Neurologic Neurologic: Reports abnormal gait Meds Home Medications and Allergies Home Medications Medication Instructions Recorded Confirmed Type blood sugar diagnostic (OneTouch 04/10/22 06/22/22 History Verio test strips) blood-glucose meter (OneTouch 04/10/22 06/22/22 History Verio Meter) budesonide-formoterol HFA 160 1 inh inhalation BID Breathing 04/10/22 06/22/22 History mcg-4.5 mcg/actuation aerosol problems inhaler (Symbicort) insulin glargine 100 unit/mL (3 30 unit SQ HS Diabetes 04/10/22 06/22/22 History mL) subcutaneous pen (Lantus Solostar U-100 Insulin) lancets 33 gauge (OneTouch Delica 04/10/22 06/22/22 History Lancets) pen needle, diabetic 29 gauge x 04/10/22 06/22/22 History 1/2 (Ultra-Thin II Insulin Pen [place]) insulin lispro 100 unit/mL 5 unit SQ TID Diabetes 04/20/22 06/22/22 History subcutaneous pen (Humalog KwikPen (U-100) Insulin)
--- NOTE | 2022-06-23 09:52 | EXP.PHA.CONS ---
Pharmacy Consult Date: 06/23/22 Time: 09:52 Referring provider: DR. ARTHUR Reason for Consult:: VANCOMYCIN DOSING Allergies Allergy/AdvReac Type Severity Reaction Status Date / Time levofloxacin [From Levaquin] Allergy Verified 06/19/22 10:52 zolpidem [From Ambien] Allergy Verified 06/19/22 10:52 Home Medications Medication Instructions Recorded Confirmed Type blood sugar diagnostic ([facility] 04/10/22 06/22/22 History Verio test strips) blood-glucose meter ([facility] 04/10/22 06/22/22 History Verio Meter) budesonide-formoterol HFA 160 1 inh inhalation BID Breathing 04/10/22 06/22/22 History mcg-4.5 mcg/actuation aerosol problems inhaler (Symbicort) insulin glargine 100 unit/mL (3 30 unit SQ HS Diabetes 04/10/22 06/22/22 History mL) subcutaneous pen (Lantus Solostar U-100 Insulin) lancets 33 gauge (StepOutuch Delica 04/10/22 06/22/22 History Lancets) pen needle, diabetic 29 gauge x 04/10/22 06/22/22 History 1/2 (Ultra-Thin II Insulin Pen [place]) insulin lispro 100 unit/mL 5 unit SQ TID Diabetes 04/20/22 06/22/22 History subcutaneous pen (Humalog KwikPen (U-100) Insulin) acetaminophen 325 mg tablet 650 mg PO Q4HP PRN Fever Or Mild 04/23/22 06/22/22 Rx Pain #0 tabs New Prescriptions to Start Prescriptions: Height: 1.75 m Weight: 96.388 kg Laboratory Results:: Laboratory Results - last 24 hr 06/22/22 16:58: WBC 13.7 H, RBC 4.37, Hgb 12.4, Hct 36.8 L, MCV 84.0, MCH 28.3, MCHC 33.7, RDW 16.3, Plt Count 584 H D, MPV 8.5, Neut % (Auto) 66.9, Lymph % (Auto) 26.4, [place] % (Auto) 3.1, Eos % (Auto) 2.8, Baso % (Auto) 0.8, Neut # (Auto) 9.2 H, Lymph # (Auto) 3.6, [place] # (Auto) 0.4, Eos # (Auto) 0.4, Baso # (Auto) 0.1 06/22/22 16:58: Sodium 135 L, Potassium 4.6, Chloride 108 H, Carbon Dioxide 22, Anion Gap 9.6, BUN 34 H, Creatinine 1.10 H, Estimated Creat Clear 100, Estimated GFR 54 L, Est GFR ( Amer) 65, Glucose 275 H, Calcium 9.6, Total Bilirubin 0.6, AST 66 H, ALT 99 H, Alkaline Phosphatase 157 H, C-Reactive Protein 3.7, Total Protein 9.0 H, Albumin 4.7, Globulin 4.3 H, Albumin/Globulin Ratio 1.1 06/22/22 16:58: Lactate 1.4 06/22/22 16:58: ESR 26 H 06/22/22 17:00: SARS-CoV-2 (PCR) Not detected, Influenza A Untype (PCR) Not detected, Influenza Type B (PCR) Not detected 06/22/22 21:37: POC Glucose 377 H* 06/23/22 06:20: WBC 10.2 D, RBC 3.73 L, Hgb 10.5 L D, Hct 31.6 L, MCV 84.7, MCH 28.2, MCHC 33.2, RDW 16.5, Plt Count 462 H, MPV 9.2, Neut % (Auto) 58.2, Lymph % (Auto) 30.7, [place] % (Auto) 5.0, Eos % (Auto) 5.1, Baso % (Auto) 1.1, Neut # (Auto) 5.9, Lymph # (Auto) 3.1, [place] # (Auto) 0.5, Eos # (Auto) 0.5 H, Baso # (Auto) 0.1 06/23/22 06:20: Sodium 134 L, Potassium 4.4, Chloride 104, Carbon Dioxide 23, Anion Gap 11.4, BUN 34 H, Creatinine 1.00, Estimated Creat Clear 109, Estimated GFR 60, Est GFR ( Amer) 73, Glucose 264 H, Calcium 8.5, Total Bilirubin 0.3, AST 58 H, ALT 84 H, Alkaline Phosphatase 123, Total Protein 7.1, Albumin 3.7 D, Globulin 3.4 H, Albumin/Globulin Ratio 1.1 06/23/22 06:22: POC Glucose 245 H Medical History: Medical History (Updated 06/22/22 @ 21:56 by Timothy Post DNP) Abscess Anxiety Asthma Asthma Depression Diabetes mellitus, type 2 Diabetes mellitus, type 2 History of COVID-19 History of gastroesophageal reflux (GERD) Hypertension Hypertension Migraine PCOS (polycystic ovarian syndrome) Assessment and Plan Assessment and plan all Dx Assessment and Plan for all problems:: Pharmacokinetic dosing service Objective: Patient: Floor: Age: 46 yo Serum creatinine: 1.00 mg/dL Height: 68.9 Inches Weight (kg): 96.4 Assessment: IBW (kg): 65.97 Dosing wt(kg): 96.4 Estimated Creatinine clearance (ml/min): 74.8 CRCL method: Cockcroft and Gault using ibw(default). Drug selected: Vancomycin Loading dose (mg):
[2022-06-23 11:13] LABS: POC Glucose,Bedside 261 (70-110)
--- NOTE | 2022-06-23 11:20 | EXP.ACUTE.PN ---
Subjective *Date: 06/23/22 *Time: 11:20 Interval history: Did well overnight. Remains afebrile. Blood cultures still negative this morning. Ortho consulted. Tolerating p.o. intake without nausea. Still having right hip pain. Denies chest pain or shortness of breath Medical Exam Vital signs and Labs for Last 24 Hours: Vital Signs Temp Pulse Pulse Resp BP BP Pulse Ox 06/23/22 07:50 98.1 F 91 H 16 159/73 H 100 06/23/22 04:00 98.2 F 95 H 16 143/73 H 99 06/23/22 00:00 97.8 F 87 18 162/90 H 100 06/22/22 20:00 97.6 F 90 18 180/88 H 100 06/22/22 20:22 98.2 F 87 17 143/71 H 06/22/22 17:23 98.2 F 94 H 14 167/81 H 100 Intake and Output 06/22/22 06/23/22 06/23/22 23:59 07:59 15:59 Intake Total 800 / 800 Output Total 0 / 0 Balance 800 / 800 Intake: Intake, Oral Amount 800 / 800 Output: Output, Urine Amount 0 / 0 Other: Number of Unmeasured Voids 1 Weight 96.388 kg 96.388 kg 96.388 kg Patient Weight 06/23/22 23:59 Weight 96.388 kg Laboratory Results - last 24 hr 06/22/22 16:58: WBC 13.7 H, RBC 4.37, Hgb 12.4, Hct 36.8 L, MCV 84.0, MCH 28.3, MCHC 33.7, RDW 16.3, Plt Count 584 H D, MPV 8.5, Neut % (Auto) 66.9, Lymph % (Auto) 26.4, [place] % (Auto) 3.1, Eos % (Auto) 2.8, Baso % (Auto) 0.8, Neut # (Auto) 9.2 H, Lymph # (Auto) 3.6, [place] # (Auto) 0.4, Eos # (Auto) 0.4, Baso # (Auto) 0.1 06/22/22 16:58: Sodium 135 L, Potassium 4.6, Chloride 108 H, Carbon Dioxide 22, Anion Gap 9.6, BUN 34 H, Creatinine 1.10 H, Estimated Creat Clear 100, Estimated GFR 54 L, Est GFR ( Amer) 65, Glucose 275 H, Calcium 9.6, Total Bilirubin 0.6, AST 66 H, ALT 99 H, Alkaline Phosphatase 157 H, C-Reactive Protein 3.7, Total Protein 9.0 H, Albumin 4.7, Globulin 4.3 H, Albumin/Globulin Ratio 1.1 06/22/22 16:58: Lactate 1.4 06/22/22 16:58: ESR 26 H 06/22/22 17:00: SARS-CoV-2 (PCR) Not detected, Influenza A Untype (PCR) Not detected, Influenza Type B (PCR) Not detected 06/22/22 21:37: POC Glucose 377 H* 06/23/22 06:20: WBC 10.2 D, RBC 3.73 L, Hgb 10.5 L D, Hct 31.6 L, MCV 84.7, MCH 28.2, MCHC 33.2, RDW 16.5, Plt Count 462 H, MPV 9.2, Neut % (Auto) 58.2, Lymph % (Auto) 30.7, [place] % (Auto) 5.0, Eos % (Auto) 5.1, Baso % (Auto) 1.1, Neut # (Auto) 5.9, Lymph # (Auto) 3.1, [place] # (Auto) 0.5, Eos # (Auto) 0.5 H, Baso # (Auto) 0.1 06/23/22 06:20: Sodium 134 L, Potassium 4.4, Chloride 104, Carbon Dioxide 23, Anion Gap 11.4, BUN 34 H, Creatinine 1.00, Estimated Creat Clear 109, Estimated GFR 60, Est GFR ( Amer) 73, Glucose 264 H, Calcium 8.5, Total Bilirubin 0.3, AST 58 H, ALT 84 H, Alkaline Phosphatase 123, Total Protein 7.1, Albumin 3.7 D, Globulin 3.4 H, Albumin/Globulin Ratio 1.1 06/23/22 06:22: POC Glucose 245 H 06/23/22 11:06: POC Glucose 261 H I & O for Labs for Last 24 Hours: Intake & Output 06/20/22 06/21/22 06/22/22 06/23/22 23:59 23:59 23:59 23:59 Intake Total 800 / 800 Output Total 0 / 0 Balance 800 / 800 Weight 96.388 kg 96.388 kg Constitutional: Present no acute distress, obese and chronically ill appearing Head: Present atraumatic and normocephalic ENT: Present normal exam Neck: Present normal inspection Respiratory: Present CTA bilaterally; Absent accessory muscle use Cardiac: Present Reg Rate and Rhythm and No Murmur GI: Present soft; Absent distention or tenderness Extremities: Present tenderness (Over right hip) Comment:: Incision well-healed from previous washed Skin: Present intact and dry; Absent cyanosis, erythema, lesions, rash or gangrene Neuro: Present alert, awake and oriented x 3 Assessment and Plan *Assessment and plan (1) Septic joint: Status: Acute Category: Medical Code(s): M00.9 - Pyogenic arthritis, unspecified (2) Hip osteomyelitis, right: Status: Acute Category: Medical Code(s): M86.9 - Osteomyelitis, unspecified (3) Hx of intravenous drug use in remission: Status: Acute
[2022-06-23 12:00] VITALS: BP 157/71; PULSE 80; RESP 16; TEMP 36.8; O2SAT 100
[2022-06-23 12:24] LABS: Benzodiazepines Screen,Urine Negative ng/ml (<200)
[2022-06-23 12:25] LABS: Amphetamine/Metha Screen,Urine Positive ng/ml (<1000); Barbiturates Screen,Urine Negative ng/ml (<200)
[2022-06-23 12:26] LABS: Cannabinoid Screen,Urine Negative ng/ml (<50); Methadone Screen,Urine Negative ng/ml (<300)
[2022-06-23 12:27] LABS: Cocaine Screen,Urine Positive ng/ml (<300)
[2022-06-23 12:28] LABS: Opiate Screen,Urine Negative ng/ml (<300); Phencyclidine Screen,Urine Negative ng/ml (<25)
[2022-06-23 16:17] LABS: POC Glucose,Bedside 248 (70-110)
--- NOTE | 2022-06-23 18:37 | PC.NURSE ---
Pt alert and oriented. Up ad bal in room. On room air. IV antibiotics infused per orders. Complaint of right hip pain 08/03 with no request for pain medicine. Will continue IV antibiotics pending possible transfer to .
[2022-06-23 19:46] VITALS: BP 155/82; PULSE 82; RESP 18; TEMP 36.7; O2SAT 99
[2022-06-23 21:09] LABS: POC Glucose,Bedside 325 (70-110)
--- NOTE | 2022-06-23 23:24 | PC.NURSE ---
[facility] called for pt update, and states they still do not have a bed available for pt at this time.
--- NOTE | 2022-06-24 03:56 | PC.NURSE ---
Pt has rested well t/o the night, has had no complaints. Ambulates independently to bathroom and in room. Call light within reach.
[2022-06-24 04:00] VITALS: BMI 31.8
[2022-06-24 04:01] VITALS: BP 150/76; PULSE 94; RESP 20; TEMP 36.6; O2SAT 100
[2022-06-24 06:50] LABS: Basophils # 0.1 K/mm3 (0-0.2); Basophils % 0.7 % (0.1-2.0); Eosinophils # 0.5 K/mm3 (0.0-0.4); Eosinophils % 4.9 % (0.1-12.0); Hematocrit 32.3 % (37.0-47.0); Hemoglobin 10.7 g/dL (12.2-16.2); Lymphocytes # 2.6 K/mm3 (0.7-4.5); Lymphocytes % 27.8 % (10-50); Mean Corpuscular Hemoglobin 28.5 pg (27.0-31.2); Mean Corpuscular Volume 86.5 fl (81-99); Mean Platelet Volume 7.9 fl (7.4-10.4); Monocytes # 0.4 K/mm3 (0.1-1.0); Monocytes % 4.4 % (1.7-9.3); Neutrophils # 5.8 K/mm3 (1.8-7.8); Neutrophils % 62.2 % (37.0-80.0); Platelet Count 464 K/mm3 (142-424); Red Blood Count 3.74 M/mm3 (4.20-5.40); Red Cell Distribution Width 16.4 % (11.5-17.5); White Blood Count 9.4 K/mm3 (4.8-10.8)
[2022-06-24 06:55] LABS: Alanine Aminotransferase 95 U/L (12-78); Albumin Level 3.6 g/dl (3.5-5.0); Albumin/Globulin Ratio 1.1 (1.1-1.8); Alkaline Phosphatase 130 U/L (38-126); Anion Gap 9.2 mEq/L (5-15); Aspartate Amino Transferase 75 U/L (14-36); Bilirubin,Total 0.3 mg/dl (0.2-1.3); Blood Urea Nitrogen 30 mg/dl (7-17); Calcium 8.5 mg/dl (8.4-10.2); Carbon Dioxide 22 mmol/L (22.0-30.0); Chloride 107 mmol/L (98-107); Creatinine Clearance Estimated 101 mL/min (50-200); Estimated Glomerular Filt Rate 54 ml/min (>60); GFR (African American) 65 ML/MIN (>60); Globulin 3.3 g/dL (1.3-3.2); Glucose 257 mg/dl (74-100); Potassium 4.2 mmoL/L (3.5-5.1); Sodium 134 mmol/L (136-145); Total Protein,Serum 6.9 g/dl (6.3-8.2)
[2022-06-24 07:01] LABS: C-Reactive Protein 3.3 mg/L (0-4)
[2022-06-24 07:20] LABS: POC Glucose,Bedside 254 (70-110)
[2022-06-24 07:22] VITALS: BP 162/77; PULSE 102; RESP 18; TEMP 36.5; O2SAT 99
--- NOTE | 2022-06-24 07:29 | EXP.PN ---
Subjective *Date: 06/24/22 *Time: 11:17 Interval history: Date of service June 24, 2022 The patient reports adequate pain control. Nursing staff report that the patient remains afebrile with stable vital signs and saturating appropriately on room air. They report that she is awaiting transfer to [facility] for higher level of care and orthopedic service line. Her morning labs and inflammatory markers have been reviewed and discussed and I personally interpreted her labs as follows: CBC with a normal white blood cell count of 9.4 hemoglobin 10.7, hematocrit 32 and platelet count 464. Her electrolytes are normal. Her BUN is 30 and her creatinine is 1.1. Her glucose trend is elevated and this morning it is 257. Her CRP is normal. Her urine drug screen is positive for amphetamines and cocaine. Her blood cultures are pending. Case management is assisting with transition of care to also include a facility for long-term IV antibiotic therapy pending [facility] recommendations on transition of care. Exam Data for Last 24 hours Vital signs and Labs for Last 24 Hours: Temp Pulse Resp BP Pulse Ox 97.7 F 102 H 18 162/77 H 99 06/24/22 07:22 06/24/22 07:22 06/24/22 07:22 06/24/22 07:22 06/24/22 07:22 Laboratory Results - last 24 hr 06/23/22 11:06: POC Glucose 261 H 06/23/22 11:55: Urine Opiates Screen Negative, Urine Methadone Screen Negative, Ur Barbituates Screen Negative, Ur Phencyclidine Scrn Negative, Ur Amphetamines Screen Positive H, U Benzodiazepines Scrn Negative, Urine Cocaine Screen Positive H, U Marijuana (THC) Screen Negative 06/23/22 16:10: POC Glucose 248 H 06/23/22 20:51: POC Glucose 325 H* 06/24/22 06:35: WBC 9.4, RBC 3.74 L, Hgb 10.7 L, Hct 32.3 L, MCV 86.5, MCH 28.5, MCHC 33.0, RDW 16.4, Plt Count 464 H, MPV 7.9, Neut % (Auto) 62.2, Lymph % (Auto) 27.8, [place] % (Auto) 4.4, Eos % (Auto) 4.9, Baso % (Auto) 0.7, Neut # (Auto) 5.8, Lymph # (Auto) 2.6, [place] # (Auto) 0.4, Eos # (Auto) 0.5 H, Baso # (Auto) 0.1 06/24/22 06:35: Sodium 134 L, Potassium 4.2, Chloride 107, Carbon Dioxide 22, Anion Gap 9.2, BUN 30 H, Creatinine 1.10 H, Estimated Creat Clear 101, Estimated GFR 54 L, Est GFR ( Amer) 65, Glucose 257 H, Calcium 8.5, Magnesium 2.0, Total Bilirubin 0.3, AST 75 H D, ALT 95 H, Alkaline Phosphatase 130 H, C-Reactive Protein 3.3, Total Protein 6.9, Albumin 3.6, Globulin 3.3 H, Albumin/Globulin Ratio 1.1 06/24/22 06:48: POC Glucose 254 H I & O for Last 24 hours: Intake & Output 06/21/22 06/22/22 06/23/22 06/24/22 23:59 23:59 23:59 23:59 Intake Total 1260 / 1260 240 / 240 Output Total 0 / 0 0 / 0 Balance 1260 / 1260 240 / 240 Weight 96.388 kg 96.388 kg 97.692 kg Constitutional Constitutional: no acute distress *Routine HEENT Exam Head: Present normocephalic Eye: Present EOMI and PERRL ENT: Present mucous membranes moist *Routine Neck Exam Neck: Present supple; Absent lymphadenopathy *Routine Respiratory Exam Respiratory: Present CTA bilaterally *Routine Cardiovascular Exam Cardiovascular: Present RRR *Routine Abdominal Exam Abdominal: Present soft and normoactive bowel sounds; Absent tenderness *Routine Extremities Exam Extremities: Absent cyanosis, clubbing or edema Comments: Right hip tender *Routine Skin Exam Skin: Present warm; Absent rash *Routine Neurological Exam Neurological: Present alert and oriented X3 Assessment and Plan *Assessment and plan (1) Septic joint: Status: Acute Category: Medical Code(s): M00.9 - Pyogenic arthritis, unspecified (2) Hip osteomyelitis, right: Status: Acute Category: Medical Code(s): M86.9 - Osteomyelitis, unspecified (3) Hx of intravenous drug use in remission: Status: Acute Category: Social Hx Code(s): F19.91 - Other psychoactive substance use, unspecified, in remission (4) Diabetes: Status: Acute Category: Medical Code(s): E11.9 - Type 2 diabetes mellitus wit
[2022-06-24 07:53] LABS: Erythrocyte Sedimentation Rate 24 mm/hr (0-20)
[2022-06-24 08:00] VITALS: RESP 16
[2022-06-24 11:34] LABS: POC Glucose,Bedside 217 (70-110)
[2022-06-24 11:37] VITALS: BMI 31.8
--- NOTE | 2022-06-24 11:52 | SW/DCPLANNER ---
Addendum entered by [facility] 06/29/22 10:46: I have updated Bebe landry/ [facility] that this patient did transfer over the weekend. Addendum entered by [facility] 06/26/22 14:52: This patient has been approved via insurance. I have attempted to contact Bebe landry/ Admissions at [facility] regarding weekend admission: no answer at this time. Addendum entered by [facility] 06/26/22 12:36: Per Bebe landry/ [facility] precert is still pending at this time. Addendum entered by [facility] 06/25/22 13:55: Johnny phone:[phone] [facility] fax: [phone] Addendum entered by [facility] 06/25/22 13:43: Dr Aguilar spoke with primary physician at [facility] (Dr Andrade): after discussion it was determined that patient will require usp antibiotics prior to hip surgery. The decision was then made that patient could be accepted to [facility] in [place] once approved by insurance. Bbee stated that precert would be started today. Bebe also stated that they could place PICC at their facility. CAITIE also spoke with Nicholas landry/ EMS that stated they could transport patient at time of discharge. I have updated patient regarding plan and she is agreeable at this time. At this point we are only waiting for precert via insurance. Addendum entered by [facility] 06/25/22 10:53: Bebe landry/ [facility] stated that they are interested in this patient once a washout is completed by Ortho on hip. I have updated Dr Aguilar at this time. Original Note: MD and myself had a conversation about the need for shelter IV antibiotics. Patient does understand that she will require 6 weeks of IV antibiotics. Patient information has been faxed to [facility] in [place] and [facility] at this time. Patient is still waiting for transfer to . I will continue to follow up with facilities, patient and MD.
[2022-06-24 14:58] VITALS: BP 152/91; PULSE 85; RESP 18; TEMP 36.4; O2SAT 100
[2022-06-24 16:13] LABS: POC Glucose,Bedside 251 (70-110)
[2022-06-24 19:43] VITALS: BP 143/81; PULSE 82; RESP 18; TEMP 36.5; O2SAT 100
[2022-06-24 20:07] LABS: POC Glucose,Bedside 184 (70-110)
[2022-06-25 03:29] LABS: Vancomycin,Trough 16.8 ug/mL (5.0-10.0)
[2022-06-25 04:00] VITALS: BP 151/87; PULSE 91; RESP 18; TEMP 36.6; O2SAT 100; BMI 32.0
--- NOTE | 2022-06-25 04:17 | PC.NURSE ---
notifed night watch pharmacist davina of [facility] trough of 16.8, stated it was okay to give next dose
--- NOTE | 2022-06-25 04:18 | PC.NURSE ---
patient has had to have multiple attempts at iv, d/t iv infiltrating and veins blowing. patient has no complaints of pain and vss. patient has 20 in SUNDEEP placed with ultrasound by house. received iv abx. stable on room air.
[2022-06-25 06:30] LABS: POC Glucose,Bedside 311 (70-110)
[2022-06-25 07:23] VITALS: BP 158/85; PULSE 88; RESP 17; TEMP 36.6; O2SAT 100
--- NOTE | 2022-06-25 07:29 | EXP.PN ---
Subjective *Date: 06/25/22 *Time: 10:42 Interval history: Date of service June 25, 2022 The patient reports no acute events overnight. Nursing staff report that she remains afebrile with stable vital signs and saturating appropriately on room air. I contacted [facility] this morning concerning transition of care and they still do not have bed availability. Orthopedics is following. Her white blood cell count is normal and her hemoglobin is stable. Her inflammatory markers are downward trending. She is tolerating her IV antibiotic therapy with no adverse events. Exam Data for Last 24 hours Vital signs and Labs for Last 24 Hours: Temp Pulse Resp BP Pulse Ox 97.9 F 88 17 158/85 H 100 06/25/22 07:23 06/25/22 07:23 06/25/22 07:23 06/25/22 07:23 06/25/22 07:23 Laboratory Results - last 24 hr 06/22/22 22:33: Hepatitis C Ab Note Comment, HCV Quantitation [id number], HCV RNA (PCR) IU log10 5.656 06/24/22 06:35: ESR 24 H 06/24/22 11:23: POC Glucose 217 H 06/24/22 16:03: POC Glucose 251 H 06/24/22 19:59: POC Glucose 184 H 06/25/22 02:30: Vancomycin Trough 16.8 H 06/25/22 06:23: POC Glucose 311 H* I & O for Last 24 hours: Intake & Output 06/22/22 06/23/22 06/24/22 06/25/22 23:59 23:59 23:59 23:59 Intake Total 1260 / 1260 1080 / 1180 460 / 460 Output Total 0 / 0 0 / 0 0 / 0 Balance 1260 / 1260 1080 / 1180 460 / 460 Weight 96.388 kg 96.388 kg 97.69 kg 98.089 kg Microbiology Reports for the Last 24 Hours: Microbiology 06/22/22 16:58 Blood Blood Culture - Preliminary NO GROWTH AFTER 48 HOURS 06/22/22 16:58 Blood Blood Culture - Preliminary NO GROWTH AFTER 48 HOURS Constitutional Constitutional: no acute distress *Routine HEENT Exam Head: Present normocephalic Eye: Present EOMI and PERRL ENT: Present mucous membranes moist *Routine Neck Exam Neck: Present supple; Absent lymphadenopathy *Routine Respiratory Exam Respiratory: Present CTA bilaterally *Routine Cardiovascular Exam Cardiovascular: Present RRR *Routine Abdominal Exam Abdominal: Present soft and normoactive bowel sounds; Absent tenderness *Routine Extremities Exam Extremities: Absent cyanosis, clubbing or edema Comments: Right hip tender *Routine Skin Exam Skin: Present warm; Absent rash *Routine Neurological Exam Neurological: Present alert and oriented X3 Assessment and Plan *Assessment and plan (1) Septic joint: Status: Acute Category: Medical Code(s): M00.9 - Pyogenic arthritis, unspecified (2) Hip osteomyelitis, right: Status: Acute Category: Medical Code(s): M86.9 - Osteomyelitis, unspecified (3) Hx of intravenous drug use in remission: Status: Acute Category: Social Hx Code(s): F19.91 - Other psychoactive substance use, unspecified, in remission (4) Diabetes: Status: Acute Category: Medical Code(s): E11.9 - Type 2 diabetes mellitus without complications (5) Hepatitis C: Status: Acute Category: Medical Code(s): B19.20 - Unspecified viral hepatitis C without hepatic coma Plan 46-year-old female with past medical history of IVDU, Hepatitis C, DM, HTN and previous recent admission for right hip MRSA myosititis presents due to a 2-3 week history of increasing hip pain, noncompliance with previous chronic IV antibiotic therapy, ongoing drug use who recently underwent an MRI outpatient that showed Fluid around right hip and concern for Osteomyelitis at the right femoral head. Problems addressed are as follows: Septic Joint Right hip pain Right hip osteomyelitis Patient awaiting transition to [facility] Orthopedic consult noted Right lower extremity venous duplex identifies no DVT MRI right hip (03/28/2022) reviewed MRI right hip (06/19/2022) with osteomyelitis concerns of right femoral head which led to this admission IV vancomycin IV cefepime Drug therapy requ
[2022-06-25 07:49] LABS: Creatine Kinase 40 U/L (30-135)
[2022-06-25 07:50] LABS: Erythrocyte Sedimentation Rate 21 mm/hr (0-20)
[2022-06-25 08:25] LABS: Hemoglobin A1C 9.3 % (4.0-6.0)
--- NOTE | 2022-06-25 09:04 | P.CONPHA_ITS ---
Pharmacy Consult Date: 06/25/22 Time: 09:07 Referring provider: DR ORTIZ Reason for Consult:: VANCOMYCIN TROUGH LEVEL OBTAINED Allergies Allergy/AdvReac Type Severity Reaction Status Date / Time levofloxacin [From Levaquin] Allergy Verified 06/19/22 10:52 zolpidem [From Ambien] Allergy Verified 06/19/22 10:52 Home Medications Medication Instructions Recorded Confirmed Type blood sugar diagnostic ([facility] 04/10/22 06/22/22 History Verio test strips) blood-glucose meter ([facility] 04/10/22 06/22/22 History Verio Meter) budesonide-formoterol HFA 160 1 inh inhalation BID Breathing 04/10/22 06/22/22 History mcg-4.5 mcg/actuation aerosol problems inhaler (Symbicort) insulin glargine 100 unit/mL (3 30 unit SQ HS Diabetes 04/10/22 06/22/22 History mL) subcutaneous pen (Lantus Solostar U-100 Insulin) lancets [facility]/10/22 06/22/22 History Lancets) pen needle, diabetic 29 gauge x 04/10/22 06/22/22 History 1/2 (Ultra-Thin II Insulin Pen [place]) insulin lispro 100 unit/mL 5 unit SQ TID Diabetes 04/20/22 06/22/22 History subcutaneous pen (Humalog KwikPen (U-100) Insulin) acetaminophen 325 mg tablet 650 mg PO Q4HP PRN Fever Or Mild 04/23/22 06/22/22 Rx Pain #0 tabs New Prescriptions to Start Prescriptions: Height: 1.75 m Weight: 98.089 kg Laboratory Results:: Laboratory Results - last 24 hr 06/22/22 22:33: Hepatitis C Ab Note Comment, HCV Quantitation [id number], HCV RNA (PCR) IU log10 5.656 06/24/22 11:23: POC Glucose 217 H 06/24/22 16:03: POC Glucose 251 H 06/24/22 19:59: POC Glucose 184 H 06/25/22 02:30: Vancomycin Trough 16.8 H 06/25/22 06:23: POC Glucose 311 H* 06/25/22 06:55: ESR 21 H 06/25/22 06:55: Total Creatine Kinase 40 06/25/22 06:55: Hemoglobin A1c 9.3 H Medical History: Medical History (Updated 06/22/22 @ 21:56 by Timothy Post DNP) Abscess Anxiety Asthma Asthma Depression Diabetes mellitus, type 2 Diabetes mellitus, type 2 History of COVID-19 History of gastroesophageal reflux (GERD) Hypertension Hypertension Migraine PCOS (polycystic ovarian syndrome) Assessment and Plan Assessment and plan all Dx Assessment and Plan for all problems:: VANCOMYCIN TROUGH LEVEL OBTAINED. TROUGH LEVEL WAS 16.8 MCG/ML (06/25/22 02:30). RECOMMEND CONTINUING CURRENT DOSE OF IV VANCOMYCIN 2000 MG Q18H. THANK YOU FOR THE CONSULT.
[2022-06-25 10:48] LABS: POC Glucose,Bedside 244 (70-110)
[2022-06-25 15:17] VITALS: BP 127/77; PULSE 78; RESP 18; TEMP 36.5; O2SAT 100
[2022-06-25 18:08] LABS: POC Glucose,Bedside 309 (70-110)
[2022-06-25 19:41] LABS: POC Glucose,Bedside 248 (70-110)
[2022-06-25 20:00] VITALS: BP 148/105; PULSE 90; RESP 18; TEMP 36.6; O2SAT 100
[2022-06-25 23:57] VITALS: BP 128/74; PULSE 90; RESP 16; TEMP 36.6; O2SAT 100
[2022-06-26 00:08] LABS: Hepatitis C Genotype 1a (.)
[2022-06-26 04:00] VITALS: BMI 33.1
[2022-06-26 05:36] LABS: POC Glucose,Bedside 193 (70-110)
[2022-06-26 07:13] LABS: Alanine Aminotransferase 129 U/L (12-78); Albumin Level 3.7 g/dl (3.5-5.0); Albumin/Globulin Ratio 1.1 (1.1-1.8); Alkaline Phosphatase 110 U/L (38-126); Anion Gap 10.1 mEq/L (5-15); Aspartate Amino Transferase 98 U/L (14-36); Bilirubin,Total 0.4 mg/dl (0.2-1.3); Blood Urea Nitrogen 37 mg/dl (7-17); Calcium 8.7 mg/dl (8.4-10.2); Carbon Dioxide 19 mmol/L (22.0-30.0); Chloride 111 mmol/L (98-107); Creatinine Clearance Estimated 96 mL/min (50-200); Estimated Glomerular Filt Rate 49 ml/min (>60); GFR (African American) 59 ML/MIN (>60); Globulin 3.5 g/dL (1.3-3.2); Glucose 112 mg/dl (74-100); Potassium 4.1 mmoL/L (3.5-5.1); Sodium 136 mmol/L (136-145); Total Protein,Serum 7.2 g/dl (6.3-8.2)
[2022-06-26 07:17] LABS: D-Dimer 0.84 ug/mL (0.0-0.5)
--- NOTE | 2022-06-26 07:37 | EXP.PN ---
Subjective *Date: 06/26/22 *Time: 11:33 Interval history: Date of service June 26, 2022 The patient reports no acute events overnight. Nursing staff report that she remains afebrile with stable vital signs saturating appropriately on room air. We have reviewed and discussed her morning labs and I have personally interpreted her labs as follows: normal sodium and potassium with BUN of 37 and creatinine 1.2 her glucose trend is over 250 and basal insulin therapy has been adjusted. Her hemoglobin A1c is 9.3%. Her total bilirubin is normal and her AST and ALT are mildly elevated. Her CRP which was elevated has become normal. Her ESR is downward trending and near normal. She is tolerating her IV antibiotic with no adverse events. Exam Data for Last 24 hours Vital signs and Labs for Last 24 Hours: Temp Pulse Resp BP Pulse Ox 97.9 F 90 16 128/74 100 06/25/22 23:57 06/25/22 23:57 06/25/22 23:57 06/25/22 23:57 06/25/22 23:57 Laboratory Results - last 24 hr 06/22/22 22:33: Hepatitis C RNA Comment Comment, Hepatitis C Genotype 1a 06/25/22 06:55: ESR 21 H 06/25/22 06:55: Total Creatine Kinase 40 06/25/22 06:55: Hemoglobin A1c 9.3 H 06/25/22 10:40: POC Glucose 244 H 06/25/22 18:01: POC Glucose 309 H* 06/25/22 19:33: POC Glucose 248 H 06/26/22 05:28: POC Glucose 193 H 06/26/22 06:40: D-Dimer 0.84 H 06/26/22 06:40: Sodium 136, Potassium 4.1, Chloride 111 H, Carbon Dioxide 19 L, Anion Gap 10.1, BUN 37 H, Creatinine 1.20 H, Estimated Creat Clear 96, Estimated GFR 49 L, Est GFR ( Amer) 59, Glucose 112 H, Calcium 8.7, Total Bilirubin 0.4, AST 98 H D, ALT 129 H D, Alkaline Phosphatase 110, Total Protein 7.2, Albumin 3.7, Globulin 3.5 H, Albumin/Globulin Ratio 1.1 I & O for Last 24 hours: Intake & Output 06/23/22 06/24/22 06/25/22 06/26/22 23:59 23:59 23:59 23:59 Intake Total 1260 / 1260 1080 / 1180 2300 / 2650 350 / 350 Output Total 0 / 0 0 / 0 200 / 200 400 / 400 Balance 1260 / 1260 1080 / 1180 2100 / 2450 -50 / -50 Weight 96.388 kg 97.69 kg 98.089 kg 101.423 kg Constitutional Constitutional: no acute distress *Routine HEENT Exam Head: Present normocephalic Eye: Present EOMI and PERRL ENT: Present mucous membranes moist *Routine Neck Exam Neck: Present supple; Absent lymphadenopathy *Routine Respiratory Exam Respiratory: Present CTA bilaterally *Routine Cardiovascular Exam Cardiovascular: Present RRR *Routine Abdominal Exam Abdominal: Present soft and normoactive bowel sounds; Absent tenderness *Routine Extremities Exam Extremities: Absent cyanosis, clubbing or edema Comments: Right hip tender *Routine Skin Exam Skin: Present warm; Absent rash *Routine Neurological Exam Neurological: Present alert and oriented X3 Assessment and Plan *Assessment and plan (1) Septic joint: Status: Acute Category: Medical Code(s): M00.9 - Pyogenic arthritis, unspecified (2) Hip osteomyelitis, right: Status: Acute Category: Medical Code(s): M86.9 - Osteomyelitis, unspecified (3) Hx of intravenous drug use in remission: Status: Acute Category: Social Hx Code(s): F19.91 - Other psychoactive substance use, unspecified, in remission (4) Diabetes: Status: Acute Category: Medical Code(s): E11.9 - Type 2 diabetes mellitus without complications (5) Hepatitis C: Status: Acute Category: Medical Code(s): B19.20 - Unspecified viral hepatitis C without hepatic coma Plan 46-year-old female with past medical history of IVDU, Hepatitis C, DM, HTN and previous recent admission for right hip MRSA myosititis presents due to a 2-3 week history of increasing hip pain, noncompliance with previous chronic IV antibiotic therapy, ongoing drug use who recently underwent an MRI outpatient that showed Fluid around right hip and concern for Osteomyelitis at the right femoral head. Problems addressed are as follows: Septic Joint Right hip pain
[2022-06-26 08:00] VITALS: BP 133/80; PULSE 90; RESP 16; TEMP 36.3; O2SAT 99
--- NOTE | 2022-06-26 08:58 | P.PN_ITS ---
Subjective *Date: 06/26/22 *Time: 08:58 Medical Exam Vital signs and Labs for Last 24 Hours: Vital Signs Temp Pulse Resp BP Pulse Ox 06/26/22 08:00 97.4 F L 90 16 133/80 99 06/25/22 23:57 97.9 F 90 16 128/74 100 06/25/22 20:00 97.8 F 90 18 148/105 H 100 06/25/22 15:17 97.7 F 78 18 127/77 100 Intake and Output 06/25/22 06/26/22 06/26/22 23:59 07:59 15:59 Intake Total 1480 / 2650 350 / 590 240 / 590 Output Total 200 / 200 400 / 400 Balance 1280 / 2450 -50 / 190 240 / 190 Intake: Intake, Oral Amount 1280 / 2000 240 / 240 Intake, Other Amount 200 / 200 Intake, Total IV Amount 350 / 350 Cefepime HCl 2 gm In 0.9 % 100 / 100 Sodium Chloride 100 ml @ 200 mls/hr IV Q8H [facility]BAR[facility] Rx#:[id number] Vancomycin HCl 2,000 mg In 0.9 250 / 250 % Sodium Chloride 250 ml @ 125 mls/hr IV Q18H [facility] Rx#:[id number] Output: Output, Urine Amount 200 / 200 400 / 400 Other: Number of Unmeasured Voids 1 1 Weight 101.423 kg Patient Weight 06/26/22 23:59 Weight 101.423 kg Laboratory Results - last 24 hr 06/22/22 22:33: Hepatitis C RNA Comment Comment, Hepatitis C Genotype 1a 06/25/22 10:40: POC Glucose 244 H 06/25/22 18:01: POC Glucose 309 H* 06/25/22 19:33: POC Glucose 248 H 06/26/22 05:28: POC Glucose 193 H 06/26/22 06:40: D-Dimer 0.84 H 06/26/22 06:40: Sodium 136, Potassium 4.1, Chloride 111 H, Carbon Dioxide 19 L, Anion Gap 10.1, BUN 37 H, Creatinine 1.20 H, Estimated Creat Clear 96, Estimated GFR 49 L, Est GFR ( Amer) 59, Glucose 112 H, Calcium 8.7, Total Bilirubin 0.4, AST 98 H D, ALT 129 H D, Alkaline Phosphatase 110, Total Protein 7.2, Albumin 3.7, Globulin 3.5 H, Albumin/Globulin Ratio 1.1 I & O for Labs for Last 24 Hours: Intake & Output 06/23/22 06/24/22 06/25/22 06/26/22 23:59 23:59 23:59 23:59 Intake Total 1260 / 1260 1080 / 1180 2300 / 2650 590 / 590 Output Total 0 / 0 0 / 0 200 / 200 400 / 400 Balance 1260 / 1260 1080 / 1180 2100 / 2450 190 / 190 Weight 96.388 kg 97.69 kg 98.089 kg 101.423 kg The patient's infection will respond to the chosen ABx?: Yes (BLOOD CULTURE NEGATIVE, SEPTIC JOINT AND NEEDS 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
[2022-06-26 11:14] LABS: POC Glucose,Bedside 290 (70-110)
[2022-06-26 16:00] VITALS: BP 140/80; PULSE 83; RESP 16; TEMP 36.4; O2SAT 99
[2022-06-26 19:19] LABS: POC Glucose,Bedside 237 (70-110)
--- NOTE | 2022-06-26 19:21 | EXP.DC.SUM ---
General Admission date:: 06/22/22 Discharge date: 06/26/22 HPI HPI HPI: 46-year-old female with past medical history of IVDU, Hepatitis C, DM, HTN and previous recent admission for right hip MRSA myosititis presents due to a 2-3 week history of increasing hip pain, noncompliance with previous chronic IV antibiotic therapy, ongoing drug use who recently underwent an MRI outpatient that showed Fluid around right hip and concern for Osteomyelitis at the right femoral head.? Hospital Course Hospital Course Hospital Course: Septic Joint Right hip pain Right hip osteomyelitis [facility] contacted for orthopedic recommendations Orthopedic consult noted Right lower extremity venous duplex identifies no DVT MRI right hip (03/28/2022) reviewed MRI right hip (06/19/2022) with osteomyelitis concerns of right femoral head which led to this admission IV vancomycin IV cefepime Drug therapy requiring intensive monitoring for toxicity Routine peak and trough Pain management Trending labs and inflammatory markers Blood cultures no growth to date Consideration for placement of PICC line Case management assisting with next site of care for chronic IV antibiotic therapy pending transition of care to [facility] for orthopedic service line. Intravenous drug use Illicit substance dependence Methamphetamine use disorder Urine drug screen with positive cocaine and methamphetamine Benzodiazepine therapy Diabetes Routine blood sugar monitoring Hemoglobin A1c 9.2% Basal insulin therapy Sliding Scale insulin Carbohydrate controlled diet Hepatitis C HCVRNA HCV antibodies ordered Follow-up outpatient for treatment if needed Given patients need for continued ID involvement with Ortho ID, pt has been accepted to and will be transferred for tertiary care. Exam Data for Last 24 hours Vital signs and Labs for Last 24 Hours: Temp Pulse Resp BP Pulse Ox 97.5 F L 83 16 140/80 99 06/26/22 16:00 06/26/22 16:00 06/26/22 16:00 06/26/22 16:00 06/26/22 16:00 Laboratory Results - last 24 hr 06/22/22 22:33: Hepatitis C RNA Comment Comment, Hepatitis C Genotype 1a 06/25/22 19:33: POC Glucose 248 H 06/26/22 05:28: POC Glucose 193 H 06/26/22 06:40: D-Dimer 0.84 H 06/26/22 06:40: Sodium 136, Potassium 4.1, Chloride 111 H, Carbon Dioxide 19 L, Anion Gap 10.1, BUN 37 H, Creatinine 1.20 H, Estimated Creat Clear 96, Estimated GFR 49 L, Est GFR ( Amer) 59, Glucose 112 H, Calcium 8.7, Total Bilirubin 0.4, AST 98 H D, ALT 129 H D, Alkaline Phosphatase 110, Total Protein 7.2, Albumin 3.7, Globulin 3.5 H, Albumin/Globulin Ratio 1.1 06/26/22 11:07: POC Glucose 290 H 06/26/22 17:00: POC Glucose 237 H I & O for Last 24 hours: Intake & Output 06/23/22 06/24/22 06/25/22 06/26/22 23:59 23:59 23:59 23:59 Intake Total 1260 / 1260 1080 / 1180 2300 / 2650 1310 / 1310 Output Total 0 / 0 0 / 0 200 / 200 400 / 400 Balance 1260 / 1260 1080 / 1180 2100 / 2450 910 / 910 Weight 96.388 kg 97.69 kg 98.089 kg 101.423 kg Narrative: Constitutional: no acute distress *Routine HEENT Exam Head: Present normocephalic Eye: Present EOMI and PERRL ENT: Present mucous membranes moist *Routine Neck Exam Neck: Present supple; Absent lymphadenopathy *Routine Respiratory Exam Respiratory: Present CTA bilaterally *Routine Cardiovascular Exam Cardiovascular: Present RRR *Routine Abdominal Exam Abdominal: Present soft and normoactive bowel sounds; Absent tenderness *Routine Extremities Exam Extremities: Absent cyanosis, clubbing or edema Comments: Right hip tender *Routine Skin Exam Skin: Present warm; Absent rash *Routine Neurological Exam Neurological: Present alert and oriented X3 Results Data Completed and Pending Labs on day of discharge: Labs from last 24 hours 06/26/22 06/26/22 06/26/22 17:00 11:07 06:40 D-Dimer Sodium 136 Potassium 4.1 Chloride 111 H Carbon Dioxide 19 L Anion Gap 10.1 BUN 37 H Creatinine
--- NOTE | 2022-06-26 19:52 | PC.NURSE ---
report called to jacky.
[2022-06-26 20:00] VITALS: BP 136/84; PULSE 89; RESP 16; TEMP 36.3; O2SAT 99
--- NOTE | 2022-06-26 20:51 | PC.NURSE ---
pt. refused assessment and states it's not needed as she is leaving.
--- NOTE | 2022-06-26 21:13 | PC.NURSE ---
Pt off floor to [facility] @ this time.
== END 2022-06-26 21:14 | disposition short-term general hospital (02) | DRG 549 ==
LOC: ER 19:42 → 2ND 19:48
PROVIDERS: Family Medicine; Nurse Practitioner Family; Admitting Provider Internal Medicine Adolescent Medicine; Emergency Provider Emergency Medicine; PCP Family Medicine; Visit Provider Internal Medicine Adolescent Medicine
DX: M00.051 Staphylococcal arthritis, right hip (principal); F19.20 Other psychoactive substance dependence, uncomplicated; M86.9 Osteomyelitis, unspecified; E11.9 Type 2 diabetes mellitus without complications; B19.20 Unspecified viral hepatitis C without hepatic coma; I10 Essential (primary) hypertension; F17.200 Nicotine dependence, unspecified, uncomplicated; Z79.4 Long term (current) use of insulin; F41.9 Anxiety disorder, unspecified; F32.A Depression, unspecified; Z91.199 Patient's noncompliance with other medical treatment and regimen due to unspecified reason
CPT/HCPCS: 36415; 73721; 80053; 80202; 80305; 82550; 82962; 83036; 83605; 83735; 85025; 85378; 85651; 86140; 87040; 87522; 87902; 94640; 99285; C9803; J2543; J3370; U0003; U0005

== ENCOUNTER 2022-12-10 12:20 | Emergency (ER) | payer MEDICAID, SELFPAY ==
[2022-12-10 12:22] VITALS: BP 154/88; PULSE 111; RESP 20; TEMP 36.8; O2SAT 97; BMI 33.2
--- NOTE | 2022-12-10 13:31 | CT_ITS ---
FINAL REPORT TECHNIQUE: Thin section axial CT images with coronal and sagittal reformats were performed after the administration of IV contrast. This study was performed with techniques to keep radiation doses as low as reasonably achievable (ALARA). Individualized dose reduction techniques using automated exposure control or adjustment of mA and/or kV according to the patient''s size were employed. CLINICAL HISTORY: pain, h/o septic arthritis COMPARISON: None FINDINGS: There are no acute fractures. There is severe degenerative change with multiple subchondral cyst in the acetabulum and superior femoral head. There are no masses or fluid collections. There are no soft tissue abnormalities. IMPRESSION: Severe degenerative changes with no acute findings. Reviewed, Interpreted and Dictated by Adarsh Watt III, MD Transcribed by Ninoska Hernandez Authenticated and . [facility]
--- NOTE | 2022-12-10 13:31 | XR_ITS ---
FINAL REPORT CLINICAL HISTORY: Right hip pain, h/o septic arthritis COMPARISON: None FINDINGS: RIGHT HIP Two views of the right hip demonstrate no acute fracture or dislocation. Severe degenerative change with multiple subchondral cysts. There are mild degenerative changes of the left hip. The visualized bony structures are well aligned. No soft tissue abnormality is seen. IMPRESSION: Severe degenerative change right hip without acute bony abnormality. Reviewed, Interpreted and Dictated by Adarsh Watt III, MD Transcribed by Ninoska Hernandez Authenticated and [facility]
--- NOTE | 2022-12-10 13:31 | HMH.EDGENADL ---
Discharge Plan Disposition Patient Disposition: Home, Self-Care Condition: Good Prescriptions Prescriptions: No Action budesonide-formoterol [Symbicort] 160-4.5 mcg/actuation HFA aerosol inhaler 1 inh inhalation BID Qty: 10.2 3RF insulin lispro [Humalog KwikPen Insulin] 100 unit/mL insulin pen 10 unit SQ TID 30 Days Qty: 9 3RF insulin glargine [Lantus Solostar U-100 Insulin] 100 unit/mL (3 mL) insulin pen 35 unit SQ HS 30 Days Qty: 10.5 3RF albuterol sulfate 90 mcg/actuation HFA aerosol inhaler 2 puff inhalation Q6H PRN (Reason: shortness of breath or wheezing) Qty: 8.5 3RF (DME) blood-glucose meter [OneTouch Verio Meter] Misc See Rx Instructions .ROUTE .MEDSUPPLY Rx Instructions: As directed (DME) OneTouch Verio test strips Strip See Rx Instructions .ROUTE .MEDSUPPLY Rx Instructions: Check Glucose 4 times daily (DME) pen needle, diabetic [Ultra-Thin II Ins Pen [place]] 29 gauge x 1/2 needle See Rx Instructions .ROUTE .MEDSUPPLY Rx Instructions: As directed (DME) lancets [OneTouch [place] Lancets] 33 gauge misc See Rx Instructions .ROUTE .MEDSUPPLY Rx Instructions: Check Glucose 4 times daily Referrals Follow up/Referrals: Provider,Referral, MD [Primary Care Provider] - See instructions Activity Restrictions/Add. Instructions Additional Instructions/Restrictions: Please follow-up with your primary care provider and your orthopedic surgeon. Please return to the emergency department if you develop any new or worsening symptoms or become concerned for your health. Clinical Impressions Clinical Impression: Chronic pain of right hip Discharge ED Provider: Leticia Castellanos General Adult HPI <Leticia Castellanos DO - Last Filed: 12/10/22 16:59> General Chief complaint: PAIN Stated complaint: hip pain, no accident Time Seen by Provider: 12/10/22 12:51 History of Present Illness HPI narrative: This patient is a 47-year-old female with history of chronic hepatitis C, chronic right hip osteomyelitis, previous septic joint of the right hip, and IV drug use presenting to the emergency department for evaluation with concern for acute on chronic right hip pain. She states that it has been slowly progressing over the last month. She is still able to bear weight and still has intact range of motion, which she states was not the case whenever she previously had septic joint/osteomyelitis flares. She states that she was admitted initially for this last year, and the last time she was admitted and received IV antibiotics was in June of this year at [facility]. I reviewed medical records from there and noted that the patient was discharged to follow-up with infectious disease and orthopedics, however I cannot ascertain whether or not she did this based on her medical record review. She denies being on antibiotics since then. She denies any fevers, chills, or other concerns. Related Data Home Medications Medication Instructions Recorded Confirmed blood sugar diagnostic ([facility] 04/10/22 06/22/22 Verio test strips) blood-glucose meter ([facility] 04/10/22 06/22/22 Verio Meter) lancets 33 gauge (OneTouch [place]ica 04/10/22 07/17/22 Lancets) pen needle, diabetic 29 gauge x 04/10/22 07/17/22 1/2 (Ultra-Thin II Insulin Pen [place]) Previous Rx's Medication Instructions Recorded albuterol sulfate 90 mcg/actuation 2 puff inhalation Q6H PRN 07/17/22 aerosol inhaler shortness of breath or wheezing #8.5 grams budesonide-formoterol HFA 160 1 inh inhalation BID Breathing 07/17/22 mcg-4.5 mcg/actuation aerosol problems #10.2 grams inhaler (Symbicort) insulin glargine 100 unit/mL (3 35 unit (0.35 mL) SQ HS Diabetes 07/17/22 mL) subcutaneous pen (Lantus 30 days #10.5 mL Solostar U-100 Insulin) insulin lispro 100 unit/mL 10 unit (0.1 mL) SQ TID Diabetes 07/17/22 subcutaneous pen (Humalog KwikPen 30 days #9 mL (U-100) Insulin)
[2022-12-10 14:51] LABS: Basophils # 0.1 K/mm3 (0-0.2); Basophils % 0.5 % (0.1-2.0); Eosinophils # 0.4 K/mm3 (0.0-0.4); Eosinophils % 3.5 % (0.1-12.0); Hematocrit 38.5 % (37.0-47.0); Hemoglobin 12.5 g/dL (12.2-16.2); Lymphocytes # 3.2 K/mm3 (0.7-4.5); Lymphocytes % 28.1 % (10-50); Mean Corpuscular HGB Conc 32.5 g/dL (31.8-35.4); Mean Corpuscular Hemoglobin 28.4 pg (27.0-31.2); Mean Corpuscular Volume 87.4 fl (81-99); Mean Platelet Volume 8.3 fl (7.4-10.4); Monocytes # 0.3 K/mm3 (0.1-1.0); Neutrophils # 7.4 K/mm3 (1.8-7.8); Platelet Count 385 K/mm3 (142-424); Red Blood Count 4.41 M/mm3 (4.20-5.40); Red Cell Distribution Width 13.2 % (11.5-17.5); White Blood Count 11.3 K/mm3 (4.8-10.8)
--- NOTE | 2022-12-10 14:59 | PC.NURSE ---
pt return from radiology
[2022-12-10 15:12] LABS: Alanine Aminotransferase 88 U/L (12-78); Albumin/Globulin Ratio 1.1 (1.1-1.8); Alkaline Phosphatase 139 U/L (38-126); Anion Gap 13.7 mEq/L (5-15); Aspartate Amino Transferase 53 U/L (14-36); Bilirubin,Total 0.3 mg/dl (0.2-1.3); Blood Urea Nitrogen 21 mg/dl (7-17); Calcium 8.7 mg/dl (8.4-10.2); Carbon Dioxide 24 mmol/L (22.0-30.0); Chloride 104 mmol/L (98-107); Creatinine Clearance Estimated 143 mL/min (50-200); Estimated Glomerular Filt Rate 78 ml/min (>60); GFR (African American) 94 ML/MIN (>60); Globulin 3.7 g/dL (1.3-3.2); Glucose 283 mg/dl (74-100); Potassium 3.7 mmoL/L (3.5-5.1); Sodium 138 mmol/L (136-145); Total Protein,Serum 7.7 g/dl (6.3-8.2)
[2022-12-10 15:13] LABS: Lactic Acid 1.2 mmol/L (0.7-2.1)
[2022-12-10 15:37] LABS: Erythrocyte Sedimentation Rate 45 mm/hr (0-20)
[2022-12-10 18:17] VITALS: BP 135/90; PULSE 92; RESP 16; TEMP 36.7; O2SAT 98
== END 2022-12-10 18:19 | disposition home or self-care (01) ==
PROVIDERS: Emergency Provider Emergency Medicine
DX: M25.551 Pain in right hip (principal); M86.68 Other chronic osteomyelitis, other site; F41.9 Anxiety disorder, unspecified; E11.9 Type 2 diabetes mellitus without complications; I10 Essential (primary) hypertension; E28.2 Polycystic ovarian syndrome; F17.200 Nicotine dependence, unspecified, uncomplicated
CPT/HCPCS: 73502; 73701; 80053; 83605; 85025; 85651; 86140; 87040; 96374; 96375; 99285; J2405; Q9967

== ENCOUNTER → 2023-03-17 10:01 | Outpatient (CLI) | payer MEDICAID, SELFPAY ==
[2023-03-17 11:24] LABS: Basophils # 0.1 K/mm3 (0-0.2); Basophils % 0.6 % (0.1-2.0); Eosinophils # 0.4 K/mm3 (0.0-0.4); Eosinophils % 2.7 % (0.1-12.0); Hematocrit 37.5 % (37.0-47.0); Hemoglobin 12.3 g/dL (12.2-16.2); Lymphocytes # 3.9 K/mm3 (0.7-4.5); Lymphocytes % 28.5 % (10-50); Mean Corpuscular HGB Conc 32.9 g/dL (31.8-35.4); Mean Corpuscular Hemoglobin 28.2 pg (27.0-31.2); Mean Corpuscular Volume 85.6 fl (81-99); Mean Platelet Volume 8.2 fl (7.4-10.4); Monocytes # 0.5 K/mm3 (0.1-1.0); Monocytes % 3.8 % (1.7-9.3); Neutrophils # 8.7 K/mm3 (1.8-7.8); Neutrophils % 64.5 % (37.0-80.0); Platelet Count 385 K/mm3 (142-424); Red Blood Count 4.38 M/mm3 (4.20-5.40); Red Cell Distribution Width 14.7 % (11.5-17.5); White Blood Count 13.5 K/mm3 (4.8-10.8)
[2023-03-17 11:48] LABS: INR 0.89 (0.9-1.1); Prothrombin Time 9.7 seconds (10.1-12.5)
[2023-03-17 12:26] LABS: Alanine Aminotransferase 151 U/L (12-78); Albumin Level 4.3 g/dl (3.5-5.0); Albumin/Globulin Ratio 1.2 (1.1-1.8); Alkaline Phosphatase 201 U/L (38-126); Anion Gap 18.1 mEq/L (5-15); Aspartate Amino Transferase 90 U/L (14-36); Bilirubin,Total 0.3 mg/dl (0.2-1.3); Blood Urea Nitrogen 24 mg/dl (7-17); Carbon Dioxide 19 mmol/L (22.0-30.0); Chloride 100 mmol/L (98-107); Chol/HDL Ratio 4.4 (1-3.5); Cholesterol 189 mg/dl (140-200); Estimated Glomerular Filt Rate 44 ml/min (>60); GFR (African American) 54 ML/MIN (>60); Globulin 3.6 g/dL (1.3-3.2); Glucose 330 mg/dl (74-100); HDL Cholesterol 43 mg/dl (40-60); Potassium 4.1 mmoL/L (3.5-5.1); Sodium 133 mmol/L (136-145); Total Protein,Serum 7.9 g/dl (6.3-8.2); Triglycerides 219 mg/dl (30-150); VLDL Cholesterol 44 mg/dL (0-40)
[2023-03-17 12:37] LABS: Direct LDL Cholesterol 100.64 mg/dL (100-129)
[2023-03-17 12:41] LABS: 25-OH Vitamin D, Total 21.5 ng/mL (30-100)
[2023-03-17 12:43] LABS: T4 (Thyroxine) 15.4 ug/dl (5.53-11.0)
[2023-03-17 14:34] LABS: Hemoglobin A1C > 14.0 % (4.0-6.0)
[2023-03-17 15:26] LABS: Barbiturates Screen,Urine Negative ng/ml (<200); Cannabinoid Screen,Urine Positive ng/ml (<50)
[2023-03-17 15:57] LABS: Microalbumin/Creatinine Ratio 68.1
[2023-03-17 15:58] LABS: Creatinine,Urine Random 64 mg/dL (Not Estab.)
[2023-03-17 17:55] LABS: Cocaine Screen,Urine Negative ng/ml (<300)
[2023-03-17 17:56] LABS: Benzodiazepines Screen,Urine Negative ng/ml (<200)
[2023-03-17 17:57] LABS: Methadone Screen,Urine Negative ng/ml (<300)
[2023-03-17 17:58] LABS: Phencyclidine Screen,Urine Negative ng/ml (<25)
[2023-03-17 18:09] LABS: Amphetamine/Metha Screen,Urine Positive ng/ml (<1000)
[2023-03-17 18:23] LABS: Opiate Screen,Urine Negative ng/ml (<300)
[2023-03-18 06:14] LABS: HIV Screen 4th Generation wRfx Non Reactive (Non Reactive)
[2023-03-19 16:11] LABS: C-Peptide 2.5 ng/mL (1.1-4.4)
[2023-03-20 13:45] LABS: Hep A Ab, Total Positive (Negative); Hep B Core Ab, Total Negative (Negative); Hep B Surface Ab, Qual Reactive (.)
[2023-03-22 18:04] LABS: HCV Genotype Charge YES; Hepatitis C Genotype 1a (.)
[2023-03-23 09:50] LABS: Hepatitis B Surface Antigen Negative
[2023-03-23 09:51] LABS: Hepatitis C Antibody Reactive
[2023-03-23 09:52] LABS: Alpha 2-Macroglobulins, Qn 190; Fibrosis Score 0.03; Fibrosis Stage F0-NO FIBROSIS; Haptoglobin 151; Necroinflammat Activity Grade A2; Necroinflammat Activity Score 0.58
[2023-03-23 09:53] LABS: ALT (SGPT) P5P 130; Apolipoprotein A-1 154; Bilirubin, Total <0.1; GGT 20
== END ==
PROVIDERS: PCP Emergency Medicine; Visit Provider Emergency Medicine
DX: B19.20 Unspecified viral hepatitis C without hepatic coma (principal); E11.9 Type 2 diabetes mellitus without complications; F19.90 Other psychoactive substance use, unspecified, uncomplicated; Z79.4 Long term (current) use of insulin
CPT/HCPCS: 36415; 80053; 80061; 80305; 81596; 82043; 82306; 82570; 83036; 84436; 84443; 84681; 85025; 85610; 86703; 86704; 86706; 86708; 87340; 87380; 87522; 87902; G0432

== ENCOUNTER → 2023-03-17 13:32 | Outpatient (CLI) | payer MEDICAID, SELFPAY | PROVIDERS: PCP Pediatrics; Visit Provider Emergency Medicine | DX: B19.20 Unspecified viral hepatitis C without hepatic coma (principal) ==

== ENCOUNTER → 2023-04-02 08:28 | Outpatient (CLI) | payer MEDICAID, SELFPAY ==
--- NOTE | 2023-04-02 08:29 | CA_ITS ---
FINAL REPORT TECHNIQUE: Grayscale, color Doppler and duplex Doppler ultrasound of the kidneys, aorta and renal arteries was performed. Multiple velocities were measured. CLINICAL HISTORY: HTN,SMOKER COMPARISON: None FINDINGS: Aorta velocity: 86 cm/sec Right kidney: 12.2 cm. There is a heterogeneous large mass in the right kidney, which measures 9.6 x 4.1 cm in size, worrisome for neoplasm. Right intrarenal RI: 0.9 Right renal artery velocity: 341 cm/sec. Right RAR (Renal artery-Aortic Ratio): 4 Left Kidney: 12.2 cm. Left intrarenal RI: 0.8 Left renal artery velocity: 195 cm/sec. Left RAR (Renal Artery-Aortic Ratio): 2.3 IMPRESSION: Right renal artery greater than 60% stenosis. Left renal artery less than 60% stenosis. Large mass, heterogeneous, and the right kidney, worrisome for neoplasm. This was also described on an earlier ultrasound of the kidney performed on 04/02/2023. CT angiogram or postcontrast MR angiogram would be more sensitive for evaluation of possible renal artery stenosis. Reviewed, Interpreted and Dictated by Adarsh Watt III, MD Transcribed by Abida Christiansen Authenticated and [facility]
--- NOTE | 2023-04-02 08:34 | CA_ITS ---
APPROVED REPORT EXAM: Comprehensive 2D, Doppler, and color-flow Echocardiogram Truck Shop Supervisor: Urvashi Mercer RT(R) Ht: 5 ft 9 in Wt: 260lbs BSA: 2.31 BP: 172/98 mmHg Indications: HTN, murmur, IVDA, DM, hep C, ROBLES, DM 2D Dimensions Left Atrium 3.83 cm F: 2.7 - 3.8 LVEF (Sheikh's) 57.20 % F: 54 - 74 LVOT 2.15 cm (M/F) 1.5-2.5 LV Volume 88.80 mL F: 46 - 106 LV Volume Index 38.4 mL/m2 F: 29 - 61 LA Volume 40.80 mL LA Volume Index 17.66 mL/m2 (M/F) 16-34 EF AP4 64.70 % EF AP2 46.0 % EF BP 57.2 % GL Strain -15.0 % M-Mode Dimensions RVDd 2.72 cm (0.9-2.6) LVDd 4.18 cm (3.5-5.7) Ao Diam 3.41 cm (2.0-3.7) LVDs 3.14 cm (3.5-5.7) IVSd 0.79 cm (0.6-1.1) PWd 0.92 cm (0.6-1.1) EF (Teich) 49.70% FS 24.90% EDV (Teich) 77.70 mL ESV (Teich) 39.10 mL LV Diastology E Decel Time 150 (160-240 msec) E/A Ratio 0.7 MED E' 9.4 (>= 7 cm/sec) E'/MED E' Ratio 8.09 (<= 14) LAT E' 10.7 (>= 10 cm/sec) E/LAT E' Ratio 7.10 (<= 14) Mitral Valve MV E Max Dima. 76.0 (40-130 cm/s) MV A Velocity 103.0 (40-130 cm/s) E/A Ratio 0.74 MV Decel. Time 150 (160-240 ms) Left Ventricle The left ventricle is normal size. The left ventricular systolic function is normal. The left ventricular ejection fraction is within the normal range. There is normal left ventricular wall thickness. There is normal LV segmental wall motion. The left ventricular diastolic function is normal. LVEF is 65%. Right Ventricle The right ventricle is normal size. The right ventricular systolic function is normal. Atria The left atrium size is normal. The right atrium size is normal. There is no Doppler evidence of interatrial shunt. Aortic Valve The aortic valve opens well. There is no aortic valvular stenosis. Trace aortic regurgitation. Mitral Valve The mitral valve is normal in structure. No evidence of mitral valve stenosis. Trace mitral regurgitation. Tricuspid Valve The tricuspid valve leaflets are thin and pliable. Trace tricuspid regurgitation. There is insufficient TR jet to estimate RVSP. Pulmonic Valve The pulmonary valve is normal in structure. Mild pulmonic regurgitation. Great Vessels The aortic root is normal in size. The ascending aorta is normal in size. IVC is normal in size and collapses >50% with inspiration. Pericardium There is no pericardial effusion. Other Information Study Quality: Fair Conclusion Normal biventricular systolic function. No significant valvular stenosis or regurgitation. Electronically signed by : Kelsey Montague MD 04/05/2023 21:00:41
--- NOTE | 2023-04-02 09:15 | US_ITS ---
FINAL REPORT CLINICAL HISTORY: hypertension FINDINGS: The right kidney measures 13.5 cm in length. It is normal in echogenicity. There is no hydronephrosis. There is a 7.5 x 6.6 cm in the right kidney with probable calcifications most worrisome for renal neoplasm The left kidney measures 12.7 cm in length. It is normal in echogenicity. There is no hydronephrosis. The spleen is unremarkable. IMPRESSION: Findings most worrisome for renal neoplasm. Recommend renal mass protocol CT. Snehal Roman, biomedical instrument technician was notified of findings on 04/02/2023 at 10:11 a.m. Reviewed, Interpreted and Dictated by Adarsh Watt III, MD Transcribed by Annie Erazo Authenticated and . [facility]
== END ==
PROVIDERS: Visit Provider Family Medicine
DX: I10 Essential (primary) hypertension (principal); N17.9 Acute kidney failure, unspecified; R01.1 Cardiac murmur, unspecified; Z72.0 Tobacco use
CPT/HCPCS: 76770; 93306; 93976

== ENCOUNTER → 2023-04-06 11:09 | Outpatient (CLI) | payer MEDICAID, SELFPAY ==
--- NOTE | 2023-04-06 11:13 | CT_ITS ---
FINAL REPORT TECHNIQUE: Axial images were obtained from the lung bases through the pubic symphysis before and after the administration of intravenous contrast. Oral contrast was administered. This study was performed with techniques to keep radiation doses as low as reasonably achievable (ALARA). Individualized dose reduction techniques using automated exposure control or adjustment of mA and/or kV according to the patient's size were employed. CLINICAL HISTORY: renal mass FINDINGS: Precontrast images demonstrate no evidence of nephrolithiasis or hydronephrosis. Abdomen: The lung bases are clear. The liver parenchyma is homogeneous. The gallbladder is present. The spleen, pancreas and adrenal glands are unremarkable. The left kidney is unremarkable. There is a large subcapsular air-fluid level collection associated with the right kidney. There is marked compression and flattening of the underlying right kidney. There are a few small retroperitoneal lymph nodes which are favored to be reactive. There is no evidence of bowel obstruction. Pelvis: The appendix is not identified. The urinary bladder is unremarkable. The uterus is present and lies eccentric to the right. IMPRESSION: Large subcapsular fluid collection associated with the right kidney with marked flattening and compression of the underlying kidney. Subcapsular abscess is favored. Urologic consult is highly recommended. Reviewed, Interpreted and Dictated by Yohan Merida MD Transcribed by Kiran Marks Authenticated and [facility]
== END ==
PROVIDERS: Visit Provider Family Medicine
DX: N28.89 Other specified disorders of kidney and ureter (principal)
CPT/HCPCS: 74178; Q9967

== ENCOUNTER 2023-04-06 12:52 | Emergency (ER) | payer MEDICAID, SELFPAY ==
[2023-04-06 12:54] VITALS: BP 123/67; PULSE 108; RESP 18; TEMP 36.6; O2SAT 99; BMI 38.0
[2023-04-06 13:45] VITALS: BP 146/74; PULSE 88; RESP 18; TEMP -17.7; TEMP 0
--- NOTE | 2023-04-06 13:50 | HMH.EDGENADL ---
Discharge Plan Disposition Patient Disposition: Home, Self-Care Condition: Fair Prescriptions Prescriptions: New fluconazole 150 mg tablet 150 mg PO DAILY Qty: 1 0RF Rx Instructions: administer on day 1 of therapy clotrimazole 1 % cream 1 applic topical BID 7 Days Qty: 30 0RF No Action Farxiga 10 mg tablet 10 mg PO DAILY Qty: 30 2RF atorvastatin [Lipitor] 10 mg tablet 10 mg PO HS Qty: 30 2RF bisoprolol fumarate 5 mg tablet 5 mg PO DAILY Qty: 90 3RF levothyroxine 50 mcg tablet 50 mcg PO DAILY Qty: 30 2RF albuterol sulfate 90 mcg/actuation HFA aerosol inhaler 2 puff inhalation Q6H PRN (Reason: shortness of breath or wheezing) Qty: 8.5 3RF budesonide-formoterol [Symbicort] 160-4.5 mcg/actuation HFA aerosol inhaler 1 inh inhalation BID Qty: 10.2 3RF insulin glargine [Lantus Solostar U-100 Insulin] 100 unit/mL (3 mL) insulin pen 40 unit SQ HS insulin lispro [Humalog KwikPen Insulin] 100 unit/mL insulin pen 15 unit SQ TID (DME) blood-glucose meter [OneTouch Verio Meter] Misc See Rx Instructions .ROUTE .MEDSUPPLY Rx Instructions: As directed (DME) OneTouch Verio test strips Strip See Rx Instructions .ROUTE .MEDSUPPLY Rx Instructions: Check Glucose 4 times daily (DME) pen needle, diabetic [Ultra-Thin II Ins Pen [place]] 29 gauge x 1/2 needle See Rx Instructions .ROUTE .MEDSUPPLY Rx Instructions: As directed (DME) lancets [OneTouch Delica Lancets] 33 gauge misc See Rx Instructions .ROUTE .MEDSUPPLY Rx Instructions: Check Glucose 4 times daily Referrals Follow up/Referrals: Shana Carrillo PA [Primary Care Provider] - See instructions Clinical Impressions Clinical Impression: Candidal vulvovaginitis Instructions Patient Instructions: Yeast Infection-Skin Discharge ED Provider: Apolinar Mendez General Adult HPI General Stated complaint: headache, possible yeast infection Time Seen by Provider: 04/06/23 13:40 History of Present Illness HPI narrative: Patient has a PMHx significant for asthma, diabetes, hypertension, hypothyroidism, CKD, osteomyelitis of the right hip, prior IV drug user who presents to the ED with complaints of pelvic pain. Patient notes a long history of yeast infection secondary to her uncontrolled diabetes. Patient notes that for the past 4 nights, she has been uncontrollably scratching her genital area which has caused progressively worsening irritation, skin breakdown, tenderness palpation. Patient notes that today, is progressed to the point where she cannot walk secondary to pain from rubbing. Patient notes dysuria secondary to severe burning. Patient has tried numerous ointments at home with no significant relief. patient denies any STD exposures Related Data Home Medications Medication Instructions Recorded Confirmed blood sugar diagnostic (OneTouch 04/10/22 03/24/23 Verio test strips) blood-glucose meter (OneTouch 04/10/22 03/24/23 Verio Meter) lancets 33 gauge (OneTouch Delica 04/10/22 03/24/23 Lancets) pen needle, diabetic 29 gauge x 04/10/22 03/24/23 1/2 (Ultra-Thin II Insulin [place]) insulin glargine 100 unit/mL (3 40 unit SQ HS Diabetes 03/17/23 03/24/23 mL) subcutaneous pen (Lantus Solostar U-100 Insulin) insulin lispro 100 unit/mL 15 unit SQ TID Diabetes 03/17/23 03/24/23 subcutaneous pen (Humalog KwikPen (U-100) Insulin) Previous Rx's Medication Instructions Recorded albuterol sulfate 90 mcg/actuation 2 puff inhalation Q6H PRN 03/24/23 aerosol inhaler shortness of breath or wheezing #8.5 grams atorvastatin 10 mg tablet (Lipitor) 10 mg PO HS #30 tabs 03/24/23 bisoprolol fumarate 5 mg tablet 5 mg PO DAILY #90 tabs 03/24/23 budesonide-formoterol HFA 160 1 inh inhalation BID Breathing 03/24/23 mcg-4.5 mcg/actuation aerosol problems #10.2 grams inhaler (Symbicort) dapagliflozin propanediol 10 mg 10 mg
== END 2023-04-06 13:56 | disposition home or self-care (01) ==
PROVIDERS: Emergency Provider Emergency Medicine; PCP Physician Assistant
DX: B37.31 Acute candidiasis of vulva and vagina (principal); E11.9 Type 2 diabetes mellitus without complications; I12.9 Hypertensive chronic kidney disease with stage 1 through stage 4 chronic kidney disease, or unspecified chronic kidney disease; N18.9 Chronic kidney disease, unspecified; E11.22 Type 2 diabetes mellitus with diabetic chronic kidney disease; E03.9 Hypothyroidism, unspecified; J45.909 Unspecified asthma, uncomplicated; F17.200 Nicotine dependence, unspecified, uncomplicated
CPT/HCPCS: 99283

== ENCOUNTER 2023-04-16 19:44 | Emergency (ER) | payer MEDICAID, SELFPAY ==
[2023-04-16 19:45] VITALS: BP 143/86; PULSE 124; RESP 16; TEMP 36.6; O2SAT 97; BMI 38.0
[2023-04-16 20:00] VITALS: BP 146/87; PULSE 125; RESP 13; O2SAT 97
--- NOTE | 2023-04-16 20:18 | CT_ITS ---
PROCEDURE INFORMATION: Exam: CT Abdomen And Pelvis With Contrast Exam date and time: 04/16/2023 9:52 PM Age: 47 years old Clinical indication: Abdominal pain; Additional info: Llq L flank pain TECHNIQUE: Imaging protocol: Computed tomography of the abdomen and pelvis with contrast. Radiation optimization: All CT scans at this facility use at least one of these dose optimization techniques: automated exposure control; mA and/or kV adjustment per patient size (includes targeted exams where dose is matched to clinical indication); or iterative reconstruction. Contrast material: ISOVUE; Contrast volume: 75 ml; Contrast route: IV; REPORTING DATA: Count of CT and Cardiac NM exams in prior 12 months: This patient has received 2 known CTs and 0 known cardiac nuclear medicine studies in the 12 months prior to the current study. COMPARISON: CT ABDOMEN PELVIS WO/W CON 04/06/2023 12:12 PM FINDINGS: Tubes, catheters and devices: None noted. Lungs: Lung bases appear clear. Heart: No significant coronary calcifications. No cardiomegaly. No significant pericardial effusion. Liver: Normal. No mass. Gallbladder and bile ducts: Normal. No calcified stones. No ductal dilation. Pancreas: Normal. No ductal dilation. Spleen: Normal. No splenomegaly. Adrenal glands: Normal. No mass. Kidneys and ureters: Subcapsular abscess right kidney. 11.8 x 9 x 6.4 cm. Improving from comparison 04/06/2023. No hydronephrosis. Stomach and bowel: Unremarkable. No obstruction. No mucosal thickening. Appendix: No evidence of appendicitis. Intraperitoneal space: Unremarkable. No free air. No significant fluid collection. Retroperitoneal space: No significant retroperitoneal inflammatory changes are noted. Vasculature: Unremarkable. No abdominal aortic aneurysm. Lymph nodes: Unremarkable. No enlarged lymph nodes. Urinary bladder: Unremarkable as visualized. Reproductive: Unremarkable as visualized. Bones/joints: Unremarkable. No acute fracture. Soft tissues: Unremarkable. IMPRESSION: Subcapsular abscess right kidney. 11.8 x 9 x 6.4 cm. Improving from comparison 04/06/2023.
--- NOTE | 2023-04-16 20:25 | HMH.EDGENADL ---
Discharge Plan Disposition Patient Disposition: Xfer Short-Term Hosp Prescriptions Prescriptions: No Action Farxiga 10 mg tablet 10 mg PO DAILY Qty: 30 2RF atorvastatin [Lipitor] 10 mg tablet 10 mg PO HS Qty: 30 2RF bisoprolol fumarate 5 mg tablet 5 mg PO DAILY Qty: 90 3RF levothyroxine 50 mcg tablet 50 mcg PO DAILY Qty: 30 2RF albuterol sulfate 90 mcg/actuation HFA aerosol inhaler 2 puff inhalation Q6H PRN (Reason: shortness of breath or wheezing) Qty: 8.5 3RF budesonide-formoterol [Symbicort] 160-4.5 mcg/actuation HFA aerosol inhaler 1 inh inhalation BID Qty: 10.2 3RF insulin glargine [Lantus Solostar U-100 Insulin] 100 unit/mL (3 mL) insulin pen 40 unit SQ HS insulin lispro [Humalog KwikPen Insulin] 100 unit/mL insulin pen 15 unit SQ TID (DME) blood-glucose meter [OneTouch Verio Meter] Misc See Rx Instructions .ROUTE .MEDSUPPLY Rx Instructions: As directed (DME) OneTouch Verio test strips Strip See Rx Instructions .ROUTE .MEDSUPPLY Rx Instructions: Check Glucose 4 times daily (DME) pen needle, diabetic [Ultra-Thin II Ins Pen [place]] 29 gauge x 1/2 needle See Rx Instructions .ROUTE .MEDSUPPLY Rx Instructions: As directed (DME) lancets [OneTouch Delica Lancets] 33 gauge misc See Rx Instructions .ROUTE .MEDSUPPLY Rx Instructions: Check Glucose 4 times daily fluconazole 150 mg tablet 150 mg PO DAILY Qty: 1 0RF Rx Instructions: administer on day 1 of therapy clotrimazole 1 % cream 1 applic topical BID 7 Days Qty: 30 0RF Referrals Follow up/Referrals: Shana Carrillo PA [Primary Care Provider] - See instructions Clinical Impressions Clinical Impression: Sepsis, ROBLES (acute kidney injury), Abscess of right kidney, Acute hyperglycemia Stand Alone Forms Stand Alone Forms: Transfer Record - ED Discharge ED Provider: Ronnie Garg General Adult HPI General Chief complaint: Skin/Abscess/Foreign Body Stated complaint: pain in lower left abdomen Time Seen by Provider: 04/16/23 19:48 Mode of Arrival: Wheelchair Source of Information: Patient Limitations: No Limitations Description of Symptoms (Recalled from ER Triage Doc. by RN): pt states was recently treated for a yeast infection. pt c/o lt abd and groin folds red, irriated, and abcesses that appeared 2 days ago. 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 Patient was recently diagnosed with Maura intertrigo for which her symptoms have been improving with topical therapy. She states that she has a kidney abscess for which she is scheduled to follow-up with . Over the last 24 to 48 hours she has had worsening left flank and left lower quadrant pain. Last bowel movement yesterday, nonbloody. No other acute complaints at this time. Related Data Home Medications Medication Instructions Recorded Confirmed blood sugar diagnostic (OneTouch 04/10/22 04/12/23 Verio test strips) blood-glucose meter (OneTouch 04/10/22 04/12/23 Verio Meter) lancets 33 gauge (OneTouch Delica 04/10/22 04/12/23 Lancets) pen needle, diabetic 29 gauge x 04/10/22 04/12/23 1/2 (Ultra-Thin II Insulin Pen [place]) insulin glargine 100 unit/mL (3 40 unit SQ HS Diabetes 03/17/23 04/12/23 mL) subcutaneous pen (Lantus Solostar U-100 Insulin) insulin lispro 100 unit/mL 15 unit SQ TID Diabetes 03/17/23 04/12/23 subcutaneous pen (Humalog KwikPen (U-100) Insulin) Previous Rx's Medication Instructions Recorded albuterol sulfate 90 mcg/actuation 2 puff inhalation Q6H PRN 03/24/23 aerosol inhaler shortness of breath or wheezing #8.5 grams atorvast
[2023-04-16 20:30] LABS: Microscopic, Urine URINE MICROSCOPIC (MICROSCOPIC)
[2023-04-16 20:53] LABS: Appearance,Urine SL CLOUDY (Clear); Bilirubin,Urine Negative (Negative); Blood, Urine 3+ (Negative); Color,Urine YELLOW (Yellow); Glucose,Urine (UA) 3+ (Negative); Ketones,Urine Negative (Negative); Leukocyte Esterase,Urine 1+ (Negative); Nitrate,Urine Negative (Negative); Protein,Urine TRACE (Negative); Specific Gravity, Urine <= 1.005 (1.005-1.030); Urobilinogen,Urine 0.2 EU/dl (0.2)
--- NOTE | 2023-04-16 21:10 | PC.NURSE ---
in room with patient at this time.
[2023-04-16 21:23] LABS: Bacteria,Urine 2+ /lpf; RBC,Urine 20-50 #/hpf (0-3); Yeast,Urine Occasional /lpf
[2023-04-16 21:31] LABS: Basophils # 0.1 K/mm3 (0-0.2); Basophils % 0.3 % (0.1-2.0); Eosinophils # 0.1 K/mm3 (0.0-0.4); Eosinophils % 0.6 % (0.1-12.0); Hematocrit 29.1 % (37.0-47.0); Hemoglobin 8.8 g/dL (12.2-16.2); Lymphocytes # 2.1 K/mm3 (0.7-4.5); Mean Corpuscular HGB Conc 30.2 g/dL (31.8-35.4); Mean Corpuscular Hemoglobin 25.8 pg (27.0-31.2); Mean Corpuscular Volume 85.5 fl (81-99); Mean Platelet Volume 8.1 fl (7.4-10.4); Monocytes # 0.7 K/mm3 (0.1-1.0); Monocytes % 3.2 % (1.7-9.3); Neutrophils # 18.3 K/mm3 (1.8-7.8); Neutrophils % 85.9 % (37.0-80.0); Platelet Count 578 K/mm3 (142-424); Red Blood Count 3.41 M/mm3 (4.20-5.40); Red Cell Distribution Width 16.3 % (11.5-17.5); White Blood Count 21.3 K/mm3 (4.8-10.8)
[2023-04-16 21:32] LABS: MANUAL DIFFERENTIAL MANUAL DIFFERENTIAL (MANUAL DIFF)
[2023-04-16 21:36] LABS: HCG Qualitative, Serum Negative (Negative)
[2023-04-16 21:39] LABS: Alanine Aminotransferase 20 U/L (12-78); Alkaline Phosphatase 170 U/L (38-126); Aspartate Amino Transferase 27 U/L (14-36); Bilirubin,Total 0.5 mg/dl (0.2-1.3); Blood Urea Nitrogen 17 mg/dl (7-17); Carbon Dioxide 21 mmol/L (22.0-30.0); Chloride 92 mmol/L (98-107); Creatinine Clearance Estimated 87 mL/min (50-200); Estimated Glomerular Filt Rate 38 ml/min (>60); GFR (African American) 45 ML/MIN (>60)
[2023-04-16 21:40] LABS: Lactic Acid 1.6 mmol/L (0.7-2.1); Lipase 65 U/L (23-300)
[2023-04-16 21:41] LABS: Albumin Level 3.1 g/dl (3.5-5.0); Albumin/Globulin Ratio 0.7 (1.1-1.8); Anion Gap 12.7 mEq/L (5-15); Calcium 7.9 mg/dl (8.4-10.2); Globulin 4.6 g/dL (1.3-3.2); Potassium 3.7 mmoL/L (3.5-5.1); Sodium 122 mmol/L (136-145); Total Protein,Serum 7.7 g/dl (6.3-8.2)
[2023-04-16 21:45] LABS: C-Reactive Protein 260.1 mg/L (0-4)
[2023-04-16 21:50] LABS: Anisocytosis 1+; Hypochromasia 2+; Lymphocytes % 12 % (10-50); Microcytosis 1+; Monocytes % 2 % (2-9); Neutrophils % 86 % (42-76); Platelet Estimate Moderate Increase; Total Cells Counted 100
[2023-04-16 21:51] LABS: Ovalocytes 1+
--- NOTE | 2023-04-16 21:58 | PC.NURSE ---
pt return from rad
[2023-04-16 21:59] LABS: VBG Base Excess -5.8 mmol/L (-2.4-2.3); VBG HCO3 18.7 mmol/L (23-30); VBG Oxygen Saturation 99.5 % (50-70); VBG PCO2 29.6 mmol/L (35-51); VBG PH 7.42 mmol/L (7.31-7.41); VBG PO2 184.8 mmol/L (28-40); VBG Total CO2 19.6 mmol/L (23-27)
--- NOTE | 2023-04-16 21:59 | PC.NURSE ---
notified resp of vbg order
[2023-04-16 22:01] LABS: Acetone, Serum (Rapid) None Detected (None Detect)
--- NOTE | 2023-04-16 22:11 | PC.NURSE ---
spoke with Raman woo about vancomycin dosage to verified to be given in 250ml. he stated that it is fine
--- NOTE | 2023-04-16 22:33 | PC.NURSE ---
[facility] contacted in reference transfer, awaiting call back
[2023-04-16 22:52] VITALS: BP 114/63; PULSE 112; RESP 18; O2SAT 97
--- NOTE | 2023-04-16 22:53 | PC.NURSE ---
received phone call back from at this time. discussing case
[2023-04-16 23:00] VITALS: BP 118/77; PULSE 107; RESP 18; O2SAT 97
[2023-04-16 23:07] LABS: Glucose 673 mg/dl (74-100)
[2023-04-16 23:11] VITALS: BP 118/77; PULSE 110; RESP 16; TEMP 36.6; O2SAT 97
[2023-04-16 23:30] VITALS: BP 109/79; PULSE 103; RESP 14; O2SAT 99
[2023-04-17] VITALS: BP 114/81; PULSE 107; RESP 18; O2SAT 99
--- NOTE | 2023-04-18 20:44 | PC.NURSE ---
Dr bello notified of positive blood cultures. pt was transferred to er. called and spoke with Aspen Hall RN pt is located still in ER room 43
== END 2023-04-17 00:55 | disposition short-term general hospital (02) ==
PROVIDERS: Emergency Provider Emergency Medicine; PCP Physician Assistant
DX: A41.02 Sepsis due to Methicillin resistant Staphylococcus aureus (principal); B95.62 Methicillin resistant Staphylococcus aureus infection as the cause of diseases classified elsewhere; N15.1 Renal and perinephric abscess; B96.89 Other specified bacterial agents as the cause of diseases classified elsewhere; E11.65 Type 2 diabetes mellitus with hyperglycemia; N17.9 Acute kidney failure, unspecified; R31.9 Hematuria, unspecified; R10.32 Left lower quadrant pain; B18.2 Chronic viral hepatitis C; I10 Essential (primary) hypertension; E78.5 Hyperlipidemia, unspecified; E03.9 Hypothyroidism, unspecified; K21.9 Gastro-esophageal reflux disease without esophagitis; J45.909 Unspecified asthma, uncomplicated; Z87.891 Personal history of nicotine dependence; R79.82 Elevated C-reactive protein (CRP); D63.8 Anemia in other chronic diseases classified elsewhere; Z79.4 Long term (current) use of insulin
CPT/HCPCS: 36556; 74177; 80053; 81001; 82009; 82803; 83605; 83690; 84703; 85007; 85025; 86140; 87040; 87086; 96365; 96366; 96367; 96375; 99291; J0131; J2543; J3370; Q9967

== ENCOUNTER 2023-12-19 23:53 | Emergency (ER) | payer MEDICAID, SELFPAY ==
[2023-12-19 23:55] VITALS: BP 179/87; PULSE 101; RESP 24; TEMP 36.9; O2SAT 99; BMI 37.2
--- NOTE | 2023-12-20 00:23 | XR_ITS ---
PROCEDURE INFORMATION: Exam: XR Right Hip Exam date and time: 12/20/2023 12:28 AM Age: 48 years old Clinical indication: Hip pain; Right hip TECHNIQUE: Imaging protocol: Radiologic exam of the right hip. Views: 2 or 3 views hip with pelvis when performed. COMPARISON: CT ABDOMEN PELVIS W CON 04/16/2023 9:52 PM FINDINGS: Bones/joints: Advanced degenerative changes of the right hip with [id number] apposition and associated osseous remodeling. Soft tissues: Unremarkable. IMPRESSION: Advanced degenerative changes of the right hip with [id number] apposition and associated osseous remodeling.
--- NOTE | 2023-12-20 00:23 | XR_ITS ---
PROCEDURE INFORMATION: Exam: XR Right Femur Exam date and time: 12/20/2023 12:30 AM Age: 48 years old Clinical indication: Pain; Hip; Right TECHNIQUE: Imaging protocol: Radiologic exam of the right femur. Views: 2 views. COMPARISON: MR HIP RT WO CON 06/19/2022 3:54 PM FINDINGS: Bones/joints: Advanced degenerative change of the right hip. Soft tissues: Unremarkable. IMPRESSION: Advanced degenerative change of the right hip.
--- NOTE | 2023-12-20 00:41 | HMH.EDGENADL ---
Discharge Plan Disposition Patient Disposition: Home, Self-Care Condition: Good Prescriptions Prescriptions: No Action Farxiga 10 mg tablet 10 mg PO DAILY Qty: 30 2RF atorvastatin [Lipitor] 10 mg tablet 10 mg PO HS Qty: 30 2RF bisoprolol fumarate 5 mg tablet 5 mg PO DAILY Qty: 90 3RF levothyroxine 50 mcg tablet 50 mcg PO DAILY Qty: 30 2RF albuterol sulfate 90 mcg/actuation HFA aerosol inhaler 2 puff inhalation Q6H PRN (Reason: shortness of breath or wheezing) Qty: 8.5 3RF budesonide-formoterol [Symbicort] 160-4.5 mcg/actuation HFA aerosol inhaler 1 inh inhalation BID Qty: 10.2 3RF insulin glargine [Lantus Solostar U-100 Insulin] 100 unit/mL (3 mL) insulin pen 40 unit SQ HS insulin lispro [Humalog KwikPen Insulin] 100 unit/mL insulin pen 15 unit SQ TID (DME) blood-glucose meter [OneTouch Verio Meter] Misc See Rx Instructions .ROUTE .MEDSUPPLY Rx Instructions: As directed (DME) OneTouch Verio test strips Strip See Rx Instructions .ROUTE .MEDSUPPLY Rx Instructions: Check Glucose 4 times daily (DME) pen needle, diabetic [Ultra-Thin II Ins Pen [place]] 29 gauge x 1/2 needle See Rx Instructions .ROUTE .MEDSUPPLY Rx Instructions: As directed (DME) lancets [OneTouch Delica Lancets] 33 gauge misc See Rx Instructions .ROUTE .MEDSUPPLY Rx Instructions: Check Glucose 4 times daily fluconazole 150 mg tablet 150 mg PO DAILY Qty: 1 0RF Rx Instructions: administer on day 1 of therapy clotrimazole 1 % cream 1 applic topical BID 7 Days Qty: 30 0RF Referrals Follow up/Referrals: Shana Carrillo PA [Primary Care Provider] - See instructions Jorge Gaming DO [Staff Physician] - See instructions (hx septic R hip, reassuring ER workup but needs close follow up) Activity Restrictions/Add. Instructions Additional Instructions/Restrictions: You were evaluated in the ER and are appropriate for discharge at this time. Call Dr. Gaming's office first thing in the morning to schedule an appointment for follow-up, reassessment, to discuss your ongoing pain, and possible MRI. Take Tylenol, ibuprofen at home if needed for pain, do not exceed the recommended doses on the bottle. You can also try the lidocaine patches that you already have. You can only wear these for up to 12 hours at a time, then take it off for 12 hours. Also follow-up with your primary care physician in a few days. Return to the ER with new, worsening, or otherwise concerning symptoms Clinical Impressions Clinical Impression: Hip pain, right Print Language Print Language: Nigerian Discharge ED Provider: Reed Valenzuela General Adult HPI General Chief complaint: Extremity Injury, Lower Stated complaint: Knot on upper thigh, pain in thigh and hip Time Seen by Provider: 12/20/23 00:10 Mode of Arrival: Wheelchair Source of Information: Patient Limitations: No Limitations Description of Symptoms (Recalled from ER Triage Doc. by RN): pt is her tonight for knot on anterior of right thigh that has been there for one month and growing and making it more difficult to walk, pt rates pain 6/10. pt is worried bc it feels same as previous pain from when she had infection in same hip socket where it ate holes in the bone and had to be washed out by dr gaming. History of Present Illness HPI narrative: 48-year-old female with a history of previous IV drug use many years ago presents to the ER for complaints of right hip and thigh pain. Patient believes she has a knot in her right anterior thigh as well as worsening pain in her right hip. Patient is worried because this pain feels similar to pain when she had an infection in her right hip that required surgical washout. I reviewed these previous records and patient had findings on MRI concerning for abscess, joint effusion. Patient had arthrotomy and washout in March 2022. Patient required multiple months of IV antibiot
[2023-12-20 01:21] LABS: Basophils # 0.1 K/mm3 (0-0.2); Eosinophils # 0.4 K/mm3 (0.0-0.4); Eosinophils % 3.6 % (0.1-12.0); Hematocrit 42.6 % (37.0-47.0); Hemoglobin 13.6 g/dL (12.2-16.2); Lymphocytes # 3.2 K/mm3 (0.7-4.5); Lymphocytes % 28.5 % (10-50); Mean Corpuscular Hemoglobin 29.6 pg (27.0-31.2); Mean Corpuscular Volume 92.3 fl (81-99); Mean Platelet Volume 7.9 fl (7.4-10.4); Monocytes # 0.3 K/mm3 (0.1-1.0); Monocytes % 2.9 % (1.7-9.3); Neutrophils # 7.2 K/mm3 (1.8-7.8); Neutrophils % 63.9 % (37.0-80.0); Platelet Count 340 K/mm3 (142-424); Red Blood Count 4.62 M/mm3 (4.20-5.40); Red Cell Distribution Width 13.5 % (11.5-17.5); White Blood Count 11.2 K/mm3 (4.8-10.8)
[2023-12-20 01:24] LABS: Chloride 109 mmol/L (98-107)
[2023-12-20 01:25] LABS: Albumin Level 4.1 g/dl (3.5-5.0); Potassium 4.3 mmoL/L (3.5-5.1); Sodium 139 mmol/L (136-145)
[2023-12-20 01:27] LABS: Blood Urea Nitrogen 21 mg/dl (7-17); Creatinine Clearance Estimated 127 mL/min (50-200); Estimated Glomerular Filt Rate 60 ml/min (>60); GFR (African American) 72 ML/MIN (>60)
[2023-12-20 01:28] LABS: Alanine Aminotransferase 26 U/L (12-78); Albumin/Globulin Ratio 1.2 (1.1-1.8); Alkaline Phosphatase 121 U/L (38-126); Anion Gap 10.3 mEq/L (5-15); Aspartate Amino Transferase 24 U/L (14-36); Bilirubin,Total 0.5 mg/dl (0.2-1.3); Calcium 8.9 mg/dl (8.4-10.2); Carbon Dioxide 24 mmol/L (22.0-30.0); Globulin 3.4 g/dL (1.3-3.2); Glucose 152 mg/dl (74-100); Total Protein,Serum 7.5 g/dl (6.3-8.2)
[2023-12-20 01:33] LABS: C-Reactive Protein 2.4 mg/L (0-4)
[2023-12-20 02:20] LABS: Erythrocyte Sedimentation Rate 7 mm/hr (0-20)
[2023-12-20 02:30] VITALS: BP 164/87; PULSE 75; RESP 15; TEMP 37.1; O2SAT 99
== END 2023-12-20 02:40 | disposition home or self-care (01) ==
PROVIDERS: Emergency Provider Emergency Medicine; PCP Physician Assistant
DX: M79.651 Pain in right thigh (principal); M25.551 Pain in right hip; E11.9 Type 2 diabetes mellitus without complications; I10 Essential (primary) hypertension; E03.9 Hypothyroidism, unspecified; G43.909 Migraine, unspecified, not intractable, without status migrainosus; J45.909 Unspecified asthma, uncomplicated; F17.200 Nicotine dependence, unspecified, uncomplicated
CPT/HCPCS: 73502; 73552; 80053; 85025; 85651; 86140; 96374; 99285; J1885

== ENCOUNTER 2024-10-07 19:25 | Emergency (ER) | payer MEDICAID, SELFPAY ==
--- OUTSIDE RECORDS SUMMARY | 2024-10-07 19:32 | XMS_ITS ---
Author Organization [facility] Address [address] [place] [address] Care Team Providers Care Game Tester Name Role Phone Rosalinda Gonzalez DO Primary Care Provider [phone] Carie Stoner LCSW Unavailable Unavailable Hepatitis C Program Status:Active (Active) Start date:04/17/2023 Enrollment date:04/17/2023 Enrollment reason:HCV Continued Care and Services Coordination
--- OUTSIDE RECORDS SUMMARY | 2024-10-07 19:33 | XMS_ITS | Clinical Summary ---
Author Organization [facility] Address [address] [place] [address] Care Team Providers Care Air Technician Name Role Phone Lisa Rosalinda Drummond DO Primary Care Provider [phone] Carie StonerW Unavailable Unavailable Allergies Active Allergy Reactions Criticality Noted Date Comments Levofloxacin Hives Medium 06/19/2016 Patient says her reaction to levofloxacin was > 10 years ago, but she has since tolerated ciprofloxacin (05/05/2023). Zolpidem Hives Medium 06/19/2016 Medications * This document contains information received from the source organization and may not represent a complete record from that organization. budesonide-form oterol (Symbicort) 160-4.5 MCG/ACT inhaler Inhale 1 puff 2 (two) times a day. Rinse mouth with water after use to reduce aftertaste and incidence of candidiasis. Do not swallow. Active acetaminophen (Tylenol) 325 MG tablet Take 2 tablets (650 mg) by mouth every 4 (four) hours if needed. Active albuterol 108 (90 Base) MCG/ACT inhaler Inhale 2 puffs every 4 (four) hours if needed for wheezing. 3 Active atorvastatin (Lipitor) 10 MG tablet Take 1 tablet (10 mg) by mouth every night. 3 Active bisoprolol (Zebeta) 5 MG tablet Take 1 tablet (5 mg) by mouth 1 (one) time each day in the morning. 3 Active levothyroxine (Synthroid, Levoxyl) 50 MCG tablet Take 1 tablet (50 mcg) by mouth 1 (one) time each day before breakfast. 3 Active Continuous Blood Gluc Transmit (Dexcom G6 transmitter) misc Use as instructed 1 each 3 4 Active Continuous Blood Gluc Sensor (Dexcom G6 Sensor) misc Apply one censor every 10 days. 3 each 11 4 Active Continuous Blood Gluc Maintenance Director (Dexcom G6 hand packer) device Use as instructed 1 each 4 Active Farxiga 10 MG tablet Take 1 tablet (10 mg) by mouth 1 (one) time each day in the morning. 30 tablet 4 Active pen needle, diabetic 31G X 5 MM misc Use as directed with insulin pen. 100 each 11 4 Active pen needle, diabetic 31G X 5 MM misc Use as directed with insulin pen. 100 each 11 4 Active insulin glargine (Lantus) 100 UNIT/ML injection vial Inject 0.2 mL (20 Units) under the skin every night. 10 mL 3 4 Active Insulin Lispro (Admelog, HumaLOG) 100 UNIT/ML injection vial Inject 0.07 mL (7 Units) under the skin 3 (three) times a day with meals. 10 mL 12 4 Active Active Problems Problem Noted Date Diagnosed Date Severe obesity (BMI 35.0-39.9) with comorbidity 04/17/2023 Hypothyroidism 04/17/2023 Atrial septal defect 04/17/2023 Chronic pain of right hip 04/17/2023 COPD (chronic obstructive pulmonary disease) Hip osteomyelitis, right 04/17/2023 HLD (hyperlipidemia) 04/17/2023 Hx of intravenous drug use in remission 04/17/20 MRSA bacteremia 04/17/2023 Abscess of right kidney 04/17/2023 SIRS (systemic inflammatory response syndrome) 1 06/18/2022 ROBLES (acute kidney injury) 04/17/2023 Renal abscess, right 04/17/2023 Labial abscess 04/16/2023 Anxiety 06/27/2022 Asthma 06/27/2022 Depression 06/27/2022 GERD (gastroesophageal reflux disease) 3 Hep C w/o coma, chronic 06/27/2022 Hypertension 06/27/2022 Nicotine dependence 06/27/2022 PCOS (polycystic ovarian syndrome) 06/27/2022 Type 2 diabetes mellitus wit h hyperglycemia, without long-term current use of insulin 06/27/2022 Resolved Problems Problem Noted Date Diagnosed Date Resolved Date Candidal vulvovaginitis 04/17/2023 12/2 06/2022 Constipation 04/17/2023 04/17/2023 COVID-19 virus infection 04/17/2023 Cough 04/17/2023 04/17/2023 Acute hyperglycemia 04/17/2023 04/17/20 Edema 04/17/2023 04/17/2023 Leg swelling 04/17/2023 04/17/2023 Phlebitis 04/17/2023 04/17/2023 Septic joint 04/17/2023 04/17/2023 Right hip joint effusion 04/17/2023 Myositis 04/17/2023 04/17/2023 Septic hip 04/17/2023 04/17/2023 Osteomyelitis of right femur , unspecified type 06/27/2022 07/01/2022 Migraine 06/27/2022 07/01/2022 Substance use disorder 06/27/202207/01 Family History Medical History Relation Name Comments Diabetes Father Heart disease Father Diabetes Sister Relation Name Status Comments Father Sister Social History Tobacco Use Types Packs/Day Years Used Date Smoking Tobacco: Every Day Cigarettes 0.3 30.4 Started: 1994 Passive Smoke Exposure: Current Smokeless Tobacco: Never Tobacco Cessation:Ready to Q uit: Not Asked; Counseling Given: Not Answered Alcohol Use Standard Drinks/Week Comments Not Currently 0 (1 standard drink = 0.6 oz pur e alcohol) PHQ-2 Answer Date Recorded Patient Health Questionnaire-2 Score 2 06/01/2024 CAGE ASSESSMENT Answer Date Recorded Cage unable to access Not on file 04/18/2023 Cage max number of drinks Not on file 2022 Cage Beverages a week Not on file 04/18/2023 Have you ever felt you should CUT down on your d rinking? 0 04/18/2023 Have you been ANNOYED by people criticizing your drinking? 0 04/18/2023 Have you felt GUILTY about your drinking? 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 0 04/18/2023 CAGE Questionnaire Score 0 023 Comments No Sex and Gender Information Value Date Recorded Sex Assigned at Not on file Legal Sex Female 8:16 PM EDT Gender Identity Not on file Sexual Orientation Not on file Last Filed Vital Signs Vital Sign Reading Time Taken Comments Blood Pressure 188/108 06/01/2024 1:33 PM EST Not on BP meds, states usually runs a little high. States feels fine Pulse 112 06/01/2024 1:33 PM EST Temperature 36.6 C (97.8 F) 05/28/2023 7:51 AM EST Respiratory Rate 12 05/28/2023 7:51 AM EST Oxygen Saturation 98% 06/01/2024 1:3 3 PM EST Inhaled Oxygen Concentration - - Weight 118 kg (260 lb) 06/01/2024 1:33 PM EST Height 175.3 cm (5' 9 ) 06/01/2024 1:33 PM EST Body Mass Index 38.4 06/01/2024 1:33 PM EST Plan of Treatment Health Maintenance Due Date Last Done Comments [facility]-/Child/Adol SDOH Screenings 1977 [id number] Vaccine (#1) 1982 Diabetes: Dental Exam 09/30/1987 [facility]- SDOH Screenings 09/30/1995 [facility]-Adult SDOH Screenings 09/30/1995 [facility]-DTaP,Tdap,and Td Vaccines (1 - Tdap) 1996 [facility]-Hepatitis A Vaccines (1 of 2 - Risk 2-dose series) 1996 [facility]-Hepatitis B Vaccines (1 of 3 - 19+ 3-dose series) 1996 [facility]-Pneumococcal Vaccine: Pediatrics (0 to 5 Years) and At-Risk Patients (6 to 49 Years) (1 of 2 - PCV) 1996 [facility]-Pap Smear 1998 [facility]-Cervical Cancer Screening 09/30/2007 [facility]-HPV/Cotest 09/30/2007 CT Colonography 2022 Colonoscopy 2022 FIT-DNA 2022 FIT 2022 FOBT 2022 Sigmoidoscopy 2022 [facility]-Colorectal Cancer Screening 2022 [facility]-Diabetes: Hemoglobin A1C 07/17/2023 04/17/2023 [facility]-Influenza Vaccine (Season Ended) 2024 [facility]-Depression Screening 06/01/2025 06/01/2024 [facility]-Zoster Vaccines (1 of 2) 09/30/2027 [facility]-HIV Screening Completed 04/17/2023, 06/27/2022 [facility]-Obesity Intervention Completed 025, 05/31/2023, 05/07/2023, Additional history exists HPV Vaccines Aged Out No longer eligi ble based on patient's age to complete this topic [facility]-HIB Vaccines Aged Out No longer e ligible based on patient's age to complete this topic [facility]-IPV Vaccines Aged Out No longer e ligible based on patient's age to complete this topic [facility]-Rotavirus Vaccines Aged Out No lo nger eligible based on patient's age to complete this topic Procedures Procedure Name Priority Date/Time Associated Diagnosis Comments HIV 1/2 ANTIBODY/ANTIGEN SCREEN WITH REFLEX TO HIV I/II DIFFERENTIATION Routine 04/17/2023 9:07 AM EST HEMOGLOBIN A1C Add-On 04/17/2023 4:09 AM EST from Last 3 Months or Most Recently Relevant to Health Maintenance Results * HIV 1 & 2 Antibody/Antigen Screen (04/17/2023 9:07 AM EST) HIV 1 & 2 Antibody/Antigen Screen Non Reactive Non Reactive 04/17/2023 10:11 AM EST [facility] Comment:Screening for HIV 1 & 2 antibodies, and P24 antigen is NONREACTIVE. No confirmatory testing is required. Blood Venous blood specimen / Unknown Venipuncture / Unknown 04/17/2023 9:07 AM EST 04/17/2023 9:26 AM EST Cesar Brito STITCH BONDING MACHINE TENDER HELPER, DNP LAB BLOOD ORDERABLES Fi nal Result [facility] [address] [place] [id number] * (ABNORMAL) Hemoglobin A1c (04/17/2023 4:09 AM EST) Hemoglobin A1c 16.3(H) <5.7 % 04/20/2023 10:27 AM EST [facility] Comment: Blood Venous blood specimen / Unknown Venipuncture / Unknown 04/17/2023 4:09 AM EST 04/17/2023 4:16 AM EST Narrative [facility] - 04/20/2023 10:27 AM EST HA1C Interpretive Data: Diagnosis of Diabetes: Diabetic > or = 6.5% Pre-diabetic 5.7 to 6.4% Non-diabetic < or = 5.6% Glycemic Targets for Type I and Type II Diabetics: Non- Adults <7.0% Adults <6.0% Children and Adolescents <7.5% Source: [place] [employer]. Standards of medical care in diabetes,2017. Diabetes Care.2017:40 (suppl 1):S1-S135. HbA1c assay performed by an ion-exchange chromatography method that is certified traceable to the DCCT. Bisi Milan APRN LAB BLOOD ORDERABLES Final Re sult [facility] [address] [place] [id number] from Last 3 Months or Most Recently Relevant to Health Maintenance Additional Health Concerns Infection Onset Date Last Indicated MRSA 06/27/2022 04/17/2023 Insurance [employer] [facility] MEDICAID Advance Directives * Full Code (Latest Code Status on File) Date Activated Date Inactivated Comments 05/07/2023 11:55 AM 05/28/2023 3:06 PM Question Answer Comments Patient has decision-making capacity? Yes * DNR/DNI Date Activated Date Inactivated Comments 04/17/2023 7:47 AM 05/07/2023 11:55 AM Question Answer Comments DNR determined on/before admission date? Yes Patient has decision-making capacity? Yes * Full Code Date Activated Date Inactivated Comments 06/27/2022 12:31 AM 07/01/2022 6:32 PM Question Answer Comments Patient has decision-making capacity? Yes Care Teams Air Technician Relationship Specialty Start Date End Date Rosalinda Gonzalez DO [address] [place] [address] [id number] [place] [address] PCP - General 06/28/21 Carie Stoner, [place] [address] Senior Cost Accountant [employer] 04/17/23
[2024-10-07 19:37] VITALS: BP 174/90; PULSE 101; RESP 20; TEMP 36.8; O2SAT 98; BMI 36.9
--- NOTE | 2024-10-07 19:46 | CT_ITS ---
PROCEDURE INFORMATION: Exam: CT Abdomen And Pelvis With Contrast Exam date and time: 10/07/2024 9:34 PM Age: 49 years old Clinical indication: Other: R lateral hip/pelvis pain; Additional info: Severe R lateral hip/pelvis pain, dm hisotry TECHNIQUE: Imaging protocol: Computed tomography of the abdomen and pelvis with contrast. Radiation optimization: All CT scans at this facility use at least one of these dose optimization techniques: automated exposure control; mA and/or kV adjustment per patient size (includes targeted exams where dose is matched to clinical indication); or iterative reconstruction. Contrast material: ISOVUE; Contrast volume: 75 ml; Contrast route: IV; COMPARISON: CT ABDOMEN PELVIS W CON 04/16/2023 9:52 PM FINDINGS: Esophagus: The esophagus is normal. Liver: The liver is normal. Gallbladder and biliary ducts: The gallbladder is normal. Pancreas: Pancreas appears normal. Spleen: Normal. No splenomegaly. Adrenal glands: The adrenal glands appear normal. Kidneys and ureters: The kidneys are normal. Stomach and bowel: Nonspecific bowel gas pattern. No secondary signs of appendicitis. Appendix: See Stomach and bowel finding. Intraperitoneal space: Unremarkable. No free air. No significant fluid collection. Vasculature: Portal vein, splenic vein, SMV are patent. The aorta demonstrates mild atherosclerotic calcification. Visceral arteries are patent. Lymph nodes: No free air or fluid or adenopathy. Urinary bladder: The bladder is normal. Reproductive: Prominent right adnexa measuring 4.4 x 3 cm image 3. The uterus is normal. Bones/joints: Severe right hip osteoarthritis with joint space narrowing subchondral sclerosis and subchondral cyst formation. Disc space narrowing L5-S1 with vacuum disc phenomenon and bilateral L5 pars fractures. Soft tissues: Unremarkable. Other findings: Fluid-filled mildly distended stomachSpleen is normal IMPRESSION: 1. No free air or fluid or adenopathy. 2. Nonspecific bowel gas pattern. No secondary signs of appendicitis. 3. Prominent right adnexa measuring 4.4 x 3 cm image 3/95. Ultrasound may be helpful. 4. Severe right hip osteoarthritis with joint space narrowing subchondral sclerosis and subchondral cyst formation. 5. Disc space narrowing L5-S1 with vacuum disc phenomenon and bilateral L5 pars fractures.
--- NOTE | 2024-10-07 19:49 | HMH.EDGENADL ---
Discharge Plan Disposition Patient Disposition: Home, Self-Care Prescriptions Prescriptions: New methocarbamol 750 mg tablet 1,500 mg PO TID 5 Days Qty: 30 0RF cefdinir 300 mg capsule 300 mg PO BID 7 Days Qty: 14 0RF No Action Farxiga 10 mg tablet 10 mg PO DAILY Qty: 30 2RF atorvastatin [Lipitor] 10 mg tablet 10 mg PO HS Qty: 30 2RF bisoprolol fumarate 5 mg tablet 5 mg PO DAILY Qty: 90 3RF levothyroxine 50 mcg tablet 50 mcg PO DAILY Qty: 30 2RF albuterol sulfate 90 mcg/actuation HFA aerosol inhaler 2 puff inhalation Q6H PRN (Reason: shortness of breath or wheezing) Qty: 8.5 3RF insulin glargine [Lantus Solostar U-100 Insulin] 100 unit/mL (3 mL) insulin pen 40 unit SQ HS insulin lispro [Humalog KwikPen Insulin] 100 unit/mL insulin pen 15 unit SQ TID meloxicam 7.5 mg tablet 7.5 mg PO DAILY Qty: 14 0RF budesonide-formoterol [Symbicort] 160-4.5 mcg/actuation HFA aerosol inhaler 1 inh inhalation BID Qty: 10.2 3RF (DME) blood-glucose meter [OneTouch Verio Meter] Misc See Rx Instructions .ROUTE .MEDSUPPLY Rx Instructions: As directed (DME) OneTouch Verio test strips Strip See Rx Instructions .ROUTE .MEDSUPPLY Rx Instructions: Check Glucose 4 times daily (DME) pen needle, diabetic [Ultra-Thin II Ins Pen [place]] 29 gauge x 1/2 needle See Rx Instructions .ROUTE .MEDSUPPLY Rx Instructions: As directed (DME) lancets [OneTouch Delica Lancets] 33 gauge misc See Rx Instructions .ROUTE .MEDSUPPLY Rx Instructions: Check Glucose 4 times daily fluconazole 150 mg tablet 150 mg PO DAILY Qty: 1 0RF Rx Instructions: administer on day 1 of therapy clotrimazole 1 % cream 1 applic topical BID 7 Days Qty: 30 0RF Referrals Follow up/Referrals: Shana Carrillo PA [Primary Care Provider, Medical] - See instructions Activity Restrictions/Add. Instructions Additional Instructions/Restrictions: Call your family doctor to establish care for this visit to the emergency department and schedule follow-up within 48 hours to ensure improvement. If you have any worsening of your condition or any other concerning signs or symptoms, return to the emergency department or your primary care doctor for further evaluation. Talk to family doctor about vaginal ultrasound in order to evaluate ovaries. Right ovary was a little enlarged, would be helpful to further evaluate. Cefdinir sent to the pharmacy, take this twice daily for 7 days. Take Tylenol 1000 mg every 6 hours (4 times daily) and ibuprofen 400 mg every 6 hours (4 times daily) as needed with food and water to prevent GI upset and kidney damage. Robaxin also sent to pharmacy for muscle relaxation. Generally does not cause fatigue, but can. Robaxin can cause you to feel drowsy. Do not drive, operate heavy machinery, or engage in any activity that may make you tired, fall asleep, and because harm to yourself or others while taking this medication. Clinical Impressions Clinical Impression: Radiculopathy Print Language Print Language: Czech Discharge ED Provider: Bharathi Jones General Adult HPI General Chief complaint: PAIN Stated complaint: pain in rt hip can not get it to stop Time Seen by Provider: 10/07/24 19:32 Mode of Arrival: Wheelchair Source of Information: Patient and Relative Description of Symptoms (Recalled from ER Triage Doc. by RN): patient c/o right hip pain for two days. patient states she has a history of infection in her hip from three years ago and has since had two other episodes of pain like this. Denies any fever. History of Present Illness HPI narrative: Please note that above description of symptoms, in this electronic medical record under categorization of recalled from ER triage doctor by RN are reflective of an initial nursing assessment, however, is not reflective of my full history and physical exam that was personally taken and clarified. Consequentially, this preceding description of symptoms, which may include the patient's categorized chief complaint in the EMR, do not reflect my personal clinical impression, and the ultimate description of history of present illness and patient stated complaints should be deferred to this section of the note. Unless stated otherwise or congruent with this section of the note, additional signs, symptoms, or incongruence should be interpreted as inaccurate with my clinical impression. Related Data Home Medications ?Medication ?Instructions ?Recorded ?Confirmed blood sugar diagnostic (OneTouch 04/10/22 02/28/24 Verio test strips) blood-glucose meter ([place] SelectTouch 04/10/22 02/28/24 Verio Meter) lancets 33 gauge (OneTouch Delica 04/10/22 02/28/24 Lancets) pen needle, diabetic 29 gauge x 04/10/22 02/28/24 1/2 (Ultra-Thin II Insulin Pen [place]) insulin glargine 100 unit/mL (3 40 unit SQ HS Diabetes 03/17/23 02/28/24 mL) subcutaneous pen (Lantus Solostar U-100 Insulin) insulin lispro 100 unit/mL 15 unit SQ TID Diabetes 03/17/23 02/28/24 subcutaneous pen (Humalog KwikPen (U-100) Insulin) Previous Rx's ?Medication ?Instructions ?Recorded albuterol sulfate 90 mcg/actuation 2 puff inhalation Q6H PRN 03/24/23 aerosol inhaler shortness of breath or wheezing #8.5 grams atorvastatin 10 mg tablet (Lipitor) 10 mg PO HS #30 tabs 03/24/23 bisoprolol fumarate 5 mg tablet 5 mg PO DAILY #90 tabs 03/24/23 dapagliflozin propanediol 10 mg 10 mg PO DAILY #30 tabs 03/24/23 tablet (Farxiga) levothyroxine 50 mcg tablet 50 mcg PO DAILY hypothyroid #30 03/24/23 tabs clotrimazole 1 % topical cream 1 applic topical BID 7 days #30 04/06/23 grams fluconazole 150 mg tablet 150 mg PO DAILY 1 dose #1 tab 04/06/23 budesonide-formoterol HFA 160 1 inh inhalation BID Breathing 02/22/24 mcg-4.5 mcg/actuation aerosol problems #10.2 grams inhaler (Symbicort) meloxicam 7.5 mg tablet 7.5 mg PO DAILY #14 tabs 02/22/24 cefdinir 300 mg capsule 300 mg PO BID 7 days #14 caps 10/07/24 methocarbamol 750 mg tablet 1,500 mg (2 x 750 mg) PO TID 5 10/07/24 days #30 tabs Allergies Allergy/AdvReac Type Severity Reaction Status Date / Time levofloxacin (From Levaquin) Allergy Verified 02/28/24 09:59 zolpidem (From Ambien) Allergy Verified 02/28/24 09:59 [facility] Disclaimer: The information contained in this section may have been updated after the patient was seen, as this information can be updated by other users. Medical History Hep C w/o coma, chronic Hypothyroidism History of COVID-19 Asthma PCOS (polycystic ovarian syndrome) Abscess History of gastroesophageal reflux (GERD) Diabetes mellitus, type 2 Diabetes mellitus, type 2 Hypertension Migraine Hypertension Depression Anxiety Asthma Surgical History H/O esophagogastroduodenoscopy History of incision and drainage H/O skin graft No significant past surgical history Family History Father Family history of diabetes mellitus type II Family history of acute congestive heart failure Mother Family history of diabetes mellitus type II Social History Smoking Status: Current every day smoker smoking status start date: 20 years ago years smoked: 20 smoking status stop date: 3 years ago and recently started back alcohol intake: never substance use type: opiates, IV drugs and other details: hard drugs , non specific, according to patient. current occupational status: unemployed Travel in the last 8 weeks?: None Have you lived/traveled outside US in past 30 days?: No Contact w/someone who lives/traveled outside US past 30 days?: No Exposure to someone with infectious disease in past 14 days?: No Do you have a fever (greater than 100.4 F or 38 C)?: No Have you tested positive for COVID-19?: No Exposed to someone with COVID-19 in past 14 days?: No Do you have a sore throat?: No Do you have a cough?: No Do you have any weakness?: No Do you have any diarrhea?: No Are you experiencing any unusual bleeding?: No Do you have any muscle aches/pain?: No Do you have any abdominal pain?: No Are you experiencing loss of taste or smell?: No Other Medical History Have you received the Flu Vaccine for this season: No Have you received the Pneumonia Vaccine: No ROS Obtained: Yes All systems reviewed & no additional complaints except as documented Physical Exam General General appearance: alert and obese Comment: appears uncomfortable Head Head exam: atraumatic and normocephalic Eye Eye exam: Present normal appearance, PERRL and EOMI Neck Neck exam: Present normal inspection, full ROM and trachea midline Respiratory Respiratory exam: Absent respiratory distress, wheezes, stridor, accessory muscle use or prolonged expiratory phase Cardiovascular Cardiovascular exam: Present normal rhythm, tachycardia and other (Pulses equal symmetric in upper and lower extremities) Abdominal Exam Abdominal exam: Present soft; Absent distention, tenderness or pulsatile mass Extremities Exam Extremities exam: Present tenderness (with rom R hip and pressure overlying his greater trochanter. no overlying erythema or outward abnormality); Absent edema Neurological Exam Neurological exam: Present alert, oriented X3 and CN II-XII intact; Absent motor sensory deficit Skin Skin exam: Present warm and dry; Absent diaphoresis or erythema Medical Decision Making Medical Records Medical records reviewed: Yes I reviewed the patient's medical records. Screening: Per USPSTF and CDC recommendations, given the prevalence of disease in our region, it is our hospital?s policy to screen for HIV and viral Hepatitis for all patients aged 18 and over and those with ongoing risk factors. [place] Inquiry Pt receiving controlled substance: No [place] was queried for this patient: No Vital Signs: 10/07/24 19:37 10/07/24 20:01 10/07/24 20:17 Temperature 98.3 F Temperature Source Oral Pulse Rate 87 63 Pulse Rate [Left] 101 H Respiratory Rate 20 Blood Pressure 147/62 H Blood Pressure [Right Arm] 174/90 H Blood Pressure Mean [Right Arm] 118 Blood Pressure Source [Right Arm] Automatic Cuff Blood Pressure Position [Right Arm] Sitting 02 Sat by Pulse Oximetry 98 93 L 84 L Oxygen Delivery Method Room Air 10/07/24 20:40 10/07/24 21:00 Temperature Temperature Source Pulse Rate 82 70 Pulse Rate [Left] Respiratory Rate Blood Pressure 161/77 H 133/57 L Blood Pressure [Right Arm] Blood Pressure Mean [Right Arm] Blood Pressure Source [Right Arm] Blood Pressure Position [Right Arm] 02 Sat by Pulse Oximetry 94 L 95 Oxygen Delivery Method Lab Data Lab Results 10/07/24 20:30: WBC 12.0 H, RBC 4.07 L, Hgb 11.5 L, Hct 34.6 L, MCV 85.0, MCH 28.3, MCHC 33.2, RDW 12.5, Plt Count 359, MPV 10.6 H, Neut % (Auto) 64.5, Lymph % (Auto) 23.8, [place] % (Auto) 7.4, Eos % (Auto) 3.6, Baso % (Auto) 0.4, Neut # (Auto) 7.7, Lymph # (Auto) 2.9, [place] # (Auto) 0.9, Eos # (Auto) 0.4, Baso # (Auto) 0.1, ESR 23 H, Sodium 135 L, Potassium 4.0, Chloride 108 H, Carbon Dioxide 23, Anion Gap 8.0, BUN 32 H, Creatinine 1.30 H, Estimated Creat Clear 96, Estimated GFR 44 L, Est GFR ( Amer) 53 L, Glucose 231 H, Calcium 9.2, Total Bilirubin 0.4, AST 40 H, ALT 66, Alkaline Phosphatase 106, C-Reactive Protein 12.5 H, Total Protein 7.0, Albumin 3.7, Globulin 3.3 H, Albumin/Globulin Ratio 1.1, Serum HCG, Qual Negative 10/07/24 21:31: Urine Color Yellow, Urine Appearance Clear, Urine pH 6.0, Ur Specific [place] 1.025, Urine Protein Trace, Urine Glucose (UA) 2+, Urine Ketones Negative, Urine Blood Negative, Urine Nitrate Positive A, Urine Bilirubin Negative, Urine Urobilinogen 0.2, Ur Leukocyte Esterase Negative, Urine RBC None, Urine WBC 20-50, Ur Squamous Epith Cells 5-10, Urine Bacteria 4+, Hyaline Casts Occ 10/07/24 20:30 10/07/24 20:30 Orders (Tests/Meds): ED MEDICATIONS Generic Name Dose Route Start Last Admin Trade Name Freq PRN Reason Stop Dose Admin Sodium Chloride 10 ml 10/07/24 21:33 10/07/24 21:34 Sodium Chloride 0.9% 10ml Syr (Rad Only) IV 11/06/24 21:32 10 ml NEEDED PRN Administration Maintain IV Site Discontinued Medications Generic Name Dose Route Start Last Admin Trade Name Freq PRN Reason Stop Dose Admin Cefdinir 300 mg 10/07/24 21:52 10/07/24 22:03 Cefdinir 300mg Capsule PO 10/07/24 21:53 300 mg ONCE ONE Administration Dexamethasone Sodium Phosphate 10 mg 10/07/24 19:46 10/07/24 20:28 Dexamethasone 4mg/Ml 1ml Vial IV 10/07/24 19:47 10 mg ONCE ONE Administration Lactated Ringer's 1,000 mls @ 999 mls/hr 10/07/24 21:07 10/07/24 21:39 Lactated Ringer's 1000 Ml Bag IV 10/07/24 22:07 999 mls/hr .Q1H1M ONE Administration Iopamidol 75 ml 10/07/24 21:33 10/07/24 21:34 Iopamidol-370 (76%);100ml Bottle IV 10/07/24 21:34 75 ml ONCE ONE Administration Ketorolac Tromethamine 15 mg 10/07/24 19:46 10/07/24 20:29 Ketorolac 30mg/Ml Vial IV 10/07/24 19:47 15 mg ONCE ONE Administration Methocarbamol 1,500 mg 10/07/24 19:46 10/07/24 20:28 Methocarbamol 500mg Tablet PO 10/07/24 19:47 1,500 mg ONCE ONE Administration Morphine Sulfate 4 mg 10/07/24 19:46 10/07/24 20:29 Morphine 4mg/Ml Syringe IV 10/07/24 19:47 4 mg ONCE ONE Administration Ondansetron HCl 4 mg 10/07/24 19:46 10/07/24 20:29 Ondansetron 4mg/2ml Vial IV 10/07/24 19:47 4 mg ONCE ONE Administration ORDERS Category Date Time Status CT abdomen pelvis w con Stat Cat Scan 10/07/24 19:46 Completed CBC w/Auto Diff [Complete Blood Count Auto Diff] Stat Lab 10/07/24 20:30 Completed CMP [Comprehensive Metabolic Panel] Stat Lab 10/07/24 20:30 Completed CRP [C-Reactive Protein] Stat Lab 10/07/24 20:30 Completed ESR [Erythrocyte Sedimentation Rate] Stat Lab 10/07/24 20:30 Completed HCG Qualitative, Serum Stat Lab 10/07/24 20:30 Completed UA [Urinalysis and Microscopic] Stat Lab 10/07/24 21:31 Completed Urine Culture Stat Micro 10/07/24 21:31 Received Medical Decision Narrative: 49-year-old female presenting with right hip pain. She states that 3 years ago she started having pain in her hip that was similar. At that time, had extensive workup, was found to have what sounds like osteomyelitis in her right hip joint. Was on a little over a month of IV antibiotics at outside hospital, [facility]. Has had flareups, since that time, this 1 started 3 days ago. No fevers or chills, both of which she had during her previous episodes. Progressive, mostly lateral hip and she is able to put pressure on it where it hurts most. Some true groin fold pain. No bowel or bladder dysfunction, back pain, nausea or vomiting, but pain is significant made worse with movement. History was obtained via conversation with patient and family. On arrival, patient hemodynamically stable, alert, oriented x4, appropriate, GCS 15, moving all extremities spontaneously, pupils equal and reactive to light. Full physical exam performed and significant for uncomfortable appearing female no acute distress. She is holding her right hip. States that the pain radiates from her right buttock down to the back of her right foot. Minimal tenderness in true hip joint with maximal application of pressure. Some tenderness laterally over the greater trochanter. No outward signs of abnormality. Neurovascularly intact right lower extremity. Differential includes sciatic nerve pain, radiculopathy versus radiculitis, nephrolithiasis, , topic , psoas abscess, pyelonephritis, appendicitis, less likely to be septic joint given no systemic signs or symptoms and able to range hip/still bearing weight, no outward signs of abnormality and no/minimal true groin pain among others. Patient placed on continuous cardiac monitoring and continuous pulse ox with initial blood pressure 174/90, heart rate 101, saturation 98% on room air. Labs initiated, imaging initiated. Patient was given Toradol, dexamethasone, Robaxin, morphine. Independent interpretation of workup with mild leukocytosis 12.0. Patient's ESR and CRP only mildly elevated. Patient does have an ROBLES with creatinine of 1.3, which is new. negative, urinalysis without concern for potential pyelonephritis with nitrates, protein, leukocytes. She was given oral cefdinir for this. On independent interpretation of CT scan, no obvious abnormality about the abdomen or pelvis. She does have ureteral inflammation on the right. No obvious perinephric fat stranding. No obvious stone. I also do not appreciate any intra-abdominal or intramuscular abscesses. On reevaluation, patient states she is feeling much, much better after medications. Ranging hip, sitting up in bed,, sitting normally. Given patient presentation, workup, history, this most likely represents sciatic radiculopathy. Because patient at baseline without signs or symptoms of clinical decompensation, deemed appropriate for discharge. Results were relayed to patient who voiced understanding and were agreeable to outpatient management and follow up. I discussed my clinical impression with patient and answered all questions. At this time, the evidence for any other entities in the differential is insufficient to warrant any further testing or ED observation. This was explained as well. Advisory was given that persistent or worsening symptoms require further evaluation. I confirmed the understanding of this discussion. Bowling Pin Setters Installer disclaimer Much of this encounter note is an electronic putter in spoken language to printed text. Electronic putter in of the spoken language may permit errors. Although I have reviewed the note, some errors may still exist. Critical Care Critical Care Time Critical Care Time: No
[2024-10-07 20:01] VITALS: BP 147/62; PULSE 87; O2SAT 93
[2024-10-07 20:17] VITALS: PULSE 63; O2SAT 84
[2024-10-07] MEDS: DEXAMETHASONE 4MG/ML 1ML VIAL 10 MG IV (20:28)
[2024-10-07] MEDS: METHOCARBAMOL 500MG TABLET 1500 MG PO (20:28)
[2024-10-07] MEDS: ONDANSETRON 4MG/2ML VIAL 4 MG IV (20:29)
[2024-10-07] MEDS: MORPHINE 4MG/ML SYRINGE 4 MG IV (20:29)
[2024-10-07] MEDS: KETOROLAC 30MG/ML VIAL 15 MG IV (20:29)
[2024-10-07 20:40] VITALS: BP 161/77; PULSE 82; O2SAT 94
[2024-10-07 20:45] LABS: Basophils # 0.1 K/mm3 (0-0.2); Basophils % 0.4 % (0.1-2.0); Eosinophils # 0.4 Kmm3 (0.0-0.4); Eosinophils % 3.6 % (0.1-12.0); Hematocrit 34.6 % (37.0-47.0); Hemoglobin 11.5 g/dL (12.2-16.2); Immature Granulocytes # 0.04 10^3uL; Immature Granulocytes % 0.3 %; Lymphocytes # 2.9 K/mm3 (0.7-4.5); Lymphocytes % 23.8 % (10-50); Mean Corpuscular HGB Conc 33.2 g/dL (31.8-35.4); Mean Corpuscular Hemoglobin 28.3 pg (27.0-31.2); Mean Platelet Volume 10.6 fl (7.4-10.4); Monocytes # 0.9 K/mm3 (0.1-1.0); Monocytes % 7.4 % (1.7-9.3); Neutrophils # 7.7 K/mm3 (1.8-7.8); Neutrophils % 64.5 % (37.0-80.0); Nucleated Red Blood Cells # 0 10^3/uL; Nucleated Red Blood Cells % 0 %; Platelet Count 359 K/mm3 (142-424); Red Blood Count 4.07 M/mm3 (4.20-5.40); Red Cell Distribution Width 12.5 % (11.5-17.5); Red Cell Distribution Width-SD 38.5 fL
[2024-10-07 20:55] LABS: Alanine Aminotransferase 66 U/L (12-78); Albumin Level 3.7 g/dl (3.5-5.0); Albumin/Globulin Ratio 1.1 (1.1-1.8); Alkaline Phosphatase 106 U/L (38-126); Aspartate Amino Transferase 40 U/L (14-36); Bilirubin,Total 0.4 mg/dl (0.2-1.3); Blood Urea Nitrogen 32 mg/dl (7-17); Calcium 9.2 mg/dl (8.4-10.2); Carbon Dioxide 23 mmol/L (22.0-30.0); Chloride 108 mmol/L (98-107); Creatinine Clearance Estimated 96 mL/min (50-200); Estimated Glomerular Filt Rate 44 ml/min (>60); GFR (African American) 53 ML/MIN (>60); Globulin 3.3 g/dL (1.3-3.2); Glucose 231 mg/dl (74-100); Sodium 135 mmol/L (136-145)
[2024-10-07 21:00] VITALS: BP 133/57; PULSE 70; O2SAT 95
[2024-10-07 21:00] LABS: C-Reactive Protein 12.5 mg/L (0-4)
[2024-10-07 21:05] LABS: HCG Qualitative, Serum Negative (Negative)
--- NOTE | 2024-10-07 21:33 | PC.NURSE ---
assisted pt to the restroom by wheelchair.
[2024-10-07] MEDS: SODIUM CHLORIDE 0.9% 10ML SYR (RAD ONLY) 10 ML IV (21:34)
[2024-10-07] MEDS: IOPAMIDOL-370 (76%);100ML BOTTLE 75 ML IV (21:34)
[2024-10-07 21:35] LABS: Microscopic, Urine URINE MICROSCOPIC (MICROSCOPIC)
[2024-10-07 21:39] LABS: Erythrocyte Sedimentation Rate 23 mm/hr (0-20)
[2024-10-07] MEDS: LACTATED RINGERS 1000ML 1,000 ML 999 ML IV (21:39)
[2024-10-07 21:45] LABS: Appearance,Urine CLEAR (Clear); Bilirubin,Urine Negative (Negative); Blood, Urine Negative (Negative); Color,Urine YELLOW (Yellow); Glucose,Urine (UA) 2+ (Negative); Ketones,Urine Negative (Negative); Leukocyte Esterase,Urine Negative (Negative); Nitrate,Urine POSITIVE (Negative); Protein,Urine TRACE (Negative); Specific Gravity, Urine 1.025 (1.005-1.030); Urobilinogen,Urine 0.2 EU/dl (0.2)
[2024-10-07 21:56] LABS: Bacteria,Urine 4+ /lpf; Hyaline Casts,Urine OCC #/lpf (0); WBC,Urine 20-50 #/hpf (0-3)
[2024-10-07] MEDS: CEFDINIR 300MG CAPSULE 300 MG PO (22:03)
[2024-10-07 23:54] VITALS: BP 127/59; PULSE 98; RESP 20; TEMP 36.6; O2SAT 98
--- NOTE | 2024-10-07 23:55 | PC.NURSE ---
IV discontinued. Catheter tip intact. Bleeding controlled.
--- NOTE | 2024-10-08 08:49 | PC.NURSE ---
Urine culture reviewed by Dr. Smith, no new orders received at this time.
== END 2024-10-07 23:55 | disposition home or self-care (01) ==
PROVIDERS: Physician Assistant; Emergency Provider Emergency Medicine; PCP Physician Assistant
DX: M54.18 Radiculopathy, sacral and sacrococcygeal region (principal); M25.551 Pain in right hip; F17.210 Nicotine dependence, cigarettes, uncomplicated
CPT/HCPCS: 74177; 80053; 81001; 84703; 85025; 85651; 86140; 87086; 87088; 87186; 96361; 96374; 96375; 99285; J1100; J1885; J2270; J2405; J7120; Q9967

== ENCOUNTER 2024-10-19 10:04 | Outpatient (CLI) | payer MEDICAID, SELFPAY ==
--- NOTE | 2024-10-19 10:08 | MM_ITS ---
PROCEDURE INFORMATION: Exam: MG Bilateral Screening 3D Mammography Exam date and time: 10/19/2024 10:18 AM Age: 49 years old Clinical indication: Screening exam. TECHNIQUE: Imaging protocol: Bilateral Screening tomosynthesis and 2D mammography including computer-aided detection (CAD) when performed. COMPARISON: No relevant prior studies available. FINDINGS: MAMMOGRAPHY: Breast composition: There are scattered areas of fibroglandular density. Mass: 0.5 cm low-density circum mass central right breast middle depth. Architectural distortion: None. Calcifications: No suspicious calcifications. Asymmetric density: None. Skin thickening: None. Axillary adenopathy: None. IMPRESSION: Subcentimeter right breast mass. Recommend further evaluation with right breast ultrasound. ASSESSMENT: BI-RADS Category 0: Incomplete- Need Additional Imaging Evaluation.
--- OUTSIDE RECORDS SUMMARY | 2024-10-19 10:09 | XMS_ITS | Clinical Summary ---
Author Organization [facility] Address [address] [place] [address] Care Team Providers Care Substance Abuse Counselor Name Role Phone Lisa Rosalinda Drummond DO Primary Care Provider [phone] Allergies Active Allergy Reactions Criticality Noted Date [...] each 11 4 Active Continuous Blood Gluc Global Clinical Leader (Dexcom G6 envelope sealer operator) device Use as instructed 1 each 4 [...] Date Diagnosed Date Resolved Date Candidal vulvovaginitis 04/17/2023/2 06/2022 Constipation 04/17/2023 04/17/2023 COVID-19 virus infection [...] Date Smoking Tobacco: Every Day Cigarettes 0.3 30.5 Started: 1994 Passive Smoke Exposure: Current Smokeless [...] drink first t perez in the morning (E[employer]OURNEY[employer] M[employer]IGHT) to steady your nerves or to get [...] Health Maintenance Due Date Last Done Comments [facility]-Infant/Child/Adol SDOH Screenings 1977 [id number] Vaccine (#1) 1982 Diabetes: Dental Exam 09/30/1987 [...] Reactive Non Reactive 04/17/2023 10:11 AM EST [facility] Comment:Screening for HIV 1 & 2 antibodies, and P24 antigen is NONREACTIVE. No confirmatory testing is required. Blood Venous blood specimen / Unknown Venipuncture / Unknown 04/17/2023 9:07 AM EST 04/17/2023 9:26 AM EST Cesar Brito HOME ORGANIZER, DNP LAB BLOOD ORDERABLES Fi nal Result [facility] [address] [place] [address] * (ABNORMAL) Hemoglobin A1c (04/17/2023 4:09 AM [...] Adults <6.0% Children and Adolescents <7.5% Source: [place] [employer]. Standards of medical care in diabetes,2017. Diabetes Care.2017:40 (suppl 1):S1-S135. HbA1c assay performed by an ion-exchange chromatography method that is certified traceable to the DCCT. Bisi Milan APRN LAB BLOOD ORDERABLES Final Re sult [facility] [address] [place] [address] from Last 3 Months or Most Recently Relevant to Health Maintenance Additional Health Concerns Infection Onset Date Last Indicated MRSA 06/27/2022 04/17/2023 Insurance [employer] MEDICAID Advance Directives * Full Code (Latest [...] Patient has decision-making capacity? Yes Care Teams Substance Abuse Counselor Relationship Specialty Start Date End Date Rosalinda Gonzalez DO [address] [place] [address] [address] [place] [address] PCP - General 06/28/21
--- OUTSIDE RECORDS SUMMARY | 2024-10-19 10:09 | XMS_ITS ---
Author Organization [facility] Address [address] [place] [address] Care Team Providers Care Maintenance Shop Clerk Name Role Phone Rosalinda Gonzalez DO Primary Care Provider [phone] Hepatitis C Program Status:Active (Active) Start date:04/17/2023 Enrollment date:04/17/2023 Enrollment reason:HCV Continued Care and Services Coordination
== END 2024-10-19 23:59 | disposition home or self-care (01) ==
LOC: RAD 10:05
PROVIDERS: PCP Physician Assistant; Visit Provider Physician Assistant
DX: Z12.31 Encounter for screening mammogram for malignant neoplasm of breast (principal); N63.10 Unspecified lump in the right breast, unspecified quadrant; R92.323 Mammographic fibroglandular density, bilateral breasts
CPT/HCPCS: 77063; 77067

== ENCOUNTER 2025-02-09 03:42 | Emergency (ER) | payer MEDICAID, SELFPAY ==
--- OUTSIDE RECORDS SUMMARY | 2024-12-13 13:00 | XMS_ITS | Encounter Summary ---
Author Organization Healthcare Address [address] [place] [address] Care Team Providers Care Cabinet Maker Name Role Phone Samson Carrilloie Melvin VAUGHAN Primary Care Provider [phone] Reason for Visit * Reason Comments Injections * Other Medical (Routine) - Closed Specialty Diagnoses / Procedures Referred By Harinder holliday Referred To Contact Pain Medicine Diagnoses Pain in right hip Procedures Other Procedure Dov Coleman MD [address] [place] [address] Phone: tel: fax: [facility] Interventional Pain Medicine [address] [place] [address] Phone: tel: fax: Referral ID Status Reason Start Date Expiration Date Visits Re quested Visits Authorized [id number] Closed 11/28/2024 05/30/2026 1 1 Encounter Details Date Type Department Care Team (Late st Contact Info) Description 12/13/2024 1:00 PM EDT Procedure Visit Interventional Pain Medicine [address] [place] [address] Dov Coleman MD [address] [place] [address] Pain in right hip Social History Tobacco Use Types Packs/Day Years Used Date Smoking Tobacco: Every Day Cigarettes 0.3 30.8 Started: 1994 Passive Smoke Exposure: Current Smokeless [...] drink first t perez in the morning ([employer]) to steady your nerves or to get rid of a hangover? 0 04/18/2023 CAGE Questionnaire Score 0 023 Comments No Sex and Gender Information Value Date Recorded Sex Assigned at Not on file Legal Sex Female 8:16 PM EDT Gender Identity Not on file Sexual Orientation Not on file documented as of this encounter Last Filed Vital Signs Vital Sign Reading Time Taken Comments Blood Pressure 153/84 12/13/2024 2:12 PM EDT Pulse 98 12/13/2024 2:12 PM EDT Temperature 36.7 C (98.1 F) 12/13/2024 12:59 PM EDT Respiratory Rate 18 12/13/2024 2:12 PM EDT Oxygen Saturation 96% 12/13/2024 2:12 PM EDT Inhaled Oxygen Concentration - - Weight 116 kg (256 lb) 12/13/2024 12:59 PM EDT Height 175.3 cm (5' 9 ) 12/13/2024 12:59 PM EDT Body Mass Index 37.8 12/13/2024 12:59 PM EDT documented in this encounter Miscellaneous Notes * Clinician Note - Candace Ladd RN - 12/13/2024 1:00 PM EDTAssociated Order(s): Interventional Pain Nurse Procedure Protocol Interventional Pain Nurse Procedure Protocol Documentation: Indications: Documentation supporting primary procedure completed by : Candace Ladd RN See the provider procedure note for performed procedure details and findings. Pre-Procedure Checklist: Currently taking anticoagulant(s)?: no NPO since:: 12/12/2024 5:00 PM Visual Merchandising Specialist present?: yes Procedure details: Moderate conscious sedation used?: yes Sedation details (see MAR for exact dosages): Preoxygenation: Nasal cannula Sedation: Midazolam Analgesia: Fentanyl Intra-procedure monitoring: Frequent LOC assessments, frequent vital sign checks, continuous pulse oximetry and blood pressure monitoring Intra-procedure management: Supplemental oxygen Post-procedure details: Orientation at discharge?: Normal to time, normal to place, normal to person, normal to situation and completely oriented Mood and Affect normal?: yes Discharged to: home Mode of exit: Walked (to [employer] at 2:30 PM) Post-sedation assessments completed and reviewed: nausea/vomiting and pain level Patient is stable for discharge or admission: yes Procedure completion: Tolerated * Clinician Note - Bebe Cole RN - 12/13/2024 1:00 PM EDTAssociated Order(s): Interventional Pain Nurse Procedure Protocol Interventional Pain Nurse Procedure Protocol Documentation: Indications: Documentation supporting primary procedure completed by : Dov Coleman MD See the provider procedure note for performed procedure details and findings. Pre-Procedure Checklist: Currently taking anticoagulant(s)?: no Visual Merchandising Specialist present?: yes Additional Pre-Procedure Comments: Time out @ 1352 IV infiltrated and unable to be used Procedure details: Procedure start time:: 12/13/2024 1:57 PM Procedure end time:: 12/13/2024 2:12 PM Guidance used (if applicable): fluoro and ultrasound guidance Total amount of contrast dye (mGy): 7.38 Fluoro time: 21.9 seconds Moderate conscious sedation used?: no Post-procedure details: Orientation at discharge?: Normal to time, normal to place, normal to person, normal to situation and completely oriented Mood and Affect normal?: yes Discharged to: home Mode of exit: Walked Attendance: Constant attendance by certified staff until patient recovered Recovery: Patient returned to pre-procedure baseline Estimated blood loss (see I/O flowsheets): no Specimens recovered: None Patient is stable for discharge or admission: yes Procedure completion: Tolerated well, no immediate complications * Progress Notes - Sukumar Baird DO - 12/13/2024 1:00 PM EDTAssociated Order(s): Other Procedure Pre-Procedure Diagnose(s): Pain in right hip Post-Procedure Diagnose(s): Pain in right hip Patient ID: Lenny Valladares is a 49 y.o. female. Encounter Diagnosis Name Primary? Pain in right hip Other Procedure Performed by: Sukumar Baird DO Authorized by: Dov Coleman MD Supervision: Attending Supervision?: yes Procedure(s): Right Radiofrequency ablation of the hip (anterior femoral and obturator nerves) Anesthesia: local only Complications: none Follow-up Plan: Clinic follow up as scheduled Procedure: This patient was seen earlier for a comprehensive evaluation of their painful condition.After discussing treatment options, the patient elected to proceed with hip RFA at the above side(s). Written, informed consent was obtained before the start of the procedure. The patient's history of present illness, past medical history (including current medications and allergies), and physical examination were reviewed with the patient immediately before the procedure, and it was confirmed directly with the patient that they desired to proceed. The patient was transported to the operating room and was placed in the supine position with pressure points padded. A time out was performed, confirming the patient's identification, allergy status,the side(s) of the procedure, and the procedure(s) to be performed. All operators were wearing hats, masks and sterile gloves. The patient underwent ChloraPrep skin prep followed by sterile drape. The needle insertion site for the injection(s) was identified by fluoroscopy and marked. A 27g 1.5 inch needle was used to anesthetize the skin with 1% lidocaine. Under fluoroscopic guidance, a 20g RFA needles were advanced until the tip entered into the hip joint stopping at the upper outer quadrant of the acetabulum for the anterior femoral and the lower outer quadrant for the obturator nerve. Appropriate positioning of the needle tip was confirmed by fluoroscopy in the anterior-posterior view. Next, sensory testing was performed that reproduced patients pain, following this motor stimualtion was performed at 2mA at 2Hz without stimualtion of lower extremitity musculature. Next a solution containing 2mL of 1% lidocaine, 2mL 0.25% bupivacaine and 10 mg dexamethasone total was injected and RFA was performed and a temperature of 40C for 120 seconds. The needle was then removed. Following completion of the procedure, the patient ambulated to the PACU, then was later dischargedin stable condition. Cosigned by Dov Coleman MD at 12/13/2024 2:36 PM EDT Associated attestation - Dov Coleman MD - 12/13/2024 2:36 PM EDT I was present for the entirety of the procedure(s). documented in this encounter Plan of Treatment Not on file documented as of this encounter Procedures Procedure Name Priority Date/Time Associated Diagnosis Comments IVP NURSE PROCEDURE PROTOCOL Routine 12/13/2024 1:00 PM EDT IVP NURSE PROCEDURE PROTOCOL Routine 12/13/2024 1:00 PM EDT GENERAL Routine 12/13/2024 1:00 PM EDT Pain in right hip documented in this encounter Results * Interventional Pain Nurse Procedure Protocol (12/13/2024 1:00 PM EDT) Narrative Bebe Cole RN - 12/13/2024 1:00 PM EDT Bebe Cole RN 12/13/2024 2:50 PM Interventional Pain Nurse Procedure Protocol Documentation: Indications: Documentation supporting primary procedure completed by : Dov Coleman MD See the provider procedure note for performed procedure details and findings. Pre-Procedure Checklist: Currently taking anticoagulant(s)?: no Visual Merchandising Specialist present?: yes Additional Pre-Procedure Comments: Time out @ 1352 IV infiltrated and unable to be used Procedure details: Procedure start time:: 12/13/2024 1:57 PM Procedure end time:: 12/13/2024 2:12 PM Guidance used (if applicable): fluoro and ultrasound guidance Total amount of contrast dye (mGy): 7.38 Fluoro time: 21.9 seconds Moderate conscious sedation used?: no Post-procedure details: Orientation at discharge?: Normal to time, normal to place, normal to person, normal to situation and completely oriented Mood and Affect normal?: yes Discharged to: home Mode of exit: Walked Attendance: Constant attendance by certified staff until patient recovered Recovery: Patient returned to pre-procedure baseline Estimated blood loss (see I/O flowsheets): no Specimens recovered: None Patient is stable for discharge or admission: yes Procedure completion: Tolerated well, no immediate complications us Dov Coleman MD IN CLINIC/BEDSIDE ORDERABLES Fi nal Result * Interventional Pain Nurse Procedure Protocol (12/13/2024 1:00 PM EDT) Narrative Candace Ladd RN - 12/13/2024 1:00 PM EDT Candace Ladd RN 12/13/2024 2:50 PM Interventional Pain Nurse Procedure Protocol Documentation: Indications: Documentation supporting primary procedure completed by : Candace Ladd RN See the provider procedure note for performed procedure details and findings. Pre-Procedure Checklist: Currently taking anticoagulant(s)?: no NPO since:: 12/12/2024 5:00 PM Visual Merchandising Specialist present?: yes Procedure details: Moderate conscious sedation used?: yes Sedation details (see MAR for exact dosages): Preoxygenation: Nasal cannula Sedation: Midazolam Analgesia: Fentanyl Intra-procedure monitoring: Frequent LOC assessments, frequent vital sign checks, continuous pulse oximetry and blood pressure monitoring Intra-procedure management: Supplemental oxygen Post-procedure details: Orientation at discharge?: Normal to time, normal to place, normal to person, normal to situation and completely oriented Mood and Affect normal?: yes Discharged to: home Mode of exit: Walked (to [employer] at 2:30 PM) Post-sedation assessments completed and reviewed: nausea/vomiting and pain level Patient is stable for discharge or admission: yes Procedure completion: Tolerated us Dov Coleman MD IN CLINIC/BEDSIDE ORDERABLES Fi nal Result * GENERAL (12/13/2024 1:00 PM EDT) Narrative Dov Coleman MD - 12/13/2024 1:00 PM EDT Dov Coleman MD 12/13/2024 2:36 PM Other Procedure Performed by: Sukumar Baird DO Authorized by: Dov Coleman MD Supervision: Attending Supervision?: yes us Dov Coleman MD IN CLINIC/BEDSIDE ORDERABLES Fi nal Result documented in this encounter Visit Diagnoses Diagnosis Pain in right hip documented in this encounter Administered Medications Inactive Administered Medications - up to 3 most recent administrations Medication Order MAR Action Action Date Dose Rate Site bupivacaine PF (Marcaine) 0.25 % injection 25 mg 25 mg (10 mL), Injection, Once, 1 dose, On Wed12/13/24 at 1430, RoutineIndications:Pain in right hip Given by Other 12/13/2024 2:00 PM EDT 25 mg lidocaine (Xylocaine) 1 % injection 30 mL 30 mL, Injection, Once, 1 dose, On Wed12/13/24 at 1430, RoutineIndications:Pain in right hip Given by Other 12/13/2024 2:00 PM EDT 30 mL documented in this encounter Additional Health Concerns Infection Onset Date Last Indicated Resolved Time 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
--- OUTSIDE RECORDS SUMMARY | 2025-02-09 03:51 | XMS_ITS | Data Portability ---
Author Organization [place] [employer] [facility] Address [address] [place] [address] Assessment No assessment recorded. Plan of Treatment Reminders Order Date Submit Date Provider Last Modified By Organization Details Last Modified Time Details Appointments None recorded. Lab urinalysis, dipstick [email or web address], [address] [place], [address], 5 17:16:03 HbA1c (hemoglobin A1c), blood [address], [facility] [place], [address], 5 17:05:00 microalbumi n/creatinin e, mass ratio, urine 2024 025 [facility], [address] [place], [address], 5 17:12:38 Referral dining room supervisor referral 2024 025 jo ann Pavon DPM, [address], [address], 5 11:27:50 gynecologis t referral 2024 025 MEHNAZ Keke R Canan DO, [address], [address], [place], [address], 5 02:11:10 orthopedic surgeon referral 2024 025 MEHNAZ Amin MD, [address], [address], [place], [address], 5 11:20:29 Procedures None recorded. Surgeries None recorded. Imaging MAMMO, screening, bilateral 2024 025 [facility] (Scheduling), [address], [place], [address], 5 09:58:22 US, transvagina l 2024 025 [email or web address] [facility], [address] [place] [address], [address], [place], [address], 5 13:17:01 Medication Orders methocarbam ol 750 mg tablet 2024 025 [facility] #[id number], [address] [place], [id number], 5 17:21:09 Farxiga 10 mg tablet 2024 025 [facility] #91030, [address], [place], [id number], 5 17:21:05 Lantus Solostar U-100 Insulin 100 unit/mL (3 mL) subcutaneou s pen 2024 025 [facility] #21853, [address], [place], [id number], 5 17:21:02 Mounjaro 2.5 mg/0.5 mL subcutaneou s pen injector 2024 025 [facility] #65407, [address], [place], [id number], 5 17:21:06 varenicline tartrate 0.5 mg (11)-1 mg (42) tablets in a dose pack 2024 025 [facility] #01678, [address], [place], [id number], 5 17:19:27 methocarbam ol 750 mg tablet 2024 025 [facility], [address] [facility], [place], [address], 5 17:05:06 Cymbalta 30 mg capsule,del ayed release 2024 025 [facility] #09866, [address], [place], [id number], 5 17:05:22 Farxiga 10 mg tablet 2024 025 [email or web address] [facility] #11258, [address], [id number], 5 09:56:38 Lantus Solostar U-100 Insulin 100 unit/mL (3 mL) subcutaneou s pen 2024 025 [facility] #96890, [address], [id number], 5 17:05:29 Patient TargetsNo targets recorded. Patient Instructions Encounter Date Encounter Id Patient Instructions Last Modified By Organization Details Last Modified Time 10/12/2024 [id number] mammogram: about this test [email or web address] Not available 10/12/2024 16:54:59 learning about mood disorders [email or web address] Not available 10/12/2024 17:05:00 11/10/2024 [id number] hepatitis C: car e instructions [email or web address] Not available 11/10/2024 17:32:22 Reason for Referral Timber Cutter Referral for Gy necologic examination Referring Physician: Shana Carrillo [facility], Encounter Date: 10/12/2024 Orthopedic Surgeon Referral for Osteoarthritis of right hip joint Referring Physician: Shana Carrillo [facility], Encounter Date: 10/12/2024 Pairing Machine Operator Referral for Wood splinter in heel Referring Physician: Shana Carrillo [facility], Encounter Date: 11/10/2024 Results Created Date Observation Date Name Description Value Unit Range Abnormal Flag Note LastModifiedBy Organization Detail LastModifiedTime 10/13/1910/12/2024 urina lysis , dipst ick Leukocytes Negati ve Not Available [address], [address], 10/12/2024 17:13:02 10/13/19 25 10/12/2024 urina lysis , dipst ick Nitrite negati ve Not Available [address], [address], 10/12/2024 17:13:02 10/13/19 25 10/12/2024 urina lysis , dipst ick Urobilinogen .2 Not Available [address], [address], 10/12/2024 17:13:02 10/13/19 25 10/12/2024 urina lysis , dipst ick Protein 300 Not Available [address], [address], 10/12/2024 17:13:02 10/13/19 25 10/12/2024 urina lysis , dipst ick pH 6.5 Not Available [address], [place], [address], 10/12/2024 17:13:02 10/13/19 25 10/12/2024 urina lysis , dipst ick Blood Small Not Available [address], [place], [address], 10/12/2024 17:13:02 10/13/19 25 10/12/2024 urina lysis , dipst ick Specific [place] 1.025 Not Available [address], [place], [address], 10/12/2024 17:13:02 10/13/19 25 10/12/2024 urina lysis , dipst ick Ketone Negati ve Not Available [address], [place], [address], 10/12/2024 17:13:02 10/13/19 25 10/12/2024 urina lysis , dipst ick Bilirubin Negati ve Not Available [address], [place], [address], 10/12/2024 17:13:02 10/13/19 25 10/12/2024 urina lysis , dipst ick Glucose 100 Not Available [address], [place], [address], 10/12/2024 17:13:02 10/13/19 25 10/12/2024 urina lysis , dipst ick Appearance Clear Not Available [address], [place], [address], 10/12/2024 17:13:02 10/13/19 25 10/12/2024 urina lysis , dipst ick Color Yellow Not Available [facility] [address] [place], [address], 10/12/2024 17:13:02 10/13/19 25 10/12/2024 micro album in/cr eatin ine, mass ratio , urine Microalbumin 150 mg/L Not Available [facility] [address] [place] [address], [address], 10/12/2024 16:51:48 10/13/19 25 10/12/2024 micro album in/cr eatin ine, mass ratio , urine Creatinine 50 mg/dL Not Available [facility] [address] [place] [address], [address], 10/12/2024 16:51:48 10/13/19 25 10/12/2024 micro album in/cr eatin ine, mass ratio , urine Ratio >300 mg/g Not Available [facility] [address] [place] [address], [address], 10/12/2024 16:51:48 10/13/19 25 10/12/2024 HbA1c (hemo globi n A1c), blood HbA1c 9.3 Not Available [facility] [address] [place] [address], [address], 10/12/2024 16:42:31 10/24/19 25 10/23/2024 US, trans vagin al No observ ation record ed. [facility] [address] [facility] [address], [place], [address], 10/23/2024 16:07:04 11/07/19 25 10/19/2024 MAMMO , scree micheal, bilat eral No observ ation record ed. [email or web address] [facility] ([facility] [address], [place], [address], 11/06/2024 16:58:45 Result Notes None recorded. Problems Name Problem SNOMED Code Status Onset Date Resolution Date Notes Provider Name and Address Organization Details Recorded Time Adnexal tendernes s 627181125 Active 2024 CLEMENT Jessica [address] [place] [address], [address], [employer] 16:54:49 Hyperglyc emia due to type 2 diabetes mellitus 373902833156 109 Active 2024 CLEMENT Jessica [address] [place] [address], [address], [employer] 16:55:33 Depressiv e disorder 21738759 Active 2024 CLEMENT Jessica [address] [place] [address], [address], [employer] 16:59:24 Osteoarth ritis of right hip joint 403323088996 107 Active 2024 CLEMENT Jessica [address] [place] [address], [address], [employer] 5 17:00:11 Insulin treated type 2 diabetes mellitus 518255220 Active 2024 CLEMENT Jessica [address] [place] [address], [address], [employer] 17:26:12 Mass of right breast 726833946906 09188 Active 2024 CLEMENT Jessica [address] [place] [address], [address], [employer] 5 10:22:13 Chronic hepatitis C 634241252 Active 2024 reported in ortho surgeon ([place]) notes - was referred for treatment by Dr Amin, but will follow to make sure this is taken care of for her CLEMENT Jessica [address] [place] [address], [address], [employer] 11:52:04 Wood splinter in heel 309919274 Active 2024 CLEMENT Jessica [address] [place] [address], [address], [employer] 17:18:12 Cigarette smoker 66297702 Active 2024 CLEMENT Jessica [address] [place] [address], [address], [employer] 5 17:18:42 Cyst of right ovary 581886148127 14589 Active 2024 CLEMENT Jessica [address] [place] [address], [address], [employer] 17:31:00 Problem Notes None recorded. Procedures Surgical History Date Name Laterality Status Provider Name and Address Organization Details Recorded Time Diabetic Foot Screen completed CLEMENT Jessica [address] [place] [address], [address], [employer] 11/10/2024 17:29:08 Other completed [facility] 10/12/2024 16:38:29 excision of cyst completed [employer] 10/12/2024 16:38:40 grafting to skin completed [employer] 10/12/2024 16:39:16 Imaging Results None recorded. Procedure Notes None recorded. Medical Equipment None Reported. Allergies Allergen ID Allergen Name Allergen Category Reaction Reaction Severity Criticality Documentation Date Start Date Code Code System Note Provider Name and Address Organization Details Recorded Time 26159 Levaquin medicatio n Not available Not available Not available 10/12/2024 82151 2 RxNorm Mackenzie Vice null, [employer] 16:36:09 26711 Ambien medicatio n Not available Not available Not available 10/12/2024 19368 5 RxNorm Mackenzie Vice null, [employer] 16:36:14 Medications Name Sig Start Date Stop Date Status Note LastModified by Organization Details LastModified Time meloxicam 7.5 mg tablet TAKE 1 TABLET BY MOUTH DAILY active Not Available Not Available No t Available methocarbam ol 750 mg tablet TAKE 1 TABLET BY MOUTH THREE TIMES DAILY active Not Available Not Available No t Available cefdinir 300 mg capsule Take 1 capsule every 12 hours by oral route. 11/10 completed Not Available Not Available Not Available Cymbalta 30 mg capsule,del ayed release Take 1 capsule every day by oral route for 30 days. 2024 active Not Available Not Available Not Avai lable varenicline tartrate 0.5 mg (11)-1 mg (42) tablets in a dose pack FOLLOW PACKAGE DIRECTION S active Not Available Not Available No t Available Symbicort 160 mcg-4.5 mcg/actuati on HFA aerosol inhaler INHALE 1 PUFF BY MOUTH TWICE DAILY FOR BREATHING PROBELMS active Not Available Not Available No t Available Lantus Solostar U-100 Insulin 100 unit/mL (3 mL) subcutaneou s pen ADMINISTE R 10 UNITS UNDER THE SKIN EVERY DAY active Not Available Not Available No t Available Farxiga 10 mg tablet TAKE 1 TABLET BY MOUTH EVERY DAY active Not Available Not Available No t Available Mounjaro 2.5 mg/0.5 mL subcutaneou s pen injector ADMINISTE R 2.5 MG UNDER THE SKIN EVERY WEEK active Not Available Not Available No t Available Vitals Date Recorded Body weight Body mass index (BMI) Body height Oxygen saturation Oxygen saturation in Arterial blood by Pulse oximetry Heart rate Body temperature Systolic And Diastolic Systolic And Diastolic Provider Name and Address Organization Details Last Updated DateTime 5 157402. 05 g 38.6 kg/m2 175.26 cm 97 % 97 % 82 /min 98.6 [degF] 172/84 mm[Hg] 164/88 mm[Hg] Mackenzie [facility] [employer] 5 16:46:21 Date Recorded Body height Body mass index (BMI) Body weight Heart rate Oxygen saturation Oxygen saturation in Arterial blood by Pulse oximetry Systolic And Diastolic Provider Name and Address Organization Details Last Updated DateTime 5 175.26 cm 37.8 kg/m2 099968. 65 g 118 /min 98 % 98 % 139/82 mm[Hg] Judy Awan [employer] 17:03:16 Social History Question Answer Notes LastModified by Organizat ion Details LastModified Time Tobacco Smoking Status Current Every Day Smoker KRISTAL Lazcano [employer], [employer] 10/12/2024 16:31:14 Do You Have An Advance Directive? No Information n ot available 10/12/2024 Is Your Home Air Conditioned? Yes Information not available 10/12/2024 If You Are , What Was Your Level Of Alcohol Consumption Prior To ? None Information not available 10/12/2024 Do You Wear A Helmet When Biking? No Information not available 10/12/2024 Are You Blind Or Do You Have Difficulty Seeing? Yes Information n ot available 10/12/2024 What Is Your Level Of Caffeine Consumption? Moderate Information not available 10/12/2024 What Type Of Copy Messenger Do You Use? None Information not available 10/12/2024 In The 14 Days Before Symptom Onset, Have You Had Close Contact With A Laboratory-confirm ed COVID-19 While That Case Was Ill? No Information n ot available 11/10/2024 In The 14 Days Before Symptom Onset, Have You Had Close Contact With A Person Who Is Under Investigation For COVID-19 While That Person Was Ill? No Information not available 11/10/2024 Have You Been To An Area Known To Be High Risk For COVID-19? No Information not available 10/12/2024 Are You Deaf Or Do You Have Serious Difficulty Hearing? No Information not available 10/12/2024 What Type Of Diet Are You Following? REGULAR Information n ot available 10/12/2024 Which Illicit Or Recreational Drugs Have You Used? Marijuana Information not available 10/12/2024 What Is The Highest Grade Or Level Of School You Have Completed Or The Highest Degree You Have Received? [id number] Information not available 10/12/2024 Have There Been Any Changes To Your Family Or Social Situation? No Information no t available 10/12/2024 Are There Any Guns Present In Your Home? Yes Information not available 10/12/2024 Which Of Your Hands Is Dominant? Right Information n ot available 10/12/2024 What Is Your Home Situation? Mother Information not available 10/12/2024 How Many Years Have You Used Illicit Or Recreational Drugs? 20 Information not available 10/12/2024 Do You Have A Medical Power Of Igniter Assembler? No Information not available 10/12/2024 What Was The Date Of Your Most Recent Tobacco Screening? 11/10/2024 Information not available 11/10/2024 Do You Have Any Pets? Yes Information not available 10/12/2024 Do You Use Protection During Sex? No Information not available 10/12/2024 What Is Your Relationship Status? Information not available 10/12/2024 Have You Repeated Any Grades? No Information not available 10/12/2024 Do You Use Your Seat Belt Or Car Seat Routinely? Yes Information not available 10/12/2024 Are You Sexually Active? Yes Information not available 10/12/2024 Do You Have Any Siblings? Yes Information not available 10/12/2024 Do You Have Smoke And Carbon Monoxide Detectors In Your Home? Yes Information not available 10/12/2024 At What Age Did You Start Smoking Tobacco? 18 Information not available 10/12/2024 Are You Passively Exposed To Smoke? Yes Information no t available 10/12/2024 Are There Any Smokers In Your House? Yes Information not available 10/12/2024 How Much Tobacco Do You Smoke? 0.25 PPD Information not available 10/12/2024 Do You Participate In Social Media? Yes Information not available 10/12/2024 Do You Use Sunscreen Routinely? No Information not available 10/12/2024 Has Tobacco Cessation Counseling Been Provided? Yes Information not available 10/12/2024 On What Date Was Tobacco Cessation Counseling Provided? 11/10/2024 Information not available 11/10/2024 How Many Years Have You Smoked Tobacco? 30 Information not available 10/12/2024 Have You Recently Traveled Abroad? No Information not available 10/12/2024 Do You Have Difficulty Walking Or Climbing Stairs? Yes Information not available 10/12/2024 Are You Currently In School? No Information not available 10/12/2024 Do You Have Any Dietary Restrictions? No Information not available 10/12/2024 Sex: Unknown Functional Status Question Answer Note LastModified by Organizat ion Details LastModified Time Do you use any illicit or recreational drugs? Yes Information not available 10/12/2024 Do you or have you ever used any other forms of tobacco or nicotine? No Information not available 10/12/2024 What is your level of alcohol consumption? None Information not available 10/12/2024 Are you currently employed? No Information not available 10/12/2024 Do you have transportation difficulties? No Information not available 10/12/2024 Are you able to walk independently without assistance or assistive devices? YESLIMIT infection right hip that ate through bone Information not available 10/12/2024 Do you have difficulty doing errands alone? Yes Information not available 10/12/2024 Are you able to care for yourself independently? No Information not available 10/12/2024 Do you have difficulty dressing, bathing, grooming, or toileting? Yes Information not available 10/12/2024 What is your exercise level? None Information not available 10/12/2024 Mental Status Question Answer Note LastModified by Organizat ion Details LastModified Time Do you feel stressed (tense, restless, nervous, or anxious, or unable to sleep at night)? [id number] Information not available 10/12/2024 Do you have difficulty concentrating, remembering or making decisions? Yes Information no t available 10/12/2024 Are you or have you been involved with bullying? No Information not available 10/12/2024 Family History Relationship Description Onset Age of this Age Resolved Age Notes LastModified by Organization Details LastModified Time Father Diabetes mellitus Not available 2024 16:37:04 Father Hypertensive disorder Not available 2024 16:37:15 Mother Diabetes mellitus Not available 06/19/ 2025 16:37:09 Medical History Condition Response Coronary Artery Disease N Other N Gout N Kidney Stones N Blood Diseases N Hyperthyroidism N Breast Cancer N Blood Transfusion N Emergency room visit since last appointm ent. N Hypothyroidism N Lung Disease N Dermatologic Disorders N Depression N COPD N Developmental or Behavioral Disorders N Defects or Inherited Disease N Breast Problem N Difficulty Swallowing N Anesthesia Complications N History of STI N Anxiety Disorder N Meniere's disease N Autoimmune disease N Muscle, Joint, or Bone Problems N Vision or Eye Problems N Arthritis N Infertility N Polyps N Mental Disorder N Congenital Anomalies N Acid Reflux (GERD) N Cancer N Stroke N Neurologic/Epilepsy N Endometriosis N Bladder or Kidney Problems N High Cholesterol N Liver Disease N Organ Transplant N Psychiatric/Mental Health Condition N Fibromyalgia N Headaches N Schizophrenia N Dialysis N Kidney Disease N Allergies/Hayfever N Heart Problems N Ear or Hearing Problems N Hospitalizations N Learning Disorder N Artificial Joints N Thyroid Problems N GI Problems N Acne N ADD/ADHD N Eating Disorder N Anemia N Constipation N Mental Illness N Ovarian Cancer N Diabetes Y Bedwetting N Hepatitis/Liver Disease N Tuberculosis N Eczema N Diverticulitis N Abuse/Domestic Violence N Asthma Y Trauma/Violence N Substance Abuse N Amnesia/Cognitive Decline N Reflux/GERD N Depression/ depression N Hepatitis N Heart Disease N Pulmonary Embolism N Tourette Syndrome N Pre-Eclampsia N Hypertension N Chronic Ear Infections N Osteoporosis N Chicken Pox N Autism Spectrum Disorder (ASD) N Thrombophilias N Gynecological History Statement/Question Response Abnormal Pap Y Flow Moderate Frequency of Cycle (Q days) I Dont have normal Cycles Date of LMP 09/28/2024 Menses Monthly Yes HPV Vaccine N Date of Last Pap Smear Duration of Flow (days) 3-4 Most Recent Mammogram Age at Menarche 15 LMP Approximate Obstetrics History GPAL:G 0 P 0 0 0 0 Past Encounters Encounter ID Performer Location Encounter Start Date Encounter Closed Date Diagnosis/Indication Diagnosis SNOMED-CT Code Diagnosis ICD10 Code Diagnosis IMO Codes Diagnosis Note [id number] CLEMENT Jessica [address] [address] 10/12/2024 15:52:05 10/12/2024 17:03:38 Screening mammography 85636914 Z12.31 [id number] Gynecologi c examination 74676495 Z01.419 799838 Adnexal tenderness 46753 3002 R10.2 884476 Reviewed ER records. Right adnexal abnormalit y on CT abd/pelvis . Needs transvagin al US. Hyperglyce petra due to type 2 diabetes mellitus 1191965210 70163 E11.65 13256044 Start Lantus, Start Farxiga. RTC 1 month. Depressive disorder 3548 9007 F32.A 86901 Trial Cymbalta. May help with pain as well. Osteoarthr itis of right hip joint 5885915786 60788 M16.11 [id number] Reviewed records from . It appears she was referred to Dr Amin for reconstruc tive orthopedic consult, but then appointmen t was canceled. Will send new referral. History of urinary tract infection 4206162357 107 Z87.805 5544360 UTI in ER susceptibe l to Cefdinir - should be okUrine dip here today is clear Insulin tr eated type 2 diabetes mellitus 594627032 E11.22 N18.1 Z79.4 43295721 [id number] CLEMENT Jessica [address] [address] 11/10/2024 16:40:46 11/10/2024 17:19:01 Wood splinter in heel 268968821 S90.859A 35385280 Will refer to podiatry due to inability to rotate right hip without significan t pain, length of time splinter has been present (5-6 weeks, encapsulat ed) and diabetes Cigarette smoker 6700137 7 F17.210 195305 Trial ChantixSta dunia she did well with Chantix in the pastSHe is ready to quit for surgeryExp lained that nicotine patches won't help while using Chantix Hyperglyce petra due to type 2 diabetes mellitus 9310692171 85597 E11.65 Add Mounjaro - need to get HGa1c down faster for surgery; GLP-1 might also help with smoking cessation; weight loss will help with pain as wellHas tried Aydee Asif in the pastDr Amin referred her to endocrinol ogy as well Osteoarthr itis of right hip joint 3084868547 [address] Amin, who will do reconstruc tion - must get diabetes better managed (referred to endo), quit smoking (trying Chantix) and have HCV treated (he placed referral) Cyst of right ovary 1223 882978 8291104 N83.201 115094 Sees OB again in November Mass of right breast 439 7784289 9607579 N63.10 0087209568 Has breast US scheduled next week Chronic hepatitis C [id number] Amin has referred her to infectious disease for treatment Health Concerns Section Related Observation LastModified by Organization Detai ls LastModified Time None Recorded Concern Status LastModified by Organization Details LastModified Time None Recorded Advance Directives Directive N: Payers Insurance Date Sequence Insurance Name Policy Number Policy Hackett Covered Member ID Hackett Member ID Guarantor Name 10/13/2024 1 *SELF PAY* Ta khanh Blaine 11/13/2024 1 [facility] (MEDICAID REPLACEMENT - HMO) Lenny Valladares [id number] Lenny Valladares 12/29/2024 1 UNSPECIFIED REMIT PAYOR Lenny Valladares Notes Date Note Type Note Provider Name and Address Organization Details Recorded Time 10/12/2024 text/html ROS as noted in the HPI Right hip pain. Had osteomyelitis in 2021. Still has severe right hip pain. Went to ER 10/07/24 for severe right hip pain. Her CT showed severe osteoarthritis. States that she has seen ortho in the past but they didn't seem interested in doing anything.History of diabetes.Had abnormality of right adnexa on CT in ER.Treated for UTI in ER as well.Struggles with depression. No currently on anything for that. CLEMENT Jessica [address] [place] [address], [place], [address], [facility] [employer] 10/13/2024 13:56:35 11/10/2024 text/html ROS as noted in the HPI Patient presents for followup. She has seen Dr Amin, who is willing to do reconstruction of her right hip. He wants her to get her diabetes under control. He wants her to quit smoking. And he wants her to have her HCV treated. He has made referrals for these. In the past her HgA1c was over 16. It is currently 9.3. She is taking Metformin and Insulin. Has tried Byetta, Victoza in the past then got sick and stopped them. They hurt her stomach. She would like to try something different.SHe bought nicotine patches to help quit smoking.She has a splinter in her right heel. It is painful. It has been there for 4-5 weeks. She cannot bend her hip to cross her leg to see the bottom of her foot.She has a right ovarian cyst. 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 Was hospitalized in the past when she was getting ready to start treatment. CLEMENT Jessica [address] [place] [address], [id number], [facility] [employer] 11/10/2024 17:32:39 OBGyn Episode No OBEpisode recorded.
--- OUTSIDE RECORDS SUMMARY | 2025-02-09 03:51 | XMS_ITS | Clinical Summary ---
Author Organization [facility] Address [address] [place] [address] Care Team Providers Care Mechanical Engineering Technician Name Role Phone GerardoShana Melvin VAUGHAN Primary Care Provider [phone] Allergies Active Allergy Reactions Criticality Noted Date [...] as instructed 1 each 3 4 Active Additional Information Patient not taking.Reported on 11/28/2024 Continuous Blood Gluc Sensor (Dexcom G6 Sensor) misc Apply one censor every 10 days. 3 each 11 4 Active Additional Information Patient not taking.Reported on 11/28/2024 Continuous Blood Gluc Academic Coach (Dexcom G6 health policy nurse) device Use as instructed 1 each 4 Active Additional Information Patient not taking.Reported on 11/28/2024 Farxiga 10 MG tablet Take 1 tablet [...] with meals. 10 mL 12 4 Active methocarbamol (Robaxin) 750 MG tablet Take 1 tablet by mouth 3 times a day. 5 Active DULoxetine (Cymbalta) [address] capsule Take 1 capsule by mouth. 5 Active Mounjaro 2.5 MG/0.5ML solution auto-injector solution pen-injector ADMINISTER 2.5 MG UNDER THE SKIN EVERY WEEK 5 Active Varenicline Tartrate, Starter, 0.5 MG X 11 & 1 MG X 42 tablet therapy pack follow package directions 5 Active Lantus SoloStar 100 UNIT/ML injection pen ADMINISTER 10 UNITS UNDER THE SKIN EVERY DAY 5 Active Hospital, Clinic, or Other Facility Administered Medication Ordered Dose Route Frequency Start Date End Date Status sodium chloride 0.9 % flush 10 mLIndications:Pain in right hip 10 mL IV Once 12/13/2024 Active Active Problems Problem Noted Date Diagnosed Date Severe obesity (BMI 35.0-39.9) with comorbidity 04/17/2023 Hypothyroidism 04/17/2023 Atrial septal defect 04/17/2023 COPD (chronic obstructive pulmonary disease) Hip osteomyelitis, right 04/17/2023 HLD (hyperlipidemia) 04/17/2023 Hx of intravenous drug use in remission 04/17/20 Abscess of right kidney 04/17/2023 SIRS (systemic inflammatory response syndrome) 1 06/18/2022 Renal abscess, right 04/17/2023 Labial abscess 04/16/2023 Anxiety 06/27/2022 Asthma 06/27/2022 Depression 06/27/2022 GERD (gastroesophageal reflux disease) Hep C w/o coma, chronic 06/27/2022 Hypertension 06/27/2022 Nicotine dependence 06/27/2022 PCOS (polycystic ovarian syndrome) 06/27/2022 Type 2 diabetes mellitus wit h hyperglycemia, without long-term current use of insulin 06/27/2022 Resolved Problems Problem Noted Date Diagnosed Date Resolved Date Candidal vulvovaginitis 04/17/2023 122 06/2022 Chronic pain of right hip 04/17/2023 Constipation 04/17/2023 04/17/2023 COVID-19 virus infection 04/17/2023 Cough 04/17/2023 04/17/2023 Acute hyperglycemia 04/17/2023 04/17/20 Edema 04/17/2023 04/17/2023 Leg swelling 04/17/2023 04/17/2023 MRSA bacteremia 04/17/2023 01/14/2025 Phlebitis 04/17/2023 04/17/2023 Septic joint 04/17/2023 04/17/2023 Right hip joint effusion 04/17/2023 Myositis 04/17/2023 04/17/2023 Septic hip 04/17/2023 04/17/2023 ROBLES (acute kidney injury) 04/17/2023 Osteomyelitis of right femur , unspecified type 06/27/2022 07/01/2022 Migraine 06/27/2022 07/01/2022 Substance use disorder 06/27/202207/01 Encounters Date Type Department Care Team Description 12/13/2024 1:00 PM EDT Procedure Visit Interventional Pain Medicine [address] [place] [address] Dov Coleman MD Pain in right hip 12/13/2024 Orders Only External Location [address] [place] [address] Provider, External 12/13/2024 Travel 12/06/2024 Travel 11/28/2024 9:00 AM EDT Office Visit Interventional Pain Medicine [address] [place] [address] Dov Coleman MD Pain in right hip (Primary Dx) 11/28/2024 Travel from Last 3 Months Family History Medical History Relation Name Comments [...] drink first t perez in the morning (EYE-SUPERVISOR BLOOD DONOR RECRUITERS) to steady your nerves or to get [...] Mass Index 37.8 12/13/2024 12:59 PM EDT Plan of Treatment Health Maintenance Due Date Last Done Comments [facility]-Infant/Child/Adol SDOH Screenings 1977 [id number] Vaccine (#1) 1982 Diabetes: Dental Exam 09/30/1987 [...] [facility]-Diabetes: Hemoglobin A1C 07/17/2023 04/17/2023 [facility]-Influenza Vaccine (#1) 2024 [facility]-Depression Screening 06/01/2025 06/01/2024 [facility]-Zoster Vaccines (1 of 2) 09/30/2027 [facility]-HIV Screening Completed 04/17/2023, 06/27/2022 [facility]-Obesity Intervention Completed 025, 11/28/2024, 10/31/2024, Additional history exists HPV Vaccines Aged Out [...] 1:00 PM EDT Pain in right hip POC ULTRASOUND 12/13/2024 HIV 1/2 ANTIBODY/ANTIGEN SCREEN WITH REFLEX TO HIV I/II DIFFERENTIATION Routine 04/17/2023 9:07 AM EST HEMOGLOBIN A1C Add-On 04/17/2023 4:09 AM EST from Last 3 Months or Most Recently Relevant to Health Maintenance Results * Interventional Pain Nurse Procedure Protocol (12/13/2024 1:00 PM EDT) Narrative Bebe Cole RN - 12/13/2024 1:00 PM EDT Bebe Cole RN 12/13/2024 2:50 PM Interventional Pain Nurse Procedure Protocol Documentation: Indications: Documentation supporting primary procedure completed by : Dov Coleman MD See the provider procedure note for performed procedure details and findings. Pre-Procedure Checklist: Currently taking anticoagulant(s)?: no Speech Therapist Early Intervention present?: yes Additional Pre-Procedure Comments: Time out [...] anticoagulant(s)?: no NPO since:: 12/12/2024 5:00 PM Speech Therapist Early Intervention present?: yes Procedure details: Moderate conscious sedation [...] to: home Mode of exit: Walked (to [facility] at 2:30 PM) Post-sedation assessments completed and [...] Dov Coleman MD Supervision: Attending Supervision?: yes Dov Coleman MD IN CLINIC/BEDSIDE ORDERABLES Fi nal Result * POC Imaging (12/13/2024) Anatomical Region Laterality Modality Pelvis Other 12/13/2024 External Provider IMG POINT OF CARE ULTRASOUND F inal Result * HIV 1 & 2 Antibody/Antigen Screen (04/17/2023 9:07 AM EST) HIV 1 & 2 Antibody/Antigen Screen Non Reactive Non Reactive 04/17/2023 10:11 AM EST [facility] Comment:Screening for HIV 1 & 2 antibodies, and P24 antigen is NONREACTIVE. No confirmatory testing is required. Blood Venous blood specimen / Unknown Venipuncture / Unknown 04/17/2023 9:07 AM EST 04/17/2023 9:26 AM EST Cesar Brito HUMANITIES TEACHER, DNP LAB BLOOD ORDERABLES Fi nal Result [facility] [address] [place] [address] * (ABNORMAL) Hemoglobin A1c (04/17/2023 4:09 AM EST) Hemoglobin A1c 16.3(H) <5.7 % 04/20/2023 10:27 AM EST [facility] Comment: Blood Venous blood specimen / Unknown Venipuncture / Unknown 04/17/2023 4:09 AM EST 04/17/2023 4:16 AM EST Narrative [facility] - 04/20/2023 10:27 AM EST HA1C Interpretive Data: Diagnosis of Diabetes: Diabetic > or = 6.5% Pre-diabetic 5.7 to 6.4% Non-diabetic < or = 5.6% Glycemic Targets for Type I and Type II Diabetics: Non- Adults <7.0% Adults <6.0% Children and Adolescents <7.5% Source: [place] [employer]. Standards of medical care in diabetes,2017. Diabetes Care.2017:40 (suppl 1):S1-S135. HbA1c assay performed by an ion-exchange chromatography method that is certified traceable to the DCCT. us Bisi Milan APRN LAB BLOOD ORDERABLES Final Re sult [facility] [address] [place] [address] from Last 3 Months or Most Recently Relevant to Health Maintenance Additional Health Concerns Infection Onset Date Last Indicated MRSA 06/27/2022 04/17/[address] [place] [address] [place] [address] [employer] MEDICAID Advance Directives * Full Code (Latest [...] Patient has decision-making capacity? Yes Care Teams Mechanical Engineering Technician Relationship Specialty Start Date End Date Shana Carrillo PA [address] [place] [address] PCP - General 10/26/24
--- OUTSIDE RECORDS SUMMARY | 2025-02-09 03:51 | XMS_ITS | Encounter Summary ---
Author Organization Healthcare Address [facility] [place] [address] Care Team Providers Care Sales Support Specialist Name Role Phone GerardoShana CLEMENT Primary Care Provider [phone] Encounter Details Date Type Department Care Team (Latest Contact Info) Description 12/13/2024 Travel Social History Tobacco Use Types Packs/Day Years Used Date Smoking Tobacco: Every Day Cigarettes 0.3 30.8 Started: 1994 Passive Smoke Exposure: Current Smokeless Tobacco: Never Alcohol Use Standard Drinks/Week Comments Not Currently [...] drink first t perez in the morning (EYE-PANTS PRESSER AUTOMATIC) to steady your nerves or to get rid of a hangover? 0 04/18/2023 CAGE Questionnaire Score 0 023 Comments No Sex and Gender Information Value Date Recorded Sex Assigned at Not on file Legal Sex Female 8:16 PM EDT Gender Identity Not on file Sexual Orientation Not on file documented as of this encounter Plan of Treatment Not on file documented as of this encounter Visit Diagnoses Not on filedocumented in this encounter Additional Health Concerns Infection Onset Date Last Indicated Resolved Time MRSA 06/27/2022 04/17/2023 Assessment Noted Time A fall risk assessment has been complete d for the patient 12/13/2024 12:58 PM EDT A Body Mass Index follow-up plan has been documented for the patient 12/13/2024 2:50 PM EDT documented as of this encounter Care Teams Sales Support Specialist Relationship Specialty Start Date End Date hSana Carrillo PA [address] [place] [address] PCP - General 10/26/24 documented as of this encounter
--- OUTSIDE RECORDS SUMMARY | 2025-02-09 03:51 | XMS_ITS | Encounter Summary ---
Author Organization Healthcare Address [address] [place] [address] Care Team Providers Care Interior Decorator Name Role Phone GerardoShana CLEMENT Primary Care Provider [phone] Encounter Details Date Type Department Care Team ([facility] st Contact Info) Description 12/13/2024 Orders Only External Location [address] [place] [address] Provider, External Social History Tobacco Use Types Packs/Day Years [...] drink first t perez in the morning (EYE-TELEMARKETING REPRESENTATIVE) to steady your nerves or to get [...] Procedure Name Priority Date/Time Associated Diagnosis Comments POC ULTRASOUND 12/13/2024 documented in this encounter Results * POC Imaging (12/13/2024) Anatomical Region Laterality Modality Pelvis Other 12/13/2024 us External Provider IMG POINT OF CARE ULTRASOUND F inal Result documented in this encounter Visit Diagnoses Not on filedocumented [...] documented as of this encounter Care Teams Interior Decorator Relationship Specialty Start Date End Date Shana Carrillo PA [address] [place] [address] PCP - General 10/26/24 documented as of this encounter
--- OUTSIDE RECORDS SUMMARY | 2025-02-09 03:51 | XMS_ITS ---
Author Organization [facility] Address [address] [id number] Care Team Providers Care Tobacco Sampler Name Role Phone Shana Carrillo Primary Care Provider [phone] Hepatitis C Program Status:Active (Active) Start date:04/17/2023 Enrollment date:04/17/2023 Enrollment reason:HCV Continued Care and Services Coordination
--- NOTE | 2025-02-09 03:55 | XR_ITS ---
PROCEDURE INFORMATION: Exam: XR Chest Exam date and time: 02/09/2025 3:53 AM Age: 49 years old Clinical indication: Cough and wheezing; Additional info: Cough wheezing TECHNIQUE: Imaging protocol: Radiologic exam of the chest. Views: 2 views. COMPARISON: CR XR CHEST PORTABLE PICC PLAC 03/30/2022 4:00 PM FINDINGS: Lungs: Peribronchial interstitial infiltrates are present bilaterally. No airspace disease. Pleural spaces: No pleural effusions. Heart/Mediastinum: Unremarkable. No cardiomegaly. Bones/joints: Osseous structures are appropriate for age. IMPRESSION: Airways disease or infectious bronchitis. No definite acute airspace pneumonia.
[2025-02-09 04:04] VITALS: BP 209/109; PULSE 110; RESP 20; TEMP 37.2; O2SAT 96; BMI 38.8
--- NOTE | 2025-02-09 04:14 | PC.NURSE ---
Contacted respiratory r/t [facility] sent to lab
[2025-02-09] MEDS: IPRATROPIUM/ALBUTEROL 3 ML NEB 9 ML IH (04:24)
[2025-02-09] MEDS: LACTATED RINGERS 1000ML 1,000 ML 999 ML IV (04:25)
--- NOTE | 2025-02-09 04:38 | HMH.EDGENADL ---
Discharge Plan Disposition Patient Disposition: Home, Self-Care Condition: Good Prescriptions Prescriptions: New albuterol sulfate 2.5 mg/0.5 mL solution for nebulization 2.5 mg inhalation Q6H PRN (Reason: bronchospasm) Qty: 30 0RF doxycycline hyclate 100 mg capsule 100 mg PO BID 7 Days Qty: 14 0RF prednisone 20 mg tablet 40 mg PO DAILY 2 Days Qty: 4 0RF guaifenesin 600 mg tablet extended release 12hr 600 mg PO BID PRN (Reason: congestion) Qty: 10 0RF No Action Farxiga 10 mg tablet 10 mg PO DAILY Qty: 30 2RF levothyroxine 50 mcg tablet 50 mcg PO DAILY Qty: 30 2RF albuterol sulfate 90 mcg/actuation HFA aerosol inhaler 2 puff inhalation Q6H PRN (Reason: shortness of breath or wheezing) Qty: 8.5 3RF Mounjaro 2.5 mg/0.5 mL pen injector 2.5 mg SQ WEEKLY Rx Instructions: for 4 weeks insulin lispro [Humalog KwikPen Insulin] 100 unit/mL insulin pen 15 unit SQ TID meloxicam 7.5 mg tablet 7.5 mg PO DAILY Qty: 14 0RF budesonide-formoterol [Symbicort] 160-4.5 mcg/actuation HFA aerosol inhaler 1 inh inhalation BID Qty: 10.2 3RF (DME) blood-glucose meter [OneTouch Verio Meter] [facility] See Rx Instructions .ROUTE .MEDSUPPLY Rx Instructions: As directed (DME) OneTouch Verio test strips Strip See Rx Instructions .ROUTE .MEDSUPPLY Rx Instructions: Check Glucose 4 times daily (DME) pen needle, diabetic [Ultra-Thin II Ins Pen Channing] 29 gauge x 1/2 needle See Rx Instructions .ROUTE .MEDSUPPLY Rx Instructions: As directed (DME) lancets [OneTouch Delica Lancets] 33 gauge misc See Rx Instructions .ROUTE .MEDSUPPLY Rx Instructions: Check Glucose 4 times daily methocarbamol 750 mg tablet 1,500 mg PO TID 5 Days Qty: 30 0RF Referrals Follow up/Referrals: Provider,Referral, MD [Primary Care Provider, Medical] - See instructions Activity Restrictions/Add. Instructions Additional Instructions/Restrictions: You were evaluated in the ER and are believed to be appropriate for discharge at this time. Use your inhaler or nebulizer if needed. They are the same medication. Take the prescribed steroids on Wednesday and Wednesday. Take the prescribed antibiotics as directed, do not skip doses, do not stop taking them early. Drink a full glass of water after taking your antibiotics and stay sitting up for 30 minutes. Avoid sun exposure as you are more likely to burn. Take the guaifenesin as directed if needed, this is Mucinex. Follow-up with your primary care doctor for reevaluation in 2 to 3 days. Return to the ER with any new, worsening, or otherwise concerning symptoms. Clinical Impressions Clinical Impression: Bronchitis Asthma Qualifiers: Asthma severity: moderate Asthma persistence: persistent Asthma complication type: uncomplicated Qualified Code(s): J45.40 - Moderate persistent asthma, uncomplicated Print Language Print Language: Comoran Discharge ED Provider: Reed Valenzuela Adult HPI General Chief complaint: Shortness of Breath/Dyspnea Stated complaint: asthma, trouble breathing, cough Time Seen by Provider: 02/09/25 03:55 Mode of Arrival: Ambulatory Source of Information: Patient Description of Symptoms (Recalled from ER Triage Doc. by RN): Pt states she devloped a cough 2 days ago, today she felt short of breath which worsened this evening. Pt has hx of asthma, recently stopped smoking, denies any other symptoms at this time. History of Present Illness HPI narrative: 49-year-old female presents to the ER for cough, concern of COPD/asthma exacerbation. She states she has had mildly productive cough for the last 2 days progressively worsening and feels like she is wheezing and somewhat short of breath. She states she has had nasal congestion, cough, and wheezing and reports this feels like her asthma exacerbations. She denies any chest pain. She states she only feels short of breath when she is trying to catch it after a coughing fit. She states she recently stopped smoking. 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 She denies any headache or dizziness, no fevers or chills, no nausea, vomiting, or diarrhea. Denies numbness, tingling, or weakness. No other complaints or concerns. Related Data Home Medications ?Medication ?Instructions ?Recorded ?Confirmed blood sugar diagnostic (SavorfullTouch 04/10/22 12/18/24 Verio test strips) blood-glucose meter (OneTouch 04/10/22 12/18/24 Verio Meter) lancets 33 gauge (OneTouch Delica 04/10/22 12/18/24 Lancets) pen needle, diabetic 29 gauge x 04/10/22 12/18/24 1/2 (Ultra-Thin II Insulin Pen Channing) insulin lispro 100 unit/mL 15 unit SQ TID Diabetes 03/17/23 12/18/24 subcutaneous pen (Humalog KwikPen (U-100) Insulin) tirzepatide 2.5 mg/0.5 mL 2.5 mg SQ WEEKLY 12/18/24 12/18/24 subcutaneous pen injector (Tamar) Previous Rx's ?Medication ?Instructions ?Recorded albuterol sulfate 90 mcg/actuation 2 puff inhalation Q6H PRN 03/24/23 aerosol inhaler shortness of breath or wheezing #8.5 grams dapagliflozin propanediol 10 mg 10 mg PO DAILY #30 tabs 03/24/23 tablet (Farxiga) levothyroxine 50 mcg tablet 50 mcg PO DAILY hypothyroid #30 03/24/23 tabs budesonide-formoterol HFA 160 1 inh inhalation BID Breathing 02/22/24 mcg-4.5 mcg/actuation aerosol problems #10.2 grams inhaler (Symbicort) meloxicam 7.5 mg tablet 7.5 mg PO DAILY #14 tabs 02/22/24 methocarbamol 750 mg tablet 1,500 mg (2 x 750 mg) PO TID 5 10/07/24 days #30 tabs albuterol sulfate 2.5 mg/0.5 mL 2.5 mg (0.5 mL) inhalation Q6H PRN 02/09/25 solution for nebulization bronchospasm #30 ea doxycycline hyclate 100 mg capsule 100 mg PO BID 7 days #14 caps 02/09/25 guaifenesin 600 mg tablet, 600 mg PO BID PRN congestion #10 02/09/25 extended release 12 hr tabs prednisone 20 mg tablet 40 mg (2 x 20 mg) PO DAILY 2 days 02/09/25 #4 tabs Allergies Allergy/AdvReac Type Severity Reaction Status Date / Time levofloxacin (From Levaquin) Allergy Verified 12/18/24 11:43 zolpidem (From Ambien) Allergy Verified 12/18/24 11:43 [facility] Disclaimer: The information contained in this section may have been updated after the patient was seen, as this information can be updated by other users. Medical History (Updated 02/09/25 @ 05:47 by Reed Valenzuela MD) Encounter for routine gynecological examination Hep C w/o coma, chronic Hypothyroidism Asthma PCOS (polycystic ovarian syndrome) Abscess History of gastroesophageal reflux (GERD) Diabetes mellitus, type 2 Hypertension Migraine Hypertension Depression Anxiety Asthma Surgical History History of hip surgery H/O esophagogastroduodenoscopy History of incision and drainage H/O skin graft Family History Father Family history of diabetes mellitus type II Family history of acute congestive heart failure Mother Family history of diabetes mellitus type II Social History Smoking Status: Current every day smoker smoking status start date: 20 years ago years smoked: 20 smoking status stop date: 3 years ago and recently started back alcohol intake: never substance use type: opiates, IV drugs and other details: hard drugs , non specific, according to patient. current occupational status: unemployed Travel in the last 8 weeks?: None Have you lived/traveled outside US in past 30 days?: No Contact w/someone who lives/traveled outside US past 30 days?: No Exposure to someone with infectious disease in past 14 days?: No Do you have a fever (greater than 100.4 F or 38 C)?: No Have you tested positive for COVID-19?: No Exposed to someone with COVID-19 in past 14 days?: No Do you have a sore throat?: No Do you have a cough?: Yes Do you have any weakness?: No Do you have any diarrhea?: No Are you experiencing any unusual bleeding?: No Do you have any muscle aches/pain?: No Do you have any abdominal pain?: No Are you experiencing loss of taste or smell?: No Other Medical History Have you received the Flu Vaccine for this season: No Have you received the Pneumonia Vaccine: No ROS Obtained: Yes Systems reviewed as appropriate & no additional complaints except as documented Per HPI Physical Exam General General appearance: alert and in no apparent distress Head Head exam: atraumatic and normocephalic Eye Eye exam: Present PERRL and EOMI ENT ENT exam: Present mucous membranes moist Neck Neck exam: Present normal inspection and full ROM Chest Chest inspection: Present symmetric chest wall rise Respiratory Respiratory exam: Present wheezes (Diffuse inspiratory and expiratory but good air movement); Absent normal lung sounds bilaterally (Rhonchi in multiple lung savage, move with cough), respiratory distress or stridor Cardiovascular Cardiovascular exam: Present regular rate and normal rhythm Abdominal Exam Abdominal exam: Present soft; Absent distention or tenderness Extremities Exam Extremities exam: Present full ROM and normal capillary refill; Absent edema Neurological Exam Neurological exam: Present alert and oriented X3; Absent motor sensory deficit Psychiatric Psychiatric exam: Present normal affect and normal mood Skin Skin exam: Present warm and dry Medical Decision Making Medical Records Medical records reviewed: Yes I reviewed the patient's medical records. Screening: Per USPSTF and CDC recommendations, given the prevalence of disease in our region, it is our hospital?s policy to screen for HIV and viral Hepatitis for all patients aged 18 and over and those with ongoing risk factors. [place] Inquiry Pt receiving controlled substance: No Vital Signs: 02/09/25 04:04 02/09/25 05:38 02/09/25 05:51 Temperature 98.9 F 98.9 F Temperature Source Oral Pulse Rate 108 H Pulse Rate [Right] 110 H Respiratory Rate 20 16 Blood Pressure 181/81 H Blood Pressure [Right Arm] 209/109 H Blood Pressure Mean [Right Arm] 142 Blood Pressure Source [Right Arm] Automatic Cuff Blood Pressure Position [Right Arm] Sitting 02 Sat by Pulse Oximetry 96 99 Oxygen Delivery Method Room Air Room Air Room Air Lab Data Lab Results 02/09/25 04:35: WBC 9.4, RBC 4.46, Hgb 12.6, Hct 38.1, MCV 85.4, MCH 28.3, MCHC 33.1, RDW 12.6, Plt Count 333, MPV 10.3, Neut % (Auto) 63.2, Lymph % (Auto) 19.9, Emmet % (Auto) 8.2, Eos % (Auto) 7.6, Baso % (Auto) 0.7, Neut # (Auto) 5.9, Lymph # (Auto) 1.9, Emmet # (Auto) 0.8, Eos # (Auto) 0.7 H, Baso # (Auto) 0.1, VBG pH 7.38, VBG pCO2 35.8, VBG pO2 81.4 H, VBG HCO3 20.8 L, VBG Total CO2 21.9 L, VBG O2 Saturation 95.8 H, VBG Base Excess -4.2 L, VBG Lactic Acid 2.0, Sodium 137, Potassium 3.7, Chloride 106, Carbon Dioxide 23, Anion Gap 11.7, BUN 20 H, Creatinine 0.90, Estimated Creat Clear 146, Estimated GFR 67, Est GFR ( Amer) 81, Glucose 254 H, Calcium 8.5, Total Bilirubin 0.1 L, AST 41 H, ALT 67, Alkaline Phosphatase 134 H, Troponin I < 0.01, NT-Pro-B Natriuret Pep 304 H, Total Protein 7.4, Albumin 3.9, Globulin 3.5 H, Albumin/Globulin Ratio 1.1, HIV Ag/Ab Combo Qual Negative 02/09/25 04:35 02/09/25 04:35 Orders (Tests/Meds): ED MEDICATIONS Discontinued Medications Generic Name Dose Route Start Last Admin Trade Name Freq PRN Reason Stop Dose Admin Albuterol Sulfate 2 puff 02/09/25 05:46 Albuterol-Hfa 90mcg/Puff Inhaler 8gm IH 02/09/25 05:47 ONCE ONE Albuterol/Ipratropium 9 ml 02/09/25 03:55 02/09/25 04:24 Ipratropium/Albuterol 3 Ml Neb IH 02/09/25 03:56 9 ml ONCE ONE Administration Doxycycline Hyclate 100 mg 02/09/25 05:42 Doxycycline Hycl 100 Mg Tablet PO 02/09/25 05:43 ONCE ONE Lactated Ringer's 1,000 mls @ 999 mls/hr 02/09/25 03:55 02/09/25 05:34 Lactated Ringer's 1000 Ml Bag IV 02/09/25 04:55 Infused .Q1H1M ONE Infusion Miscellaneous 1 unit 02/09/25 05:45 Aerochamber/Optihaler MC 02/09/25 05:46 ONCE ONE Prednisone 40 mg 02/09/25 03:55 02/09/25 04:24 Prednisone 20mg Tab PO 02/09/25 03:56 40 mg ONCE ONE Administration ORDERS Category Date Time Status CXR 2 view (NOT portable) [XR chest 2V] Stat Exams 02/09/25 03:55 Completed BNP [NT Pro Brain Natriuretic Pep.] Stat Lab 02/09/25 04:35 Completed CBC w/Auto Diff [Complete Blood Count Auto Diff] Stat Lab 02/09/25 04:35 Completed CMP [Comprehensive Metabolic Panel] Stat Lab 02/09/25 04:35 Completed HIV Combo Stat Lab 02/09/25 04:35 Completed Hepatitis C Ab Qual. W/ RFX Stat Lab 02/09/25 04:35 Received Troponin I Q3H Lab 02/09/25 08:00 Ordered Troponin I Q3H Lab 02/09/25 11:00 Ordered Troponin I Stat Lab 02/09/25 04:35 Completed VBG [Venous Blood Gas] Stat RT 02/09/25 04:35 Completed ECG Request Stat Y 02/09/25 04:52 Ordered Medical Decision Narrative: In summary, this 49-year-old female with comorbidities described in the HPI presents to the emergency department today with concerns of cough, wheezing. On initial evaluation patient is hypertensive but otherwise hemodynamically stable, afebrile, lungs with rhonchi throughout multiple savage that moves with cough, inspiratory and expiratory wheezing but good air movement, 96% on room air. No peripheral edema, brisk capillary refill. Differential diagnosis includes but is not limited to viral syndrome, pneumonia, bronchitis, asthma/COPD exacerbation, patient has no chest pain or difficulty breathing and states she only feels short of breath after coughing fits. She has no history of blood clots. I do not have high suspicion for ACS or PE clinically. Based on these concerns, I ordered hematologic and serum labs, chest x-ray, VBG. ECG personally interpreted demonstrates normal sinus rhythm, rate 83, normal axis, normal OR and QTc, no STEMI Patient received DuoNebs, prednisone for treatment. Labs personally reviewed demonstrate no leukocytosis or anemia, normal platelets, VBG with pH 7.38, no hypercarbia, normal VBG lactic, troponin undetectably low less than 0.01 significantly reassuring in the setting of nonischemic ECG and patient's duration of symptoms. I do not believe serial troponins are indicated at this time. Patient does have BNP elevation which could simply be related to hypertension, she does not have signs of volume overload clinically. XR personally interpreted demonstrates no lobar infiltrate, there does appear to be diffuse airway disease, possibly bronchitis. See radiology read for final interpretation. Patient had improvement of symptoms after DuoNebs and prednisone. With the findings of bronchitis and the unclear history of COPD versus asthma with her worsening cough I am going to treat bronchitis with doxycycline. Patient has a history of diabetes and states she checks her sugars and manages with insulin. I am going to give her a short course of prednisone to help with airway inflammation but instructed her to monitor her sugar extremely closely as they will likely be higher than normal. Additionally patient was given instructions on use of doxycycline and precautions to take to avoid side effects. Patient requested fresh albuterol inhaler which was provided in the ER. She also requested refill of her albuterol nebulizer solution which was prescribed. Also prescribed guaifenesin to help with expectoration. Patient was given instructions on symptomatic monitoring and management, medication use, follow up instructions, and return precautions for the emergency department. Patient indicated understanding and was discharged in stable condition. Critical Care Critical Care Time Critical Care Time: No
[2025-02-09 04:44] LABS: Hematocrit 38.1 % (37.0-47.0); Hemoglobin 12.6 g/dL (12.2-16.2); Immature Granulocytes % 0.4 %; Mean Corpuscular HGB Conc 33.1 g/dL (31.8-35.4); Mean Corpuscular Hemoglobin 28.3 pg (27.0-31.2); Mean Corpuscular Volume 85.4 fl (81-99); Nucleated Red Blood Cells % 0 %; Platelet Count 333 K/mm3 (142-424); Red Blood Count 4.46 M/mm3 (4.20-5.40); Red Cell Distribution Width-SD 39.0 fL; White Blood Count 9.4 K/mm3 (4.8-10.8)
[2025-02-09 04:46] LABS: Lactate Venous 2.0 mmol/L (0.4-2.0); VBG HCO3 20.8 mmol/L (23-30); VBG PCO2 35.8 mmol/L (35-51); VBG PH 7.38 mmol/L (7.31-7.41); VBG PO2 81.4 mmol/L (28-40)
[2025-02-09 04:47] LABS: Chloride 106 mmol/L (98-107)
[2025-02-09 04:48] LABS: Albumin Level 3.9 g/dl (3.5-5.0); Potassium 3.7 mmoL/L (3.5-5.1); Sodium 137 mmol/L (136-145)
[2025-02-09 04:50] LABS: Alanine Aminotransferase 67 U/L (12-78); Blood Urea Nitrogen 20 mg/dl (7-17); Creatinine Clearance Estimated 146 mL/min (50-200); Creatinine,Serum 0.90 mg/dl (0.52-1.04); Estimated Glomerular Filt Rate 67 ml/min (>60); GFR (African American) 81 ML/MIN (>60)
[2025-02-09 04:51] LABS: Albumin/Globulin Ratio 1.1 (1.1-1.8); Alkaline Phosphatase 134 U/L (38-126); Anion Gap 11.7 mEq/L (5-15); Aspartate Amino Transferase 41 U/L (14-36); Bilirubin,Total 0.1 mg/dl (0.2-1.3); Calcium 8.5 mg/dl (8.4-10.2); Carbon Dioxide 23 mmol/L (22.0-30.0); Globulin 3.5 g/dL (1.3-3.2); Glucose 254 mg/dl (74-100); Total Protein,Serum 7.4 g/dl (6.3-8.2)
--- NOTE | 2025-02-09 04:52 | ECG_ITS ---
APPROVED REPORT Exam: Resting ECG HR:83 bpm ECG Measurements Heart Rate 83 AXES FL 173 P 70 QRSd 107 QRS 59 QT 356 T 45 QTc 396 Conclusion SINUS RHYTHM NORMAL ECG Electronically signed by : ROMANA OLIVIA, 02/10/2025 06:58:13
[2025-02-09 05:12] LABS: NT Pro Brain Natriuretic Pep. 304 pg/mL (0-125)
[2025-02-09 05:16] LABS: Troponin I < 0.01 ng/ml (0.00-0.034)
[2025-02-09 05:38] VITALS: O2SAT 99
[2025-02-09 05:51] VITALS: BP 181/81; PULSE 96; RESP 16; TEMP 37.2; O2SAT 97
[2025-02-09 05:52] LABS: Hepatitis C Ab Qual. W/ RFX REACTIVE (Negative)
[2025-02-09] MEDS: DOXYCYCLINE HYCL 100 MG TABLET PO (05:59)
[2025-02-09] MEDS: AEROCHAMBER/OPTIHALER 1 UNIT MC (06:00)
[2025-02-09] MEDS: ALBUTEROL-HFA 90MCG/PUFF INHALER 8GM 2 PUFF IH (06:00)
== END 2025-02-09 06:03 | disposition home or self-care (01) ==
PROVIDERS: Emergency Provider Emergency Medicine
DX: J45.40 Moderate persistent asthma, uncomplicated (principal); J40 Bronchitis, not specified as acute or chronic; E78.5 Hyperlipidemia, unspecified; I10 Essential (primary) hypertension; E11.9 Type 2 diabetes mellitus without complications; F17.200 Nicotine dependence, unspecified, uncomplicated
CPT/HCPCS: 71046; 80053; 82803; 83880; 84484; 85025; 86803; 87389; 87522; 93005; 96365; 99284; 99285; J7120

== ENCOUNTER 2025-02-22 12:26 | Emergency (ER) | payer MEDICAID, SELFPAY ==
[2025-02-22 12:33] VITALS: BP 162/89; PULSE 110; RESP 24; TEMP 36.6; O2SAT 97; BMI 38.7
--- NOTE | 2025-02-22 12:42 | PC.NURSE ---
Pt awake alert and oriented Skin pink warm and dry Resp full and slightly labored Audible wheezing noted. Speech clear and appropriate congested cough noted Report given to Sola GREGG
--- OUTSIDE RECORDS SUMMARY | 2025-02-22 12:42 | XMS_ITS ---
Author Organization [facility] Address [address] [id number] Care Team Providers Care Butcher Scullion Name Role Phone Shana Carrillo Primary Care Provider Hepatitis C Program Status:Active (Active) Start date:04/17/2023 Enrollment date:04/17/2023 Enrollment reason:HCV Continued Care and Services Coordination
--- OUTSIDE RECORDS SUMMARY | 2025-02-22 12:43 | XMS_ITS | Clinical Summary ---
Author Organization [facility] Address [address] [place] [address] Care Team Providers Care Reach Truck Operator Name Role Phone GerardoShana Melvin VAUGHAN Primary Care Provider [phone] Allergies Active Allergy Reactions Criticality Noted Date [...] not taking.Reported on 11/28/2024 Continuous Blood Gluc Pediatric Psychiatrist (Dexcom G6 parasitology teacher) device Use as instructed 1 each 4 [...] Interventional Pain Medicine [address] [place] [address] Dov Coleman MD Pain in right hip 12/13/2024 Orders Only External Location [address] [place] [address] Provider, External 12/13/2024 Travel 12/06/2024 Travel 11/28/2024 9:00 AM EDT Office Visit Interventional Pain Medicine [address] [place] [address] Dov Coleman MD Pain in right hip [...] drink first t perez in the morning (EYE-HERITAGE CONSULTANT) to steady your nerves or to get [...] Last Done Comments [facility]-Infant/Child/Adol SDOH Screenings 1977 [id number] Vaccine (#1) 1982 Diabetes: Dental Exam 09/30/1987 [...] findings. Pre-Procedure Checklist: Currently taking anticoagulant(s)?: no Gyroscope Technician present?: yes Additional Pre-Procedure Comments: Time out [...] anticoagulant(s)?: no NPO since:: 12/12/2024 5:00 PM Gyroscope Technician present?: yes Procedure details: Moderate conscious sedation [...] to: home Mode of exit: Walked ([facility] at 2[facility] PM) Post-sedation assessments completed [...] EST 04/17/2023 9:26 AM EST Cesar Brito MANAGED SERVICES CONSULTANT, DNP LAB BLOOD ORDERABLES Fi nal Result [facility] [address] [place] [address] * (ABNORMAL) Hemoglobin A1c (04/17/2023 4:09 AM EST) Hemoglobin A1c 16.3(H) <5.7 % 04/20/2023 10:27 AM EST [facility] Comment: Blood Venous blood specimen / Unknown Venipuncture / Unknown 04/17/2023 4:09 AM EST 04/17/2023 4:16 AM EST Narrative [facility] - 04/20/2023 10:27 AM EST HA1C Interpretive Data: Diagnosis of Diabetes: Diabetic > or = 6.5% Pre-diabetic 5.7 to 6.4% Non-diabetic < or = 5.6% Glycemic Targets for Type I and Type II Diabetics: Non- Adults <7.0% Adults <6.0% Children and Adolescents <7.5% Source: [place] [employer]. Standards of medical care in diabetes,2017. Diabetes Care.2017:40 (suppl 1):S1-S135. HbA1c assay performed by an ion-exchange chromatography method that is certified traceable to the DCCT. us Bisi Milan APRN LAB BLOOD ORDERABLES Final Re [facility]ult [facility] [address] [place] [address] from Last 3 Months or Most Recently Relevant to Health Maintenance Additional Health Concerns Infection Onset Date Last Indicated MRSA 06/27/2022 04/17/[address] [place] [address] [place] [address] [employer] MEDICAID Advance Directives * Full Code (Latest [...] Patient has decision-making capacity? Yes Care Teams Reach Truck Operator Relationship Specialty Start Date End Date Shana Carrillo PA [address] [place] [address] PCP - General 10/26/24
--- NOTE | 2025-02-22 12:52 | CT_ITS ---
FINAL REPORT TECHNIQUE: The patient was injected with IV contrast. Axial images were obtained through the chest in a PE protocol. 3-D reconstruction images were also performed. Individualized dose reduction techniques using automated exposure control or adjustment of the MA and/or KV according to patient's size were employed. CLINICAL HISTORY: shortness of breath COMPARISON: CT of the chest 03/25/2022 FINDINGS: Mediastinal vasculature is adequately opacified. No pulmonary artery filling defects are identified to suggest PE. There is no aortic dissection. There is no axillary adenopathy. There is no hilar or mediastinal adenopathy. The heart size is normal. There is no pericardial or pleural effusion. Limited images of the upper abdomen demonstrate fatty infiltration of the liver. No suspicious infiltrate or nodule is identified. IMPRESSION: No pulmonary embolus, aortic aneurysm or dissection. Reviewed, Interpreted and Dictated by Yohan Merida MD Transcribed by Abida Christiansen Authenticated and . [facility]
[2025-02-22 13:00] LABS: Coronavirus 19, PCR Not Detected (NotDetected); Influenza A, PCR Not Detected (NotDetected); Influenza B, PCR Not Detected (NotDetected)
[2025-02-22 13:00] LABS: Hematocrit 38.6 % (37.0-47.0); Hemoglobin 12.6 g/dL (12.2-16.2); Immature Granulocytes % 0.6 %; Mean Corpuscular HGB Conc 32.6 g/dL (31.8-35.4); Mean Corpuscular Hemoglobin 28.0 pg (27.0-31.2); Mean Corpuscular Volume 85.8 fl (81-99); Nucleated Red Blood Cells % 0 %; Platelet Count 302 K/mm3 (142-424); Red Blood Count 4.50 M/mm3 (4.20-5.40); Red Cell Distribution Width-SD 39.2 fL; White Blood Count 16.6 K/mm3 (4.8-10.8)
--- NOTE | 2025-02-22 13:01 | ECG_ITS ---
APPROVED REPORT Exam: Resting ECG HR:97 bpm ECG Measurements Heart Rate 97 AXES IN 169 P 81 QRSd 101 QRS 58 QT 330 T 33 QTc 384 Conclusion SINUS RHYTHM NORMAL ECG UNCONFIRMED REPORT Normal sinus rhythm. No ST elevation or depression. QTc normal at 384 Electronically signed by : BRAD TRINIDAD, 02/22/2025 14:39:02
[2025-02-22 13:05] LABS: Albumin Level 3.1 g/dl (3.5-5.0); Chloride 104 mmol/L (98-107); Potassium 3.6 mmoL/L (3.5-5.1); Sodium 132 mmol/L (136-145)
[2025-02-22 13:05] LABS: VBG PO2 159.6 mmol/L (28-40)
--- NOTE | 2025-02-22 13:05 | ED_ITS ---
<Statement entered by Anil Vegas MD - 02/22/25 15:13> I was consulted by the XIOMARA, and we discussed the complexity of the problems being addressed. I approve the treatment and management plan for this patient's care in the emergency department, thus performing a substantive portion of the medical decision making. Anil Vegas MD Discharge Plan Disposition Chief Complaint: Upper Respiratory Infection Prescriptions Prescriptions: No Action Farxiga 10 mg tablet 10 mg PO DAILY Qty: 30 2RF levothyroxine 50 mcg tablet 50 mcg PO DAILY Qty: 30 2RF albuterol sulfate 90 mcg/actuation HFA aerosol inhaler 2 puff inhalation Q6H PRN (Reason: shortness of breath or wheezing) Qty: 8.5 3RF Mounjaro 2.5 mg/0.5 mL pen injector 2.5 mg SQ WEEKLY Rx Instructions: for 4 weeks insulin lispro [Humalog KwikPen Insulin] 100 unit/mL insulin pen 15 unit SQ TID meloxicam 7.5 mg tablet 7.5 mg PO DAILY Qty: 14 0RF budesonide-formoterol [Symbicort] 160-4.5 mcg/actuation HFA aerosol inhaler 1 inh inhalation BID Qty: 10.2 3RF (DME) blood-glucose meter [OneTouch Verio Meter] Misc See Rx Instructions .ROUTE .MEDSUPPLY Rx Instructions: As directed (DME) OneTouch Verio test strips Strip See Rx Instructions .ROUTE .MEDSUPPLY Rx Instructions: Check Glucose 4 times daily (DME) pen needle, diabetic [Ultra-Thin II Ins Pen Waterproof] 29 gauge x 1/2 needle See Rx Instructions .ROUTE .MEDSUPPLY Rx Instructions: As directed (DME) lancets [OneTouch Delica Lancets] 33 gauge misc See Rx Instructions .ROUTE .MEDSUPPLY Rx Instructions: Check Glucose 4 times daily methocarbamol 750 mg tablet 1,500 mg PO TID 5 Days Qty: 30 0RF albuterol sulfate 2.5 mg/0.5 mL solution for nebulization 2.5 mg inhalation Q6H PRN (Reason: bronchospasm) Qty: 30 0RF doxycycline hyclate 100 mg capsule 100 mg PO BID 7 Days Qty: 14 0RF prednisone 20 mg tablet 40 mg PO DAILY 2 Days Qty: 4 0RF guaifenesin 600 mg tablet extended release 12hr 600 mg PO BID PRN (Reason: congestion) Qty: 10 0RF Referrals Follow up/Referrals: Shana Carrillo PA [Primary Care Provider, Medical] - See instructions Print Language Print Language: Bulgarian Discharge ED Provider: Anil Vegas General Adult HPI <Aleah Peter (ED), [employer] - Last Filed: 02/22/25 15:08> General Chief complaint: Upper Respiratory Infection Stated complaint: cough, asthma, diff breathing Time Seen by Provider: 02/22/25 12:31 Mode of Arrival: Wheelchair Source of Information: Patient Description of Symptoms (Recalled from ER Triage Doc. by RN): asthma exacerbation difficulty breathing dispite nebs at home. Since last week History of Present Illness HPI narrative: 49-year-old female presents to the ED for complaint of cough, wheezing, difficulty breathing at home. She says she was here couple weeks ago and just cannot get rid of this cough. She is having difficulty breathing. She did do 2 breathing treatments at home but it did not help her at all. Patient's tachycardic. You can hear the wheezing from the door. No recent fevers or chills. Related Data Home Medications ?Medication ?Instructions ?Recorded ?Confirmed blood sugar diagnostic (OneTouch 04/10/22 12/18/24 Verio test strips) blood-glucose meter (OneTouch 04/10/22 12/18/24 Verio Meter) lancets 33 gauge (OneTouch Delica 04/10/22 12/18/24 Lancets) pen needle, diabetic 29 gauge x 04/10/22 12/18/24 1/2 (Ultra-Thin II Insulin Pen Waterproof) insulin lispro 100 unit/mL 15 unit SQ TID Diabetes 12/18/24 subcutaneous pen (Humalog KwikPen (U-100) Insulin) tirzepatide 2.5 mg/0.5 mL 2.5 mg SQ WEEKLY 12/18/24 subcutaneous pen injector (Tamar) Previous Rx's ?Medication ?Instructions ?Recorded albuterol sulfate 90 mcg/actuation 2 puff inhalation Q 6H PRN 03/24/23 aerosol inhaler shortness of breath or wheez ing #8.5 grams dapagliflozin propanediol 10 mg 10 mg PO DAILY #30 tab s 03/24/23 tablet (Farxiga) levothyroxine 50 mcg tablet 50 mcg PO DAILY hypothyroi d #30 03/24/23 tabs budesonide-formoterol HFA 160 1 inh inhalation BID Miya athing 02/22/24 mcg-4.5 mcg/actuation aerosol problems #10.2 grams inhaler (Symbicort) meloxicam 7.5 mg tablet 7.5 mg PO DAILY #14 tabs methocarbamol 750 mg tablet 1,500 mg (2 x 750 mg) PO T ID 5 10/07/24 days #30 tabs albuterol sulfate 2.5 mg/0.5 mL 2.5 mg (0.5 mL) inhala tion Q6H PRN 02/09/25 solution for nebulization bronchospasm #30 ea doxycycline hyclate 100 mg capsule 100 mg PO BID 7 day s #14 caps 02/09/25 guaifenesin 600 mg tablet, 600 mg PO BID PRN congestio n #10 02/09/25 extended release 12 hr tabs prednisone 20 mg tablet 40 mg (2 x 20 mg) PO DAILY 2 days 02/09/25 #4 tabs Allergies Allergy/AdvReac Type Severity Reaction Status Date / Time levofloxacin (From Levaquin) Allergy Verified 12/18/24 11:43 zolpidem (From Ambien) Allergy Verified 12/18/24 11:43 [facility] <Aleah Peter (ED), [employer] - Last Filed: 02/22/25 15:08> [facility] Disclaimer: The information contained in this section may have been updated after the patient was seen, as this information can be updated by other users. Medical History Encounter for routine gynecological examination Hep C w/o coma, chronic Hypothyroidism Asthma PCOS (polycystic ovarian syndrome) Abscess History of gastroesophageal reflux (GERD) Diabetes mellitus, type 2 Hypertension Migraine Hypertension Depression Anxiety Asthma Surgical History History of hip surgery H/O esophagogastroduodenoscopy History of incision and drainage H/O skin graft Family History Father Family history of diabetes mellitus type II Family history of acute congestive heart failure Mother Family history of diabetes mellitus type II Social History Smoking Status: Former smoker smoking status start date: 20 years ago years smoked: 20 smoking status stop date: 3 years ago and recently started back alcohol intake: never substance use type: opiates, IV drugs and other details: hard drugs , non specific, according to patient. current occupational status: unemployed Travel in the last 8 weeks?: None Have you lived/traveled outside [place] in past 30 days?: No Contact w/someone who lives/traveled outside US past 30 days?: No Exposure to someone with infectious disease in past 14 days?: No Do you have a fever (greater than 100.4 F or 38 C)?: No Have you tested positive for COVID-19?: No Exposed to someone with COVID-19 in past 14 days?: No Do you have a sore throat?: No Do you have a cough?: Yes Do you have any weakness?: No Do you have any diarrhea?: No Are you experiencing any unusual bleeding?: No Do you have any muscle aches/pain?: No Do you have any abdominal pain?: No Are you experiencing loss of taste or smell?: No Other Medical History Have you received the Flu Vaccine for this season: No Have you received the Pneumonia Vaccine: No <Aleah Peter (ED), [employer] - Last Filed: 02/22/25 15:08> ROS Obtained: Yes Systems reviewed as appropriate & no additional complaints except as documented Constitutional Constitutional: Reports as per HPI Physical Exam <Aleah Peter (ED), [employer] - Last Filed: 02/22/25 15:08> General General appearance: alert and in distress Head Head exam: normocephalic Eye Eye exam: Present PERRL and EOMI ENT ENT exam: Present normal oropharynx and mucous membranes moist Neck Neck exam: Present full ROM and trachea midline Respiratory Respiratory exam: Present respiratory distress and wheezes Cardiovascular Cardiovascular exam: Present normal rhythm, tachycardia, normal heart sounds, +S1 and +S2 Abdominal Exam Abdominal exam: Present soft and normal bowel sounds Extremities Exam Extremities exam: Present full ROM and normal capillary refill Neurological Exam Neurological exam: Present alert and oriented X3 Skin Skin exam: Present warm and dry Medical Decision Making <Aleah Karlasnow (ED), [employer] - Last Filed: 02/22/25 15:08> Medical Records Screening: Per USPSTF and CDC recommendations, given the prevalence of disease in our region, it is our hospital?s policy to screen for HIV and viral Hepatitis for all patients aged 18 and over and those with ongoing risk factors. [place] Inquiry Pt receiving controlled substance: No [place] was queried for this patient: No Vital Signs: 02/22/25 12:33 02/22/25 13:13 Temperature 97.8 F Temperature Source Oral Pulse Rate [Left Radial] 110 H Respiratory Rate 24 Blood Pressure [Right Arm] 162/89 H Blood Pressure Mean [Right Arm] 113 Blood Pressure Source [Right Arm] Automatic Cuff Blood Pressure Position [Right Arm] Sitting 02 Sat by Pulse Oximetry 97 97 Oxygen Delivery Method Room Air Room Air Lab Data Lab Results 02/22/25 12:51: WBC 16.6 H, RBC 4.50, Hgb 12.6, Hct 38.6, MCV 85.8, MCH 28.0, MCHC 32.6, RDW 12.6, Plt Count 302, MPV 10.7 H, Neut % (Auto) 76.8, Lymph % (Auto) 12.6, [place] % (Auto) 3.9, Eos % (Auto) 5.8, Baso % (Auto) 0.3, Neut # (Auto) 12.7 H, Lymph # (Auto) 2.1, [place] # (Auto) 0.6, Eos # (Auto) 1.0 H, Baso # (Auto) 0.1, ESR 23 H, Sodium 132 L, Potassium 3.6, Chloride 104, Carbon Dioxide 23, Anion Gap 8.6, BUN 12, Creatinine 0.70, Estimated Creat Clear 186, Estimated GFR 90, Est GFR ( Amer) 109, Glucose 311 H, Calcium 8.7, Magnesium 1.4 L, Total Bilirubin 0.5, AST 61 H, ALT 78, Alkaline Phosphatase 133 H, Total Creatine Kinase 279 H, Troponin I < 0.01, C-Reactive Protein 14.7 H, Total Protein 7.4, Albumin 3.1 L, Globulin 4.3 H, Albumin/Globulin Ratio 0.7 L, Lipase 60 02/22/25 12:53: VBG pH 7.42 H, VBG pCO2 30.9 L, VBG pO2 159.6 H, VBG HCO3 19.5 L , VBG Total CO2 20.5 L, VBG O2 Saturation 99.2 H, VBG Base Excess -4.9 L, VBG Lactic Acid 1.7 02/22/25 12:58: SARS-CoV-2 (PCR) Not detected, Influenza A Untype (PCR) Not detected, Influenza Type B (PCR) Not detected 02/22/25 12:51 02/22/25 12:51 Orders (Tests/Meds): ED MEDICATIONS Generic Name Dose Route Start Last Admin Trade Name Freq PRN Reason Stop Dose Admin Azithromycin 500 mg/ Sodium 250 mls @ 250 mls/hr 02/22/25 14:15 Chloride IV 03/04/25 14:14 Q24H BARBARA Ceftriaxone Sodium 2 gm/ 100 mls @ 200 mls/hr 02/22/25 14:15 Sodium Chloride IV 03/04/25 14:14 Q24H BARBARA Discontinued Medications Generic Name Dose Route Start Last Admin Trade Name Freq PRN Reason Stop Dose Admin Albuterol/Ipratropium 9 ml 02/22/25 12:52 02/22/25 14:03 Ipratropium/Albuterol 3 Ml Neb IH 02/22/25 12:53 9 ml ONCE ONE Administration Benzonatate 200 mg 02/22/25 13:00 02/22/25 14:05 Benzonatate 100mg Capsule PO 03/24/25 12:59 200 mg ONCE BARBARA Administration Benzonatate 200 mg 02/22/25 13:00 Benzonatate 100mg Capsule PO 02/22/25 13:01 ONCE ONE Magnesium Sulfate 2 gm in 50 mls @ 50 mls/hr 02/22/25 12:52 02/22/25 14:02 Magnesium Sulfate 2gm/50ml Premix IV 02/22/25 13:51 50 mls/hr ONCE ONE Administration Iopamidol 70 ml 02/22/25 13:57 02/22/25 13:59 Iopamidol-370 (76%);100ml Bottle IV 02/22/25 13:58 70 ml ONCE ONE Administration Methylprednisolone Sodium Succinate 125 mg 02/22/25 12:52 Methylprednisolone Sod Succ 125mg Vial IM 02/22/25 12:53 ONCE ONE Methylprednisolone Sodium Succinate 125 mg 02/22/25 14:04 02/22/25 14:06 Methylprednisolone Sod Succ 125mg Vial IV 02/22/25 14:05 125 mg ONCE ONE Administration Sodium Chloride 50 ml 02/22/25 13:57 02/22/25 13:58 0.9 % Sodium Chloride 50 Ml Vial IV 02/22/25 13:58 50 ml ONCE ONE Administration Sodium Chloride 10 ml 02/22/25 13:57 02/22/25 13:59 Sodium Chloride 0.9% 10ml Syr (Rad Only) IV 02/22/25 13:58 10 ml ONCE ONE Administration ORDERS Category Date Time Status CTA Chest [CT angio chest PE protocol] Stat Cat Scan 02/22/25 12:52 Completed C-Reactive Protein Stat Lab 02/22/25 12:51 Completed CBC [Complete Blood Count Auto Diff] Stat Lab 02/22/25 12:51 Completed Comprehensive Metabolic Panel Stat Lab 02/22/25 12:51 Completed Creatine Kinase Stat Lab 02/22/25 12:51 Completed Erythrocyte Sedimentation Rate Stat Lab 02/22/25 12:51 Completed Lactic Acid Stat Lab 02/22/25 12:54 Ordered Lipase Stat Lab 02/22/25 12:51 Completed Magnesium Stat Lab 02/22/25 12:51 Completed Rapid PCR Covid and Flu A/B Stat Lab 02/22/25 12:58 Completed Trop I [Troponin I] Stat Lab 02/22/25 12:51 Completed Troponin I Q3H Lab 02/22/25 16:00 Ordered Troponin I Q3H Lab 02/22/25 19:00 Ordered Blood Culture Stat Micro 02/22/25 14:20 Received Venous Blood Gas Stat RT 02/22/25 12:53 Completed Medical Decision Narrative: patient is a 49-year-old female presenting to the emergency department for evaluation of asthma exacerbation. Patient is hemodynamically stable and nontoxic-appearing upon arrival, afebrile. Differential diagnosis includes asthma exacerbation, pneumonia, among others. Workup will be conducted with hematologic labs, specific imaging. Initial inventions include crystalloid bolus, analgesics, antibiotics. Initial workup reviewed by or hematologic labs are remarkable for Elevated white count of 16.6, she has been on steroids. Sed rate and CRP have been elevated. pH was 7.42, pCO2 was 30, PaO2 was 159 bicarb was 19, total CO2 was 20 and sats were 99 mag was 1.4 which was replaced and troponin was less than 0.01 COVID was negative flu was negative. CT of chest showed no PE no aortic aneurysm or dissection. I discussed with patient going home with nebs and steroids. She has an asthmatic exacerbation. She says that with the nebs, steroids and mag that she has received here she feels so much better. She feels like she can breathe. She and I discussed staying in the hospital versus going home. She says she feels better going home but she will stay close to the hospital with her mom so she can feel better about going home. Patient is safe for discharge home with strict return precautions. <Anil Vegas MD - Last Filed: 02/22/25 14:17> Vital Signs: 02/22/25 12:33 02/22/25 13:13 Temperature 97.8 F Temperature Source Oral Pulse Rate [Left Radial] 110 H Respiratory Rate 24 Blood Pressure [Right Arm] 162/89 H Blood Pressure Mean [Right Arm] 113 Blood Pressure Source [Right Arm] Automatic Cuff Blood Pressure Position [Right Arm] Sitting 02 Sat by Pulse Oximetry 97 97 Oxygen Delivery Method Room Air Room Air Lab Data Lab Results 02/22/25 12:51: WBC 16.6 H, RBC 4.50, Hgb 12.6, Hct 38.6, MCV 85.8, MCH 28.0, MCHC 32.6, RDW 12.6, Plt Count 302, MPV 10.7 H, Neut % (Auto) 76.8, Lymph % (Auto) 12.6, [place] % (Auto) 3.9, Eos % (Auto) 5.8, Baso % (Auto) 0.3, Neut # (Auto) 12.7 H, Lymph # (Auto) 2.1, [place] # (Auto) 0.6, Eos # (Auto) 1.0 H, Baso # (Auto) 0.1, ESR 23 H, Sodium 132 L, Potassium 3.6, Chloride 104, Carbon Dioxide 23, Anion Gap 8.6, BUN 12, Creatinine 0.70, Estimated Creat Clear 186, Estimated GFR 90, Est GFR ( Amer) 109, Glucose 311 H, Calcium 8.7, Magnesium 1.4 L, Total Bilirubin 0.5, AST 61 H, ALT 78, Alkaline Phosphatase 133 H, Total Creatine Kinase 279 H, Troponin I < 0.01, C-Reactive Protein 14.7 H, Total Protein 7.4, Albumin 3.1 L, Globulin 4.3 H, Albumin/Globulin Ratio 0.7 L, Lipase 60 02/22/25 12:53: VBG pH 7.42 H, VBG pCO2 30.9 L, VBG pO2 159.6 H, VBG HCO3 19.5 L , VBG Total CO2 20.5 L, VBG O2 Saturation 99.2 H, VBG Base Excess -4.9 L, VBG Lactic Acid 1.7 02/22/25 12:58: SARS-CoV-2 (PCR) Not detected, Influenza A Untype (PCR) Not detected, Influenza Type B (PCR) Not detected Orders (Tests/Meds): ED MEDICATIONS Generic Name Dose Route Start Last Admin Trade Name Freq PRN Reason Stop Dose Admin Azithromycin 500 mg/ Sodium 250 mls @ 250 mls/hr 02/22/25 14:15 Chloride IV 03/04/25 14:14 Q24H BARBARA Ceftriaxone Sodium 2 gm/ 100 mls @ 200 mls/hr 02/22/25 14:15 Sodium Chloride IV 03/04/25 14:14 Q24H BARBARA Discontinued Medications Generic Name Dose Route Start Last Admin Trade Name Freq PRN Reason Stop Dose Admin Albuterol/Ipratropium 9 ml 02/22/25 12:52 02/22/25 14:03 Ipratropium/Albuterol 3 Ml Neb IH 02/22/25 12:53 9 ml ONCE ONE Administration Benzonatate 200 mg 02/22/25 13:00 02/22/25 14:05 Benzonatate 100mg Capsule PO 03/24/25 12:59 200 mg ONCE BARBARA Administration Benzonatate 200 mg 02/22/25 13:00 Benzonatate 100mg Capsule PO 02/22/25 13:01 ONCE ONE Magnesium Sulfate 2 gm in 50 mls @ 50 mls/hr 02/22/25 12:52 02/22/25 14:02 Magnesium Sulfate 2gm/50ml Premix IV 02/22/25 13:51 50 mls/hr ONCE ONE Administration Iopamidol 70 ml 02/22/25 13:57 02/22/25 13:59 Iopamidol-370 (76%);100ml Bottle IV 02/22/25 13:58 70 ml ONCE ONE Administration Methylprednisolone Sodium Succinate 125 mg 02/22/25 12:52 Methylprednisolone Sod Succ 125mg Vial IM 02/22/25 12:53 ONCE ONE Methylprednisolone Sodium Succinate 125 mg 02/22/25 14:04 02/22/25 14:06 Methylprednisolone Sod Succ 125mg Vial IV 02/22/25 14:05 125 mg ONCE ONE Administration Sodium Chloride 50 ml 02/22/25 13:57 02/22/25 13:58 0.9 % Sodium Chloride 50 Ml Vial IV 02/22/25 13:58 50 ml ONCE ONE Administration Sodium Chloride 10 ml 02/22/25 13:57 02/22/25 13:59 Sodium Chloride 0.9% 10ml Syr (Rad Only) IV 02/22/25 13:58 10 ml ONCE ONE Administration ORDERS Category Date Time Status CTA Chest [CT angio chest PE protocol] Stat Cat Scan 02/22/25 12:52 Completed C-Reactive Protein Stat Lab 02/22/25 12:51 Completed CBC [Complete Blood Count Auto Diff] Stat Lab 02/22/25 12:51 Completed Comprehensive Metabolic Panel Stat Lab 02/22/25 12:51 Completed Creatine Kinase Stat Lab 02/22/25 12:51 Completed Erythrocyte Sedimentation Rate Stat Lab 02/22/25 12:51 Completed Lactic Acid Stat Lab 02/22/25 12:54 Ordered Lipase Stat Lab 02/22/25 12:51 Completed Magnesium Stat Lab 02/22/25 12:51 Completed Rapid PCR Covid and Flu A/B Stat Lab 02/22/25 12:58 Completed Trop I [Troponin I] Stat Lab 02/22/25 12:51 Completed Troponin I Q3H Lab 02/22/25 16:00 Ordered Troponin I Q3H Lab 02/22/25 19:00 Ordered Blood Culture Stat Micro 02/22/25 14:20 Received Venous Blood Gas Stat RT 02/22/25 12:53 Completed ECG Data Tracing #1: I reviewed this ECG and interpreted as documented below: NSR. No ST elevation or depression. QTc normal at 384 Procedures <Anil Vegsa MD - Last Filed: 02/22/25 14:17> Limited Ultrasound Indication:: Indication:: Ultrasound-guided line placement Indication: - Difficult IV access, numerous unsuccessful pokes Identified structures: - Basilic vein and cephalic vein Location/access site: - Cephalic vein Vessel patency: - Patent Direct visualization? - Yes Impression: Successful 18g catheter in left upper extremity cephalic vein Images were not saved to permanent archive The study was technically adequate Critical Care <Aleah Peter (ED), [employer] - Last Filed: 02/22/25 15:08> Critical Care Time Critical Care Time: No
[2025-02-22 13:06] LABS: VBG PH 7.42 mmol/L (7.31-7.41)
[2025-02-22 13:07] LABS: Blood Urea Nitrogen 12 mg/dl (7-17); Creatinine Clearance Estimated 186 mL/min (50-200); Creatinine,Serum 0.70 mg/dl (0.52-1.04); Estimated Glomerular Filt Rate 90 ml/min (>60); GFR (African American) 109 ML/MIN (>60)
[2025-02-22 13:07] LABS: VBG HCO3 19.5 mmol/L (23-30); VBG PCO2 30.9 mmol/L (35-51)
[2025-02-22 13:08] LABS: Lactate Venous 1.7 mmol/L (0.4-2.0)
[2025-02-22 13:08] LABS: Alanine Aminotransferase 78 U/L (12-78); Albumin/Globulin Ratio 0.7 (1.1-1.8); Alkaline Phosphatase 133 U/L (38-126); Anion Gap 8.6 mEq/L (5-15); Aspartate Amino Transferase 61 U/L (14-36); Bilirubin,Total 0.5 mg/dl (0.2-1.3); Calcium 8.7 mg/dl (8.4-10.2); Carbon Dioxide 23 mmol/L (22.0-30.0); Creatine Kinase 279 U/L (30-135); Globulin 4.3 g/dL (1.3-3.2); Glucose 311 mg/dl (74-100); Lipase 60 U/L (23-300); Total Protein,Serum 7.4 g/dl (6.3-8.2)
[2025-02-22 13:09] LABS: Magnesium 1.4 mg/dl (1.6-2.3)
[2025-02-22 13:13] VITALS: O2SAT 97
[2025-02-22 13:21] LABS: Troponin I < 0.01 ng/ml (0.00-0.034)
[2025-02-22] MEDS: 0.9 % SODIUM CHLORIDE 50 ML VIAL IV (13:58)
[2025-02-22] MEDS: IOPAMIDOL-370 (76%);100ML BOTTLE 70 ML IV (13:59)
[2025-02-22] MEDS: SODIUM CHLORIDE 0.9% 10ML SYR (RAD ONLY) 10 ML IV (13:59)
[2025-02-22] MEDS: MAGNESIUM SULFATE IN WATER 2 GM/50 ML PIGGYBACK IV (14:02)
[2025-02-22] MEDS: IPRATROPIUM/ALBUTEROL 3 ML NEB 9 ML IH (14:03)
[2025-02-22] MEDS: BENZONATATE 100MG CAPSULE 200 MG PO ×2 (14:05→15:18)
[2025-02-22] MEDS: METHYLPREDNISOLONE SOD SUCC 125MG VIAL 125 MG IV (14:06)
[2025-02-22 14:15] LABS: C-Reactive Protein 14.7 mg/L (0-4)
[2025-02-22 15:30] VITALS: BP 159/71; PULSE 97; RESP 18; O2SAT 98
[2025-02-22 16:00] VITALS: BP 178/96; PULSE 95; RESP 18; O2SAT 97
[2025-02-22] MEDS: AZITHROMYCIN 500 MG in 0.9 % SODIUM CHLORIDE 250 ML 250 MG IV (16:01)
[2025-02-22 17:14] VITALS: BP 155/81; PULSE 92; RESP 16; TEMP 36.9; O2SAT 97
== END 2025-02-22 17:23 | disposition home or self-care (01) ==
PROVIDERS: Nurse Practitioner; Emergency Provider Student in an Organized Health Care Education/Training Program; PCP Physician Assistant
DX: J45.901 Unspecified asthma with (acute) exacerbation (principal); E83.42 Hypomagnesemia; R79.81 Abnormal blood-gas level; E87.1 Hypo-osmolality and hyponatremia; E11.65 Type 2 diabetes mellitus with hyperglycemia; Z87.891 Personal history of nicotine dependence; Z79.4 Long term (current) use of insulin
CPT/HCPCS: 71275; 80053; 82550; 82803; 83690; 83735; 84484; 85025; 85651; 86140; 87040; 87636; 93005; 96365; 96366; 96367; 96375; 99285; J0456; J0696; J2919; J3475; J7050; Q9967

== ENCOUNTER 2025-04-06 16:48 | Emergency (ER) | payer MEDICAID, SELFPAY ==
[2025-04-06] VITALS (7 sets, daily range): BP systolic 144–206; BP diastolic 74–117; PULSE 108–125; RESP 20–24; TEMP 36.9; O2SAT 94–99; BMI 38.7
--- NOTE | 2025-04-06 17:00 | HMH.EDGENADL ---
Discharge Plan Disposition Patient Disposition: Home, Self-Care Condition: Good Prescriptions Prescriptions: New prednisone 20 mg tablet 40 mg PO DAILY 3 Days Qty: 6 0RF azithromycin 250 mg tablet 500 mg PO DAILY 3 Days Qty: 6 0RF Rx Instructions: start on day 2 of therapy No Action Farxiga 10 mg tablet 10 mg PO DAILY Qty: 30 2RF levothyroxine 50 mcg tablet 50 mcg PO DAILY Qty: 30 2RF Mounjaro 2.5 mg/0.5 mL pen injector 2.5 mg SQ WEEKLY Rx Instructions: for 4 weeks insulin lispro [Humalog KwikPen Insulin] 100 unit/mL insulin pen 15 unit SQ TID meloxicam 7.5 mg tablet 7.5 mg PO DAILY Qty: 14 0RF budesonide-formoterol [Symbicort] 160-4.5 mcg/actuation HFA aerosol inhaler 1 inh inhalation BID Qty: 10.2 3RF (DME) blood-glucose meter [OneTouch Verio Meter] Misc See Rx Instructions .ROUTE .MEDSUPPLY Rx Instructions: As directed (DME) OneTouch Verio test strips Strip See Rx Instructions .ROUTE .MEDSUPPLY Rx Instructions: Check Glucose 4 times daily (DME) pen needle, diabetic [Ultra-Thin II Ins Pen [place]] 29 gauge x 1/2 needle See Rx Instructions .ROUTE .MEDSUPPLY Rx Instructions: As directed (DME) lancets [OneTouch Delica Lancets] 33 gauge misc See Rx Instructions .ROUTE .MEDSUPPLY Rx Instructions: Check Glucose 4 times daily methocarbamol 750 mg tablet 1,500 mg PO TID 5 Days Qty: 30 0RF albuterol sulfate 2.5 mg/0.5 mL solution for nebulization 2.5 mg inhalation Q6H PRN (Reason: bronchospasm) Qty: 30 0RF doxycycline hyclate 100 mg capsule 100 mg PO BID 7 Days Qty: 14 0RF guaifenesin 600 mg tablet extended release 12hr 600 mg PO BID PRN (Reason: congestion) Qty: 10 0RF benzonatate 100 mg Capsule 200 mg PO TID 10 Days Qty: 30 0RF prednisone 20 mg tablet 40 mg PO DAILY 6 Days Qty: 12 0RF albuterol sulfate 90 mcg/actuation HFA aerosol inhaler 2 puff inhalation Q6H PRN (Reason: shortness of breath or wheezing) Qty: 8.5 3RF ipratropium-albuterol 0.5 mg-3 mg(2.5 mg base)/3 mL solution for nebulization 3 ml inhalation Q4H 7 Days Qty: 90 0RF benzonatate 200 mg capsule 200 mg PO TID PRN (Reason: cough) Qty: 30 0RF Referrals Follow up/Referrals: Shana Carrillo PA [Primary Care Provider, Medical] - See instructions Activity Restrictions/Add. Instructions Additional Instructions/Restrictions: Use your albuterol inhaler every 4 hours, 4 puffs while awake. I have sent you with steroids but be mindful this will increase your glucose therefore check your glucose regularly at home as you may need to increase your short acting insulin for the next 5 days. Take your insulin as prescribed. Take the antibiotic as prescribed. Return to the emergency department for any acute or worsening shortness of breath. Your creatinine or your kidney function was elevated today therefore you need to follow-up with your primary care provider to get repeat blood work done within the last week. Clinical Impressions Clinical Impression: Asthma exacerbation Print Language Print Language: Slovenian Discharge ED Provider: Suad Giang Adult HPI General Chief complaint: Shortness of Breath/Dyspnea Stated complaint: SOA Time Seen by Provider: 04/06/25 16:53 Related Data Home Medications ?Medication ?Instructions ?Recorded ?Confirmed blood sugar diagnostic (OneTouch 04/10/22 12/18/24 Verio test strips) blood-glucose meter (OneTouch 04/10/22 12/18/24 Verio Meter) lancets 33 gauge (OneTouch Delica 04/10/22 12/18/24 Lancets) pen needle, diabetic 29 gauge x 04/10/22 12/18/24 1/2 (Ultra-Thin II Insulin Pen [place]) insulin lispro 100 unit/mL 15 unit SQ TID Diabetes 03/17/23 12/18/24 subcutaneous pen (Humalog KwikPen (U-100) Insulin) tirzepatide 2.5 mg/0.5 mL 2.5 mg SQ WEEKLY 12/18/24 12/18/24 subcutaneous pen injector (Mounjaro) Previous Rx's ?Medication ?Instructions ?Recorded dapagliflozin propanediol 10 mg 10 mg PO DAILY #30 tabs 03/24/23 tablet (Farxiga) levothyroxine 50 mcg tablet 50 mcg PO DAILY hypothyroid #30 03/24/23 tabs budesonide-formoterol HFA 160 1 inh inhalation BID Breathing 02/22/24 mcg-4.5 mcg/actuation aerosol problems #10.2 grams inhaler (Symbicort) meloxicam 7.5 mg tablet 7.5 mg PO DAILY #14 tabs 02/22/24 methocarbamol 750 mg tablet 1,500 mg (2 x 750 mg) PO TID 5 10/07/24 days #30 tabs albuterol sulfate 2.5 mg/0.5 mL 2.5 mg (0.5 mL) inhalation Q6H PRN 02/09/25 solution for nebulization bronchospasm #30 ea doxycycline hyclate 100 mg capsule 100 mg PO BID 7 days #14 caps 02/09/25 guaifenesin 600 mg tablet, 600 mg PO BID PRN congestion #10 02/09/25 extended release 12 hr tabs albuterol sulfate 90 mcg/actuation 2 puff inhalation Q6H PRN 02/22/25 aerosol inhaler shortness of breath or wheezing #8.5 grams benzonatate 100 mg capsule 200 mg (2 x 100 mg) PO TID 10 days 02/22/25 #30 caps benzonatate 200 mg capsule 200 mg PO TID PRN cough #30 caps 02/22/25 ipratropium 0.5 mg-albuterol 3 mg 3 ml inhalation Q4H wheezing 7 02/22/25 (2.5 mg base)/3 mL nebulization days #90 mL soln prednisone 20 mg tablet 40 mg (2 x 20 mg) PO DAILY 6 days 02/22/25 #12 tabs azithromycin 250 mg tablet 500 mg (2 x 250 mg) PO DAILY 3 04/06/25 days #6 tabs prednisone 20 mg tablet 40 mg (2 x 20 mg) PO DAILY 3 days 04/06/25 #6 tabs Allergies Allergy/AdvReac Type Severity Reaction Status Date / Time levofloxacin (From Levaquin) Allergy Verified 12/18/24 11:43 zolpidem (From Ambien) Allergy Verified 12/18/24 11:43 [facility] Disclaimer: The information contained in this section may have been updated after the patient was seen, as this information can be updated by other users. Medical History (Updated 04/06/25 @ 21:31 by Suad Giang DO) Encounter for routine gynecological examination Hep C w/o coma, chronic Hypothyroidism Asthma PCOS (polycystic ovarian syndrome) Abscess History of gastroesophageal reflux (GERD) Diabetes mellitus, type 2 Hypertension Migraine Hypertension Depression Anxiety Asthma Surgical History History of hip surgery H/O esophagogastroduodenoscopy History of incision and drainage H/O skin graft Family History Father Family history of diabetes mellitus type II Family history of acute congestive heart failure Mother Family history of diabetes mellitus type II Social History Smoking Status: Former smoker smoking status start date: 20 years ago years smoked: 20 smoking status stop date: 3 years ago and recently started back alcohol intake: never substance use type: opiates, IV drugs and other details: hard drugs , non specific, according to patient. current occupational status: unemployed Travel in the last 8 weeks?: None Have you lived/traveled outside [place] in past 30 days?: No Contact w/someone who lives/traveled outside [place] past 30 days?: No Exposure to someone with infectious disease in past 14 days?: No Do you have a fever (greater than 100.4 F or 38 C)?: No Have you tested positive for COVID-19?: No Exposed to someone with COVID-19 in past 14 days?: No Do you have a sore throat?: No Do you have a cough?: No Do you have any weakness?: No Do you have any diarrhea?: No Are you experiencing any unusual bleeding?: No Do you have any muscle aches/pain?: No Do you have any abdominal pain?: No Are you experiencing loss of taste or smell?: No Other Medical History Have you received the Flu Vaccine for this season: No Have you received the Pneumonia Vaccine: No ROS Obtained: Yes All systems reviewed & no additional complaints except as documented and Yes Systems reviewed as appropriate & no additional complaints except as documented Physical Exam General General appearance: alert and in no apparent distress Head Head exam: atraumatic, normocephalic and normal inspection Eye Eye exam: Present normal appearance, PERRL and EOMI; Absent scleral icterus ENT ENT exam: Present normal exam and normal external ear exam Neck Neck exam: Present normal inspection and full ROM Chest Chest inspection: Present normal inspection and symmetric chest wall rise Respiratory Respiratory exam: Present normal lung sounds bilaterally; Absent respiratory distress or wheezes Cardiovascular Cardiovascular exam: Present regular rate, normal rhythm and normal heart sounds Abdominal Exam Abdominal exam: Present soft and distention; Absent tenderness, guarding or rebound Extremities Exam Extremities exam: Present normal inspection and full ROM Back Exam Back exam: Present normal inspection and full ROM Neurological Exam Neurological exam: Present alert and oriented X3 Psychiatric Psychiatric exam: Present normal affect and normal mood Skin Skin exam: Present warm and dry Medical Decision Making Medical Records Medical records reviewed: Yes I reviewed the patient's medical records. Screening: Per USPSTF and CDC recommendations, given the prevalence of disease in our region, it is our hospital?s policy to screen for HIV and viral Hepatitis for all patients aged 18 and over and those with ongoing risk factors. [place] Inquiry Pt receiving controlled substance: No Vital Signs: 04/06/25 16:54 04/06/25 16:58 04/06/25 17:01 Temperature 98.4 F Temperature Source Oral Pulse Rate 122 H Pulse Rate [Radial] 125 H Respiratory Rate 24 Blood Pressure 206/117 H 144/74 H Blood Pressure [Right Arm] 206/117 H Blood Pressure Mean [Right Arm] 146 Blood Pressure Source [Right Arm] Automatic Cuff Blood Pressure Position [Right Arm] Sitting 02 Sat by Pulse Oximetry 94 L 98 96 Oxygen Delivery Method Room Air 04/06/25 17:30 04/06/25 18:00 04/06/25 19:00 Temperature Temperature Source Pulse Rate 122 H 112 H 116 H Pulse Rate [Radial] Respiratory Rate Blood Pressure Blood Pressure [Right Arm] Blood Pressure Mean [Right Arm] Blood Pressure Source [Right Arm] Blood Pressure Position [Right Arm] 02 Sat by Pulse Oximetry 97 99 96 Oxygen Delivery Method 04/06/25 21:09 Temperature 98.4 F Temperature Source Pulse Rate 108 H Pulse Rate [Radial] Respiratory Rate 20 Blood Pressure 167/90 H Blood Pressure [Right Arm] Blood Pressure Mean [Right Arm] Blood Pressure Source [Right Arm] Blood Pressure Position [Right Arm] 02 Sat by Pulse Oximetry Oxygen Delivery Method Room Air Lab Data Lab results reviewed: Yes I reviewed the patient's lab results. Lab Results 04/06/25 17:30: WBC 16.2 H, RBC 4.43, Hgb 12.8, Hct 37.4, MCV 84.4, MCH 28.9, MCHC 34.2, RDW 12.2, Plt Count 324, MPV 10.9 H, Neut % (Auto) 65.8, Lymph % (Auto) 20.3, Walker % (Auto) 5.6, Eos % (Auto) 6.4, Baso % (Auto) 0.7, Neut # (Auto) 10.6 H, Lymph # (Auto) 3.3, Walker # (Auto) 0.9, Eos # (Auto) 1.0 H, Baso # (Auto) 0.1, D-Dimer 0.64 H, VBG pH 7.32, VBG pCO2 34.9 L, VBG pO2 61.6 H, VBG HCO3 17.7 L, VBG Total CO2 18.7 L, VBG O2 Saturation 92.1 H, VBG Base Excess -8.4 L, VBG Lactic Acid 2.7 H, Sodium 130 L, Potassium 3.6, Chloride 99, Carbon Dioxide 17 L, Anion Gap 17.6 H, BUN 26 H, Creatinine 1.50 H, Estimated Creat Clear 87, Estimated GFR 37 L, Est GFR ( Amer) 45 L, Glucose 491 H*, Calcium 8.9, Magnesium 1.7, Total Bilirubin 0.6, AST 53 H, ALT 89 H, Alkaline Phosphatase 165 H, Troponin I < 0.01, Total Protein 7.5, Albumin 4.2, Globulin 3.3 H, Albumin/Globulin Ratio 1.3, Serum HCG, Qual Negative 04/06/25 20:15: Troponin I < 0.01 04/06/25 17:30 04/06/25 17:30 Orders (Tests/Meds): ED MEDICATIONS Discontinued Medications Generic Name Dose Route Start Last Admin Trade Name Freq PRN Reason Stop Dose Admin Albuterol Sulfate 20 mg 04/06/25 19:09 04/06/25 19:39 Albuterol 0.083% 2.5 Mg/3 Ml Neb IH 04/06/25 19:10 20 mg ONCE ONE Administration Albuterol Sulfate 2 puff 04/06/25 21:32 04/06/25 21:59 Albuterol-Hfa 90mcg/Puff Inhaler 8gm 04/06/25 21:33 2 puff ONCE ONE Administration Albuterol/Ipratropium 9 ml 04/06/25 17:05 04/06/25 17:50 Ipratropium/Albuterol 3 Ml Neb 04/06/25 17:06 9 ml ONCE ONE Administration Azithromycin 500 mg 04/06/25 21:05 04/06/25 21:29 Azithromycin 250mg Tablet PO 04/06/25 21:06 500 mg ONCE ONE Administration Sodium Chloride 1,000 mls @ 999 mls/hr 04/06/25 17:05 04/06/25 21:09 Sod Chlor 0.9% 1000ml Bag IV 04/06/25 18:05 Infused .Q1H1M ONE Infusion Magnesium Sulfate 2 gm in 50 mls @ 100 mls/hr 04/06/25 17:05 04/06/25 21:09 Magnesium Sulfate 2gm/50ml Premix IV 04/06/25 17:34 Infused ONCE ONE Infusion Sodium Chloride 1,000 mls @ 999 mls/hr 04/06/25 18:12 04/06/25 21:08 Sod Chlor 0.9% 1000ml Bag IV 04/06/25 19:12 Infused .Q1H1M ONE Infusion Insulin Glargine 25 unit 04/06/25 19:14 04/06/25 19:48 Insulin Glargine 100 Units/Ml 3ml Flexpen SUBCUT 04/06/25 19:15 25 units ONCE ONE Administration Iopamidol 70 ml 04/06/25 18:36 04/06/25 18:44 Iopamidol-370 (76%);100ml Bottle IV 04/06/25 18:37 70 ml ONCE ONE Administration Methylprednisolone Sodium Succinate 125 mg 04/06/25 17:05 04/06/25 17:50 Methylprednisolone Sod Succ 125mg Vial IV 04/06/25 17:06 125 mg ONCE ONE Administration Miscellaneous 1 unit 04/06/25 21:31 04/06/25 21:59 Aerochamber/Optihaler MC 04/06/25 21:32 1 unit ONCE ONE Administration Sodium Chloride 50 ml 04/06/25 18:36 04/06/25 18:44 0.9 % Sodium Chloride 50 Ml Vial IV 04/06/25 18:37 50 ml ONCE ONE Administration Sodium Chloride 10 ml 04/06/25 18:36 04/06/25 18:44 Sodium Chloride 0.9% 10ml Syr (Rad Only) IV 05/06/25 18:35 10 ml NEEDED PRN Administration Maintain IV Site ORDERS Category Date Time Status CT angio chest PE protocol Stat Cat Scan 04/06/25 18:11 Completed CXR --portable [XR chest portable] Stat Exams 04/06/25 17:46 Completed CBC w/Auto Diff [Complete Blood Count Auto Diff] Stat Lab 04/06/25 17:30 Completed CMP [Comprehensive Metabolic Panel] Stat Lab 04/06/25 17:30 Completed D-Dimer Stat Lab 04/06/25 17:30 Completed HCG Qualitative, Serum Stat Lab 04/06/25 17:30 Completed MAG [Magnesium] Stat Lab 04/06/25 17:30 Completed POC Glucose,Bedside Stat Lab 04/06/25 19:14 Ordered Trop I [Troponin I] Stat Lab 04/06/25 17:30 Completed Troponin I Q3H Lab 04/06/25 20:15 Completed VBG [Venous Blood Gas] Stat RT 04/06/25 17:30 Completed
--- NOTE | 2025-04-06 17:08 | ECG_ITS ---
APPROVED REPORT Exam: Resting ECG HR:118 bpm ECG Measurements Heart Rate 118 AXES ME 158 P 67 QRSd 112 QRS 26 QT 308 T 40 QTc 378 Conclusion SINUS TACHYCARDIA POSSIBLE RIGHT ATRIAL ENLARGEMENT [0.25mV P-WAVE] POSSIBLE LEFT ATRIAL ENLARGEMENT [-0.1mV P-WAVE IN V1/V2] MODERATE INTRAVENTRICULAR CONDUCTION DELAY [110+ ms QRS DURATION] ABNORMAL RHYTHM ECG UNCONFIRMED REPORT Electronically signed by : ADAN DOSHI, 04/09/2025 00:20:29
[2025-04-06 17:42] LABS: Hematocrit 37.4 % (37.0-47.0); Hemoglobin 12.8 g/dL (12.2-16.2); Immature Granulocytes % 1.2 %; Mean Corpuscular HGB Conc 34.2 g/dL (31.8-35.4); Mean Corpuscular Hemoglobin 28.9 pg (27.0-31.2); Mean Corpuscular Volume 84.4 fl (81-99); Nucleated Red Blood Cells % 0 %; Platelet Count 324 K/mm3 (142-424); Red Blood Count 4.43 M/mm3 (4.20-5.40); Red Cell Distribution Width-SD 37.2 fL; VBG HCO3 17.7 mmol/L (23-30); VBG PCO2 34.9 mmol/L (35-51); VBG PH 7.32 mmol/L (7.31-7.41); VBG PO2 61.6 mmol/L (28-40); White Blood Count 16.2 K/mm3 (4.8-10.8)
--- NOTE | 2025-04-06 17:46 | XR_ITS ---
PROCEDURE INFORMATION: Exam: XR Chest Exam date and time: 04/06/2025 5:50 PM Age: 49 years old Clinical indication: Cough and shortness of breath TECHNIQUE: Imaging protocol: Radiologic exam of the chest. Views: 1 view. COMPARISON: CT ANGIO CHEST PE PROTOCOL 02/22/2025 1:57 PM FINDINGS: Lungs: Central opacities with peribronchial cuffing. No opacities to suggest consolidation. Pleural spaces: Unremarkable. No pleural effusion. No pneumothorax. Heart/Mediastinum: Unremarkable. No cardiomegaly. Bones/joints: Unremarkable. IMPRESSION: Combination of findings that suggests viral process versus reactive airways without evidence of consolidation.
[2025-04-06 17:49] LABS: HCG Qualitative, Serum Negative (Negative)
[2025-04-06] MEDS: 0.9 % SODIUM CHLORIDE 1000ML 1,000 ML 999 ML IV ×2 (17:49→19:37)
[2025-04-06] MEDS: MAGNESIUM SULFATE IN WATER 2 GM/50 ML PIGGYBACK IV (17:50)
[2025-04-06] MEDS: METHYLPREDNISOLONE SOD SUCC 125MG VIAL 125 MG IV (17:50)
[2025-04-06] MEDS: IPRATROPIUM/ALBUTEROL 3 ML NEB 9 ML IH (17:50)
[2025-04-06 17:54] LABS: Alanine Aminotransferase 89 U/L (12-78); Albumin Level 4.2 g/dl (3.5-5.0); Albumin/Globulin Ratio 1.3 (1.1-1.8); Alkaline Phosphatase 165 U/L (38-126); Anion Gap 17.6 mEq/L (5-15); Aspartate Amino Transferase 53 U/L (14-36); Bilirubin,Total 0.6 mg/dl (0.2-1.3); Blood Urea Nitrogen 26 mg/dl (7-17); Calcium 8.9 mg/dl (8.4-10.2); Carbon Dioxide 17 mmol/L (22.0-30.0); Chloride 99 mmol/L (98-107); Creatinine Clearance Estimated 87 mL/min (50-200); Creatinine,Serum 1.50 mg/dl (0.52-1.04); Estimated Glomerular Filt Rate 37 ml/min (>60); GFR (African American) 45 ML/MIN (>60); Globulin 3.3 g/dL (1.3-3.2); Magnesium 1.7 mg/dl (1.6-2.3); Potassium 3.6 mmoL/L (3.5-5.1); Sodium 130 mmol/L (136-145); Total Protein,Serum 7.5 g/dl (6.3-8.2)
[2025-04-06 17:57] LABS: Glucose 491 mg/dl (74-100)
[2025-04-06 17:58] LABS: D-Dimer 0.64 ug/mL (0.0-0.5)
[2025-04-06 18:05] LABS: Troponin I < 0.01 ng/ml (0.00-0.034)
--- NOTE | 2025-04-06 18:11 | CT_ITS ---
PROCEDURE INFORMATION: Exam: CTA Chest With Contrast Exam date and time: 04/06/2025 6:34 PM Age: 49 years old Clinical indication: Tachypnea; Additional info: Elevated d-dimer, tachycardia TECHNIQUE: Imaging protocol: Computed tomographic angiography of the chest with contrast. Exam focused on the arteries. 3D rendering (Not supervised by radiologist): MIP and/or 3D reconstructed images were created by the technologist. Radiation optimization: All CT scans at this facility use at least one of these dose optimization techniques: automated exposure control; mA and/or kV adjustment per patient size (includes targeted exams where dose is matched to clinical indication); or iterative reconstruction. Contrast material: ISO 370; Contrast volume: 80 ml; Contrast route: INTRAVENOUS (IV); COMPARISON: CT ANGIO CHEST PE PROTOCOL 02/22/2025 1:57 PM FINDINGS: Pulmonary arteries: No CT angiography evidence of pulmonary embolism. Aorta: Unremarkable. No aortic aneurysm. No aortic dissection. Lungs: Mild peribronchial edema which can be seen with at viral process. Pleural spaces: Unremarkable. No pneumothorax. No pleural effusion. Heart: Unremarkable. No cardiomegaly. No pericardial effusion. Lymph nodes: Unremarkable. No enlarged lymph nodes. Bones/joints: Unremarkable. No acute fracture. Soft tissues: Unremarkable. IMPRESSION: 1. No CT angiography evidence of pulmonary embolism. 2. Mild peribronchial edema which can be seen with at viral process.
[2025-04-06] MEDS: 0.9 % SODIUM CHLORIDE 50 ML VIAL IV (18:44)
[2025-04-06] MEDS: IOPAMIDOL-370 (76%);100ML BOTTLE 70 ML IV (18:44)
[2025-04-06] MEDS: SODIUM CHLORIDE 0.9% 10ML SYR (RAD ONLY) 10 ML IV (18:44)
[2025-04-06 19:07] LABS: Lactate Venous 2.7 mmol/L (0.4-2.0)
--- NOTE | 2025-04-06 19:24 | PC.NURSE ---
FSBS 435 at this time MD Giang notified
[2025-04-06] MEDS: ALBUTEROL 0.083% 2.5 MG/3 ML NEB 20 MG IH (19:39)
[2025-04-06] MEDS: INSULIN GLARGINE 100 UNITS/ML 3ML FLEXPEN 25 UNIT SUBCUT (19:48)
[2025-04-06 20:49] LABS: Troponin I < 0.01 ng/ml (0.00-0.034)
[2025-04-06] MEDS: AZITHROMYCIN 250MG TABLET 500 MG PO (21:29)
[2025-04-06 21:49] LABS: Reflex Lactic Add Lactic Reflex
[2025-04-06] MEDS: ALBUTEROL-HFA 90MCG/PUFF INHALER 8GM 2 PUFF IH (21:59)
[2025-04-06] MEDS: AEROCHAMBER/OPTIHALER 1 UNIT MC (21:59)
--- NOTE | 2025-04-08 23:59 | HMH.EDGENADL ---
Discharge Plan Disposition Patient Disposition: Home, Self-Care Condition: Good Prescriptions Prescriptions: New prednisone 20 mg tablet 40 mg PO DAILY 3 Days Qty: 6 0RF azithromycin 250 mg tablet 500 mg PO DAILY 3 Days Qty: 6 0RF Rx Instructions: start on day 2 of therapy No Action Farxiga 10 mg tablet 10 mg PO DAILY Qty: 30 2RF levothyroxine 50 mcg tablet 50 mcg PO DAILY Qty: 30 2RF Mounjaro 2.5 mg/0.5 mL pen injector 2.5 mg SQ WEEKLY Rx Instructions: for 4 weeks insulin lispro [Humalog KwikPen Insulin] 100 unit/mL insulin pen 15 unit SQ TID meloxicam 7.5 mg tablet 7.5 mg PO DAILY Qty: 14 0RF budesonide-formoterol [Symbicort] 160-4.5 mcg/actuation HFA aerosol inhaler 1 inh inhalation BID Qty: 10.2 3RF (DME) blood-glucose meter [OneTouch Verio Meter] Misc See Rx Instructions .ROUTE .MEDSUPPLY Rx Instructions: As directed (DME) OneTouch Verio test strips Strip See Rx Instructions .ROUTE .MEDSUPPLY Rx Instructions: Check Glucose 4 times daily (DME) pen needle, diabetic [Ultra-Thin II Ins Pen [place]] 29 gauge x 1/2 needle See Rx Instructions .ROUTE .MEDSUPPLY Rx Instructions: As directed (DME) lancets [OneTouch Delica Lancets] 33 gauge misc See Rx Instructions .ROUTE .MEDSUPPLY Rx Instructions: Check Glucose 4 times daily methocarbamol 750 mg tablet 1,500 mg PO TID 5 Days Qty: 30 0RF albuterol sulfate 2.5 mg/0.5 mL solution for nebulization 2.5 mg inhalation Q6H PRN (Reason: bronchospasm) Qty: 30 0RF doxycycline hyclate 100 mg capsule 100 mg PO BID 7 Days Qty: 14 0RF guaifenesin 600 mg tablet extended release 12hr 600 mg PO BID PRN (Reason: congestion) Qty: 10 0RF benzonatate 100 mg Capsule 200 mg PO TID 10 Days Qty: 30 0RF prednisone 20 mg tablet 40 mg PO DAILY 6 Days Qty: 12 0RF albuterol sulfate 90 mcg/actuation HFA aerosol inhaler 2 puff inhalation Q6H PRN (Reason: shortness of breath or wheezing) Qty: 8.5 3RF ipratropium-albuterol 0.5 mg-3 mg(2.5 mg base)/3 mL solution for nebulization 3 ml inhalation Q4H 7 Days Qty: 90 0RF benzonatate 200 mg capsule 200 mg PO TID PRN (Reason: cough) Qty: 30 0RF Referrals Follow up/Referrals: Shana Carrillo PA [Primary Care Provider, Medical] - See instructions Activity Restrictions/Add. Instructions Additional Instructions/Restrictions: Use your albuterol inhaler every 4 hours, 4 puffs while awake. I have sent you with steroids but be mindful this will increase your glucose therefore check your glucose regularly at home as you may need to increase your short acting insulin for the next 5 days. Take your insulin as prescribed. Take the antibiotic as prescribed. Return to the emergency department for any acute or worsening shortness of breath. Your creatinine or your kidney function was elevated today therefore you need to follow-up with your primary care provider to get repeat blood work done within the last week. Clinical Impressions Clinical Impression: Asthma exacerbation Print Language Print Language: Faroese Discharge ED Provider: Suad Giang General Adult HPI General Chief complaint: Shortness of Breath/Dyspnea Stated complaint: SOA Time Seen by Provider: 04/06/25 16:53 Mode of Arrival: Wheelchair Source of Information: Patient Description of Symptoms (Recalled from ER Triage Doc. by RN): Patient reports having asthma and having increased shortness of breath that started approx 3 days ago. History of Present Illness HPI narrative: Patient is a 49-year-old female who presented to the emergency department with shortness of breath for the last 3 days which worsened today. Patient does have a history of asthma. Patient states that she has been to be doing her breathing treatments at home. Patient states that she has been having a nonproductive cough. Patient denies any other upper respiratory symptoms. Patient does report some shortness of breath but no chest pain. Patient denies any abdominal pain nausea vomiting or diarrhea. Patient states that her sister 2 days ago therefore she has not been taking her diabetic medications as prescribed. Related Data Home Medications ?Medication ?Instructions ?Recorded ?Confirmed blood sugar diagnostic ([employer] 04/10/22 12/18/24 Verio test strips) blood-glucose meter ([employer] 04/10/22 12/18/24 Verio Meter) lancets 33 gauge (OneTouch Delica 04/10/22 12/18/24 Lancets) pen needle, diabetic 29 gauge x 04/10/22 12/18/24 1/2 (Ultra-Thin II Insulin Pen [place]) insulin lispro 100 unit/mL 15 unit SQ TID Diabetes 03/17/23 12/18/24 subcutaneous pen (Humalog KwikPen (U-100) Insulin) tirzepatide 2.5 mg/0.5 mL 2.5 mg SQ WEEKLY 12/18/24 12/18/24 subcutaneous pen injector (Tamar) Previous Rx's ?Medication ?Instructions ?Recorded dapagliflozin propanediol 10 mg 10 mg PO DAILY #30 tabs 03/24/23 tablet (Farxiga) levothyroxine 50 mcg tablet 50 mcg PO DAILY hypothyroid #30 03/24/23 tabs budesonide-formoterol HFA 160 1 inh inhalation BID Breathing 02/22/24 mcg-4.5 mcg/actuation aerosol problems #10.2 grams inhaler (Symbicort) meloxicam 7.5 mg tablet 7.5 mg PO DAILY #14 tabs 02/22/24 methocarbamol 750 mg tablet 1,500 mg (2 x 750 mg) PO TID 5 10/07/24 days #30 tabs albuterol sulfate 2.5 mg/0.5 mL 2.5 mg (0.5 mL) inhalation Q6H PRN 02/09/25 solution for nebulization bronchospasm #30 ea doxycycline hyclate 100 mg capsule 100 mg PO BID 7 days #14 caps 02/09/25 guaifenesin 600 mg tablet, 600 mg PO BID PRN congestion #10 02/09/25 extended release 12 hr tabs albuterol sulfate 90 mcg/actuation 2 puff inhalation Q6H PRN 02/22/25 aerosol inhaler shortness of breath or wheezing #8.5 grams benzonatate 100 mg capsule 200 mg (2 x 100 mg) PO TID 10 days 02/22/25 #30 caps benzonatate 200 mg capsule 200 mg PO TID PRN cough #30 caps 02/22/25 ipratropium 0.5 mg-albuterol 3 mg 3 ml inhalation Q4H wheezing 7 02/22/25 (2.5 mg base)/3 mL nebulization days #90 mL soln prednisone 20 mg tablet 40 mg (2 x 20 mg) PO DAILY 6 days 02/22/25 #12 tabs azithromycin 250 mg tablet 500 mg (2 x 250 mg) PO DAILY 3 04/06/25 days #6 tabs prednisone 20 mg tablet 40 mg (2 x 20 mg) PO DAILY 3 days 04/06/25 #6 tabs Allergies Allergy/AdvReac Type Severity Reaction Status Date / Time levofloxacin (From Levaquin) Allergy Verified 12/18/24 11:43 zolpidem (From Ambien) Allergy Verified 12/18/24 11:43 [facility] Disclaimer: The information contained in this section may have been updated after the patient was seen, as this information can be updated by other users. Medical History (Updated 04/06/25 @ 21:31 by Suad Giang DO) Encounter for routine gynecological examination Hep C w/o coma, chronic Hypothyroidism Asthma PCOS (polycystic ovarian syndrome) Abscess History of gastroesophageal reflux (GERD) Diabetes mellitus, type 2 Hypertension Migraine Hypertension Depression Anxiety Asthma Surgical History History of hip surgery H/O esophagogastroduodenoscopy History of incision and drainage H/O skin graft Family History Father Family history of diabetes mellitus type II Family history of acute congestive heart failure Mother Family history of diabetes mellitus type II Social History Smoking Status: Former smoker smoking status start date: 20 years ago years smoked: 20 smoking status stop date: 3 years ago and recently started back alcohol intake: never substance use type: opiates, IV drugs and other details: hard drugs , non specific, according to patient. current occupational status: unemployed Travel in the last 8 weeks?: None Have you lived/traveled outside [place] in past 30 days?: No Contact w/someone who lives/traveled outside [place] past 30 days?: No Exposure to someone with infectious disease in past 14 days?: No Do you have a fever (greater than 100.4 F or 38 C)?: No Have you tested positive for COVID-19?: No Exposed to someone with COVID-19 in past 14 days?: No Do you have a sore throat?: No Do you have a cough?: No Do you have any weakness?: No Do you have any diarrhea?: No Are you experiencing any unusual bleeding?: No Do you have any muscle aches/pain?: No Do you have any abdominal pain?: No Are you experiencing loss of taste or smell?: No Other Medical History Have you received the Flu Vaccine for this season: No Have you received the Pneumonia Vaccine: No ROS Obtained: Yes All systems reviewed & no additional complaints except as documented and Yes Systems reviewed as appropriate & no additional complaints except as documented Physical Exam General General appearance: alert and in no apparent distress Head Head exam: atraumatic, normocephalic and normal inspection Eye Eye exam: Present normal appearance, PERRL and EOMI; Absent scleral icterus ENT ENT exam: Present normal exam and normal external ear exam Neck Neck exam: Present normal inspection and full ROM Chest Chest inspection: Present normal inspection and symmetric chest wall rise Respiratory Respiratory exam: Present normal lung sounds bilaterally, respiratory distress and wheezes (expiratory wheezing throughout, decreased breath sounds) Cardiovascular Cardiovascular exam: Present regular rate, normal rhythm and normal heart sounds Abdominal Exam Abdominal exam: Present soft and distention; Absent tenderness, guarding or rebound Extremities Exam Extremities exam: Present normal inspection and full ROM Back Exam Back exam: Present normal inspection and full ROM Neurological Exam Neurological exam: Present alert and oriented X3 Psychiatric Psychiatric exam: Present normal affect and normal mood Skin Skin exam: Present warm and dry Medical Decision Making Medical Records Medical records reviewed: Yes I reviewed the patient's medical records. Screening: Per USPSTF and CDC recommendations, given the prevalence of disease in our region, it is our hospital?s policy to screen for HIV and viral Hepatitis for all patients aged 18 and over and those with ongoing risk factors. [place] Inquiry Pt receiving controlled substance: No Vital Signs: 04/06/25 16:54 04/06/25 16:58 04/06/25 17:01 Temperature 98.4 F Temperature Source Oral Pulse Rate 122 H Pulse Rate [Radial] 125 H Respiratory Rate 24 Blood Pressure 206/117 H 144/74 H Blood Pressure [Right Arm] 206/117 H Blood Pressure Mean [Right Arm] 146 Blood Pressure Source [Right Arm] Automatic Cuff Blood Pressure Position [Right Arm] Sitting 02 Sat by Pulse Oximetry 94 L 98 96 Oxygen Delivery Method Room Air 04/06/25 17:30 04/06/25 18:00 04/06/25 19:00 Temperature Temperature Source Pulse Rate 122 H 112 H 116 H Pulse Rate [Radial] Respiratory Rate Blood Pressure Blood Pressure [Right Arm] Blood Pressure Mean [Right Arm] Blood Pressure Source [Right Arm] Blood Pressure Position [Right Arm] 02 Sat by Pulse Oximetry 97 99 96 Oxygen Delivery Method 04/06/25 21:09 Temperature 98.4 F Temperature Source Pulse Rate 108 H Pulse Rate [Radial] Respiratory Rate 20 Blood Pressure 167/90 H Blood Pressure [Right Arm] Blood Pressure Mean [Right Arm] Blood Pressure Source [Right Arm] Blood Pressure Position [Right Arm] 02 Sat by Pulse Oximetry Oxygen Delivery Method Room Air Lab Data Lab results reviewed: Yes I reviewed the patient's lab results. Lab Results 04/06/25 17:30: WBC 16.2 H, RBC 4.43, Hgb 12.8, Hct 37.4, MCV 84.4, MCH 28.9, MCHC 34.2, RDW 12.2, Plt Count 324, MPV 10.9 H, Neut % (Auto) 65.8, Lymph % (Auto) 20.3, [place] % (Auto) 5.6, Eos % (Auto) 6.4, Baso % (Auto) 0.7, Neut # (Auto) 10.6 H, Lymph # (Auto) 3.3, [place] # (Auto) 0.9, Eos # (Auto) 1.0 H, Baso # (Auto) 0.1, D-Dimer 0.64 H, VBG pH 7.32, VBG pCO2 34.9 L, VBG pO2 61.6 H, VBG HCO3 17.7 L, VBG Total CO2 18.7 L, VBG O2 Saturation 92.1 H, VBG Base Excess -8.4 L, VBG Lactic Acid 2.7 H, Sodium 130 L, Potassium 3.6, Chloride 99, Carbon Dioxide 17 L, Anion Gap 17.6 H, BUN 26 H, Creatinine 1.50 H, Estimated Creat Clear 87, Estimated GFR 37 L, Est GFR ( Amer) 45 L, Glucose 491 H*, Calcium 8.9, Magnesium 1.7, Total Bilirubin 0.6, AST 53 H, ALT 89 H, Alkaline Phosphatase 165 H, Troponin I < 0.01, Total Protein 7.5, Albumin 4.2, Globulin 3.3 H, Albumin/Globulin Ratio 1.3, Serum HCG, Qual Negative 04/06/25 20:15: Troponin I < 0.01 04/06/25 17:30 04/06/25 17:30 Orders (Tests/Meds): ED MEDICATIONS Discontinued Medications Generic Name Dose Route Start Last Admin Trade Name Freq PRN Reason Stop Dose Admin Albuterol Sulfate 20 mg 04/06/25 19:09 04/06/25 19:39 Albuterol 0.083% 2.5 Mg/3 Ml [facility] 04/06/25 19:10 20 mg ONCE ONE Administration Albuterol Sulfate 2 puff 04/06/25 21:32 04/06/25 21:59 Albuterol-Hfa 90mcg/Puff Inhaler 8gm 04/06/25 21:33 2 puff ONCE ONE Administration Albuterol/Ipratropium 9 ml 04/06/25 17:05 04/06/25 17:50 Ipratropium/Albuterol 3 Ml [facility] 04/06/25 17:06 9 ml ONCE ONE Administration Azithromycin 500 mg 04/06/25 21:05 04/06/25 21:29 Azithromycin 250mg Tablet PO 04/06/25 21:06 500 mg ONCE ONE Administration Sodium Chloride 1,000 mls @ 999 mls/hr 04/06/25 17:05 04/06/25 21:09 Sod Chlor 0.9% 1000ml Bag IV 04/06/25 18:05 Infused .Q1H1M ONE Infusion Magnesium Sulfate 2 gm in 50 mls @ 100 mls/hr 04/06/25 17:05 04/06/25 21:09 Magnesium Sulfate 2gm/50ml Premix IV 04/06/25 17:34 Infused ONCE ONE Infusion Sodium Chloride 1,000 mls @ 999 mls/hr 04/06/25 18:12 04/06/25 21:08 Sod Chlor 0.9% 1000ml Bag IV 04/06/25 19:12 Infused .Q1H1M ONE Infusion Insulin Glargine 25 unit 04/06/25 19:14 04/06/25 19:48 Insulin Glargine 100 Units/Ml 3ml Flexpen SUBCUT 04/06/25 19:15 25 units ONCE ONE Administration Iopamidol 70 ml 04/06/25 18:36 04/06/25 18:44 Iopamidol-370 (76%);100ml Bottle IV 04/06/25 18:37 70 ml ONCE ONE Administration Methylprednisolone Sodium Succinate 125 mg 04/06/25 17:05 04/06/25 17:50 Methylprednisolone Sod Succ 125mg Vial IV 04/06/25 17:06 125 mg ONCE ONE Administration Miscellaneous 1 unit 04/06/25 21:31 04/06/25 21:59 Aerochamber/Optihaler MC 04/06/25 21:32 1 unit ONCE ONE Administration Sodium Chloride 50 ml 04/06/25 18:36 04/06/25 18:44 0.9 % Sodium Chloride 50 Ml Vial IV 04/06/25 18:37 50 ml ONCE ONE Administration Sodium Chloride 10 ml 04/06/25 18:36 04/06/25 18:44 Sodium Chloride 0.9% 10ml Syr (Rad Only) IV 05/06/25 18:35 10 ml NEEDED PRN Administration Maintain IV Site ORDERS Category Date Time Status CT angio chest PE protocol Stat Cat Scan 04/06/25 18:11 Completed CXR --portable [XR chest portable] Stat Exams 04/06/25 17:46 Completed CBC w/Auto Diff [Complete Blood Count Auto Diff] Stat Lab 04/06/25 17:30 Completed CMP [Comprehensive Metabolic Panel] Stat Lab 04/06/25 17:30 Completed D-Dimer Stat Lab 04/06/25 17:30 Completed HCG Qualitative, Serum Stat Lab 04/06/25 17:30 Completed MAG [Magnesium] Stat Lab 04/06/25 17:30 Completed POC Glucose,Bedside Stat Lab 04/06/25 19:14 Ordered Trop I [Troponin I] Stat Lab 04/06/25 17:30 Completed Troponin I Q3H Lab 04/06/25 20:15 Completed VBG [Venous Blood Gas] Stat RT 04/06/25 17:30 Completed Medical Decision Narrative: Patient is a 49-year-old female who presented to the emergency department with shortness of breath for the last 3 days. On arrival, patient was tachycardic but otherwise hemodynamically stable. Differential includes but not limited to: COPD, asthma exacerbation, pneumonia, pulmonary embolism, viral syndrome, ACS, amongst others. Patient had significant decreased breath sounds with wheezing throughout. Patient had audible wheezing. Patient's labs were reviewed and interpreted by myself: CBC had a leukocytosis of 16, D-dimer was elevated at 0.64, VBG with no acidosis, mildly elevated lactate at 2.7. CMP was unremarkable except for elevated glucose of 491. Initial troponin less than 0.01, second troponin less than 0.01. This x-ray was reviewed and interpreted by myself and showed no acute for consolidation, pneumothorax, pleural effusion or other acute cardiopulmonary process. Patient's elevated D-dimer, CT scan was obtained. CT scan showed no acute pulmonary embolism. Patient was given multiple medications here in the emergency department but ultimately, patient felt significantly improved. I offered patient admission for Q4 albuterol, patient wished to discharge home given that she needs to arrange arrangements for her sister. Although patient is a diabetic she had not taken her insulin today patient was given her insulin here in the emergency department. Patient was sent with azithromycin and steroids. I did discuss that steroids will increase patient's blood sugar and she needs to watch her blood sugar closely. Patient was also given a new albuterol inhaler and patient was otherwise discharged home in stable condition for her asthma exacerbation Critical Care Critical Care Time Critical Care Time: No
== END 2025-04-06 22:11 | disposition home or self-care (01) ==
PROVIDERS: Emergency Provider Student in an Organized Health Care Education/Training Program; PCP Physician Assistant
DX: J45.901 Unspecified asthma with (acute) exacerbation (principal); R74.02 Elevation of levels of lactic acid dehydrogenase [LDH]; E87.1 Hypo-osmolality and hyponatremia; E11.65 Type 2 diabetes mellitus with hyperglycemia; I10 Essential (primary) hypertension; Z87.891 Personal history of nicotine dependence; Z79.4 Long term (current) use of insulin
CPT/HCPCS: 71045; 71275; 80053; 82803; 83735; 84484; 84703; 85025; 85378; 93005; 96361; 96365; 96375; 99285; J2919; J3475; J7030; Q9967